=== PATIENT | female | born 1955 | race Caucasian/White ===

== ENCOUNTER → 2019-06-12 11:10 | Outpatient (BNVA) | payer MEDICARE, MEDICAID, SELFPAY | PROVIDERS: Family Provider Family Medicine; PCP Family Medicine; Visit Provider Family Medicine | DX: R31.0 Gross hematuria (principal) | CPT/HCPCS: 81003; 87086 ==

== ENCOUNTER 2019-06-21 11:17 | Outpatient (CLI) | payer MEDICARE, MEDICAID, SELFPAY ==
--- NOTE | 2019-06-21 15:45 | XR_ITS ---
WS: [id number] Bone mineral density performed on a [employer], 06/21/2019 Clinical data: DEXA Findings: The distal left radius and ulna demonstrated the bone mineral density of 0.914 g/cm2 for a young mirella lt T score of 0.4. Measurement of the left hip reveals a bone mineral density of 0.998 g/cm2 with a young adult T score of -0.1. Measurement of the right hip reveals the bone mineral density of 0.851 g/cm2 for young adult T score of -1.2. XR/XR DEXA axial skeleton* 88710 Impression: 1. Normal bone mineral density of the right forearm and left hip. 2. Osteopenia of the right hip.
== END 2019-06-21 11:18 | disposition home or self-care (01) ==
LOC: RADWPI 11:22
PROVIDERS: Family Provider Family Medicine; PCP Family Medicine; Visit Provider Family Medicine
DX: Z78.0 Asymptomatic menopausal state (principal); M85.88 Other specified disorders of bone density and structure, other site
CPT/HCPCS: 77080

== ENCOUNTER → 2019-07-01 08:24 | Outpatient (BNVA) | payer MEDICARE, MEDICAID, SELFPAY | PROVIDERS: Family Provider Family Medicine; PCP Family Medicine; Visit Provider Family Medicine | DX: I10 Essential (primary) hypertension (principal); E11.9 Type 2 diabetes mellitus without complications; F32.9 Major depressive disorder, single episode, unspecified; M54.42 Lumbago with sciatica, left side; M54.41 Lumbago with sciatica, right side; G89.29 Other chronic pain | CPT/HCPCS: 80053; 80061; 83036; 85025 ==

== ENCOUNTER 2019-07-23 11:50 | Emergency (ER) | payer MEDICARE, OTHER, MEDICAID, SELFPAY ==
[2019-07-23 12:04] VITALS: BP 173/81; PULSE 100; RESP 18; TEMP 36.9; O2SAT 91; BMI 56.6
--- NOTE | 2019-07-23 12:17 | CT_ITS ---
WS: [id number] CT ABDOMEN AND PELVIS NONCONTRAST HISTORY: R back/groin pain TECHNIQUE: Imaging performed through the abdomen and pelvis. Coronal and sagittal reformats are submi tted. All CT scans at [facility] use at least one of these dose optimization techniques: automated exposure control; mA and/or kV adjustment per patient size (includes targeted exams where d ose is matched to clinical indication); or iterative reconstruction. DLP: 1866.02 mGy.cm COMPARISON: None available. Lower thorax: Linear atelectasis at the lung bases. No pneumonia. Liver: Normal size liver. Mild hepatic steatosis. No bile duct dilatation. Gallbladder: Prior cholecystectomy. Pancreas: Normal. Spleen: Normal. Adrenal glands: Normal. Right kidney: Mild enlargement with mild perinephric stranding and edema. There is moderate dilatatio n of the RIGHT renal pelvis. Proximal RIGHT ureteral calcification is rounded measuring 11 mm causing the obstruction. Ureter distal to this calcification is normal. There is an additional nonobstructin g 5 mm calcification in the lower pole. Left kidney: Normal size kidney with 2 nonobstructing calcifications. Largest measures 5 mm. Mild atherosclerosis with no aneurysm. No free fluid, intraperitoneal air or significant lymphadenopathy. GI tract: The appendix is not definitely identified. There is no evidence for appendicitis. Mild cons tipation. No significant diverticular disease. Abdominal wall: Postsurgical changes along the ventral abdominal wall and pelvis. Pelvis: Nondistended urinary bladder. Uterus and ovaries are atrophic as expected. No pelvic mass or fluid. No adenopathy. Osseous structures: Degenerative changes in the facet joints throughout the lumbar spine. No fracture . CT/CT kidney stone 73883 IMPRESSION: 1. Moderate RIGHT hydronephrosis secondary to a rounded 11 mm calcification in the proximal RIGHT ureter. 2. Additional bilateral nephrolithiasis, nonobstructing. 3. Prior cholecystectomy. 4. Mild hepatic steatosis.
--- NOTE | 2019-07-23 12:18 | ED_ITS ---
HPI - Female Genitourinary General: Chief complaint: Urogenital-Female Stated complaint: BACK AND GROIN PAIN Time Seen by Provider: 07/23/19 12:08 Source: patient Mode of arrival: ambulatory Limitations: no limitations History of Present Illness: HPI Narrative: Patient is a 63-year-old female who presents to ED today with fairly sudden onset of right-sided back pain wrapping around into her abdomen and groin that began early this morning after waking her up from sleep. Patient states she is having trouble starting a urine stream but denies dysuria, odor, or hematuria. She is not having fevers. She does state her pain is making her nauseous but has not experienced any vomiting. Reports bowel movements have been normal. She denies history of kidney stones. MD elicited complaint: difficulty urinating and other (suspected kidney stone) Location of symptoms: RLQ, low back and other (R groin) Quality of pain: sharp Consistency: constant Vaginal discharge: none Vaginal bleeding: none Urinary symptoms: Difficulty Urinating Associated symptoms: Reports abdominal pain and nausea; Deny headache(s) Review of Systems Const: Denies: fever, chills, body aches, fatigue or malaise Card: Denies: chest pain Resp: Denies: shortness of breath GI: Reports: abdominal pain and nausea; Denies: vomiting, vomiting blood, difficulty swallowing, heartburn/indigestion, diarrhea, change in bowel habits, painful bowel movements, change in stool character, blood in stool, black tarry stool or white/light colored stool : Reports: flank pain, difficulty urinating and urinary hesitancy; Denies: painful urination, urinary frequency or urinary urgency Musc: Reports: back pain; Denies: neck pain Neuro: Denies: headache, numbness in extremities, weakness in extremities or changes in sensation PFS ED PFSH: Medical History (Updated 07/23/19 @ 13:57 by HANNA Hull) Acute depression Chronic low back pain 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 Controlled type 2 diabetes mellitus, without long-term current use of insulin Enrolled in chronic care management HTN (hypertension) Hypertriglyceridemia Obstructive sleep apnea Other hammer toe(s) (acquired), left foot Panic attack PTTD (posterior tibial tendon dysfunction) Statin intolerance Surgical History H/O amputation of lesser toe History of 2 sections History of laparoscopic cholecystectomy History of tonsillectomy Status post right foot surgery Social History Smoking and tobacco status: former smoker Second hand smoke exposure: No Alcohol intake: never Lives independently: Yes Marital status: Current occupational status: disabled Female Reproductive History: Para: 2 Spontaneous abortions: No Date of menopause: 10/06/04 Physical Exam Const: COMMON NORMALS: no apparent distress, oriented x3, no limitations and alert NUTRITIONAL APPEARANCE: obese morbidly obese Resp: COMMON NORMALS: normal respiratory effort and clear to auscultation bilaterally AUSCULTATION: clear to auscultation bilaterally Cardio: COMMON NORMALS: regular rate and regular rhythm RATE: regular rate RHYTHM: regular rhythm GI: COMMON NORMALS: normal to inspection, nondistended, normoactive bowel sounds, soft to palpation, no hepatosplenomegaly and no masses PALPATION: Yes soft, Yes tender (mild pain wrapping around from R lower back into lower abdomen/groin) and Yes no hepatosplenomegaly : OTHER: pain just below R CVA Back/Pelvis: COMMON NORMALS: thoracic and lumbar spine normal to inspection, no thoracic nor lumbar tenderness and thoraco-lumbar ROM normal Extremity: COMMON NORMALS: normal to inspection Neuro: COMMON NORMALS: oriented x3 SENSORIUM/ORIENTATION: Yes alert Skin: COMMON NORMALS: no rashes or lesions noted GENERAL SKIN EXAM: no rashes or lesions noted Course Consultations: Consultation #1: Dr. Finch-will see in office this week for re-evaluation Vital Signs: Vital signs: Vital Signs Temperature 98.5 F 07/23/19 12:04 Pulse Rate 78 07/23/19 14:08 Respiratory Rate 17 07/23/19 14:08 Blood Pressure 169/86 07/23/19 14:08 Pulse Oximetry 94 07/23/19 14:08 MDM - Female MDM Narrative: Medical decision making narrative: Patient's vital signs look good. She is not febrile or tachycardic. Her urine is not infected. Her pain was well controlled here after pain medications. Patient tells me she feels comfortable going home and treating the pain. Due to the size of the stone I did speak to Dr. Finch who felt it was appropriate to at least try to allow the stone to pass. He did request close follow-up with her and will see her in the office this week for reevaluation. Strict return to ED precautions given. We will have her strain her urine just in case she passes the stone. Lab Data: Labs: Lab Results 07/23/19 07/23/19 07/23/19 Range/Units 12:26 12:26 13:02 WBC 10.2 H (4.0-10.0) 10^3/ uL RBC 4.61 (4.1-5.3) 10^6/u L Hgb 12.8 (11.5-15.3) g/dL Hct 41.9 (37.0-47.0) % MCV 90.9 (81-99) fL MCH 27.8 L (28.0-34.0) pg MCHC 30.5 (30.0-36.0) g/dL RDW 15.5 H (12.1-15.1) % Plt Count 218 (130-400) 10^3/c mm MPV 9.9 (7.4-10.4) fL Neut % (Auto) 78.5 % Lymph % (Auto) 12.1 % Kimball % (Auto) 7.2 % Eos % (Auto) 1.2 % Baso % (Auto) 0.3 % Neut # (Auto) 8.0 H (1.8-7.7) 10^3/u L Lymph # (Auto) 1.2 (0.8-4.8) 10^3/u L Kimball # (Auto) 0.7 (0.2-0.9) 10^3/u L Eos # (Auto) 0.1 (0.0-0.8) 10^3/u L Baso # (Auto) 0.0 (0.0-0.1) 10^3/u L Nucleated RBC % (a uto) 0 % Nucleated RBCs # 0.0 /100WBC Sodium 137 (136-145) mmol/L Potassium 4.7 (3.5-5.1) mmol/L Chloride 100 (98-107) mmol/L Carbon Dioxide 22 (22-29) mmol/L Anion Gap 19.7 H (5-19) BUN 18 (8-23) mg/dL Creatinine 1.0 H (0.5-0.9) mg/dL GFR Calculation 55.6 L (90-130) mL/min Glucose 222 H (65-115) mg/dL Calculated Osmolal ity 287 (285-295) mOsm/k g Calcium 9.4 (8.5-10.5) mg/dL Total Bilirubin 0.3 (0.15-1.2) mg/dL AST 16 (0-32) U/L ALT 13 (0-33) U/L Alkaline Phosphata se 63 (35-105) IU/L Total Protein 7.0 (6.6-8.7) g/dL Albumin 4.0 (3.5-5.2) g/dL Globulin 3.0 (1.3-4.6) g/dL Urine Color Yellow (Yellow) Urine Appearance Sl hazy (CLEAR) Urine pH 5 (5-7) Ur Specific Gravit y 1.020 (1.005-1.030) Urine Protein Neg (Negative) Urine Glucose (UA) Norm (Normal) Urine Ketones 1+ H (Negative) Urine Blood 3+ H (Negative) Urine Nitrate Negative (Negative) Urine Bilirubin Neg (NEGATIVE) Urine Urobilinogen Norm (Negative) mg/dL Ur Leukocyte Bárbara ase Negative (Negative) Urine RBC 25-40 H (0-2) /hpf Urine WBC 5-10 H (0-5) /hpf Ur Squamous Epith Cells 55-80 H (0-5) Urine Bacteria 2+ H (NONE) Imaging Data: CT Abd/Pel: Radiologist's impression: [facility] [place] [address] [place] Scan Report Signed Patient: Christo Justin Unit #: [id number] : [id number] Age/Sex: 63 / F ADM Date: 07/23/19 Loc: ER Room/Bed: Attending Dr: Ordering Provider/Ordering MD: Sabrina Mills Date of Service: 07/23/19 Procedure(s): CT kidney stone 94627 Accession Number(s): [id number] Report Number: [id number] WS: [id number] CT ABDOMEN AND PELVIS NONCONTRAST HISTORY: R back/groin pain TECHNIQUE: Imaging performed through the abdomen and pelvis. Coronal and sagittal reformats are submitted. All CT scans at [facility] use at least one of these dose optimization techniques: automated exposure control; mA and/or kV adjustment per patient size (includes targeted exams where dose is matched to clinical indication); or iterative reconstruction. DLP: 1866.02 mGy.cm COMPARISON: None available. Lower thorax: Linear atelectasis at the lung bases. No pneumonia. Liver: Normal size liver. Mild hepatic steatosis. No bile duct dilatation. Gallbladder: Prior cholecystectomy. Pancreas: Normal. Spleen: Normal. Adrenal glands: Normal. Right kidney: Mild enlargement with mild perinephric stranding and edema. There is moderate dilatation of the RIGHT renal pelvis. Proximal RIGHT ureteral calcification is rounded measuring 11 mm causing the obstruction. Ureter distal to this calcification is normal. There is an additional nonobstructing 5 mm calcification in the lower pole. Left kidney: Normal size kidney with 2 nonobstructing calcifications. Largest measures 5 mm. Mild atherosclerosis with no aneurysm. No free fluid, intraperitoneal air or significant lymphadenopathy. GI tract: The appendix is not definitely identified. There is no evidence for appendicitis. Mild constipation. No significant diverticular disease. Abdominal wall: Postsurgical changes along the ventral abdominal wall and pelvis. Pelvis: Nondistended urinary bladder. Uterus and ovaries are atrophic as expected. No pelvic mass or fluid. No adenopathy. Osseous structures: Degenerative changes in the facet joints throughout the lumbar spine. No fracture. CT/CT kidney stone [id number] IMPRESSION: 1. Moderate RIGHT hydronephrosis secondary to a rounded 11 mm calcification in the proximal RIGHT ureter. 2. Additional bilateral nephrolithiasis, nonobstructing. 3. Prior cholecystectomy. 4. Mild hepatic steatosis. Dictated By: Kalpana Prieto DO Signed By: Kalpana Prieto DO Signed Date/Time: 07/23/19 1249 DD/ 1243 Discharge Plan Discharge Patient Disposition: Home, Self-Care Clinical Impression: Right ureteral stone Condition: Stable Prescriptions: New Zofran 4 mg tablet 4 mg PO Q6H PRN (Reason: nausea and vomiting) Qty: 14 RF: 0 Flomax 0.4 mg capsule 0.4 mg PO DAILY Qty: 20 RF: 0 No Action lisinopril 10 mg tablet 10 mg PO DAILY Qty: 90 RF: 1 glipizide 10 mg tablet 10 mg PO DAILY Qty: 90 RF: 1 metformin 500 mg tablet 1,000 mg PO BID Qty: 360 RF: 1 duloxetine [Cymbalta] 60 mg capsule,delayed release(DR/EC) 60 mg PO DAILY Qty: 90 RF: 1 meloxicam 15 mg tablet 15 mg PO DAILY Qty: 90 RF: 1 omega-3 fatty acids [Fish Oil Concentrate] 1,000 mg capsule 1,000 mg PO DAILY RF: 0 ezetimibe [Zetia] 10 mg tablet 10 mg PO DAILY Qty: 90 RF: 1 Multiple Vitamins Tablet 1 tab PO DAILY RF: 0 Zyrtec 10 mg Tablet 10 mg PO DAILY RF: 0 hydrocodone-acetaminophen 7.5-325 mg tablet 1 tab PO QID PRN (Reason: Pain) RF: 0 Fosamax 70 mg tablet 70 mg PO Q7D RF: 0 Trulicity 0.75 mg/0.5 mL pen injector 0.75 mg SUBCUT Q7D RF: 0 Discharge Orders: Discharge Order (Routine); Ordered 07/23/19 Ordered By: Sabrina Mills Referrals: Kasia Jiang DO [Primary Care Provider] - Discharge Diet: Usual diet Discharge Activity: Increase activity as tolerated Patient Instructions: Kidney Stones (ED) Activity Restrictions/Additional Instructions: 1) You may continue taking your hydrocodone every 4 hours for pain. Because you are under a pain management contract I am not allowed to write you for additional pain medications 2) I have written you for nausea medications you can use as needed. 3) Dr. Finch will see you in his office this week for reevaluation 4) Strain your urine continuously just in case you pass the stone-you may bring the stone with you to Dr. Finch's appointment 5) Return to the emergency department for worsening uncontrollable pain, fevers, repetitive vomiting, or any other concerns you may have. 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
[2019-07-23 12:33] LABS: Basophils % 0.3 %; Eosinophils # 0.1 10^3/uL (0.0-0.8); Eosinophils % 1.2 %; Hematocrit 41.9 % (37.0-47.0); Hemoglobin 12.8 g/dL (11.5-15.3); Lymphocytes # 1.2 10^3/uL (0.8-4.8); Lymphocytes % 12.1 %; Mean Corpuscular HGB Conc 30.5 g/dL (30.0-36.0); Mean Corpuscular Hemoglobin 27.8 pg (28.0-34.0); Mean Corpuscular Volume 90.9 fL (81-99); Mean Platelet Volume 9.9 fL (7.4-10.4); Monocytes # 0.7 10^3/uL (0.2-0.9); Monocytes % 7.2 %; Neutrophils % 78.5 %; Nucleated Red Blood Cells % 0 %; Platelet Count 218 10^3/cmm (130-400); Red Blood Count 4.61 10^6/uL (4.1-5.3); Red Cell Distribution Width 15.5 % (12.1-15.1); White Blood Count 10.2 10^3/uL (4.0-10.0)
[2019-07-23 12:47] LABS: Alanine Aminotransferase 13 U/L (0-33); Alkaline Phosphatase 63 IU/L (35-105); Anion Gap 19.7 (5-19); Aspartate Amino Transferase 16 U/L (0-32); Blood Urea Nitrogen 18 mg/dL (8-23); Calcium 9.4 mg/dL (8.5-10.5); Carbon Dioxide 22 mmol/L (22-29); Chloride 100 mmol/L (98-107); Creatinine Clr Calc Pharmacy 82.0728; Glomerular Filtration Rate 55.6 mL/min (90-130); Glucose 222 mg/dL (65-115); Osmolality Calculated 287 mOsm/kg (285-295); Potassium 4.7 mmol/L (3.5-5.1); Sodium 137 mmol/L (136-145); Total Bilirubin 0.3 mg/dL (0.15-1.2)
[2019-07-23] MEDS: ketorolac 60 mg/2 mL INJ 30 MG IVP (12:53)
[2019-07-23] MEDS: ondansetron 2 mg/ML SDV 2 mL 4 MG IVP (12:53)
[2019-07-23] MEDS: sodium chloride 0.9% 1,000 ML 999 ML IV (12:54)
[2019-07-23 12:55] VITALS: RESP 18; O2SAT 93
[2019-07-23] MEDS: morphine 4 mg/mL SDV 1 mL IVP (12:55)
[2019-07-23 13:30] LABS: Urine Appearance SL Hazy (CLEAR); Urine Color Yellow (Yellow)
[2019-07-23 13:31] LABS: Add Urine Microscopic? YES; Bilirubin Urine Neg (NEGATIVE); Blood Urine 3+ (Negative); Glucose Urine UA Norm (Normal); Ketones Urine 1+ (Negative); Leukocyte Esterase Urine Negative (Negative); Nitrate Urine Negative (Negative); Protein Urine Neg (Negative); Urobilinogen Urine Norm (Negative); pH Urine 5 (5-7)
[2019-07-23 14:04] LABS: RBC Urine 25-40 /hpf (0-2)
[2019-07-23 14:05] LABS: Bacteria Urine 2+; Squamous Epithelial Cell Urine 55-80 (0-5)
[2019-07-23 14:06] LABS: Add Urine Culture? No
[2019-07-23 14:08] VITALS: BP 169/86; PULSE 78; RESP 17; O2SAT 94
--- NOTE | 2019-07-24 12:30 | DCPLANNER ---
assistant spa manager had message to schedule a follow up appointment for patient with Dr. Finch. assistant spa manager called the office of Dr. Finch, spoke with Angelina. assistant spa manager was told that patients information would be printed and given to Ursula for review. Clinic will call patient with appointment information. assistant spa manager will call for appointment information.
--- NOTE | 2019-07-25 13:04 | DCPLANNER ---
Patient had a follow up appointment scheduled for 07.25.[address] Finch. Patient did attend the appointment.
== END 2019-07-23 14:09 | disposition home or self-care (01) ==
PROVIDERS: Emergency Provider Physician Assistant; Family Provider Family Medicine; PCP Family Medicine
DX: N20.0 Calculus of kidney (principal)
CPT/HCPCS: 12345; 36415; 74176; 80053; 81001; 85025; 96361; 96374; 96375; 99282; 99283; J1885; J2270; J2405; J7030

== ENCOUNTER 2019-07-25 09:24 | Outpatient (CLI) | payer MEDICARE, MEDICAID, SELFPAY ==
--- NOTE | 2019-07-25 10:30 | XR_ITS ---
WS: [id number] ABDOMEN KUB CLINICAL INFORMATION: Renal/ureteral calculi. COMPARISON: CT July 23, 2019 FINDINGS: Again seen is the large right proximal ureteral 11 mm calculus. This does not appear significantly ch anged since the prior CT considering differences in technique. No other visualized renal or ureteral calculi. Degenerative arthritis lumbar spine and left greater than right hips. XR/XR KUB 80692 Impression: 1. Again seen is a larger approximately ureteral calculus measuring 11 mm. Thi s does not appear significantly changed since the prior CT 2. No other visualized calculi
== END 2019-07-25 09:25 | disposition home or self-care (01) ==
LOC: RAD 09:27 → RADWPI 09:39
PROVIDERS: Family Provider Family Medicine; PCP Family Medicine; Visit Provider Urology
DX: N20.1 Calculus of ureter (principal)
CPT/HCPCS: 74018; 81001

== ENCOUNTER 2019-07-31 10:16 | Outpatient (CLI) | payer MEDICARE, MEDICAID, SELFPAY ==
--- NOTE | 2019-07-31 10:22 | XR_ITS ---
WS: [id number] ABDOMEN: SUPINE FILM HISTORY: RIGHT URETERAL STONE COMPARISON: 07/23/2019 Prior cholecystectomy. Advanced degenerative changes in the lower lumbar spine. Right kidney: Well-rounded 11 mm calcification just above the RIGHT iliac crest. Corresponds to the c alcification described in the RIGHT ureter on prior studies. No inferior migration of the stone. Left kidney: No renal or ureteral stone identified. XR/XR KUB 09290 IMPRESSION: Unchanged position of the 11 mm calcification in the RIGHT ureter.
== END 2019-07-31 10:17 | disposition home or self-care (01) ==
LOC: RAD 10:18 → RADWPI 10:20
PROVIDERS: Family Provider Family Medicine; PCP Family Medicine; Visit Provider Urology
DX: N20.1 Calculus of ureter (principal)
CPT/HCPCS: 74018; 81001

== ENCOUNTER 2019-08-08 08:03 | Outpatient (CLI) | payer MEDICARE, MEDICAID, SELFPAY ==
--- NOTE | 2019-08-08 08:00 | XR_ITS ---
WS: [id number] ABDOMEN KUB CLINICAL INFORMATION: Renal/ureteral calculi. COMPARISON: July 31, 2019 FINDINGS: 11 millimeter right ureteral calcification is unchanged. This is projected just above the iliac crest . Cholecystectomy clips. XR/XR KUB 48022 Impression: 11 mm right ureteral calculus unchanged
== END 2019-08-08 08:04 | disposition home or self-care (01) ==
LOC: RADWPI 08:06
PROVIDERS: Family Provider Family Medicine; PCP Family Medicine; Visit Provider Nurse Practitioner Family
DX: N20.1 Calculus of ureter (principal)
CPT/HCPCS: 74018; 81001

== ENCOUNTER 2019-08-13 05:56 | Day surgery (SDC) | payer MEDICARE, MEDICAID, SELFPAY ==
[2019-08-12 15:49] VITALS: BMI 56.6
[2019-08-13] VITALS (9 sets, daily range): BP systolic 143–175; BP diastolic 84–111; PULSE 78–88; RESP 16–19; TEMP 36.1–36.8; O2SAT 87–95
--- NOTE | 2019-08-13 | SCC_ITS ---
Procedure Done: 1. Cystoscopy, right retrograde ureteropyelogram 2. Right ureterorenoscopy, laser lithotripsy, stent 82.6 seconds of fluoroscopic guidance, for a cumulative dose of 75.73 mGy, was provided to Dr. Finch by the radiology department. C-arm images of the abdomen were saved for the patient's permanent record. [facility]
--- NOTE | 2019-08-13 05:50 | SC_ITS ---
WS: [id number] INTRAOPERATIVE TECHNIQUE: 4 Spot fluoroscopic images for intraoperative purposes. FLUOROSCOPY TIME: 82.6 seconds CLINICAL INFORMATION: Refractory right proximal ureteral stone, planned ureteroscopy/laser COMPARISON: None. FINDINGS: Deployed right double-J ureteral stent SC/C-arm FL for Urology IMPRESSION: Images obtained for intraoperative purposes.
--- NOTE | 2019-08-13 06:30 | ANES.PREANE2 ---
Pre-Anesthetic Assessment Pre-Anesthetic Assessment: Height/Weight: Height 1.63 m Weight 149.685 kg Temp Pulse Resp BP Pulse Ox 98.3 F 83 18 164/87 91 08/13/19 06:09 08/13/19 06:09 08/13/19 06:09 08/13/19 06:09 08/13/19 06:09 Preop Diagnosis: Refractory right proximal ureteral stone with obstruction Proposed Procedure: Operation Date: 08/13/19 07:00 Proposed Procedures p Cystoscopy 72227 20245 N13.30(Right) - MD [facility] Retrograde Pyelogram(Right) - MD [facility] Flexible Ureteroscopy(Right) - MD [facility] Laser Lithotripsy(Right) - MD [facility] Ureteral Stent Placement(Right) - Sumeet Finch MD Last intake: Intake Last Liquid Date 08/13/19 Last Liquid Time 05:30 Last Solid Date 08/12/19 Last Solid Time 16:30 Social: Social History: Tobacco (remote) and No alcohol Exam: Pre-Anes Outpt Exam: alert, oriented x 3, clear to auscultation bilaterally and regular rate & rhythm Airway: Submandibular: WNL Cervical ROM: WNL MP: 3 Dentition: False (upper and lower) History/ROS: No significant history except as noted Pulmonary: Pulmonary: VERONICA and Sleep apnea Comments: O2 sat runs in the low 90s to high 80s CV/HEM: CV/HEM: None reported : Comments: stones Hepatic: Hepatic: None reported GI: GI: None reported Metabolic: Metabolic: DM, Hyperlipidemia and Morbid obesity Musc/skel: Musc/skel: Lower Back Pain and OA/DJD Neuropsych: Neuropsych: Anxiety and Depression Anesthetic Plan: ASA status: 3 Anesthesia: Anesthesia Evaluation and General Risk of > 500 ml blood loss (7ml/kg in children): No PFSH Anesthesia PFSH: Social History Smoking and tobacco status: former smoker Second hand smoke exposure: No Alcohol intake: never Lives independently: Yes Marital status: Current occupational status: disabled History of recent travel: No Female Reproductive History: Para: 2 Spontaneous abortions: No Date of menopause: 10/06/04 Data Anesthesia Cardiac Studies: No Data to Display
[2019-08-13 06:33] LABS: Glucose Point of Care 211 mg/dL (70-110)
[2019-08-13] MEDS: sodium chloride 0.9% 1,000 ML 30 ML IV (06:38)
--- NOTE | 2019-08-13 06:55 | W.PM.OPSUD ---
Surgery/Procedure H&P Update DATE OF PROCEDURE: August 13, 2019 DATE H&P PERFORMED: 08/08/19 H&P UPDATE INFORMATION: I have reviewed H&P completed within last 30 days, I have examined patient prior to procedure and No changes to prior documentation PREOP DIAGNOSIS: Refractory right proximal ureteral stone with obstruction PLANNED PROCEDURE: Operation Date: 08/13/19 07:00 Proposed Procedures p Cystoscopy 14891 86862 N13.30(Right) - Sumeet Finch MD s Retrograde Pyelogram(Right) - Sumeet Finch MD s Flexible Ureteroscopy(Right) - MD [facility] Laser Lithotripsy(Right) - MD [facility] Ureteral Stent Placement(Right) - Sumeet Finch MD
--- NOTE | 2019-08-13 06:56 | PM.OP ---
Operative Report Date of procedure: August 13, 2019 Pre-op Diagnosis: Refractory right proximal ureteral stone with obstruction Post-op diagnosis: same Procedure Done: 1. Cystoscopy, right retrograde ureteropyelogram 2. Right ureterorenoscopy, laser lithotripsy, stent Implants: Ureteral stent Specimens removed/disposition: Stone fragments/sand sent to pathology Surgeon: Stef Anesthesia: General Estimated blood loss: Minimal Complications: None Findings: 1. Right retrograde ureteropyelogram confirmed normal ureter distal to the stone and filling defect consistent with stone seen on prior imaging 2. Stone accessible in renal pelvis and fragmented with laser lithotripsy. Condition: stable Disposition: PACU Brief History: Mrs. Justin is a very pleasant 64-year-old white female recently diagnosed with a right proximal ureteral stone measuring approximately 1 cm. She had obstructive changes and typical renal colicky symptoms at onset of diagnosis. The hope was that she might actually passed the stone but on serial, sequential imaging studies there was no significant progress. Ultimately we chose to proceed with intervention and elected endoscopy. Procedure: After routine preoperative evaluation examination and obtaining of informed consent she was taken to the operating suite on 08/13/2019 where general anesthesia was administered without difficulty after appropriate timeout was performed, SCDs confirmed to be functioning, preoperative antibiotics administered, beta-alena protocol confirmed. Prepped and draped in usual sterile fashion in dorsolithotomy position pain careful attention to avoiding pressure points. 21 Iranian cystoscope with 30 degree lens was introduced into the urethra meatus and advanced into the bladder under videoscopy. The bladder was systematically examined and showed no evidence of stones or gross abnormality. An 8 Iranian cone-tipped catheter was intubated into the right ureteral orifice for right retrograde ureteropyelogram which demonstrated normal course and caliber of the ureter up into the point of the stone location as demonstrated with a filling defect. The ureter proximal to the stone was dilated as was the pyelocalyceal system. A flexible guidewire was then passed at the right ureter bypassing the stone. Intramural tunnel was dilated with a 15 Iranian by 4 cm balloon. A second guidewire was passed as a working wire and the first to be used as a safety wire. A 24 cm ureteral access sheath was then advanced to just below the stone over the working guidewire. Flexible scope was advanced over the guidewire up the ureter to the renal pelvis and then to the stone. 270 ?m homing laser fiber was then utilized to fragment the stone into mostly sand but multiple smaller fragments that should easily pass. The ureter was carefully inspected as the scope was withdrawn and was found to be intact. There was some narrowing at the UPJ most likely related to area of inflammation from the previous location of the stone. A 7 Iranian by 26 cm double-pigtail stent without string was then passed over the guidewire through the cystoscope into appropriate position as confirmed via fluoroscopy and cystoscopy. Bladder was drained and the procedure completed. She was awakened in the operating room and returned to cover him in stable condition with anticipation of discharge to home and follow-up KUB in 1 week.
[2019-08-13] MEDS: levofloxacin-dextrose 5 % 500 MG/100 ML PREMIX 100 MG IV (06:59)
[2019-08-13] MEDS: iohexol 300 mg/mL 50 mL Btl (OR ONLY) XX (07:27)
[2019-08-13 08:44] LABS: Glucose Point of Care 185 mg/dL (70-110)
--- NOTE | 2019-08-13 08:49 | SUR.PHASEI ---
0849 PT DENIES NAUSEA AND PAIN, WARM BLANKET TO PT EVEN THOUGH SHE DENIED BEING COLD, VSS SATS 89-91 ON 3LNC PT SATS DOWN TO 89% IF SLEEPING, PT AWAKES EASILY, WILL TAKE TO PHASE 2 TO BE MONITORED.
[2019-08-13] MEDS: HYDROcodone-acetaminophen 7.5-325 mg Tablet 1 TAB PO (09:17)
[2019-08-16 12:21] LABS: Stone Source RIGHT URETER
== END 2019-08-13 10:15 | disposition home or self-care (01) ==
PROVIDERS: Family Provider Family Medicine; PCP Family Medicine; Visit Provider Urology
PROC: 0TJB8ZZ Inspection of Bladder, Via Natural or Artificial Opening Endoscopic (ICD-10-PCS; CPT 52000; principal; 2019-08-13 07:00)
PROC: (CPT 74420; 2019-08-13 07:00)
PROC: 0TJ98ZZ Inspection of Ureter, Via Natural or Artificial Opening Endoscopic (ICD-10-PCS; CPT 52351; 2019-08-13 07:00)
PROC: (CPT 52356; 2019-08-13 07:00)
PROC: (CPT 50605; 2019-08-13 07:00)
DX: N13.2 Hydronephrosis with renal and ureteral calculous obstruction (principal); G47.30 Sleep apnea, unspecified; E11.9 Type 2 diabetes mellitus without complications; E78.5 Hyperlipidemia, unspecified; E66.01 Morbid (severe) obesity due to excess calories; Z68.43 Body mass index [BMI] 50.0-59.9, adult; M19.90 Unspecified osteoarthritis, unspecified site; Z87.891 Personal history of nicotine dependence; Z79.84 Long term (current) use of oral hypoglycemic drugs
CPT/HCPCS: 52356; 12345; 36416; 76000; 82365; 82962; 88300; C1725; C2625; J0330; J1956; J2405; J2704; J3010; J3490; J7030

== ENCOUNTER 2019-08-20 08:21 | Outpatient (CLI) | payer MEDICARE, MEDICAID, SELFPAY ==
--- NOTE | 2019-08-20 08:15 | XR_ITS ---
WS: [id number] ABDOMEN 1 VIEW(S) HISTORY: ureteral calculus COMPARISON: 08/08/2019 Moderate fecal retention. Portions of the colon not included on this radiograph due to patient's body habitus. RIGHT ureteral double pigtail stent has been placed. No calcifications noted along the course of the stent. Advanced degenerative changes in the lower lumbar spine. Bilateral SI joint arthritis. XR/XR KUB 18505 IMPRESSION: Placement of a RIGHT double pigtail ureteral stent with no associated calcifica tions.
== END 2019-08-20 08:22 | disposition home or self-care (01) ==
LOC: RAD 08:24
PROVIDERS: Family Provider Family Medicine; PCP Family Medicine; Visit Provider Urology
DX: N20.1 Calculus of ureter (principal); N13.30 Unspecified hydronephrosis; N20.0 Calculus of kidney; Z96.0 Presence of urogenital implants
CPT/HCPCS: 74018; 80053; 81001

== ENCOUNTER 2019-09-30 08:10 | Outpatient (CLI) | payer MEDICARE, MEDICAID, SELFPAY ==
--- NOTE | 2019-09-30 08:00 | XR_ITS ---
WS: [id number] ABDOMEN 1 VIEW(S) HISTORY: STONES COMPARISON: 08/20/2019 Normal bowel gas pattern. Double pigtail RIGHT ureteral stent has been removed. No calcifications are identified along the cour se of the kidneys or ureters. Moderate to severe LEFT hip joint arthritis. XR/XR KUB 04753 IMPRESSION: No renal or ureteral calcifications identified.
== END 2019-09-30 08:11 | disposition home or self-care (01) ==
LOC: RAD 08:13
PROVIDERS: Family Provider Family Medicine; PCP Family Medicine; Visit Provider Urology
DX: N20.0 Calculus of kidney (principal)
CPT/HCPCS: 74018; 81001

== ENCOUNTER → 2019-12-31 09:25 | Outpatient (BNVA) | payer MEDICARE, MEDICAID, SELFPAY | PROVIDERS: Family Provider Family Medicine; PCP Family Medicine; Visit Provider Family Medicine | DX: E11.9 Type 2 diabetes mellitus without complications (principal); I10 Essential (primary) hypertension; F41.1 Generalized anxiety disorder; M54.42 Lumbago with sciatica, left side; M54.41 Lumbago with sciatica, right side; G89.29 Other chronic pain; F32.9 Major depressive disorder, single episode, unspecified | CPT/HCPCS: 80053; 80061; 82043; 83036; 85025; 87086 ==

== ENCOUNTER 2020-03-26 19:49 | Emergency (ER) | payer MEDICARE, MEDICAID, SELFPAY ==
[2020-03-26 20:00] VITALS: BP 131/87; PULSE 77; RESP 18; TEMP 36.4; O2SAT 92; BMI 56.2
--- NOTE | 2020-03-26 20:19 | ED_ITS ---
HPI - General Adult General: Chief complaint: General Medical Stated complaint: Hip pain Time Seen by Provider: 03/26/20 20:09 History of Present Illness: HPI narrative: Patient said she was on oxycodone for 2 months she is got change on Monday to ox hydrocodone now taking 01/24/2025 8 times a day. For her left hip pain. Patient does go to the pain clinic. Patient now says she been feeling more nauseous crying a lot just feels out of sorts. Bowels are working fine. MD complaint: Oxycodone withdrawal Onset (ago): day(s) Associated symptoms: Reports nausea; Deny chest pain, dyspnea, headache(s), rash or vomiting Review of Systems Const: Denies: fever(s), chills or body aches Eyes: Denies: change in vision or blurry vision ENMT: Denies: throat pain or nasal congestion Card: Reports: other (Foot edema chronic worse presently); Denies: chest pain or dyspnea on exertion Resp: Denies: dyspnea, productive cough or non-productive cough GI: Reports: nausea; Denies: abdominal pain or vomiting Musc: Denies: extremity pain Skin/Breast: Denies: rash Neuro: Denies: headache(s) Psych: Reports: mood swings; Denies: anxiety or depression Javier/Lymph: Denies: easy bruising PFS ED PFSH: Medical History (Updated 03/26/20 @ 20:17 by PETER Barreto) Acute depression Bilateral renal stones Chronic low back pain 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 Controlled type 2 diabetes mellitus, without long-term current use of insulin Enrolled in chronic care management HTN (hypertension) Hypertriglyceridemia Obstructive sleep apnea Other hammer toe(s) (acquired), left foot Panic attack PTTD (posterior tibial tendon dysfunction) Right ureteral calculus Statin intolerance Surgical History H/O amputation of lesser toe H/O inguinal hernia repair RIGHT History of 2 sections History of laparoscopic cholecystectomy History of tonsillectomy Status post right foot surgery Family History Mother , AT AGE 78 Cancer OVARIAN CANCER ,LUNG CANCER Father , AT AGE 86 Cancer STOMACH Other Diabetes Hyperlipidemia Hypertension Denies family history of CAD (coronary artery disease) Clotting disorder Dementia Psychiatric illness Chronic kidney disease (CKD) Suicide Anesthesia complication Bleeding disorder Family history of premature coronary artery disease Lung disease Stroke Social History Smoking and tobacco status: former smoker Second hand smoke exposure: No Alcohol intake: never Lives independently: Yes Marital status: Current occupational status: disabled History of recent travel: No Female Reproductive History: Para: 2 Spontaneous abortions: No Date of menopause: 10/06/04 Physical Exam Const: COMMON NORMALS: no acute distress, average body habitus and patient oriented x3 HENMT: COMMON NORMALS: normocephalic HEAD & SCALP: normal to inspection and normocephalic FACE & SINUS: normal facial exam Eye: COMMON NORMALS: conjunctivae normal GENERAL EYE: appearance normal, both eyes and all related structures CONJUNCTIVA: Yes conjunctivae normal Neck/C-Spine: COMMON NORMALS: no JVD Chest: COMMONS NORMALS: normal inspection of the chest Resp: COMMON NORMALS: normal respiratory effort and clear to auscultation bilaterally AUSCULTATION: clear to auscultation bilaterally Cardio: COMMON NORMALS: no JVD, regular rate and regular rhythm RATE: regular rate RHYTHM: regular rhythm OTHER: 1+ pitting edema to dorsal surface of feet GI: COMMON NORMALS: Normal to inspection, nondistended, normoactive bowel sounds present Extremity: COMMON NORMALS: normal to inspection and full ROM Neuro: COMMON NORMALS: patient oriented x3 Course Vital Signs: Vital signs: Vital Signs Temperature 97.6 F 03/26/20 20:00 Pulse Rate 77 03/26/20 20:00 Respiratory Rate 18 03/26/20 20:00 Blood Pressure 131/87 03/26/20 20:00 Pulse Oximetry 92 03/26/20 20:00 Discharge Plan Discharge Patient Disposition: Home Clinical Impression: Withdrawal syndrome Qualifiers: Substance type: opioid Qualified Code(s): F11.23 - Opioid dependence with withdrawal Condition: Stable Prescriptions: No Action cinnamon bark [Cinnamon] 500 mg capsule 1,000 mg PO DAILY RF: 0 turmeric root extract 500 mg capsule 500 mg PO DAILY RF: 0 garlic 1,000 mg capsule 1,000 mg PO DAILY RF: 0 buspirone 10 mg tablet 10 mg PO TID Qty: 270 RF: 0 meloxicam [Mobic] 15 mg tablet 15 mg PO DAILY Qty: 90 RF: 0 glipizide 10 mg tablet 10 mg PO DAILY Qty: 90 RF: 1 metformin 500 mg tablet 1,000 mg PO BID Qty: 360 RF: 1 Trulicity 0.75 mg/0.5 mL pen injector 0.75 mg SUBCUT Q7D Qty: 2 RF: 3 duloxetine [Cymbalta] 60 mg capsule,delayed release(DR/EC) 60 mg PO DAILY Qty: 90 RF: 0 cetirizine [Zyrtec] 10 mg Tablet 10 mg PO DAILY RF: 0 hydrocodone-acetaminophen 7.5-325 mg tablet 1 tab PO QID PRN (Reason: Pain) RF: 0 Discharge Orders: Discharge ED (Routine); Ordered 03/26/20 Ordered By: Papi Wallace Referrals: Kasia Jiang DO [Primary Care Provider] - Discharge Diet: Usual diet Discharge Activity: Resume usual activity Activity Restrictions/Additional Instructions: Follow-up with your pain clinic doc in the morning and notify them of the symptoms you are having and see if they want to make a medication change. Coding Level of Care Code ED Relocation Services Specialist for Nu Cooper
[2020-03-26] MEDS: LORazepam 2 mg Tablet PO (20:20)
== END 2020-03-26 20:25 | disposition home or self-care (01) ==
PROVIDERS: Emergency Provider Nurse Practitioner Family; PCP Family Medicine
DX: F11.23 Opioid dependence with withdrawal (principal); E11.9 Type 2 diabetes mellitus without complications; I10 Essential (primary) hypertension; Z87.891 Personal history of nicotine dependence
CPT/HCPCS: 12345; 99281; 99283

== ENCOUNTER → 2020-05-07 10:05 | Outpatient (BNVA) | payer MEDICARE, MEDICAID, SELFPAY | PROVIDERS: PCP Family Medicine; Visit Provider Podiatrist Foot & Ankle Surgery | DX: M79.672 Pain in left foot (principal) | CPT/HCPCS: 73630 ==

== ENCOUNTER → 2020-06-19 09:29 | Outpatient (BNVA) | payer MEDICARE, MEDICAID, SELFPAY | PROVIDERS: PCP Family Medicine; Visit Provider Family Medicine | DX: M25.552 Pain in left hip (principal); G89.29 Other chronic pain; E11.9 Type 2 diabetes mellitus without complications; I10 Essential (primary) hypertension; E78.1 Pure hyperglyceridemia; L98.9 Disorder of the skin and subcutaneous tissue, unspecified | CPT/HCPCS: 80053; 80061; 81015; 83036; 85025 ==

== ENCOUNTER 2020-06-23 11:35 | Outpatient (CLI) | payer MEDICARE, MEDICAID, SELFPAY ==
--- NOTE | 2020-06-23 11:40 | XRR_ITS ---
PROCEDURE INFORMATION: Exam: XR Left Hip with Pelvis when Performed Exam date and time: 06/23/2020 11:40 AM Age: 64 years old Clinical indication: Hip pain; Left hip; Additional info: Chronic left hip pain TECHNIQUE: Imaging protocol: XR Left hip with pelvis when performed. Views: 2 or 3 views. COMPARISON: CT kidney stone [id number] 07/23/2019 12:30 PM FINDINGS: Bones/joints: Severe degenerative changes within the hip including joint space narrowing, bony sclerosis, osteophytosis and mild remodeling. Degenerative changes left sacroiliac joint Soft tissues: Unremarkable. XR/XR hip LT 2-3V wo/w pel* [id number] IMPRESSION: Severe degenerative changes within the hip including joint space narrowing, bony sclerosis, osteophytosis and mild remodeling.
== END 2020-06-23 11:36 | disposition home or self-care (01) ==
PROVIDERS: PCP Family Medicine; Visit Provider Family Medicine
DX: M25.552 Pain in left hip (principal); G89.29 Other chronic pain
CPT/HCPCS: 73502

== ENCOUNTER → 2020-12-11 08:37 | Outpatient (BNVA) | payer MEDICARE, MEDICAID, SELFPAY | PROVIDERS: PCP Family Medicine; Visit Provider Family Medicine | DX: E11.9 Type 2 diabetes mellitus without complications (principal) | CPT/HCPCS: 80053; 80061; 82043; 83036; 85025 ==

== ENCOUNTER 2021-01-12 13:52 | Inpatient (IN) | payer MEDICARE, MEDICAID, SELFPAY ==
[2021-01-12] VITALS (12 sets, daily range): BP systolic 143–180; BP diastolic 87–116; PULSE 68–96; RESP 16–20; TEMP 36.6–37.1; O2SAT 83–98
--- NOTE | 2021-01-12 14:18 | W.ED.SOB ---
HPI - SOB/Dyspnea General: Chief Complaint: Shortness of Breath/Dyspnea Stated Complaint: HEART BEATING FUNNY,WEAK,DIFF URINATING Time Seen by Provider: 01/12/21 14:17 History of Present Illness: HPI Narrative: Ms. Justin is a 65-year-old with hypertension, hyperlipidemia, and diabetes who presents to the emergency department due to concern over urinary symptoms however was found to be hypoxemic on room air. She reports a longstanding history of urinary symptoms which are mild to moderate in intensity and persistent course. This has been worsening over the past 2 months. Describes urgency, loss of continence with standing, and incomplete emptying. She was unaware of feeling short of breath however does report a longstanding history of low oxygen. Her symptoms are worse with exertion but do not go away with rest. For the past 3 weeks she has noted increased lower extremity edema. No infectious symptoms. No history of similar. No other specific exacerbating, or alleviating factors. Review of Systems General: Reports: 10 or more systems reviewed and unremarkable except in HPI and below PFSH ED PFSH: Medical History Bilateral renal stones Chronic low back pain 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 Controlled type 2 diabetes mellitus, without long-term current use of insulin Enrolled in chronic care management HTN (hypertension) Hypertriglyceridemia Obstructive sleep apnea Other hammer toe(s) (acquired), left foot Panic attack PTTD (posterior tibial tendon dysfunction) Right ureteral calculus Statin intolerance Surgical History H/O amputation of lesser toe H/O inguinal hernia repair RIGHT History of 2 sections History of laparoscopic cholecystectomy History of tonsillectomy Status post right foot surgery Family History Mother , AT AGE 78 Cancer OVARIAN CANCER ,LUNG CANCER Father , AT AGE 86 Cancer STOMACH Other Diabetes Hyperlipidemia Hypertension Denies family history of CAD (coronary artery disease) Clotting disorder Dementia Psychiatric illness Chronic kidney disease (CKD) Suicide Anesthesia complication Bleeding disorder Family history of premature coronary artery disease Lung disease Stroke Social History Smoking and tobacco status: never smoked Second hand smoke exposure: No Alcohol intake: never Lives independently: Yes Marital status: Current occupational status: disabled History of recent travel: No Female Reproductive History: Para: 2 Spontaneous abortions: No Date of menopause: 10/06/04 Physical Exam Narrative: EXAM NARRATIVE: GENERAL/CONSTITUTIONAL - well-appearing. No acute distress. obese. O2 in placed Eyes - PERRL, no conjunctival injection ENMT - Atraumatic external nose and ears. Moist mucous membranes NECK - supple. trachea midline CARDIOVASCULAR - regular rate and rhythm. Peripheral pulses 2+ and equal. 2+ pitting edema RESPIRATORY -deminished to auscultation bilaterally. No retractions or accessory muscle use. ABDOMEN/GI - mildly tender int he suprapubic region. Nondistended. No tenderness to percussion or evidence of peritonitis MSK - Extremities without obvious deformity or tenderness to palpation SKIN - Warm, Dry NEURO - alert and appropriately oriented. strength and sensation intact. Moves all extremities equally. PSYCH - Appropriate mood and affect Course ED course: - Patient was seen and evaluated by me at bedside - Patient placed on cardiac monitors, IV access obtained - Initial evaluation notable for no acute distress, nontoxic. - Labs notable for as noted - Imaging notable for PEs with right heart strain - lovenox ordered - Upon serial reexamination after treatment the patient was similar - Based on patient history, evaluation, labs, and imaging as interpreted the most likely cause of the patient's condition is PEs - The results of ED evaluation were discussed with the patient including plan for admission due to requirement for level of care not available if discharged to prevent significant worsening/deterioration. - Hospitalist contacted and agreed to admit the patient - Patient was admitted without further deterioration or significant events. Vital Signs: Vital signs: Vital Signs Temperature 98.3 F 01/14/21 12:00 Pulse Rate 78 01/14/21 12:00 Respiratory Rate 18 01/14/21 12:00 Blood Pressure 162/85 01/14/21 12:00 Pulse Oximetry 91 01/14/21 12:00 MDM - SOB/Dyspnea Medical Records: Attestation: I reviewed the patient's medical records. Lab Data: Attestation: I reviewed the patient's lab results. Labs: Lab Results 01/12/21 01/12/21 01/12/21 14:30 14:38 15:07 WBC 7.5 10^3/uL 10^3/ uL (4.0-10.0) RBC 4.59 10^6/uL 10^6 /uL (4.1-5.3) Hgb 13.1 g/dL g/dL (11.5-15.3) Hct 42.3 % % (37.0-47.0) MCV 92.2 fl fl (81-99) MCH 28.5 pg pg (28.0-34.0) MCHC 31.0 g/dL g/dL (30.0-36.0) RDW 17.1 % H % (12.1-15.1) Plt Count 199 10^3/cmm 10^3 /cmm (130-400) MPV 9.7 fL fL (7.4-10.4) Neut % (Auto) 66.2 % % Lymph % (Auto) 20.7 % % [place] % (Auto) 10.4 % % Eos % (Auto) 1.7 % % Baso % (Auto) 0.7 % % Neut # (Auto) 4.98 10^3/uL 10^3 /uL (1.8-7.7) Lymph # (Auto) 1.6 10^3/uL 10^3/ uL (0.8-4.8) [place] # (Auto) 0.8 10^3/uL 10^3/ uL (0.2-0.9) Eos # (Auto) 0.1 10^3/uL 10^3/ uL (0.0-0.8) Baso # (Auto) 0.1 10^3/uL 10^3/ uL (0.0-0.1) Nucleated RBC % (a uto) 0 % % Nucleated RBCs # 0.0 /100WBC /100W BC Specimen Type Arterial Sample Site Radial, left ABG pH 7.38 (7.35-7.45) ABG pCO2 42.9 mmHg mmHg (35-45) ABG pO2 71.1 mmHg L mmHg (80.0-100.0) ABG HCO3 25.6 mmol/L mmol/ L (22-26) ABG Base Excess 0.3 mmol/L mmol/L (-2.0-2.0) Rodrigo Test Pos Hematocrit 39.0 % % (37-47) Hgb O2 Saturation 93.3 % L % (95-100) Carboxyhemoglobin 1.2 %THgb %THgb (0.4-20.1) Methemoglobin < 0.0 % L % (0.4-1.5) Total Hemoglobin 12.7 g/dL g/dL (12-16) O2 Delivery Device Nc O2 Liters/Min 3.0 % % FiO2 32.0 % % Operations Research Analyst ID Cak Sodium Potassium Chloride Carbon Dioxide Anion Gap BUN Creatinine GFR Calculation Glucose Calculated Osmolal ity Lactic Acid Calcium Total Bilirubin AST ALT Alkaline Phosphata se Troponin T Baselin e Troponin T 120 Min [place] Troponin T C-Reactive Protein NT-Pro-B Natriuret Pep Total Protein Albumin Globulin Urine Color Urine Appearance Urine pH Ur Specific Gravit y Urine Protein Urine Glucose (UA) Urine Ketones Urine Blood Urine Nitrate Urine Bilirubin Urine Urobilinogen Ur Leukocyte Bárbara ase Urine RBC Urine WBC Ur Squamous Epith Cells Calcium Oxalate Cr ystal Amorphous Sediment Urine Bacteria Urine Mucus SARS-CoV-2 Ag (Rap id) Negative (Negative) 01/12/21 01/12/21 01/12/21 15:07 15:07 15:07 WBC RBC Hgb Hct MCV MCH MCHC RDW Plt Count MPV Neut % (Auto) Lymph % (Auto) [place] % (Auto) Eos % (Auto) Baso % (Auto) Neut # (Auto) Lymph # (Auto) [place] # (Auto) Eos # (Auto) Baso # (Auto) Nucleated RBC % (a uto) Nucleated RBCs # Specimen Type Sample Site ABG pH ABG pCO2 ABG pO2 ABG HCO3 ABG Base Excess Rodrigo Test Hematocrit Hgb O2 Saturation Carboxyhemoglobin Methemoglobin Total Hemoglobin O2 Delivery Device O2 Liters/Min FiO2 Operations Research Analyst ID Sodium 144 mmol/L mmol/L (136-145) Potassium 4.7 mmol/L mmol/L (3.5-5.1) Chloride 108 mmol/L H mmol /L (98-107) Carbon Dioxide 25 mmol/L mmol/L (22-29) Anion Gap 15.7 (5-19) BUN 22 mg/dL mg/dL (8-23) Creatinine 0.8 mg/dL mg/dL (0.5-0.9) GFR Calculation 71.5 mL/min L mL/ min (90-130) Glucose 78 mg/dL mg/dL (65-115) Calculated Osmolal ity 300 mOsm/kg H mOs m/kg (285-295) Lactic Acid 1.5 mmol/L mmol/L (0.5-2.2) Calcium 9.4 mg/dL mg/dL (8.5-10.5) Total Bilirubin 0.3 mg/dL mg/dL (0.15-1.2) AST 13 U/L U/L (0-32) ALT 13 U/L U/L (0-33) Alkaline Phosphata se 55 IU/L IU/L (35-105) Troponin T Baselin e 14 ng/L H ng/L (0-10) Troponin T 120 Min [place] Troponin T C-Reactive Protein 9.7 mg/L H mg/L (0.0-4.9) NT-Pro-B Natriuret Pep 3299 pg/mL H pg/m L (0-125) Total Protein 6.2 g/dL L g/dL (6.6-8.7) Albumin 4.0 g/dL g/dL (3.5-5.2) Globulin 2.2 g/dL g/dL (1.3-4.6) Urine Color Urine Appearance Urine pH Ur Specific Gravit y Urine Protein Urine Glucose (UA) Urine Ketones Urine Blood Urine Nitrate Urine Bilirubin Urine Urobilinogen Ur Leukocyte Bárbara ase Urine RBC Urine WBC Ur Squamous Epith Cells Calcium Oxalate Cr ystal Amorphous Sediment Urine Bacteria Urine Mucus SARS-CoV-2 Ag (Rap id) 01/12/21 01/12/21 15:23 16:58 WBC RBC Hgb Hct MCV MCH MCHC RDW Plt Count MPV Neut % (Auto) Lymph % (Auto) [place] % (Auto) Eos % (Auto) Baso % (Auto) Neut # (Auto) Lymph # (Auto) [place] # (Auto) Eos # (Auto) Baso # (Auto) Nucleated RBC % (a uto) Nucleated RBCs # Specimen Type Sample Site ABG pH ABG pCO2 ABG pO2 ABG HCO3 ABG Base Excess Rodrigo Test Hematocrit Hgb O2 Saturation Carboxyhemoglobin Methemoglobin Total Hemoglobin O2 Delivery Device O2 Liters/Min FiO2 Operations Research Analyst ID Sodium Potassium Chloride Carbon Dioxide Anion Gap BUN Creatinine GFR Calculation Glucose Calculated Osmolal ity Lactic Acid Calcium Total Bilirubin AST ALT Alkaline Phosphata se Troponin T Baselin e Troponin T 120 Min [place] 13.91 ng/L H ng/L (0-10) Delta Troponin T -0.09 ABS# L ABS# (0-10) C-Reactive Protein NT-Pro-B Natriuret Pep Total Protein Albumin Globulin Urine Color Yellow (Yellow) Urine Appearance Hazy A (CLEAR) Urine pH 5 (5-7) Ur Specific Gravit y 1.020 (1.005-1.030) Urine Protein 1+ H (Negative) Urine Glucose (UA) Norm (Normal) Urine Ketones Negative (Negative) Urine Blood 3+ H (Negative) Urine Nitrate Negative (Negative) Urine Bilirubin 1+ H (Negative) Urine Urobilinogen Not Reportable Ur Leukocyte Bárbara ase 2+ H (Negative) Urine RBC 5-10 /hpf H /hpf (0-2) Urine WBC Too numerous to c nt /hpf H /hpf (0-5) Ur Squamous Epith Cells 5-10 /hpf H /hpf (0-5) Calcium Oxalate Cr ystal 5-10 /hpf H /hpf Amorphous Sediment Not Reportable Urine Bacteria 1+ /hpf H /hpf (NONE) Urine Mucus 1+ /hpf /hpf SARS-CoV-2 Ag (Rap id) EKG Data^: EKG 1: Attestation: I personally reviewed and interpreted this EKG as follows: EKG Interpretation Date: 01/12/21 EKG interpretation time: 15:03 Interpretation: Twelve-lead EKG shows a regular rhythm at a rate of 75. MO interval 159. QRS duration 101. QTc 408. borderline Pierz. . Interpretation: sinus Rhythm. nonspecific ST abnormalities. Discharge Plan Discharge Admit Provider: Emely Gaines Condition: Stable Discharge Orders: Discharge Order (Routine); Ordered 01/14/21 Ordered By: Chiki Mayo Discharge Diet: Cardiac Discharge Activity: Resume usual activity Coding Level of Care Code ED Registered Client Associate for Chg Allison
--- NOTE | 2021-01-12 14:27 | ECG_ITS ---
[facility] Test Date: 2021-01-12 Pat Name: Christo Justin Department: Room: Gender: Female Counselor At Law: : 1955 Requested By: Xavier Olivarez Order Number: [id number] Elliott MD: Luke Little M.D. Measurements Intervals [place] Rate: 75 P: 41 OK: 159 QRS: 178 QRSD: 101 T: -14 QT: 379 QTc: 424 Interpretive Statements SINUS RHYTHM INDETERMINATE AXIS INCOMPLETE RIGHT BUNDLE BRANCH BLOCK [90+ ms QRS DURATION, TERMINAL R IN V1/V2, 40+ ms S IN I/aVL/V4/V5/V6] POSSIBLE ANTERIOR MYOCARDIAL INFARCTION , OF INDETERMINATE AGE [30 ms Q WAVE IN V3/V4, OR R < 0.2 mV IN V4] PROBABLE INFERIOR MYOCARDIAL INFARCTION , OF INDETERMINATE AGE [35 ms Q WAVE IN II/aVF] No previous ECG available for comparison Electronically Signed On 01-13-2021 23:25:08 CDT by Luke Little M.D. [id number]
--- NOTE | 2021-01-12 14:27 | XRR_ITS ---
PROCEDURE INFORMATION: Exam: XR Chest Exam date and time: 01/12/2021 2:27 PM Age: 65 years old Clinical indication: Dyspnea and shortness of breath. Heart beating funny. Weakness. TECHNIQUE: Imaging protocol: XR of the chest. Views: 1 view. COMPARISON: CR XR KUB [id number] 09/30/2019 8:26 AM FINDINGS: Lungs: There is smooth bulging of the right hilum that may reflect an ascending thoracic aortic aneurysm. Possible streaky opacity at the left base. Pleural spaces: No pleural effusion.. No pneumothorax. Heart/Mediastinum: The heart is enlarged. An underlying pericardial effusion is a strong consideration. The main pulmonary arteries are enlarged suggesting pulmonary arterial hypertension. No gross evidence of pneumomediastinum. Bones/joints: No gross fracture. XR/XR chest 1V portable [id number] IMPRESSION: 1. Cardiomegaly; an underlying pericardial effusion is a strong consideration. 2. Smooth bulging of the right hilum that may reflect an ascending thoracic aortic aneurysm. 3. The main pulmonary arteries are enlarged suggesting pulmonary arterial hypertension. 4. Possible streaky opacity at the left base. 5. Recommend CTA of the chest to further assess.
[2021-01-12 14:42] LABS: Blood Gas Allen Test Pos; Blood Gas Sample Site Radial, left; Blood Gas Sample Type Arterial; Oxygen Device NC
[2021-01-12 15:02] LABS: ABG PCO2 42.9 mmHg (35-45); ABG PH Result 7.38 (7.35-7.45); Base Excess ABG 0.3 mmol/L (-2.0-2.0); Blood Gas Operator Identificat CAK; Carboxyhemoglobin 1.2 %THgb (0.4-20.1); HCO3 ABG 25.6 mmol/L (22-26); HGB O2 Sat 93.3 % (95-100); Methemoglobin < 0.0 % (0.4-1.5); PO2 ABG 71.1 mmHg (80.0-100.0); Total Hemoglobin 12.7 g/dL (12-16)
[2021-01-12 15:13] LABS: Basophils # 0.1 10^3/uL (0.0-0.1); Basophils % 0.7 %; Eosinophils # 0.1 10^3/uL (0.0-0.8); Eosinophils % 1.7 %; Hematocrit 42.3 % (37.0-47.0); Hemoglobin 13.1 g/dL (11.5-15.3); Lymphocytes # 1.6 10^3/uL (0.8-4.8); Lymphocytes % 20.7 %; Mean Corpuscular Hemoglobin 28.5 pg (28.0-34.0); Mean Corpuscular Volume 92.2 fl (81-99); Mean Platelet Volume 9.7 fL (7.4-10.4); Monocytes # 0.8 10^3/uL (0.2-0.9); Monocytes % 10.4 %; Neutrophils # 4.98 10^3/uL (1.8-7.7); Neutrophils % 66.2 %; Nucleated Red Blood Cells % 0 %; Platelet Count 199 10^3/cmm (130-400); Red Blood Count 4.59 10^6/uL (4.1-5.3); Red Cell Distribution Width 17.1 % (12.1-15.1); White Blood Count 7.5 10^3/uL (4.0-10.0)
[2021-01-12 15:38] LABS: Lactic Sepsis W/Reflex 1.5 mmol/L (0.5-2.2)
[2021-01-12 15:42] LABS: Troponin(5th) Baseline 14 ng/L (0-10)
[2021-01-12 15:42] LABS: SARS Covid-2 Antigen Negative (Negative)
[2021-01-12 15:47] LABS: Blood Urine 3+ (Negative); Glucose Urine UA Norm (Normal); Ketones Urine Negative (Negative); Protein Urine 1+ (Negative); Urine Appearance Hazy (CLEAR); Urine Color Yellow (Yellow); pH Urine 5 (5-7)
[2021-01-12 15:48] LABS: Add Urine Microscopic? YES; Bilirubin Urine 1+ (Negative); Leukocyte Esterase Urine 2+ (Negative); Nitrate Urine Negative (Negative)
[2021-01-12 15:52] LABS: Alanine Aminotransferase 13 U/L (0-33); Alkaline Phosphatase 55 IU/L (35-105); Anion Gap 15.7 (5-19); Aspartate Amino Transferase 13 U/L (0-32); Blood Urea Nitrogen 22 mg/dL (8-23); C Reactive Protein 9.7 mg/L (0.0-4.9); Calcium 9.4 mg/dL (8.5-10.5); Carbon Dioxide 25 mmol/L (22-29); Chloride 108 mmol/L (98-107); Globulin 2.2 g/dL (1.3-4.6); Glomerular Filtration Rate 71.5 mL/min (90-130); Glucose 78 mg/dL (65-115); NT Pro B Type Natriuretic Pept 3299 pg/mL (0-125); Osmolality Calculated 300 mOsm/kg (285-295); Potassium 4.7 mmol/L (3.5-5.1); Sodium 144 mmol/L (136-145); Total Bilirubin 0.3 mg/dL (0.15-1.2); Total Protein 6.2 g/dL (6.6-8.7)
[2021-01-12 15:59] LABS: Mucus Urine 1+ /hpf; WBC Urine TOO NUMEROUS TO CNT /hpf (0-5)
[2021-01-12 16:00] LABS: Add Urine Culture? Yes; Bacteria Urine 1+ /hpf
--- NOTE | 2021-01-12 16:27 | ECG_ITS ---
[facility] Test Date: 2021-01-12 Pat Name: Christo Justin Department: Room: Gender: Female Channel Lip Wetter: : 1955 Requested By: Xavier Olivarez Order Number: [id number] Elliott MD: Luke Little M.D. Measurements Intervals [place] Rate: 69 P: 34 PA: 149 QRS: 113 QRSD: 99 T: -7 QT: 386 QTc: 415 Interpretive Statements SINUS RHYTHM INDETERMINATE AXIS INCOMPLETE RIGHT BUNDLE BRANCH BLOCK [90+ ms QRS DURATION, TERMINAL R IN V1/V2, 40+ ms S IN I/aVL/V4/V5/V6] LEFT POSTERIOR FASCICULAR BLOCK [QRS AXIS > 109, INFERIOR Q] SEPTAL MYOCARDIAL INFARCTION , OF INDETERMINATE AGE [40+ ms Q WAVE IN V1/V2] INTERPRETATION BASED ON A DEFAULT AGE OF 40 YEARS Compared to ECG 01/12/2021 14:56:04 Left posterior fascicular block now present Myocardial infarct finding still present Electronically Signed On 01-13-2021 23:45:49 CDT by Luke Little M.D. [email or web address]/store/[id number] el
--- NOTE | 2021-01-12 16:33 | CTR_ITS ---
PROCEDURE INFORMATION: Exam: CTA Chest With Contrast Exam date and time: 01/12/2021 4:33 PM Age: 65 years old Clinical indication: Shortness of breath. TECHNIQUE: Imaging protocol: Computed tomographic angiography of the chest with contrast. 3D rendering (Not supervised by radiologist): MIP and/or 3D reconstructed images were created by the technologist. Radiation optimization: All CT scans at this facility use at least one of these dose optimization techniques: automated exposure control; mA and/or kV adjustment per patient size (includes targeted exams where dose is matched to clinical indication); or iterative reconstruction. Contrast material: OMNI 350; Contrast volume: 95 ml; Contrast route: INTRAVENOUS (IV); COMPARISON: CR XR chest 1V portable [id number] 01/12/2021 2:40 PM RADIATION DOSE METRICS: Total DLP (mGy-cm): 3586.87 FINDINGS: Pulmonary arteries: There are segmental pulmonary emboli in the right middle and lower lobes. The main pulmonary artery is enlarged suggesting pulmonary arterial hypertension. Aorta: There is aneurysmal dilatation of the ascending thoracic aorta measuring 3.7 x 4.0 cm. There is no evidence of rupture or dissection. Lungs: Subsegmental atelectasis or scarring is noted at the lung bases. No pulmonary mass. Pleural spaces: No pleural effusion.. No pneumothorax. Heart: The RV to LV ratio is 1.5. The heart is enlarged. Coronary arterial calcifications are noted. No pericardial effusion. Mediastinal space: No hiatal hernia. Lymph nodes: The posterior right paratracheal lymph node measures 1.1 x 1.0 cm (image 22). A right axillary lymph node measures 1.2 x 1.6 cm (image 35). A left axillary lymph node measures 1.1 x 2.1 cm. Gallbladder and bile ducts: The gallbladder has been removed. Extrahepatic biliary ductal dilatation is noted. This is common following cholecystectomy. A periportal lymph node measures 1.0 x 2.5 cm. Possible early hepatic cirrhosis. Bones/joints: Old posterior right 5th rib fracture. No acute fracture is seen. CT/CT angio chest [id number] IMPRESSION: 1. Segmental pulmonary emboli in the right middle and lower lobes. There is evidence of right heart strain. 2. There is aneurysmal dilatation of the ascending thoracic aorta measuring 3.7 x 4.0 cm. There is no evidence of rupture or dissection. 3. Probable pulmonary arterial hypertension. 4. Possible early hepatic cirrhosis with periportal lymphadenopathy. Correlate with liver function tests. 5. Cardiomegaly with coronary artery disease. 6. Mild mediastinal and bilateral axillary lymphadenopathy. Radiation Dose CTDIVOL = (mGy): DLP = 3586.87 (mGy-cm)
[2021-01-12] MEDS: morphine 4 mg/mL SDV 1 mL IVP ×2 (17:10→19:27)
[2021-01-12 17:39] LABS: Troponin 5 2HR 13.91 ng/L (0-10)
[2021-01-12 17:48] LABS: Troponin 5 2HR Delta -0.09 ABS# (0-10)
[2021-01-12] MEDS: iohexol 350 mg/mL 100 mL Btl IV (18:34)
[2021-01-12] MEDS: enoxaparin 80 mg/0.8 mL Syringe 130 MG SUBCUT (19:28)
[2021-01-12] MEDS: nitrofurantoin SR (BID) 100 mg Capsule PO (19:28)
--- NOTE | 2021-01-12 20:27 | ECG_ITS ---
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 Measurements Intervals [place] Rate: 69 P: 34 [place]: 149 QRS: 113 QRSD: 99 T: -7 QT: 386 QTc: 415 Interpretive Statements SINUS RHYTHM INDETERMINATE AXIS INCOMPLETE RIGHT BUNDLE BRANCH BLOCK [90+ ms QRS DURATION, TERMINAL R IN V1/V2, 40+ ms S IN I/aVL/V4/V5/V6] LEFT POSTERIOR FASCICULAR BLOCK [QRS AXIS > 109, INFERIOR Q] SEPTAL MYOCARDIAL INFARCTION , OF INDETERMINATE AGE [40+ ms Q WAVE IN V1/V2] INTERPRETATION BASED ON A DEFAULT AGE OF 40 YEARS Compared to ECG 01/12/2021 14:56:04 Left posterior fascicular block now present Myocardial infarct finding still present Electronically Signed On 01-13-2021 23:45:26 CDT by Luke Little M.D. [id number]
[2021-01-12] MEDS: HYDROcodone-acetaminophen 7.5-325 mg Tablet 1 TAB PO (20:35)
[2021-01-12 21:30] LABS: Troponin 5 6HR 14.66 ng/L (0-10); Troponin 5 6HR Delta 0.66 ng/L (0-12)
--- NOTE | 2021-01-12 23:25 | PC.NURSE ---
Pt admitted to [facility] floor @ 1120 via ER bed.
[2021-01-13] VITALS (10 sets, daily range): BP systolic 146–156; BP diastolic 82–92; PULSE 66–82; RESP 15–19; TEMP 36.4–36.7; O2SAT 83–100
--- NOTE | 2021-01-13 00:33 | PC.NURSE ---
Pt admitted to [facility] with high blood pressure which was reported to Dr Victor. Will continue to monitor.
--- NOTE | 2021-01-13 01:26 | PM.HP ---
Providers/Chief Complaint Admitting Physician: Emely Gaines MD Primary Care Provider: Kasia Jiang DO Chief Complaint: HEART BEATING FUNNY,WEAK,DIFF URINATING History of Present Illness Christo Justin is a 65 year old female with past medical history as noted below, presenting to the hospital today with chief complaints of urinary symptoms. She describes increased frequency, increased hesitancy, feeling of incomplete voiding. This has been going on and off for the past year since she underwent lithotripsy in April. On arrival at the ER incidentally noted to have saturation of 87% on room air. Patient states that she has saturation of 88% at a baseline. Presumably this has been attributed to her obstructive sleep apnea in the past. She does not normally wear oxygen at home. She underwent a CTA of the chest due to noted hypoxia which revealed bilateral segmental PE. Patient denies any chest pain, however on asking specifically does endorse dyspnea over the past 3 months which has been increasing progressively. Also has noted swelling in her bilateral lower extremities, on and off for past 3 months, however worsened over the past 3 weeks. She states that usually her swelling subsided with elevation of her limbs, however for the past 3 weeks has become persistent. Denies any recent history of immobilization, however does have severe arthritis of her left hip because of which she is using wheelchair increasingly. Review of systems positive for episodic palpitations, has a history of SVT in her 20s, states this was attributed to weight loss diet at the time. Denies any fever or chills, denies cough hemoptysis. No history of recent COVID-19 infection. She is currently unvaccinated for COVID-19. Review of Systems General: Reports: 10 or more systems reviewed and unremarkable except in HPI and below Const: Denies: fever(s), chills or body aches Eyes: Denies: change in vision, blurry vision or photophobia ENMT: Reports: hoarseness; Denies: throat pain, enlarged tonsils, odynophagia or nasal congestion Card: Denies: chest pain, palpitations, irregular heart rhythm, edema, swelling of feet/ankles, lightheadedness, pre-syncope, dyspnea on exertion or orthopnea Resp: Denies: dyspnea, productive cough, non-productive cough, wheezing, stridor, pain on inspiration, change in phlegm color, hemoptysis or chest congestion GI: Denies: abdominal pain, nausea, vomiting, hematemesis, coffee ground emesis, dysphagia, heartburn, diarrhea, constipation, GI cramping, change in stool character, hematochezia or melena : Denies: flank pain, difficulty voiding, dysuria, urinary frequency, urinary urgency, urinary hesitancy or hematuria Musc: Denies: neck pain, back pain, extremity pain, joint swelling, joint warmth or deformity Neuro: Denies: headache(s), numbness in extremities, weakness in extremities, sensory changes, difficulty walking, frequent falls, dizziness, vertigo, behavioral changes, Slurred speech present or seizure-like activity Psych: Denies: anxiety, depression, suicidal ideation or homicidal ideation Endo: Denies: polyuria, polydipsia, tired all the time, cold intolerance or hot flashes Javier/Lymph: Denies: easy bruising or easy bleeding Medications/Allergies Home Medications Medication Instructions Recorded Confirmed Last Taken Type cetirizine [Zyrtec] 10 mg PO DAILY 07/23/19 01/12/21 01/12/21 History hydrocodone-acetaminophen 1 tab PO QID PRN MDD 8 in 24 hours 07/23/19 01/12/21 01/12/21 History garlic 1,000 mg capsule 1,000 mg PO DAILY 12/31/19 01/12/21 01/12/21 History turmeric root extract 500 mg 500 mg PO DAILY 12/31/19 01/12/21 01/12/21 History capsule wheelchair #1 ea 08/14/20 01/12/21 Unknown Rx duloxetine 60 mg capsule,delayed 60 mg PO BID #180 cap 12/11/20 01/12/21 01/12/21 Rx release glipizide 10 mg tablet 5 mg PO DAILY 90 Days #90 tab 12/14/20 01/12/21 01/12/21 Rx metformin 500 mg tablet 1,000 mg PO BID #360 tab 12/29/20 01/12/21 01/12/21 Rx ibuprofen 200 mg PO Q6H PRN 01/12/21 01/12/21 01/12/21 History omega-3 fatty acids [Fish Oil] 1,250 mg PO DAILY 01/12/21 01/12/21 01/11/21 History Allergies Allergy/AdvReac Type Severity Reaction Status Date / Time atorvastatin [From Lipitor] Allergy swelling Verified 12/11/20 08:10 gabapentin Allergy swelling; Verified 12/11/20 08:10 rash influenza virus vaccine tvs Allergy Unknown Verified 12/11/20 08:10 [id number](65 years up) [From Fluad [id number] (65 yr up)(PF)] Penicillins Allergy hives Verified 12/11/20 08:10 pregabalin [From Lyrica] Allergy swelling Verified 12/11/20 08:10 sitagliptin [From Januvia] Allergy pain; Verified 12/11/20 08:10 swelling tramadol Allergy muscle Verified 12/11/20 08:10 weakness buspirone [From BuSpar] AdvReac Mild MADE ME Verified 12/11/20 08:10 CRY MORE PFSH Acute PFSH: Medical History Bilateral renal stones Chronic low back pain 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 Controlled type 2 diabetes mellitus, without long-term current use of insulin Enrolled in chronic care management HTN (hypertension) Hypertriglyceridemia Obstructive sleep apnea Other hammer toe(s) (acquired), left foot Panic attack PTTD (posterior tibial tendon dysfunction) Right ureteral calculus Statin intolerance Surgical History H/O amputation of lesser toe H/O inguinal hernia repair RIGHT History of 2 sections History of laparoscopic cholecystectomy History of tonsillectomy Status post right foot surgery Family History Mother , AT AGE 78 Cancer OVARIAN CANCER ,LUNG CANCER Father , AT AGE 86 Cancer STOMACH Other Diabetes Hyperlipidemia Hypertension Denies family history of CAD (coronary artery disease) Clotting disorder Dementia Psychiatric illness Chronic kidney disease (CKD) Suicide Anesthesia complication Bleeding disorder Family history of premature coronary artery disease Lung disease Stroke Social History Smoking and tobacco status: never smoked Second hand smoke exposure: No Alcohol intake: never Lives independently: Yes Marital status: Current occupational status: disabled History of recent travel: No Female Reproductive History: Para: 2 Spontaneous abortions: No Date of menopause: 10/06/04 Vitals/I&O/Wt Last Vital Signs Temp 98.4 F 01/12/21 23:03 Pulse 78 01/12/21 23:03 Resp 18 01/12/21 23:03 BP 169/116 01/12/21 23:03 Pulse Ox 95 01/12/21 23:03 Weight last 48 hrs Weight 136.078 kg Physical Exam Narrative: EXAM NARRATIVE: General: No acute distress, AO x2 HEENT: PERRLA, pupils bilaterally equal and reactive, pallors not present Chest: Normal vesicular breath sounds, no added sounds, equal good air entry bilaterally CVS: S1-S2 regular, no murmurs, no tachycardia, no gallops, no rubs Abdomen: Soft, nontender, no organomegaly, bowel sounds present Neuro: No focal deficits, no facial deformity, AO x3, power 5/5 in all limbs Extremities: 2+ pitting edema bilateral lower extremities. Data : 01/12/21 15:07 01/12/21 15:07 Other Labs: Laboratory Results WBC 7.5 10^3/uL (4.0-10.0) 01/12/21 15:07 RBC 4.59 10^6/uL (4.1-5.3) 01/12/21 15:07 Hgb 13.1 g/dL (11.5-15.3) 01/12/21 15:07 Hct 42.3 % (37.0-47.0) 01/12/21 15:07 MCV 92.2 fl (81-99) 01/12/21 15:07 MCH 28.5 pg (28.0-34.0) 01/12/21 15:07 MCHC 31.0 g/dL (30.0-36.0) 01/12/21 15:07 RDW 17.1 % (12.1-15.1) H 01/12/21 15:07 Plt Count 199 10^3/cmm (130-400) 01/12/21 15:07 MPV 9.7 fL (7.4-10.4) 01/12/21 15:07 Neut % (Auto) 66.2 % 01/12/21 15:07 Lymph % (Auto) 20.7 % 01/12/21 15:07 [place] % (Auto) 10.4 % 01/12/21 15:07 Eos % (Auto) 1.7 % 01/12/21 15:07 Baso % (Auto) 0.7 % 01/12/21 15:07 Neut # (Auto) 4.98 10^3/uL (1.8-7.7) 01/12/21 15:07 Lymph # (Auto) 1.6 10^3/uL (0.8-4.8) 01/12/21 15:07 [place] # (Auto) 0.8 10^3/uL (0.2-0.9) 01/12/21 15:07 Eos # (Auto) 0.1 10^3/uL (0.0-0.8) 01/12/21 15:07 Baso # (Auto) 0.1 10^3/uL (0.0-0.1) 01/12/21 15:07 Nucleated RBC % (auto) 0 % 01/12/21 15:07 Nucleated RBCs # 0.0 /100WBC 01/12/21 15:07 Specimen Type Arterial 01/12/21 14:30 Sample Site Radial, left 01/12/21 14:30 ABG pH 7.38 (7.35-7.45) 01/12/21 14:30 ABG pCO2 42.9 mmHg (35-45) 01/12/21 14:30 ABG pO2 71.1 mmHg (80.0-100.0) L 01/12/21 14:30 ABG HCO3 25.6 mmol/L (22-26) 01/12/21 14:30 ABG Base Excess 0.3 mmol/L (-2.0-2.0) 01/12/21 14:30 Rodrigo Test Pos 01/12/21 14:30 Hematocrit 39.0 % (37-47) 01/12/21 14:30 Hgb O2 Saturation 93.3 % (95-100) L 01/12/21 14:30 Carboxyhemoglobin 1.2 %THgb (0.4-20.1) 01/12/21 14:30 Methemoglobin < 0.0 % (0.4-1.5) L 01/12/21 14:30 Total Hemoglobin 12.7 g/dL (12-16) 01/12/21 14:30 O2 Delivery Device Nc 01/12/21 14:30 O2 Liters/Min 3.0 % 01/12/21 14:30 FiO2 32.0 % 01/12/21 14:30 Front Office Specialist ID Cak 01/12/21 14:30 Sodium 144 mmol/L (136-145) 01/12/21 15:07 Potassium 4.7 mmol/L (3.5-5.1) 01/12/21 15:07 Chloride 108 mmol/L (98-107) H 01/12/21 15:07 Carbon Dioxide 25 mmol/L (22-29) 01/12/21 15:07 Anion Gap 15.7 (5-19) 01/12/21 15:07 BUN 22 mg/dL (8-23) 01/12/21 15:07 Creatinine 0.8 mg/dL (0.5-0.9) 01/12/21 15:07 GFR Calculation 71.5 mL/min (90-130) L 01/12/21 15:07 Glucose 78 mg/dL (65-115) 01/12/21 15:07 Calculated Osmolality 300 mOsm/kg (285-295) H 01/12/21 15:07 Lactic Acid 1.5 mmol/L (0.5-2.2) 01/12/21 15:07 Calcium 9.4 mg/dL (8.5-10.5) 01/12/21 15:07 Total Bilirubin 0.3 mg/dL (0.15-1.2) 01/12/21 15:07 AST 13 U/L (0-32) 01/12/21 15:07 ALT 13 U/L (0-33) 01/12/21 15:07 Alkaline Phosphatase 55 IU/L (35-105) 01/12/21 15:07 Troponin T Baseline 14 ng/L (0-10) H 01/12/21 15:07 Troponin T 120 Minute 13.91 ng/L (0-10) H 01/12/21 16:58 Delta Troponin T -0.09 ABS# (0-10) L 01/12/21 16:58 Troponin T Hi Sens 6Hr 14.66 ng/L (0-10) H 01/12/21 21:02 Troponin T Hi Sens 6Hr Delta 0.66 ng/L (0-12) 01/12/21 21:02 C-Reactive Protein 9.7 mg/L (0.0-4.9) H 01/12/21 15:07 NT-Pro-B Natriuret Pep 3299 pg/mL (0-125) H 01/12/21 15:07 Total Protein 6.2 g/dL (6.6-8.7) L 01/12/21 15:07 Albumin 4.0 g/dL (3.5-5.2) 01/12/21 15:07 Globulin 2.2 g/dL (1.3-4.6) 01/12/21 15:07 Urine Color Yellow (Yellow) 01/12/21 15:23 Urine Appearance Hazy (CLEAR) A 01/12/21 15:23 Urine pH 5 (5-7) 01/12/21 15:23 Ur Specific [place] 1.020 (1.005-1.030) 01/12/21 15:23 Urine Protein 1+ (Negative) H 01/12/21 15:23 Urine Glucose (UA) Norm (Normal) 01/12/21 15:23 Urine Ketones Negative (Negative) 01/12/21 15:23 Urine Blood 3+ (Negative) H 01/12/21 15:23 Urine Nitrate Negative (Negative) 01/12/21 15:23 Urine Bilirubin 1+ (Negative) H 01/12/21 15:23 Urine Urobilinogen Not Reportable 01/12/21 15:23 Ur Leukocyte Esterase 2+ (Negative) H 01/12/21 15:23 Urine RBC 5-10 /hpf (0-2) H 01/12/21 15:23 Urine WBC Too numerous to cnt /hpf (0-5) H 01/12/21 15:23 Ur Squamous Epith Cells 5-10 /hpf (0-5) H 01/12/21 15:23 Calcium Oxalate Crystal 5-10 /hpf H 01/12/21 15:23 Amorphous Sediment Not Reportable 01/12/21 15:23 Urine Bacteria 1+ /hpf (NONE) H 01/12/21 15:23 Urine Mucus 1+ /hpf 01/12/21 15:23 SARS-CoV-2 Ag (Rapid) Negative (Negative) 01/12/21 14:38 Impressions Chest X-Ray 01/12/21 14:27 IMPRESSION: 1. Cardiomegaly; an underlying pericardial effusion is a strong consideration. 2. Smooth bulging of the right hilum that may reflect an ascending thoracic aortic aneurysm. 3. The main pulmonary arteries are enlarged suggesting pulmonary arterial hypertension. 4. Possible streaky opacity at the left base. 5. Recommend CTA of the chest to further assess. ADDENDUM: 01/12/21 1635 Findings discussed with Xavier Olivarez at 01/12/2021 4:32 PM CDT. Chest CTA 01/12/21 16:33 IMPRESSION: 1. Segmental pulmonary emboli in the right middle and lower lobes. There is evidence of right heart strain. 2. There is aneurysmal dilatation of the ascending thoracic aorta measuring 3.7 x 4.0 cm. There is no evidence of rupture or dissection. 3. Probable pulmonary arterial hypertension. 4. Possible early hepatic cirrhosis with periportal lymphadenopathy. Correlate with liver function tests. 5. Cardiomegaly with coronary artery disease. 6. Mild mediastinal and bilateral axillary lymphadenopathy. Radiation Dose CTDIVOL = (mGy): DLP = 3586.87 (mGy-cm) ADDENDUM: 01/12/21 1920 Findings discussed with Xavier Olivarez at 01/12/2021 7:18 PM CDT. Radiation Dose CTDIVOL = (mGy): DLP = 3586.87 (mGy-cm) A&P Assessment and plan (1) Pulmonary embolism: Right-sided segmental PE. Start anticoagulation with Lovenox 1 mg/kg subcutaneous every 12 hours. Evidence of right heart strain on CTA of the chest, obtain echocardiogram to further evaluate. Lower extremity bilateral pitting edema, check lower extremity venous Duplex to evaluate for DVT Status: Acute Qualifiers: Acute cor pulmonale presence: unspecified Chronicity: acute Pulmonary embolism type: other Qualified Code(s): I26.99 - Other pulmonary embolism without acute cor pulmonale (2) Pulmonary hypertension: Lasix 20mg IVP daily Status: Acute (3) UTI (urinary tract infection): CEftriaxone 1g iv q24h empirically await urine cx Status: Acute Qualifiers: Hematuria presence: without hematuria Urinary tract infection type: acute cystitis Qualified Code(s): N30.00 - Acute cystitis without hematuria Attestations Medical Necessity Statement*: Anticipate >2midnight admission for above defined care Coding Level of Care Code Acute 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
[2021-01-13] MEDS: levoFLOXacin 500 mg Tablet PO (05:59)
[2021-01-13] MEDS: enoxaparin 30 mg/0.3 mL Syringe SUBCUT ×2 (06:00→17:09)
[2021-01-13] MEDS: enoxaparin 100 mg/mL Syringe SUBCUT ×2 (06:00→17:10)
[2021-01-13] MEDS: FUROsemide 10 mg/mL SDV 2mL 20 MG IVP (06:00)
[2021-01-13 06:31] LABS: Glucose Point of Care 84 mg/dL (70-110)
[2021-01-13] MEDS: duloxetine 60 mg Capsule PO ×2 (08:48→17:09)
[2021-01-13] MEDS: HYDROcodone-acetaminophen 7.5-325 mg Tablet 1 TAB PO ×2 (08:48→20:39)
[2021-01-13 11:22] LABS: Glucose Point of Care 200 mg/dL (70-110)
[2021-01-13] MEDS: morphine 4 mg/mL SDV 1 mL 2 MG IVP (13:29)
--- NOTE | 2021-01-13 15:00 | PM.PN ---
Subjective Subjective: Interval history: Patient was seen this morning, she is a bit teary, about getting up to use the bathroom, given her diuresis, she says that with all the diuresis, she continues to have to get up to use the bathroom, she has chronic hip pain that is making it worse, she denies any lightheadedness, dizziness, no chest pain, no palpitation is on 4 L Vitals/I&O/Wt Last Vital Signs Temp 98.0 F 01/13/21 11:06 Pulse 77 01/13/21 11:06 Resp 18 01/13/21 13:29 BP 156/87 01/13/21 11:06 Pulse Ox 83 L 01/13/21 11:06 01/13/21 01/13/21 01/13/21 06:59 14:59 22:59 Intake Total 150 / 150 220 / 220 Balance 150 / 150 220 / 220 Weight last 48 hrs Weight 136.078 kg Physical Exam Const: COMMON NORMALS: no acute distress and patient oriented x3 Resp: COMMON NORMALS: normal respiratory effort, No retractions, No use of accessory muscles and clear to auscultation bilaterally AUSCULTATION: clear to auscultation bilaterally Cardio: COMMON NORMALS: regular rate, regular rhythm, S1 normal heart sound present and S2 normal heart sound present RATE: regular rate RHYTHM: regular rhythm HEART SOUNDS: S1 normal heart sound present and S2 normal heart sound present GI: COMMON NORMALS: Normal to inspection, nondistended, normoactive bowel sounds present, Soft to palpation, non-tender and No hepatosplenomegaly present PALPATION: Yes Soft to palpation and Yes No hepatosplenomegaly present Extremity: COMMON NORMALS: no pedal edema Neuro: COMMON NORMALS: patient oriented x3 Psych: COMMON NORMALS: mental status grossly normal Data : 01/12/21 15:07 01/12/21 15:07 Micro: Microbiology 01/12/21 15:23 Urine Culture - Preliminary Urine,Clean Catch Gram Negative Rods A&P Assessment and plan (1) Pulmonary embolism: Pulmonary embolism Right-sided segmental PE. Continue Lovenox 1 mg/kg subcutaneous every 12 hours. Evidence of right heart strain on CTA of the chest, obtain echocardiogram to further evaluate. Lower extremity bilateral pitting edema, check lower extremity venous Duplex to evaluate for DVT Bilateral extremity swelling, possible component of CHF, hold Lasix for now Pulmonary hypertension Elevated troponins, likely supply demand severe from pulmonary embolism as above, no clinically significant delta troponin, EKG no acute ST-T wave changes, continue therapeutic Lovenox Urinary tract infection, continue Levaquin 500 mg p.o. daily Noninsulin-dependent type 2 diabetes mellitus, continue insulin sliding scale Chronic pain, continue hydrocodone, Cymbalta Full code Lovenox for DVT prophylaxis Status: Acute Qualifiers: Pulmonary embolism type: other Chronicity: acute Acute cor pulmonale presence: unspecified Qualified Code(s): I26.99 - Other pulmonary embolism without acute cor pulmonale (2) Pulmonary hypertension: Status: Acute (3) UTI (urinary tract infection): Status: Acute Qualifiers: Urinary tract infection type: acute cystitis Hematuria presence: without hematuria Qualified Code(s): N30.00 - Acute cystitis without hematuria Attestations Medical Necessity Statement*: Patient requires hospitalization inpatient, greater than 2 midnights, for pulmonary embolism, with evidence of right-sided heart strain Coding Level of Care Code Acute 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
[2021-01-13 17:03] LABS: Glucose Point of Care 91 mg/dL (70-110)
[2021-01-13 19:34] LABS: Glucose Point of Care 197 mg/dL (70-110)
[2021-01-14] VITALS (8 sets, daily range): BP systolic 160–178; BP diastolic 83–120; PULSE 68–96; RESP 16–19; TEMP 36.2–36.8; O2SAT 85–98
[2021-01-14] MEDS: HYDROcodone-acetaminophen 7.5-325 mg Tablet 1 TAB PO ×2 (04:30→16:29)
[2021-01-14] MEDS: levoFLOXacin 500 mg Tablet PO (05:07)
[2021-01-14] MEDS: ondansetron 2 mg/ML SDV 2 mL 4 MG IVP (05:07)
[2021-01-14 05:49] LABS: Basophils % 0.5 %; Eosinophils # 0.1 10^3/uL (0.0-0.8); Eosinophils % 1.3 %; Hematocrit 40.2 % (37.0-47.0); Hemoglobin 12.5 g/dL (11.5-15.3); Lymphocytes # 0.7 10^3/uL (0.8-4.8); Lymphocytes % 13.1 %; Mean Corpuscular HGB Conc 31.1 g/dL (30.0-36.0); Mean Corpuscular Hemoglobin 28.8 pg (28.0-34.0); Mean Corpuscular Volume 92.6 fl (81-99); Monocytes # 0.6 10^3/uL (0.2-0.9); Neutrophils # 4.12 10^3/uL (1.8-7.7); Neutrophils % 73.9 %; Nucleated Red Blood Cells % 0 %; Platelet Count 177 10^3/cmm (130-400); Red Blood Count 4.34 10^6/uL (4.1-5.3); Red Cell Distribution Width 16.6 % (12.1-15.1); White Blood Count 5.6 10^3/uL (4.0-10.0)
--- NOTE | 2021-01-14 06:00 | USCV_ITS ---
Christo Justin Age: 65 Gender: F : 1955 Exam Date: 01/14/2021 06:34 Ordering Phys: Emely Gaines MD Technologist: Oneal Fuchs Exam Location: [facility] [place] Indication: BILAT EDEMA HISTORY: Lower extremity swelling. PROCEDURES: The venous duplex Doppler examination of both lower extremities was performed in the standard fashion. The following venous structures were evaluated: common femoral vein, profunda vein, proximal portion of the greater saphenous vein, superficial femoral vein, and the popliteal vein. Bilaterally, the common femoral, superficial femoral, profunda femoral, popliteal, posterior tibial, greater saphenous veins, and the peroneal trunk were identified and interrogated in the standard fashion. These veins were found to be easily compressible with spontaneous blood flow. No evidence of insufficiency or thrombus noted. FINDINGS: Normal 2-D Doppler and augmentation and compressibility throughout the lower extremity venous structures. Additional imaging through the proximal calf veins also reveals no thrombus. Limited evaluation of the greater saphenous vein is patent with no thrombus.. CONCLUSIONS No evidence of right lower extremity DVT. No evidence of left lower extremity DVT. Feliz Moreno MD (Electronically Signed) Final Date: 14 January 2021 09:31 S
--- NOTE | 2021-01-14 06:00 | USCV_ITS ---
Christo Justin Age: 65 Gender: F : 1955 Exam Date: 01/14/2021 06:20 Ordering Phys: Emely Gaines MD Technologist: Oneal Fuchs [place] [facility] [place]: ? PE RT HEART STRAIN BP: 154 / 83 HR: 95 Rhythm: Sinus Technical Quality: Poor MEASUREMENTS (Male / Female) Normal Values 2D ECHO LV Diastolic Diameter PLAX 3.6 cm 4.2 - 5.9 / 3.9 - 5.3 cm LV Systolic Diameter PLAX 2.7 cm IVS Diastolic Thickness 1.0 cm 0.6 - 1.0 / 0.6 - 0.9 cm IVS Systolic Thickness 1.7 cm LVPW Diastolic Thickness 1.1 cm 0.6 - 1.0 / 0.6 - 0.9 cm LVPW Systolic Thickness 1.6 cm LVOT Diameter 2.0 cm LV Ejection Fraction 2D Teich 44.8 % LV Ejection Fraction MOD 2C 53.6 % LV Ejection Fraction 2C AL 54.9 % LA Diameter 4.3 cm LA Width 4.1 cm LA Height 5.0 cm RA Width 3.6 cm RA Height 5.5 cm Aorta at Sinotubular Diameter 2.9 cm DOPPLER AV Peak Velocity 131.0 cm/s LVOT Peak Velocity 107.0 cm/s AV Area Cont Eq vti 2.5 cm squared AV Area Cont Eq pk 2.7 cm squared MV Area PHT 5.1 cm squared Mitral E to A Ratio 4.8 MV E' Velocity 70.0 cm/s Mitral E to MV E' Ratio 10.7 Mitral E to LV E' Lateral Ratio 9.1 Mitral E to LV E' Septal Ratio 13.0 TR Peak Velocity 136.0 cm/s TR Peak Gradient 7.4 mmHg TV Peak E Velocity 87.0 cm/s Right Atrial Pressure 3.0 mmHg Pulmonary Artery Systolic Pressu 10.4 mmHg PV Peak Velocity 81.0 cm/s FINDINGS Left Ventricle Normal left ventricular cavity size. Normal left ventricular systolic function. No regional wall motion abnormalities. Left ventricular ejection fraction is estimated at 60 %. Grade III/IV diastolic dysfunction (restrictive filling pattern), severely elevated filling pressures. Flattened septum in diastole consistent with right ventricle volume overload. Right Ventricle Moderately increased right ventricular size. Moderately decreased right ventricular systolic function. There appeared to be right ventricle strain. Right Atrium The right atrium is normal in size. Left Atrium The left atrium is normal in size. Mitral Valve Structurally normal mitral valve without significant stenosis or prolapse. There is no mitral regurgitation. Aortic Valve Mild aortic valve calcification. No aortic valve stenosis. Trace aortic valve regurgitation. Tricuspid Valve Structurally normal tricuspid valve without significant stenosis or regurgitation. Pulmonary artery systolic pressure is normal. Pulmonic Valve Structurally normal pulmonic valve without significant stenosis. There is no pulmonic regurgitation. Pericardium Normal pericardium without effusion. Aorta Normal ascending aorta dimension. CONCLUSIONS 1-Normal left ventricular cavity size. Normal left ventricular systolic function. No regional wall motion abnormalities. Left ventricular ejection fraction is estimated at 60 %. Grade III/IV diastolic dysfunction (restrictive filling pattern), severely elevated filling pressures. Flattened septum in diastole consistent with right ventricle volume overload. 2-Moderately increased right ventricular size. Moderately decreased right ventricular systolic function. There appeared to be right ventricle strain etiology could be pulmonary hypertension or pulmonary embolism 3-Mild aortic valve calcification. No aortic valve stenosis. Trace aortic valve regurgitation. 4-There is no pericardial effusion. 5-Right atrial pressure is around 5 mm of mercury. 6-There are no prior echocardiogram studies to compare. García Bradley MD (Electronically Signed) Final Date: 14 January 2021 19:35 S
[2021-01-14] MEDS: enoxaparin 100 mg/mL Syringe SUBCUT ×3 (06:04→17:36)
[2021-01-14] MEDS: enoxaparin 30 mg/0.3 mL Syringe SUBCUT ×2 (06:04→17:35)
[2021-01-14 06:26] LABS: Glucose Point of Care 131 mg/dL (70-110)
[2021-01-14 06:33] LABS: Alanine Aminotransferase 10 U/L (0-33); Albumin Level 3.5 g/dL (3.5-5.2); Alkaline Phosphatase 50 IU/L (35-105); Anion Gap 13.1 (5-19); Aspartate Amino Transferase 12 U/L (0-32); Blood Urea Nitrogen 17 mg/dL (8-23); Calcium 9.2 mg/dL (8.5-10.5); Carbon Dioxide 28 mmol/L (22-29); Chloride 104 mmol/L (98-107); Globulin 2.7 g/dL (1.3-4.6); Glomerular Filtration Rate 99.7 mL/min (90-130); Glucose 131 mg/dL (65-115); Magnesium 1.8 mg/dL (1.7-2.3); NT Pro B Type Natriuretic Pept 1627 pg/mL (0-125); Osmolality Calculated 295 mOsm/kg (285-295); Phosphorus 3.5 mg/dL (2.5-4.5); Potassium 4.1 mmol/L (3.5-5.1); Sodium 141 mmol/L (136-145); Total Bilirubin 0.5 mg/dL (0.15-1.2); Total Protein 6.2 g/dL (6.6-8.7)
[2021-01-14] MEDS: duloxetine 60 mg Capsule PO ×2 (08:25→16:29)
[2021-01-14] MEDS: FUROsemide 10 mg/mL SDV 4mL 40 MG IVP (10:33)
[2021-01-14] MEDS: spironolactone 25 mg Tablet PO (10:33)
--- NOTE | 2021-01-14 12:19 | PM.DCS ---
Discharge Providers Date of Admission: 01/12/21 19:24 Date of Discharge: January 14, 2021 Attending Provider at Admission: Emely Gaines MD Attending Provider at Discharge: Chiki Mayo MD Primary Care Provider: Kasia Jiang DO Diagnoses at Discharge Discharge Diagnosis (1) Pulmonary embolism: Status: Acute Qualifiers: Pulmonary embolism type: other Chronicity: acute Acute cor pulmonale presence: unspecified Qualified Code(s): I26.99 - Other pulmonary embolism without acute cor pulmonale (2) Pulmonary hypertension: Status: Acute (3) UTI (urinary tract infection): Status: Acute Qualifiers: Urinary tract infection type: acute cystitis Hematuria presence: without hematuria Qualified Code(s): N30.00 - Acute cystitis without hematuria Reason for Visit Reason for Visit: HEART BEATING FUNNY,WEAK,DIFF URINATING Hospital Course Hospital Course This is a 65-year-old female with a past medical history of chronic low back pain, [id number] type 2 diabetes mellitus, hypertension, hypertriglyceridemia, SHIMA, history of SVTs, who presents to [facility] due to complaints of urinary symptoms, and she was found to be hypoxic in the emergency room for her hypoxia, she was found to have right-sided pulmonary emboli segmental, on CT imaging, with evidence of right heart strain, no evidence of DVT, she was managed with Lovenox, remained on 4 L. -On discharge she will be discharged on 4 L nasal cannula -In terms of anticoagulation, given her BMI of 51.5, I have discharged her on Lovenox 130 mg every 12 hours, with instructions to check anti-factor Xa levels tomorrow morning after her Lovenox injection -The plan is for her to continue Lovenox for at least a week, follow-up with Dr. De Jesus early next week, to decide if we need to continue anticoagulation with Lovenox or we can switch over to Eliquis, follow-up with Dr. De Jesus for anti-factor Xa levels Patient also had a UTI, discharged on Levaquin, her urine cultures are pending on discharge For her lower extremity edema, likely related to fluid overload, improved with Lasix therapy, discharge on 20 mg of Lasix daily with potassium replacement -Patient's urine cultures, cardiac echocardiogram are pending on discharge Physical Exam Const: COMMON NORMALS: no acute distress and patient oriented x3 Resp: COMMON NORMALS: normal respiratory effort, No retractions, No use of accessory muscles and clear to auscultation bilaterally AUSCULTATION: clear to auscultation bilaterally Cardio: COMMON NORMALS: regular rate, regular rhythm, S1 normal heart sound present and S2 normal heart sound present RATE: regular rate RHYTHM: regular rhythm HEART SOUNDS: S1 normal heart sound present and S2 normal heart sound present GI: COMMON NORMALS: Normal to inspection, nondistended, normoactive bowel sounds present, Soft to palpation and non-tender PALPATION: Yes Soft to palpation Extremity: COMMON NORMALS: no pedal edema Neuro: COMMON NORMALS: patient oriented x3 Psych: COMMON NORMALS: mental status grossly normal Discharge Data Data Completed and Pending: Completed Studies During Hospitalization Category Date Time Status CT angio chest 71 275 Urgent Cat Scan 01/12/21 16:33 Completed XR chest 1V brian ble [id number] Urgent Exams 01/12/21 14:27 [place] [id number] Routin e Ultrasound 01/14/21 06:00 Completed Pending at discharge Category Date Time Status Complete Blood Co unt w/Auto AM LABS Lab 01/15/21 04:00 Ordered Complete Blood Co unt w/Auto AM LABS Lab 01/16/21 04:00 Ordered Comprehensive Met abolic Panel AM LA BS Lab 01/15/21 04:00 Ordered Comprehensive Met abolic Panel AM LA BS Lab 01/16/21 04:00 Ordered Coronavirus Test [facility] ne Lab 01/13/21 20:20 Received Magnesium AM LABS Lab 01/15/21 04:00 Ordered Magnesium AM LABS Lab 01/16/21 04:00 Ordered NT Pro B Type [place] riuretic Pept QAM Lab 01/15/21 06:00 Ordered NT Pro B Type Makeda riuretic Pept QAM Lab 01/16/21 06:00 Ordered Phosphorus AM LAB S Lab 01/15/21 04:00 Ordered Phosphorus AM LAB S Lab 01/16/21 04:00 Ordered Urine Culture Sta t Lab 01/12/21 15:23 Results CV. echo complete * [id number] Routine Ultrasound 01/14/21 06:00 Taken Labs from last 24 hours 01/14/21 01/14/21 01/14/21 06:05 05:36 05:36 WBC 5.6 RBC 4.34 Hgb 12.5 Hct 40.2 MCV 92.6 MCH 28.8 MCHC 31.1 RDW 16.6 H Plt Count 177 MPV 10.0 Neut % (Auto) 73.9 Lymph % (Auto) 13.1 [place] % (Auto) 11.0 Eos % (Auto) 1.3 Baso % (Auto) 0.5 Neut # (Auto) 4.12 Lymph # (Auto) 0.7 L [place] # (Auto) 0.6 Eos # (Auto) 0.1 Baso # (Auto) 0.0 Nucleated RBC % (a uto) 0 Nucleated RBCs # 0.0 Sodium 141 Potassium 4.1 Chloride 104 Carbon Dioxide 28 Anion Gap 13.1 BUN 17 Creatinine 0.6 GFR Calculation 99.7 Glucose 131 H POC Glucose 131 H Calculated Osmolal ity 295 Calcium 9.2 Phosphorus 3.5 Magnesium 1.8 Total Bilirubin 0.5 AST 12 ALT 10 Alkaline Phosphata se 50 NT-Pro-B Natriuret Pep 1627 H Total Protein 6.2 L Albumin 3.5 Globulin 2.7 Nasal/Oral COVID-1 9 PCR 01/13/21 01/13/21 01/13/21 20:20 19:24 16:47 WBC RBC Hgb Hct MCV MCH MCHC RDW Plt Count MPV Neut % (Auto) Lymph % (Auto) [place] % (Auto) Eos % (Auto) Baso % (Auto) Neut # (Auto) Lymph # (Auto) [place] # (Auto) Eos # (Auto) Baso # (Auto) Nucleated RBC % (a uto) Nucleated RBCs # Sodium Potassium Chloride Carbon Dioxide Anion Gap BUN Creatinine GFR Calculation Glucose POC Glucose 197 H 91 Calculated Osmolal ity Calcium Phosphorus Magnesium Total Bilirubin AST ALT Alkaline Phosphata se NT-Pro-B Natriuret Pep Total Protein Albumin Globulin Nasal/Oral COVID-1 9 PCR Pending Vitals: Last Vital Signs Temp 97.8 F 01/14/21 08:00 Pulse 96 01/14/21 08:00 Resp 18 01/14/21 08:00 BP 178/83 01/14/21 08:00 Pulse Ox 91 01/14/21 08:00 Discharge Plan Discharge Patient Disposition: Home Condition: Stable Prescriptions: New spironolactone 25 mg Tablet 25 mg PO DAILY 30 Days Qty: 30 RF: 0 levofloxacin 500 mg Tablet 500 mg PO DAILY@0600 3 Days Qty: 3 RF: 0 Lovenox 100 mg/mL syringe 130 mg SUBCUT Q12H 7 Days Qty: 18.2 RF: 1 Lasix 20 mg tablet 20 mg PO DAILY 30 Days Qty: 30 RF: 0 Klor-Con 10 10 mEq tablet extended release 10 meq PO DAILY 30 Days Qty: 30 RF: 0 Continued turmeric root extract 500 mg capsule 500 mg PO DAILY RF: 0 garlic 1,000 mg capsule 1,000 mg PO DAILY RF: 0 (DME) wheelchair See Rx Instructions .Route .MEDSUPPLY Qty: 1 RF: 0 duloxetine [Cymbalta] 60 mg capsule,delayed release(DR/EC) 60 mg PO BID Qty: 180 RF: 1 glipizide 10 mg tablet 5 mg PO DAILY 90 Days Qty: 90 RF: 0 metformin 500 mg tablet 1,000 mg PO BID Qty: 360 RF: 1 cetirizine [Zyrtec] 10 mg Tablet 10 mg PO DAILY RF: 0 Fish Oil Capsule 1,250 mg PO DAILY RF: 0 Changed hydrocodone-acetaminophen 7.5-325 mg tablet 1 tab PO BID PRN (Reason: Pain) 7 Days Qty: 28 RF: 0 Discontinued hydrocodone-acetaminophen 7.5-325 mg tablet 1 tab PO QID MDD 8 in 24 hours PRN (Reason: Pain) RF: 0 ibuprofen 200 mg Tablet 200 mg PO Q6H PRN (Reason: Pain) RF: 0 Discharge Orders: Discharge Order (Routine); Ordered 01/14/21 Ordered By: Chiki Mayo Other Ambulatory Orders: Miscellaneous Test (Routine) Timeframe: 1 Day Facility: [facility] - Location: Lab - Main Lab Ordered By: Chiki Mayo Referrals: García Bradley MD [Physician] - 1 month Kasia Jiang DO [Primary Care Provider] - Kendrick De Jesus MD [Hospitalist] - 4-7 days (must see dr de jesus 1 week heparin xa levels) Discharge Diet: Cardiac Discharge Activity: Resume usual activity Patient Instructions: Opioid Safety Activity Restrictions/Additional Instructions: -Please inject Lovenox 130 mg every 12 hours -Please inject Lovenox 130 mg tomorrow morning at 6 AM, come to the hospital to the lab to draw blood work it must be done 3 hours after you inject Lovenox -Monitor for bloody or black stools if so go to the emergency room -Follow-up with Dr. De Jesus in 4 to 7 days for factor Xa levels -Will follow up Dr. Jiang in the next week -Take blood pressure medication as prescribed -Take antibiotics as prescribed follow-up with cardiology in 1 month for heart failure Discharge Attestations Time Spent in Discharge Care*: greater than 30 min Quality Metrics Clinical Quality Measures During this hospital stay, did patient experience: VTE Contraindication to Overlap Therapy: Overlap treatment not indicated VTE Discharge Education: Education about anticoagulant therapy/Care Notes given Coding Level of Care Code Acute g [facility] note Diagnoses Pulmonary embolism I26.99 Pulmonary embolism type: other Chronicity: acute Acute cor pulmonale presence: unspecified Pulmonary hypertension I27.20 UTI (urinary tract infection) N30.00 Urinary tract infection type: acute cystitis Hematuria presence: without hematuria
[2021-01-14 12:27] LABS: Glucose Point of Care 176 mg/dL (70-110)
[2021-01-14] MEDS: amlodipine 10 mg Tablet PO (13:12)
[2021-01-14 14:55] LABS: Coronavirus Test Green County Not Detected
[2021-01-14 17:52] LABS: Glucose Point of Care 126 mg/dL (70-110)
--- NOTE | 2021-01-15 10:00 | PC.SOCIAL ---
discharge follow up call made, spoke with patient. patient reports some weakness but she is feeling better. patient dc'd with home O2 at 3L, she is tolerating well. patient injected lovenox this am at 0800 and is having labs drawn at 1100 at [facility]. patient is aware of follow up appointment dates and times. television script writer called dr. de jesus's office and they will call pt with appointment, television script writer updated pt. no questions or concerns voiced.
== END 2021-01-14 18:41 | disposition home or self-care (01) | DRG 176 ==
LOC: ER 19:39 → MEDSURG 23:08
PROVIDERS: Admitting Provider Student in an Organized Health Care Education/Training Program; Emergency Provider Emergency Medicine; PCP Family Medicine; Visit Provider Family Medicine
DX: I26.94 Multiple subsegmental thrombotic pulmonary emboli without acute cor pulmonale (principal); N30.00 Acute cystitis without hematuria; E78.5 Hyperlipidemia, unspecified; E11.9 Type 2 diabetes mellitus without complications; Z87.442 Personal history of urinary calculi; G89.29 Other chronic pain; M54.5 Low back pain; E78.1 Pure hyperglyceridemia; G47.33 Obstructive sleep apnea (adult) (pediatric); Z89.429 Acquired absence of other toe(s), unspecified side; M16.12 Unilateral primary osteoarthritis, left hip; I27.20 Pulmonary hypertension, unspecified; I11.9 Hypertensive heart disease without heart failure; Z79.84 Long term (current) use of oral hypoglycemic drugs
CPT/HCPCS: 36415; 36416; 36600; 71045; 71275; 80053; 81001; 82805; 82962; 83605; 83735; 83880; 84100; 84484; 85025; 86140; 87077; 87086; 87186; 87426; 87635; 93005; 93306; 93970; 94660; 96372; 96374; 96376; 99285; J1650; J1815; J1940; J2270; J2405; Q9967

== ENCOUNTER 2021-01-15 11:17 | Outpatient (CLI) | payer MEDICARE, MEDICAID, SELFPAY | END 2021-01-15 11:18 | disposition home or self-care (01) | PROVIDERS: PCP Family Medicine; Visit Provider Family Medicine | DX: I27.20 Pulmonary hypertension, unspecified (principal) | CPT/HCPCS: 85130 ==

== ENCOUNTER 2021-01-21 10:15 | Outpatient (CLI) | payer MEDICARE, MEDICAID, SELFPAY ==
--- NOTE | 2021-01-21 17:28 | ONC CON_ITS ---
Dr. Love New Patient Note Patient: Christo Justin Unit #: [id number]: [id number] Dicatated By: Kendrick Love M.D.Date of Visit: Jan 21, 2021 Onc MED New Patient/Consult Referring Physician: Chiki aMyo Chief Complaint: Pulmonary emboli. History of Present Illness: This is a 65-year-old woman with recently diagnosed pulmonary emboli. She has multiple medical illnesses including hypertension, hyperlipidemia, type 2 diabetes, obesity, obstructive sleep apnea, and degenerative arthritis. On 01/12/2021 she had been admitted to the hospital with pulmonary emboli. She is actually presented to the emergency room with symptoms of urinary tract infection and she was also having swelling in her legs. She was evaluated with CT pulmonary angiogram when she was found to be hypoxic. The CT showed segmental pulmonary emboli in the right middle and lower lobes. The heart was noted to be enlarged and there was evidence of right heart strain with an RV to LV ratio of 1.5. There was suspected pulmonary hypertension. There was noted to be aneurysmal dilatation of the ascending thoracic aorta measuring 3.7 x 4.0 cm but with no evidence of rupture or dissection. There was mild mediastinal and bilateral axillary lymphadenopathy. Also noted was possible early hepatic cirrhosis with periportal lymphadenopathy. Following admission to the hospital she began on anticoagulation with Lovenox. Further evaluation with bilateral lower extremity venous Doppler studies showed no evidence of deep vein thrombosis. She did not have an echocardiogram. She was discharged home on anticoagulation with Lovenox 130 mg every 12 hours. She had a scheduled anti-Xa level on 01/15/2021 and it came back slightly above therapeutic range at 1.24. She is seen now for further management. She complains that she is very weak and she has very limited activity. This appears he due predominantly to her left hip arthritis, which she describes as [id number] . She has been dieting to lose enough weight to have a hip replacement. She is currently down about 50 pounds. Her ECOG score is 3. She has been on CPAP for her obstructive sleep apnea. She indicates that she has had low oxygen saturation on previous occasions when she has been to a doctor's office. She has now on continuous oxygen. She still does have some shortness of breath with effort. She has had some mild discomfort in the right side of the chest, which she thinks may be a muscle pain. She has not had pleuritic pain or hemoptysis. She has no GI complaints at this time. Her bladder function has improved with antibiotic therapy, though she still feels that she still does not empty completely. She has nocturia 2 or 3 times. She does not complain of headache or dizziness. She has some numbness in her feet. She has been on treatment with Cymbalta for anxiety and depression. She complains that she still has depression and she also has breakthrough episodes of anxiety. Past Medical History: Her medical history includes chronic low back pain, chronic ulcer of right great toe, degenerative arthritis, hypertension, hypertriglyceridemia, nephrolithiasis, obesity, obstructive sleep apnea, pulmonary hypertensiom, and type II diabetes. Past Surgical History: Her surgical/procedural history includes amputation of right second toe, Caesarean section x 2, cholecystectomy, D&C x 2, hernia repair, right ankle surgery, right foot surgery, right wrist surgery, and tonsillectomy. Medications: amLODIPine Besylate 1 Tablet (of 10 mg) Oral daily, Cetirizine HCl 1 Tablet (of 10 mg) Oral daily, DULoxetine HCl 1 Tablet (of 60 mg) Capsule Delayed Release Particles Oral b.i.d., Enoxaparin Sodium (130 mg/mL) Subcutaneous b.i.d., Furosemide 1 Tablet (of 20 mg) Oral daily, Garlic 1 Tablet (of 1000 mg) Capsule Oral daily, glipiZIDE 0.5 Tablet (of 10 mg) Oral daily, HYDROcodone-Acetaminophen 1 Tablet (of 10-325 mg) Oral four times a day PRN, metFORMIN HCl 1 Tablet (of 1000 mg) Oral b.i.d., Potassium Chloride ER 1 Tablet (of 10 meq) Capsule, controlled release Oral daily, Spironolactone 1 Tablet (of 25 mg) Oral daily, Turmeric 1 (500 mg) Capsule Oral daily Allergies: Atorvastatin Calcium, busPIRone HCl, Gabapentin, Influenza Virus Vaccine TVS, Januvia, Penicillins, Pregabalin, and traMADol HCl. Social History: Ms. Justin is . She has a history of smoking 5 to 6 cigarettes/day. She quit smoking in 2012. She does not drink alcohol. Family History: Ms. Justin's mother at age 78: lung cancer, and ovarian cancer. Ms. Justin's father at age 86: stomach cancer. Father of stomach cancer at age 82. Mother of lung cancer at age 78. One brother is still living at age 70. There is no history of thromboembolism in the family. Review Of Symptoms: Constitutional - She complains that she is very weak. Her activity is very limited. Her appetite is okay. She has been trying to lose weight so that she can have surgery. She has lost close to 50 pounds. She does not have fever or night sweats. ECOG score is 3, Eyes - Vision is not good, but it has not changed recently, ENMT - She has some hearing loss. No tinnitus. No sinus congestion/drainage. No mouth sores. No sore throat or difficulty swallowing, Hematologic/Lymphatic - She has been having a lot of bruising on the Lovenox, Respiratory - She has shortness of breath with activity. She is on continuous oxygen. She is on CPAP. No pleuritic pain or hemoptysis, Cardiovascular - She sometimes has discomfort in the right side of the chest. She thinks it feels like a muscle pain. No palpitations, Gastrointestinal - No nausea or vomiting. No heartburn or acid reflux. No diarrhea or constipation. No blood in the stool or black stools, Genitourinary (F) - She was having urinary frequency and incontinence, but that has improved. She feels that she still does not empty completely. She has nocturia 2 or 3 times, Musculoskeletal - She has severe pain in her left hip. She also has pain in her right knee and her right shoulder, Integumentary - No skin rash or other skin changes, Neurologic - No headache or dizziness. She has numbness in her feet, Psychiatric - She has anxiety and depression. She has been on treatment with Cymbalta. She does not sleep well at night. Vital Signs: Performed on Jan 21, 2021 11:11: 10, 49.20 (HIGH), 2.28 sq.m, 64 in, 99 %, 80 /min, 128/79 mm(hg), 96.4 F (LOW), and 286.6 lbs (HIGH). Physical Examination: Constitutional - She has very limited mobility. She does not appear acutely ill, Eyes - Sclerae nonicteric. Conjunctivae clear, ENMT - No lesions noted in the oral cavity, Neck - No mass or thyromegaly, Hematologic/Lymphatic - No cervical, clavicular, or axillary adenopathy, Respiratory - Lungs sound clear with some decrease in air movement bilaterally, Cardiovascular - Heart rhythm is regular. There is no murmur, gallop, or rub noted, Abdomen - Moderately distended. Liver and spleen are not enlarged. There is no abdominal mass or ascites noted and there is no inguinal adenopathy, Extremities - There is mild lower extremity edema. I am not able to palpate pedal pulses. Both feet are warm to touch., Integumentary - No rashes. No suspicious skin lesions noted, Neurologic - No focal neurologic deficits noted. Problem List: 1. Segmental pulmonary emboli involving right middle and lower lobes. There was CT evidence of right heart strain. 2. Hypertension. 3. Hyperlipidemia. 4. Type 2 diabetes. 5. Obesity. 6. Obstructive sleep apnea. 7. Degenerative arthritis. 8. Anxiety and depression. Problems Addressed with this Encounter and Plan: Patient with segmental pulmonary emboli involving right middle and lower lobes, diagnosed by CT pulmonary angiogram on 01/12/2021. The source is uncertain, as her venous Doppler study showed no evidence of lower extremity deep vein thrombosis. It does appear to been unprovoked. She had hypoxia on presentation, and there was CT evidence of right heart strain. She has been on anticoagulation with Lovenox at a slightly supratherapeutic dosage. We first of all discussed the fact that with an unprovoked episode of significant thromboembolism, she will be recommended to continue anticoagulation indefinitely. As such, I am not going to undertake a thrombophilia evaluation, as there is also a low probability of hereditary thrombophilia by clinical evaluation. After reviewing the records, I suspect that the CT findings of right heart strain are more likely associated with chronic hypoxia rather than to the acute pulmonary emboli, and at this point I think it is acceptable to transition her to a direct oral anticoagulant. As of tomorrow she will start apixaban 5 mg twice daily. In the absence of any further thromboembolism, she may then be eligible to transition to maintenance dosage after 6 months of treatment. I will tentatively plan a follow-up visit in 3 months. Signed By: Kendrick Love M.D. <<Signature on File>>
== END 2021-01-21 10:16 | disposition home or self-care (01) ==
LOC: ONCMED 10:23
PROVIDERS: PCP Family Medicine; Visit Provider Internal Medicine Medical Oncology
DX: I26.99 Other pulmonary embolism without acute cor pulmonale (principal); I10 Essential (primary) hypertension; E78.5 Hyperlipidemia, unspecified; E11.9 Type 2 diabetes mellitus without complications; M19.90 Unspecified osteoarthritis, unspecified site; G47.33 Obstructive sleep apnea (adult) (pediatric); F41.8 Other specified anxiety disorders; Z79.01 Long term (current) use of anticoagulants; Z79.899 Other long term (current) drug therapy; Z79.84 Long term (current) use of oral hypoglycemic drugs
CPT/HCPCS: 99205

== ENCOUNTER → 2021-03-08 08:30 | Outpatient (BNVA) | payer MEDICARE, MEDICAID, SELFPAY | PROVIDERS: PCP Family Medicine; Visit Provider Family Medicine | DX: E11.9 Type 2 diabetes mellitus without complications (principal); I26.94 Multiple subsegmental thrombotic pulmonary emboli without acute cor pulmonale; F32.9 Major depressive disorder, single episode, unspecified; I10 Essential (primary) hypertension; Z68.42 Body mass index [BMI] 45.0-49.9, adult; Z71.89 Other specified counseling | CPT/HCPCS: 80053; 83036 ==

== ENCOUNTER → 2021-03-31 13:37 | Outpatient (BNVA) | payer MEDICARE, MEDICAID, SELFPAY | PROVIDERS: PCP Family Medicine; Visit Provider Psychiatry & Neurology Psychiatry | DX: F33.2 Major depressive disorder, recurrent severe without psychotic features (principal); F41.1 Generalized anxiety disorder | CPT/HCPCS: 99204 ==

== ENCOUNTER 2021-05-19 09:55 | Outpatient (CLI) | payer MEDICARE, MEDICAID, SELFPAY ==
--- NOTE | 2021-05-19 18:57 | ONC FU_ITS ---
Dr. Love Patient Follow-Up Note Patient: Christo Justin Unit #: [id number]: 1955 Dicatated By: Kendrick Love M.D.Date of Visit:May 19, 2021 Onc Med Follow-up/Prog Note Chief Complaint: Pulmonary emboli. History of Present Illness: This is a 65-year-old woman with pulmonary emboli. She has multiple medical illnesses including hypertension, hyperlipidemia, type 2 diabetes, obesity, obstructive sleep apnea, and degenerative arthritis. On 01/12/2021 she had been admitted to the hospital with pulmonary emboli. She is actually presented to the emergency room with symptoms of urinary tract infection and she was also having swelling in her legs. She was evaluated with CT pulmonary angiogram when she was found to be hypoxic. The CT showed segmental pulmonary emboli in the right middle and lower lobes. The heart was noted to be enlarged and there was evidence of right heart strain with an RV to LV ratio of 1.5. There was suspected pulmonary hypertension. There was noted to be aneurysmal dilatation of the ascending thoracic aorta measuring 3.7 x 4.0 cm but with no evidence of rupture or dissection. There was mild mediastinal and bilateral axillary lymphadenopathy. Also noted was possible early hepatic cirrhosis with periportal lymphadenopathy. Following admission to the hospital she began on anticoagulation with Lovenox. Further evaluation with bilateral lower extremity venous Doppler studies showed no evidence of deep vein thrombosis. She did not have an echocardiogram. She was discharged home on anticoagulation with Lovenox 130 mg every 12 hours. She had a scheduled anti-Xa level on 01/15/2021 and it came back slightly above therapeutic range at 1.24. I had seen her initially on 01/21/2021. She was recommended to continue on indefinite anticoagulation, but at that point I did opt to transition her to apixaban at a standard dosage of 5 mg twice daily. She is seen for a follow-up visit. Her main complaint is her left hip pain, which is severe enough to limit her activity. She is in need of a left hip replacement, which she still has to lose more weight before she would be eligible for the procedure. She has been taking 2 hydrocodone 10/APAP 325 tablets 4 times a day, and she says it does not touch the pain. She is able to ambulate with a walker, but only about 5 steps. Her ECOG score is 3. Her appetite is okay. She intermittently has chills or sweating, and she also has documented low-grade fever off and on. The maximum has been 100.1 degrees. She remains on continuous oxygen, and she recently was confirmed to still have hypoxia with her room air oxygen saturation dropping to 83%. She does not complain of cough and she has not been having chest pain. She has nausea and she has ongoing problems with constipation. She has urinary frequency and nocturia. She also has fairly generalized joint pain and pain in her neck and back. She has headaches and she has numbness in her feet. She has ongoing problems with depression, but that she just attributes to the pain. Medications: Cetirizine HCl 1 Tablet (of 10 mg) Oral daily, DULoxetine HCl 1 Tablet (of 60 mg) Capsule Delayed Release Particles Oral daily, Eliquis 5 mg (of 5 mg) Tablet Oral b.i.d., glipiZIDE 0.5 Tablet (of 10 mg) Oral daily, HYDROcodone-Acetaminophen 1 Tablet (of 10-325 mg) Oral four times a day PRN, metFORMIN HCl 1 Tablet (of 1000 mg) Oral b.i.d. Allergies: Atorvastatin Calcium, busPIRone HCl, Gabapentin, Influenza Virus Vaccine TVS, Januvia, Penicillins, Pregabalin, and traMADol HCl. Vital Signs: Performed on May 19, 2021 10:26 Height - 64.00 in Weight - 282 lbs (LOW) BSA - 2.26 sq.m BMI - 48.41 (HIGH) Temperature - 95.3 F (LOW) Pulse - 90 /min Respiration - 20 /min BP - 155/87 mm(hg) (HIGH) O2 Sat - 94 % (LOW) Pain - 9 Fatigue - 10 Physical Examination: Constitutional - She has limited mobility, but she does not appear acutely ill, Eyes - Sclerae nonicteric. Conjunctivae clear, ENMT - No lesions noted in the oral cavity, Hematologic/Lymphatic - No cervical, clavicular, or axillary adenopathy, Respiratory - Lungs sound clear with some decrease in air movement bilaterally, Cardiovascular - Heart rhythm is regular. She has intermittent tachycardia. There is no murmur, gallop, or rub noted, Abdomen - Mildly distended. Liver and spleen are not enlarged. There is no abdominal mass or ascites noted and there is no inguinal adenopathy, Extremities - There is mild lower extremity edema, Integumentary - There is a recent biopsy site in the right scientologist area, Neurologic - No focal neurologic deficits noted. Problem List: 1. Segmental pulmonary emboli involving right middle and lower lobes. 2. Hypertension. 3. Hyperlipidemia. 4. Type 2 diabetes. 5. Obesity. 6. Obstructive sleep apnea. 7. Degenerative arthritis. 8. Anxiety and depression. Problems Addressed with this Encounter and Plan: 1. Patient with segmental pulmonary emboli involving right middle and lower lobes, diagnosed by CT pulmonary angiogram on 01/12/2021. The source is uncertain, as her venous Doppler study showed no evidence of lower extremity deep vein thrombosis. It does appear to been unprovoked. She had hypoxia on presentation, and there was CT evidence of right heart strain. She had initially continued on anticoagulation with Lovenox. Following her visit in December 2020, I had transitioned her anticoagulation to apixaban. Thus far she has had no evidence of any further thromboembolism. She remains hypoxic, but that chronic and most likely not unrelated to the pulmonary embolism. She will, however, need to be on anticoagulation indefinitely. For now she continues apixaban 5 mg twice daily. I will see her again in 3 months. 2. She has severe left hip pain due to degenerative arthritis. She will not be eligible for surgery until she has had sufficient weight loss. I will discuss her pain management with Dr. Graham, as her current medication is not controlling it effectively, but she has been getting significant acetaminophen exposure with it. Signed By: Kendrick Love M.D. <<Signature on File>>
== END 2021-05-19 09:56 | disposition home or self-care (01) ==
PROVIDERS: PCP Family Medicine; Visit Provider Internal Medicine Medical Oncology
DX: I26.94 Multiple subsegmental thrombotic pulmonary emboli without acute cor pulmonale (principal); I10 Essential (primary) hypertension; E78.5 Hyperlipidemia, unspecified; E11.9 Type 2 diabetes mellitus without complications; E66.9 Obesity, unspecified; G47.33 Obstructive sleep apnea (adult) (pediatric); M19.90 Unspecified osteoarthritis, unspecified site; F41.8 Other specified anxiety disorders; Z79.01 Long term (current) use of anticoagulants
CPT/HCPCS: 99214

== ENCOUNTER → 2021-09-07 10:15 | Outpatient (BNVA) | payer MEDICARE, MEDICAID, SELFPAY | PROVIDERS: PCP Family Medicine; Visit Provider Family Medicine | DX: E11.9 Type 2 diabetes mellitus without complications (principal); F32.9 Major depressive disorder, single episode, unspecified; I26.94 Multiple subsegmental thrombotic pulmonary emboli without acute cor pulmonale | CPT/HCPCS: 80053; 83036 ==

== ENCOUNTER 2021-10-05 14:07 | Oncology outpatient (recurring) (ONCR) | payer MEDICARE, MEDICAID, SELFPAY | END 2021-10-05 23:59 | disposition home or self-care (01) | PROVIDERS: PCP Family Medicine; Visit Provider Nurse Practitioner Family | DX: I26.94 Multiple subsegmental thrombotic pulmonary emboli without acute cor pulmonale (principal); Z79.01 Long term (current) use of anticoagulants; J96.11 Chronic respiratory failure with hypoxia; Z87.891 Personal history of nicotine dependence | CPT/HCPCS: 99214 ==

== ENCOUNTER 2021-10-18 12:17 | Inpatient (IN) | payer MEDICARE, MEDICAID, SELFPAY ==
[2021-10-18] VITALS (23 sets, daily range): BP systolic 129–166; BP diastolic 63–90; PULSE 80–113; RESP 14–25; TEMP 36.8–38.7; O2SAT 85–100
--- NOTE | 2021-10-18 | SCC_ITS ---
Procedure done: 1. Cystoscopy, left ureteral stent placement (7 Taiwanese by 26 cm double- pigtail without string) 10.6 seconds of fluoroscopic guidance, for a cumulative dose of 3.12 mGy, was provided to Dr. Finch by the radiology department. C-arm images of the abdomen were saved for the patient's permanent record. [facility]
--- NOTE | 2021-10-18 12:33 | ECG_ITS ---
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 Measurements Intervals [place] Rate: 92 P: 54 MI: 154 QRS: 116 QRSD: 99 T: 9 QT: 320 QTc: 397 Interpretive Statements SINUS RHYTHM INCOMPLETE RIGHT BUNDLE BRANCH BLOCK [90+ ms QRS DURATION, TERMINAL R IN V1/V2, 40+ ms S IN I/aVL/V4/V5/V6] POSSIBLE RIGHT VENTRICULAR HYPERTROPHY [SOME/ALL OF: PROMINENT R IN V1, LATE TRANSITION, RAD, STACIE, SSS] Compared to ECG 01/12/2021 17:14:16 Indeterminate axis no longer present Left posterior fascicular block no longer present Myocardial infarct finding no longer present Electronically Signed On 10-18-2021 17:30:48 CDT by Gilberto Scott M.D. [id number]
--- NOTE | 2021-10-18 12:35 | XR_ITS ---
WS: [id number] XR chest 1V portable [id number] REASON FOR EXAM: dyspnea FINDINGS: The chest is unchanged compared to 01/12/2021. Moderate tortuosity and ectasia of the thoracic aorta without aneurysmal dilatation. No significant c ardiac enlargement. Chronic interstitial changes in the left lower lung field. No definite acute pulmonary parenchymal or pleural abnormality. Bony thorax is intact with degenerative changes in the thoracic spine. XR/XR chest 1V portable [id number] IMPRESSION: Stable chest with no definite acute abnormality. Interstitial changes in the le ft lower lung are present on previous examination 01/12/2021.
[2021-10-18] MEDS: sodium chloride 0.9% 1,000 ML 999 ML IV (12:41)
[2021-10-18] MEDS: acetaminophen 500 mg Tablet PO (12:41)
[2021-10-18] MEDS: ondansetron 2 mg/ML SDV 2 mL 4 MG IVP (12:41)
--- NOTE | 2021-10-18 12:42 | ED_ITS ---
HPI - General Adult General: Chief complaint: Nausea/Vomiting/Diarrhea Stated complaint: N/V/D/ WEAKNESS Time Seen by Provider: 10/18/21 12:20 History of Present Illness: Patient is a 66-year-old female with history of segmental pulmonary embolism on Eliquis, CHF, diabetes c/b toe amputation, pulmonary hypertension who presents to the emergency room for evaluation of generalized body aches, nausea/vomiting diarrhea, abdominal pain, subjective fever and chills. Patient tells me that she has been having some for the last 3 days. Patient denies any cough, runny nose sore throat. Patient denies any shortness of breath or chest pain. Patient reports multiple episodes of loose s tool throughout the day. Patient has no urinary complaints. Denies any melena hematochezia. Patient reports that her upper abdomen has been hurting. Patient denies any sick contact or any recent exposure to COVID. In terms of her abdominal pain, patient tells me that she has intermittent colicky upper abdominal pain. Patient denies any pleuritic chest pain at this time. She has been compliant with her apixaban. Onset:3 days ago Duration:3 days Location:home Severity:moderate Associated symptoms: Reports nausea and vomiting; Deny chest pain, dyspnea, rash or palpitations Review of Systems Const: Reports: chills and body aches; Denies: fever(s) Eyes: Denies: change in vision ENMT: Denies: mouth pain Card: Denies: chest pain or palpitations Resp: Denies: dyspnea or non-productive cough GI: Reports: abdominal pain, nausea, vomiting and diarrhea : Denies: dysuria Musc: Denies: extremity pain Skin/Breast: Denies: rash or new lesions Neuro: Denies: weakness in extremities Psych: Reports: other (Normal mood) Javier/Lymph: Denies: easy bruising PFSH ED PFSH: Medical History Bilateral renal stones Chronic low back pain 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 Congestive heart failure (CHF) Controlled type 2 diabetes mellitus, without long-term current use of insulin Degenerative arthritis Diastolic heart failure Enrolled in chronic care management HTN (hypertension) Hypertriglyceridemia Obstructive sleep apnea Other hammer toe(s) (acquired), left foot Psychiatric care PTTD (posterior tibial tendon dysfunction) Pulmonary embolism Pulmonary hypertension Right heart failure with reduced right ventricular function Right ureteral calculus Statin intolerance Surgical History H/O amputation of lesser toe H/O inguinal hernia repair RIGHT History of 2 sections History of laparoscopic cholecystectomy History of tonsillectomy Status post right foot surgery Family History Mother , AT AGE 78 Cancer OVARIAN CANCER ,LUNG CANCER Father , AT AGE 86 Cancer STOMACH Other Diabetes Hyperlipidemia Hypertension Denies family history of CAD (coronary artery disease) Clotting disorder Dementia Psychiatric illness Chronic kidney disease (CKD) Suicide Anesthesia complication Bleeding disorder Family history of premature coronary artery disease Lung disease Stroke Social History Smoking and tobacco status: former smoker Quit status (tobacco): has quit using tobacco Year quit tobacco: 2012 Second hand smoke exposure: No Alcohol intake: never Lives independently: Yes Marital status: Current occupational status: disabled History of recent travel: No Female Reproductive History: Para: 2 Spontaneous abortions: No Date of menopause: 10/06/04 Physical Exam Const: COMMON NORMALS: alert HENMT: COMMON NORMALS: atraumatic HEAD & SCALP: atraumatic MOUTH: moist mucous membranes not abnormal Eye: COMMON NORMALS: EOMs intact bilaterally and conjunctivae normal CONJUNCTIVA: Yes conjunctivae normal Neck/C-Spine: COMMON NORMALS: full ROM and supple Resp: COMMON NORMALS: normal respiratory effort and clear to auscultation bilaterally AUSCULTATION: clear to auscultation bilaterally Cardio: COMMON NORMALS: regular rate RATE: regular rate GI: COMMON NORMALS: Soft to palpation and non-tender PALPATION: Yes Soft to palpation OTHER: No focal TTP. NO guarding rebound, guarding, rigidity. No CVA tenderness to percussion. Neg Osorio/Neg McBurney's point tenderness, no suprabupic tenderness to palpation. Extremity: COMMON NORMALS: full ROM Neuro: SENSORIUM/ORIENTATION: Yes alert MOTOR EXAM: No Abnormal motor strength present and Other motor observations present (no focal motor deficits) Psych: COMMON NORMALS: speech normal SPEECH: Yes normal speech MOOD & AFFECT: Yes euthymic mood Course Vital Signs: Vital signs: Vital Signs Temperature 98.2 F 10/18/21 15:00 Pulse Rate 99 10/18/21 16:00 Respiratory Rate 18 10/18/21 16:00 Blood Pressure 132/74 10/18/21 16:00 Pulse Oximetry 98 10/18/21 16:00 [facility] - General Adult Medical Decision Making 66-year-old female with a history of segmental pulmonary embolism on Eliquis, CHF, diabetes c/b toe amputation, pulmonary hypertension who presents to the emergency room for evaluation of generalized body aches, nausea/vomiting diarrhea, abdominal pain, subjective fever and chills. Ova negative. Patient is noted to have white count 16. He was consistent with UTI. Plus blood noted. CT of abdomen pelvis showed obstructive left-sided uropathy. This is concerning for possible infected stone. Patient received ceftriaxone. Case was discussed with Dr. Finch who will evaluate patient at bedside. Disposition: admission Lab Data : 10/18/21 12:25 10/18/21 12:25 Radiology Impressions Chest X-Ray 10/18/21 12:35 IMPRESSION: Stable chest with no definite acute abnormality. Interstitial changes in the left lower lung are present on previous examination 01/12/2021. Abdomen/Pelvis CT 10/18/21 15:22 IMPRESSION: 1. Left obstructive uropathy secondary to an abdominal intraureteral calculus. 2. Right renal calyceal lithiasis. 3. Diverticulosis. 4. Right renal benign cysts. No follow-up imaging is recommended. 5. Small hiatal hernia. 6. Coronary atherosclerosis. COMMENTS: Consistent with the [employer]'s Incidental Findings Committee white paper (J Am Courtney Radiol 2018): Any incidental renal lesion less than 1 cm or classified as too small to characterize, or any incidental cystic renal lesion characterized as simple-appearing, is likely benign. No follow-up imaging is recommended for these lesions per consensus recommendations based on imaging criteria. Laboratory Results WBC 16.7 10^3/uL (4.0-10.0) H 10/18/21 12:25 RBC 4.53 10^6/uL (4.1-5.3) 10/18/21 12:25 Hgb 12.9 g/dL (11.5-15.3) 10/18/21 12:25 Hct 40.0 % (37.0-47.0) 10/18/21 12:25 MCV 88.3 fl (81-99) 10/18/21 12:25 MCH 28.5 pg (28.0-34.0) 10/18/21 12:25 MCHC 32.3 g/dL (30.0-36.0) 10/18/21 12:25 RDW 15.6 % (12.1-15.1) H 10/18/21 12:25 Plt Count 226 10^3/cmm (130-400) 10/18/21 12:25 MPV 10.8 fL (7.4-10.4) H 10/18/21 12:25 Neut % (Auto) 82.2 % 10/18/21 12:25 Lymph % (Auto) 6.1 % 10/18/21 12:25 [place] % (Auto) 11.0 % 10/18/21 12:25 Eos % (Auto) 0.0 % 10/18/21 12:25 Baso % (Auto) 0.2 % 10/18/21 12:25 Neut # (Auto) 13.72 10^3/uL (1.8-7.7) H 10/18/21 12:25 Lymph # (Auto) 1.0 10^3/uL (0.8-4.8) 10/18/21 12:25 [place] # (Auto) 1.8 10^3/uL (0.2-0.9) H 10/18/21 12:25 Eos # (Auto) 0.0 10^3/uL (0.0-0.8) 10/18/21 12:25 Baso # (Auto) 0.0 10^3/uL (0.0-0.1) 10/18/21 12:25 Nucleated RBC % (auto) 0 % 10/18/21 12:25 Nucleated RBCs # 0.0 /100WBC 10/18/21 12:25 Sodium 134 mmol/L (136-145) L 10/18/21 12:25 Potassium 3.8 mmol/L (3.5-5.1) 10/18/21 12:25 Chloride 95 mmol/L (98-107) L 10/18/21 12:25 Carbon Dioxide 22 mmol/L (22-29) 10/18/21 12:25 Anion Gap 20.8 (5-19) H 10/18/21 12:25 BUN 16 mg/dL (8-23) 10/18/21 12:25 Creatinine 0.8 mg/dL (0.5-0.9) 10/18/21 12:25 GFR Calculation 71.3 mL/min (90-130) L 10/18/21 12:25 Glucose 220 mg/dL (65-115) H 10/18/21 12:25 Calculated Osmolality 286 mOsm/kg (285-295) 10/18/21 12:25 Calcium 9.9 mg/dL (8.5-10.5) 10/18/21 12:25 Total Bilirubin 0.6 mg/dL (0.15-1.2) 10/18/21 12:25 AST 10 U/L (0-32) 10/18/21 12:25 ALT 9 U/L (0-33) 10/18/21 12:25 Alkaline Phosphatase 69 IU/L (35-105) 10/18/21 12:25 Troponin T Baseline 8 ng/L (0-10) 10/18/21 12:25 Troponin T 120 Minute 8.32 ng/L (0-10) 10/18/21 14:24 Delta Troponin T 0.32 ABS# (0-10) 10/18/21 14:24 NT-Pro-B Natriuret Pep 2455 pg/mL (0-125) H 10/18/21 12:25 Total Protein 7.6 g/dL (6.6-8.7) 10/18/21 12:25 Albumin 4.0 g/dL (3.5-5.2) 10/18/21 12:25 Globulin 3.6 g/dL (1.3-4.6) 10/18/21 12:25 Lipase 10 U/L (13-60) L 10/18/21 12:25 Urine Color Yellow (Yellow) 10/18/21 13:40 Urine Appearance Cloudy (CLEAR) 10/18/21 13:40 Urine pH 5 (5-7) 10/18/21 13:40 Ur Specific [place] 1.020 (1.005-1.030) 10/18/21 13:40 Urine Protein 2+ (Negative) H 10/18/21 13:40 Urine Glucose (UA) Norm (Normal) 10/18/21 13:40 Urine Ketones 1+ (Negative) H 10/18/21 13:40 Urine Blood 3+ (Negative) H 10/18/21 13:40 Urine Nitrate Positive (Negative) H 10/18/21 13:40 Urine Bilirubin Neg (Negative) 10/18/21 13:40 Urine Urobilinogen Norm mg/dL (Negative) 10/18/21 13:40 Ur Leukocyte Esterase 2+ (Negative) H 10/18/21 13:40 Urine RBC 5-10 /hpf (0-2) H 10/18/21 13:40 Urine WBC Too numerous to cnt /hpf (0-5) H 10/18/21 13:40 Ur Squamous Epith Cells 0-4 /hpf (0-5) H 10/18/21 13:40 Amorphous Sediment Not Reportable 10/18/21 13:40 Urine Bacteria 4+ /hpf (NONE) H 10/18/21 13:40 Urine Mucus Trace /hpf 10/18/21 13:40 Nasal Influ A H1 2009 PCR Not detected (NOT DETECT) 10/18/21 12:46 RSV Nasal Swab Cancelled 10/18/21 12:34 RSV Nasal Swab Int Cntl Cancelled 10/18/21 12:34 Adenovirus (PCR) Not detected (NOT DETECT) 10/18/21 12:46 C. pneumoniae DNA (PCR) Not detected (NOT DETECT) 10/18/21 12:46 Coronavirus 229E (PCR) Not detected (NOT DETECT) 10/18/21 12:46 Human Metapneumovir PCR Not detected (NOT DETECT) 10/18/21 12:46 Influenza A (RT-PCR) Cancelled 10/18/21 12:34 Influenza A (H1) PCR Not detected (NOT DETECT) 10/18/21 12:46 Influenza A (H3) PCR Not detected (NOT DETECT) 10/18/21 12:46 Influenza Type A Ag Cancelled 10/18/21 12:34 Influenza Type A (PCR) Not detected (NOT DETECT) 10/18/21 12:46 Influenza Type B Ag Cancelled 10/18/21 12:34 Influenza B (RT-PCR) Cancelled 10/18/21 12:34 Influenza Type B (PCR) Not detected (NOT DETECT) 10/18/21 12:46 M. pneumoniae (PCR) Not detected (NOT DETECT) 10/18/21 12:46 Parainfluenzae Type 1 Cancelled 10/18/21 12:34 Parainfluenza 1 (PCR) Not detected (NOT DETECT) 10/18/21 12:46 Parainfluenzae Type 2 Cancelled 10/18/21 12:34 Parainfluenza 2 (PCR) Not detected (NOT DETECT) 10/18/21 12:46 Parainfluenzae Type 3 Cancelled 10/18/21 12:34 Parainfluenza 3 (PCR) Not detected (NOT DETECT) 10/18/21 12:46 Parainfluenza 4 (PCR) Not detected (NOT DETECT) 10/18/21 12:46 RSV Ab Comment Cancelled 10/18/21 12:34 RSV Type A (PCR) Not detected (NOT DETECT) 10/18/21 12:46 RSV Type B (PCR) Not detected (NOT DETECT) 10/18/21 12:46 Rhinovirus (PCR) Cancelled 10/18/21 12:34 Entero/Rhino (PCR) Not detected (NOT DETECT) 10/18/21 12:46 SARS-CoV-2 (PCR) Not detected (NOT DETECT) 10/18/21 12:46 Imaging Data Other Imaging: Radiologist's impression: [place] [address] CT Scan Report Signed Patient: Christo Justin Unit #: [id number] : 1955 Age/Sex: 66 / F ADM Date: 10/18/21 Loc: ER Room/Bed: Attending Dr: Ordering Provider/Ordering MD: Roge Ramirez MD Date of Service: 10/18/21 Procedure(s): CT abdomen pelvis con [id number] Accession Number(s): [id number] Report Number: [id number] PROCEDURE INFORMATION: Exam: CT Abdomen And Pelvis Without Contrast Exam date and time: 10/18/2021 4:28 PM Age: 66 years old Clinical indication: Abdominal pain; Generalized; Prior surgery; Surgery type: Gb, hernia, c-sections; Additional info: 3+ blood and UTI TECHNIQUE: Imaging protocol: Computed tomography of the abdomen and pelvis without contrast. Radiation optimization: All CT scans at this facility use at least one of these dose optimization techniques: automated exposure control; mA and/or kV adjustment per patient size (includes targeted exams where dose is matched to clinical indication); or iterative reconstruction. COMPARISON: CR XR hip LT 2-3V wo/w pel* [id number] 06/23/2020 11:50 AM RADIATION DOSE METRICS: Total DLP (mGy-cm): 1698.24 FINDINGS: Lungs: Bibasilar mild pulmonary subsegmental atelectasis is present. Heart: Atherosclerotic calcifications are present involving the RCA coronary artery. Diaphragm: A small sliding hiatal hernia is present above the level of the diaphragm. Liver: Normal. No mass. Gallbladder and bile ducts: Normal. No calcified stones. No ductal dilation. Pancreas: Severe pancreatic atrophy. No pancreatic mass or ductal dilatation. Spleen: Normal. No splenomegaly. Adrenal glands: Normal. No mass. Kidneys and ureters: The left kidney shows moderate pelviectasis with mild perinephric stranding, with a 3.5 mm intraureteral calculus at the L4-L5 level. Right renal calculi (2), the largest in the lateral mid kidney measuring 3.5 mm. Right renal benign cysts, largest 3.8 cm. Stomach and bowel: Sigmoid colonic diverticula are present without evidence of diverticulitis. Appendix: The vermiform appendix is not identified on this examination. There is, however, no pericecal abnormality to suggest appendicitis. Intraperitoneal space: No free air. No significant fluid collection. Vasculature: Mild aortic atherosclerotic calcification without aneurysm. The iliac arteries show moderate bilateral atherosclerotic calcifications without evidence of aneurysm. Lymph nodes: No enlarged lymph nodes. Urinary bladder: Unremarkable as visualized. Reproductive: See Kidneys and ureters finding. Bones/joints: The patient demonstrates a transitional vertebra, which is considered to be a partially lumbarized S1 segment, normal variant. Bilateral lower lumbar facet primary osteoarthritis. Severe left hip primary osteoarthritis. Lower thoracic and upper lumbar spine vertebral body marginal osteophytes. Soft tissues: Previous anterior abdominal wall incisional repair. CT/CT abdomen pelvis wo con [id number] IMPRESSION: 1. Left obstructive uropathy secondary to an abdominal intraureteral calculus. 2. Right renal calyceal lithiasis. 3. Diverticulosis. 4. Right renal benign cysts. No follow-up imaging is recommended. 5. Small hiatal hernia. 6. Coronary atherosclerosis. ? COMMENTS: Consistent with the [employer]'s Incidental Findings Committee white paper (J Am Courtney Radiol 2018): Any incidental renal lesion less than 1 cm or classified as too small to characterize, or any incidental cystic renal lesion characterized as simple-appearing, is likely benign. No follow-up imaging is recommended for these lesions per consensus recommendations based on imaging criteria. ? Dictated By: Willem Talamantes MD Signed By: Willem Talamantes MD Signed Date/Time: 10/18/21 1712 DD/ [address] [address] XRay Report Signed Patient: Christo Justin Unit #: [id number] : 1955 Age/Sex: 66 / F ADM Date: 10/18/21 Loc: ER Room/Bed: Attending Dr: Ordering Provider/Ordering MD: Roge Ramirez MD Date of Service: 10/18/21 Procedure(s): XR chest 1V portable [id number] Accession Number(s): [id number] Report Number: [id number] WS: [id number] XR chest 1V portable [id number] REASON FOR EXAM: dyspnea FINDINGS: The chest is unchanged compared to 01/12/2021. Moderate tortuosity and ectasia of the thoracic aorta without aneurysmal dilatation. No significant cardiac enlargement. Chronic interstitial changes in the left lower lung field. No definite acute pulmonary parenchymal or pleural abnormality. Bony thorax is intact with degenerative changes in the thoracic spine. XR/XR chest 1V portable [id number] IMPRESSION: Stable chest with no definite acute abnormality. Interstitial changes in the left lower lung are present on previous examination 01/12/2021. ? ? Dictated By: Roosevelt Tyler Jr, MD Signed By: Roosevelt Tyler Jr, MD Signed Date/Time: 10/18/21 1250 DD/ 1244 Discharge Plan Discharge Patient Disposition: Admitted As Inpatient Clinical Impression: Obstruction, uropathy, Acute pyelonephritis Condition: Stable Coding Level of Care Code ED Art Display Maker for Chg Fwd Exam Comprehensive
[2021-10-18 12:55] LABS: Basophils % 0.2 %; Hemoglobin 12.9 g/dL (11.5-15.3); Lymphocytes % 6.1 %; Mean Corpuscular HGB Conc 32.3 g/dL (30.0-36.0); Mean Corpuscular Hemoglobin 28.5 pg (28.0-34.0); Mean Corpuscular Volume 88.3 fl (81-99); Mean Platelet Volume 10.8 fL (7.4-10.4); Monocytes # 1.8 10^3/uL (0.2-0.9); Neutrophils # 13.72 10^3/uL (1.8-7.7); Neutrophils % 82.2 %; Nucleated Red Blood Cells % 0 %; Platelet Count 226 10^3/cmm (130-400); Red Blood Count 4.53 10^6/uL (4.1-5.3); Red Cell Distribution Width 15.6 % (12.1-15.1); White Blood Count 16.7 10^3/uL (4.0-10.0)
[2021-10-18 13:14] LABS: Alanine Aminotransferase 9 U/L (0-33); Alkaline Phosphatase 69 IU/L (35-105); Anion Gap 20.8 (5-19); Aspartate Amino Transferase 10 U/L (0-32); Blood Urea Nitrogen 16 mg/dL (8-23); Calcium 9.9 mg/dL (8.5-10.5); Carbon Dioxide 22 mmol/L (22-29); Chloride 95 mmol/L (98-107); Creatinine Clr Calc Pharmacy 88.4633; Globulin 3.6 g/dL (1.3-4.6); Glomerular Filtration Rate 71.3 mL/min (90-130); Glucose 220 mg/dL (65-115); Lipase 10 U/L (13-60); Osmolality Calculated 286 mOsm/kg (285-295); Potassium 3.8 mmol/L (3.5-5.1); Sodium 134 mmol/L (136-145); Total Bilirubin 0.6 mg/dL (0.15-1.2); Total Protein 7.6 g/dL (6.6-8.7)
[2021-10-18 13:15] LABS: Troponin(5th) Baseline 8 ng/L (0-10)
[2021-10-18 14:11] LABS: NT Pro B Type Natriuretic Pept 2455 pg/mL (0-125)
[2021-10-18 14:27] LABS: Urine Appearance Cloudy (CLEAR); Urine Color Yellow (Yellow); pH Urine 5 (5-7)
[2021-10-18 14:28] LABS: Add Urine Microscopic? YES; Bilirubin Urine Neg (Negative); Blood Urine 3+ (Negative); Glucose Urine UA Norm (Normal); Ketones Urine 1+ (Negative); Leukocyte Esterase Urine 2+ (Negative); Nitrate Urine Positive (Negative); Protein Urine 2+ (Negative); Urobilinogen Urine Norm (Negative)
[2021-10-18 14:29] LABS: Bacteria Urine 4+ /hpf; WBC Urine TOO NUMEROUS TO CNT /hpf (0-5)
[2021-10-18 14:30] LABS: Add Urine Culture? Yes; Mucus Urine TRACE /hpf; Squamous Epithelial Cell Urine 0-4 /hpf (0-5)
--- NOTE | 2021-10-18 14:33 | ECG_ITS ---
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 Measurements Intervals [place] Rate: 89 P: 56 [place]: 159 QRS: 106 QRSD: 104 T: 1 QT: 342 QTc: 418 Interpretive Statements SINUS RHYTHM INCOMPLETE RIGHT BUNDLE BRANCH BLOCK [90+ ms QRS DURATION, TERMINAL R IN V1/V2, 40+ ms S IN I/aVL/V4/V5/V6] Compared to ECG 10/18/2021 12:49:28 No significant changes Electronically Signed On 10-18-2021 17:35:45 CDT by Gilberto Scott M.D. [id number]
[2021-10-18 14:49] LABS: Troponin 5 2HR 8.32 ng/L (0-10)
[2021-10-18 14:51] LABS: Troponin 5 2HR Delta 0.32 ABS# (0-10)
[2021-10-18] MEDS: cefTRIAXone 1,000 MG in sodium chloride 0.9% (plus) 50 ML 100 MG IV (15:00)
--- NOTE | 2021-10-18 15:22 | CTR_ITS ---
PROCEDURE INFORMATION: Exam: CT Abdomen And Pelvis Without Contrast Exam date and time: 10/18/2021 4:28 PM Age: 66 years old Clinical indication: Abdominal pain; Generalized; Prior surgery; Surgery type: Gb, hernia, c-sections; Additional info: 3+ blood and UTI TECHNIQUE: Imaging protocol: Computed tomography of the abdomen and pelvis without contrast. Radiation optimization: All CT scans at this facility use at least one of these dose optimization techniques: automated exposure control; mA and/or kV adjustment per patient size (includes targeted exams where dose is matched to clinical indication); or iterative reconstruction. COMPARISON: CR XR hip LT 2-3V wo/w pel* [id number] 06/23/2020 11:50 AM RADIATION DOSE METRICS: Total DLP (mGy-cm): 1698.24 FINDINGS: Lungs: Bibasilar mild pulmonary subsegmental atelectasis is present. Heart: Atherosclerotic calcifications are present involving the RCA coronary artery. Diaphragm: A small sliding hiatal hernia is present above the level of the diaphragm. Liver: Normal. No mass. Gallbladder and bile ducts: Normal. No calcified stones. No ductal dilation. Pancreas: Severe pancreatic atrophy. No pancreatic mass or ductal dilatation. Spleen: Normal. No splenomegaly. Adrenal glands: Normal. No mass. Kidneys and ureters: The left kidney shows moderate pelviectasis with mild perinephric stranding, with a 3.5 mm intraureteral calculus at the L4-L5 level. Right renal calculi (2), the largest in the lateral mid kidney measuring 3.5 mm. Right renal benign cysts, largest 3.8 cm. Stomach and bowel: Sigmoid colonic diverticula are present without evidence of diverticulitis. Appendix: The vermiform appendix is not identified on this examination. There is, however, no pericecal abnormality to suggest appendicitis. Intraperitoneal space: No free air. No significant fluid collection. Vasculature: Mild aortic atherosclerotic calcification without aneurysm. The iliac arteries show moderate bilateral atherosclerotic calcifications without evidence of aneurysm. Lymph nodes: No enlarged lymph nodes. Urinary bladder: Unremarkable as visualized. Reproductive: See Kidneys and ureters finding. Bones/joints: The patient demonstrates a transitional vertebra, which is considered to be a partially lumbarized S1 segment, normal variant. Bilateral lower lumbar facet primary osteoarthritis. Severe left hip primary osteoarthritis. Lower thoracic and upper lumbar spine vertebral body marginal osteophytes. Soft tissues: Previous anterior abdominal wall incisional repair. CT/CT abdomen pelvis wo con [id number] IMPRESSION: 1. Left obstructive uropathy secondary to an abdominal intraureteral calculus. 2. Right renal calyceal lithiasis. 3. Diverticulosis. 4. Right renal benign cysts. No follow-up imaging is recommended. 5. Small hiatal hernia. 6. Coronary atherosclerosis. COMMENTS: Consistent with the [employer]'s Incidental Findings Committee white paper (J Am Courtney Radiol 2018): Any incidental renal lesion less than 1 cm or classified as too small to characterize, or any incidental cystic renal lesion characterized as simple-appearing, is likely benign. No follow-up imaging is recommended for these lesions per consensus recommendations based on imaging criteria.
--- NOTE | 2021-10-18 16:07 | PM.HP ---
Providers/Chief Complaint Primary Care Provider: Kasia Jiang DO Chief Complaint: N/V/D/ WEAKNESS History of Present Illness Christo Justin is a 66 year old female with a past medical history of noninsulin-dependent type 2 diabetes mellitus, chronic hip pain on chronic narcotics Dilaudid for every 4 hours, history of pulmonary embolism on Eliquis on 2 to 3 L history of bilateral nephrolithiasis, diastolic CHF, morbid obesity, who presents to [facility] due to a few day history of fatigue, malaise, diffuse pain, dysuria, dark-colored urine. Patient tells me for the last few days she has had been having fatigue, malaise, nausea, diffuse pain, no back pain, no flank pain she tells me the pain hurts all over, when asked her is a pain similar to when she had her kidney stones she says yes, she has not received COVID vaccines, no shortness of breath, wheezing, does report fevers. In the emergency room she was diagnosed with a UTI, given her history of nephrolithiasis I requested ER physician to order CT scan of abdomen pelvis to evaluate for obstructive nephrolithiasis Review of Systems Const: Reports: fever(s), chills, body aches, fatigue and malaise ENMT: Denies: nasal congestion Card: Denies: chest pain Resp: Denies: dyspnea, productive cough, non-productive cough or wheezing GI: Reports: abdominal pain, nausea and vomiting; Denies: diarrhea, constipation, hematochezia or melena : Denies: flank pain Skin/Breast: Denies: rash Neuro: Denies: headache(s) Endo: Denies: polyuria or polydipsia Medications/Allergies Home Medications Medication Instructions Recorded Confirmed Last Taken Type wheelchair #1 ea 08/14/20 09/07/21 Unknown Rx cetirizine 10 mg tablet (Zyrtec) 10 mg PO DAILY PRN 02/23/21 09/07/21 Unknown History metformin 500 mg tablet 1,000 mg PO BID #360 tab 06/30/21 09/07/21 Unknown Rx hydromorphone 4 mg tablet 4 mg PO Q4H PRN 08/27/21 09/07/21 Unknown History apixaban 5 mg tablet (Eliquis) 5 mg PO BID #180 tab 09/07/21 09/07/21 Unknown Rx duloxetine 60 mg capsule,delayed 60 mg PO BID #180 cap 09/07/21 09/07/21 Unknown Rx release (Cymbalta) Allergies Allergy/AdvReac Type Severity Reaction Status Date / Time atorvastatin [From Lipitor] Allergy Severe swelling Verified 10/18/21 12:29 pregabalin [From Lyrica] Allergy Severe swelling Verified 10/18/21 12:29 sitagliptin [From Januvia] Allergy Severe pain; Verified 10/18/21 12:29 swelling tramadol Allergy Severe muscle Verified 10/18/21 12:29 weakness gabapentin Allergy Intermediate swelling; Verified 10/18/21 12:29 rash Penicillins Allergy Intermediate hives Verified 10/18/21 12:29 influenza virus vaccine tvs Allergy Unknown Verified 10/18/21 12:29 [id number](65 years up) [From Fluad [id number] (65 yr up)(PF)] buspirone [From BuSpar] AdvReac Intermediate MADE ME Verified 10/18/21 12:29 CRY MORE PFSH Acute PFSH: Medical History Bilateral renal stones Chronic low back pain 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 Congestive heart failure (CHF) Controlled type 2 diabetes mellitus, without long-term current use of insulin Degenerative arthritis Diastolic heart failure Enrolled in chronic care management HTN (hypertension) Hypertriglyceridemia Obstructive sleep apnea Other hammer toe(s) (acquired), left foot Psychiatric care PTTD (posterior tibial tendon dysfunction) Pulmonary embolism Pulmonary hypertension Right heart failure with reduced right ventricular function Right ureteral calculus Statin intolerance Surgical History H/O amputation of lesser toe H/O inguinal hernia repair RIGHT History of 2 sections History of laparoscopic cholecystectomy History of tonsillectomy Status post right foot surgery Family History Mother , AT AGE 78 Cancer OVARIAN CANCER ,LUNG CANCER Father , AT AGE 86 Cancer STOMACH Other Diabetes Hyperlipidemia Hypertension Denies family history of CAD (coronary artery disease) Clotting disorder Dementia Psychiatric illness Chronic kidney disease (CKD) Suicide Anesthesia complication Bleeding disorder Family history of premature coronary artery disease Lung disease Stroke Social History Smoking and tobacco status: former smoker Quit status (tobacco): has quit using tobacco Year quit tobacco: 2012 Second hand smoke exposure: No Alcohol intake: never Lives independently: Yes Marital status: Current occupational status: disabled History of recent travel: No Female Reproductive History: Para: 2 Spontaneous abortions: No Date of menopause: 10/06/04 Vitals/I&O/Wt Last Vital Signs Temp 99.9 F H 10/18/21 12:26 Pulse 100 10/18/21 12:26 Resp 18 10/18/21 13:44 BP 137/69 10/18/21 13:44 Pulse Ox 96 10/18/21 13:44 10/18/21 10/18/21 10/18/21 06:59 14:59 22:59 Intake Total 500 / 500 Balance 500 / 500 Weight last 48 hrs Weight 126.099 kg Physical Exam Const: COMMON NORMALS: no acute distress and patient oriented x3 HENMT: COMMON NORMALS: normocephalic HEAD & SCALP: normocephalic Eye: COMMON NORMALS: Equal, round and reactive pupils present and EOMs intact bilaterally Neck/C-Spine: COMMON NORMALS: no JVD Resp: COMMON NORMALS: normal respiratory effort, No retractions, No use of accessory muscles and clear to auscultation bilaterally AUSCULTATION: clear to auscultation bilaterally Cardio: COMMON NORMALS: no JVD, regular rate, regular rhythm, S1 normal heart sound present and S2 normal heart sound present RATE: regular rate RHYTHM: regular rhythm HEART SOUNDS: S1 normal heart sound present and S2 normal heart sound present GI: COMMON NORMALS: Normal to inspection, nondistended, normoactive bowel sounds present, Soft to palpation, non-tender, No hepatosplenomegaly present, no masses and no bruits PALPATION: Yes Soft to palpation and Yes No hepatosplenomegaly present Extremity: COMMON NORMALS: capillary refill normal, no clubbing, cyanosis or edema, no calf tenderness and no pedal edema Neuro: COMMON NORMALS: patient oriented x3, CN's II-XII intact bilaterally, moves all extremities and no focal motor deficits Psych: COMMON NORMALS: mental status grossly normal Data : 10/18/21 12:25 10/18/21 12:25 A&P Assessment and plan (1) Right heart failure with reduced right ventricular function: Status: Acute (2) Pulmonary hypertension: Status: Acute (3) Diastolic heart failure: Status: Chronic Qualifiers: Heart failure chronicity: chronic Qualified Code(s): I50.32 - Chronic diastolic (congestive) heart failure (4) Pulmonary embolism: Status: Acute Qualifiers: Pulmonary embolism type: multiple subsegmental (without acute cor pulmonale) Qualified Code(s): I26.94 - Multiple subsegmental pulmonary emboli without acute cor pulmonale (5) Chronic narcotic use: Status: Acute (6) Morbid obesity: Status: Acute (7) Osteoarthritis of left hip: Status: Acute (8) HTN (hypertension): Status: Chronic Qualifiers: Hypertension type: essential hypertension Qualified Code(s): I10 - Essential (primary) hypertension (9) Controlled type 2 diabetes mellitus, without long-term current use of insulin: Status: Acute Qualifiers: Diabetes mellitus complication status: without complication Qualified Code(s): E11.9 - Type 2 diabetes mellitus without complications (10) Urinary tract infection: Status: Acute Plan Urinary tract infection -Concerning for pyelonephritis, possible nephrolithiasis, possible obstructive uropathy -Has received Rocephin -Start Primaxin -CT scan abdomen pelvis ordered -Continue home Dilaudid -Eliquis for DVT prophylaxis -Full code History of pulmonary embolism, continue Eliquis History of diastolic CHF not exacerbation Type 2 diabetes mellitus, low-dose sliding scale Attestations Medical Necessity Statement*: Patient requires hospitalization for urinary tract infection, inpatient, greater than 2 midnights Coding Level of Care Code Acute 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 [facility] Fwd Diagnoses Right heart failure with reduced right ventricular function I50.810 Pulmonary hypertension I27.20 Diastolic heart failure I50.32 Heart failure chronicity: chronic Pulmonary embolism I26.94 Pulmonary embolism type: multiple subsegmental (without acute cor pulmonale) Chronic narcotic use F11.90 Morbid obesity E66.01 Osteoarthritis of left hip M16.12 HTN (hypertension) I10 Hypertension type: essential hypertension Controlled type 2 diabetes mellitus, without long-term current use of insulin E11.9 Diabetes mellitus complication status: without complication Urinary tract infection N39.0
[2021-10-18] MEDS: HYDROmorphone 1 mg/mL INJ 1 mL IVP (16:17)
--- NOTE | 2021-10-18 17:18 | PC.PHAR ---
pt unable to verify- medication verified using ext. med history
[2021-10-18 17:24] LABS: Adenovirus Not Detected (NOT DETECT); Chlamydia Pneumoniae Not Detected (NOT DETECT); Coronavirus 229E,HKU1,NL63,OC4 Not Detected (NOT DETECT); Human Metapneumovirus Not Detected (NOT DETECT); Human Rhinovirus/Enterovirus Not Detected (NOT DETECT); Influenza A Not Detected (NOT DETECT); Influenza A H1 Not Detected (NOT DETECT); Influenza A H1-2009 Not Detected (NOT DETECT); Influenza A H3 Not Detected (NOT DETECT); Influenza B Not Detected (NOT DETECT); Mycoplasma Pneumoniae Not Detected (NOT DETECT); Parainfluenza Virus Type 1 Not Detected (NOT DETECT); Parainfluenza Virus Type 2 Not Detected (NOT DETECT); Parainfluenza Virus Type 3 Not Detected (NOT DETECT); Parainfluenza Virus Type 4 Not Detected (NOT DETECT); Respiratory Syncytial Virus A Not Detected (NOT DETECT); Respiratory Syncytial Virus B Not Detected (NOT DETECT); SARS-COV-2 Not Detected (NOT DETECT)
[2021-10-18 17:31] LABS: Procalcitonin 0.94 ng/mL (0-0.5)
--- NOTE | 2021-10-18 17:40 | P.CONIM_ITS ---
Providers/Reason For Consult Consulting Physician/Specialty*: Urology/[place] Reason for Consult*: Left obstructive pyelonephritis Requesting Physician: Dr. Mayo Primary Care Provider: Kasia Jiang DO History of Present Illness History of Present Illness Christo Justin is a 66 year old female known to me for history of previous stones and large right proximal ureteral stone treated endoscopically with laser lithotripsy July 2019. Temporary stent left indwelling and removed on last office visit Roughly 1 week later She was scheduled to follow-up but failed to do so. Presented to the emergency department today with complaints of Dysuria, fatigue, malaise, abdominal pain and was discovered to have a UTI consistent with pyelonephritis elevated white count and a CT scan showing an obstructing small stone in the left proximal ureter. I was consulted for evaluation and treatment. Recommend emergent cystoscopy left ureteral stent placement. Review of Systems Const: Reports: fever(s), chills, malaise and other (She states that she just feels terrible) Eyes: Denies: eye discharge ENMT: Denies: odynophagia or hoarseness Card: Denies: chest pain or palpitations Resp: Denies: dyspnea or productive cough GI: Reports: abdominal pain, nausea and vomiting; Denies: coffee ground emesis : Reports: flank pain, dysuria and urinary frequency; Denies: hematuria Musc: Denies: joint redness Skin/Breast: Denies: rash Neuro: Denies: confusion or Slurred speech present Psych: Reports: anxiety; Denies: memory loss Endo: Denies: flushing Javier/Lymph: Reports: easy bruising and easy bleeding All/Imm: Denies: urticaria or acute wheezing Medications/Allergies Home Medications Medication Instructions Recorded Confirmed Last Taken Type wheelchair #1 ea 08/14/20 10/18/21 Unknown Rx cetirizine 10 mg tablet (Zyrtec) 10 mg PO DAILY PRN 02/23/21 10/18/21 Unknown History metformin 500 mg tablet 1,000 mg PO BID #360 tab 06/30/21 10/18/21 Unknown Rx hydromorphone 4 mg tablet 4 mg PO Q4H PRN 08/27/21 10/18/21 Unknown History apixaban 5 mg tablet (Eliquis) 5 mg PO BID #180 tab 09/07/21 10/18/21 Unknown Rx duloxetine 60 mg capsule,delayed 60 mg PO BID #180 cap 09/07/21 10/18/21 Unknown Rx release (Cymbalta) Allergies Allergy/AdvReac Type Severity Reaction Status Date / Time atorvastatin [From Lipitor] Allergy Severe swelling Verified 10/18/21 17:19 pregabalin [From Lyrica] Allergy Severe swelling Verified 10/18/21 17:19 sitagliptin [From Januvia] Allergy Severe pain; Verified 10/18/21 17:19 swelling tramadol Allergy Severe muscle Verified 10/18/21 17:19 weakness gabapentin Allergy Intermediate swelling; Verified 10/18/21 17:19 rash Penicillins Allergy Intermediate hives Verified 10/18/21 17:19 influenza virus vaccine tvs Allergy Unknown Verified 10/18/21 17:19 [id number](65 years up) [From Fluad 9304-6936 (65 yr up)(PF)] buspirone [From BuSpar] AdvReac Intermediate MADE ME Verified 10/18/21 17:19 CRY MORE PFSH Acute PFSH: Medical History Bilateral renal stones Chronic low back pain 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 Congestive heart failure (CHF) Controlled type 2 diabetes mellitus, without long-term current use of insulin Degenerative arthritis Diastolic heart failure Enrolled in chronic care management HTN (hypertension) Hypertriglyceridemia Obstructive sleep apnea Other hammer toe(s) (acquired), left foot Psychiatric care PTTD (posterior tibial tendon dysfunction) Pulmonary embolism Pulmonary hypertension Right heart failure with reduced right ventricular function Right ureteral calculus Statin intolerance Surgical History H/O amputation of lesser toe H/O inguinal hernia repair RIGHT History of 2 sections History of laparoscopic cholecystectomy History of tonsillectomy Status post right foot surgery Family History Mother , AT AGE 78 Cancer OVARIAN CANCER ,LUNG CANCER Father , AT AGE 86 Cancer STOMACH Other Diabetes Hyperlipidemia Hypertension Denies family history of CAD (coronary artery disease) Clotting disorder Dementia Psychiatric illness Chronic kidney disease (CKD) Suicide Anesthesia complication Bleeding disorder Family history of premature coronary artery disease Lung disease Stroke Social History Smoking and tobacco status: former smoker Quit status (tobacco): has quit using tobacco Year quit tobacco: 2012 Second hand smoke exposure: No Alcohol intake: never Lives independently: Yes Marital status: Current occupational status: disabled History of recent travel: No Female Reproductive History: Para: 2 Spontaneous abortions: No Date of menopause: 10/06/04 Vitals/I&O/Wt Last Vital Signs Temp 98.2 F 10/18/21 15:00 Pulse 99 10/18/21 16:00 Resp 18 10/18/21 16:00 BP 132/74 10/18/21 16:00 Pulse Ox 98 10/18/21 16:00 10/18/21 10/18/21 10/18/21 06:59 14:59 22:59 Intake Total 500 / 500 50 / 550 Balance 500 / 500 50 / 550 Weight last 48 hrs Weight 278 lb Physical Exam Const: COMMON NORMALS: alert; apparent distress GENERAL APPEARANCE: well kempt and well developed ORIENTATION/CONSCIOUSNESS: not confused OTHER: She is in a lot of pain and very anxious. Morbidly obese HENMT: COMMON NORMALS: normocephalic, atraumatic and hearing grossly normal bilaterally HEAD & SCALP: normocephalic and atraumatic Eye: COMMON NORMALS: conjunctivae normal and no scleral icterus CONJUNCTIVA: Yes conjunctivae normal Neck/C-Spine: COMMON NORMALS: full ROM GENERAL: Yes normal visual inspection Resp: COMMON NORMALS: normal respiratory effort EFFORT & INSPECTION: No labored and No Actively coughing OTHER: No audible wheezes Cardio: COMMON NORMALS: regular rate and regular rhythm RATE: regular rate RHYTHM: regular rhythm GI: OTHER: Abdomen is diffusely tender. Left greater than sign right. No palpable masses. : OTHER: Bladder not distended. She is tender over suprapubic area Genitourinary atrophy. Very poor hygiene. Normal urethra urethral meatus. Nonspecific discharge. No evidence of probe Back/Pelvis: OTHER: Left CVA tenderness Extremity: COMMON NORMALS: no clubbing, cyanosis or edema Neuro: COMMON NORMALS: no focal motor deficits SENSORIUM/ORIENTATION: Yes alert Psych: APPEARANCE: Yes well kempt Skin: COMMON NORMALS: no rashes or lesions noted and no jaundice GENERAL SKIN EXAM: no rashes or lesions noted Data : 10/18/21 12:25 10/18/21 12:25 A&P Assessment and plan (1) Obstructive pyelonephritis: Small obstructing left proximal ureteral stone with clinical evidence of obs tructive pyelonephritis possible sepsis To the operating room emergently for cystoscopy left ureteral stent placement. Status: Acute (2) Calculus of proximal left ureter: Status: Acute (3) Morbid obesity: Status: Acute (4) Pulmonary hypertension: Status: Acute (5) Right heart failure with reduced right ventricular function: Status: Acute (6) HTN (hypertension): Status: Chronic Qualifiers: Hypertension type: essential hypertension Qualified Code(s): I10 - Essential (primary) hypertension (7) Generalized anxiety disorder: Status: Acute (8) Diastolic heart failure: Status: Chronic Qualifiers: Heart failure chronicity: chronic Qualified Code(s): I50.32 - Chronic diastolic (congestive) heart failure (9) Degenerative arthritis: Status: Acute (10) Controlled type 2 diabetes mellitus, without long-term current use of insulin: Status: Acute Qualifiers: Diabetes mellitus complication status: without complication Qualified Code(s): E11.9 - Type 2 diabetes mellitus without complications (11) Chronic depression: Status: Acute Consult Attestations Medical Necessity Statement: Very ill. To the operating room emergently Coding Level of Care Code Acute [employer] M[employer] Specialist for [facility] Fwd Exam Comprehensive Diagnoses Obstructive pyelonephritis N11.1 Calculus of proximal left ureter N20.1 Morbid obesity E66.01 Pulmonary hypertension I27.20 Right heart failure with reduced right ventricular function I50.810 HTN (hypertension) I10 Hypertension type: essential hypertension Generalized anxiety disorder F41.1 Diastolic heart failure I50.32 Heart failure chronicity: chronic Degenerative arthritis M19.90 Controlled type 2 diabetes mellitus, without long-term current use of insulin E11.9 Diabetes mellitus complication status: without complication Chronic depression F32.9
--- NOTE | 2021-10-18 17:42 | SC_ITS ---
WS: [email or web address] REASON FOR EXAM: Left obstructive pyelonephritis FINDINGS: Presumed retrograde placement of guidewire into the left renal collecting system followed by over-the -wire placement of retrograde ureteral stent. No contrast injected. The obstructing calculus at the left ureteral pelvic junction demonstrated on the CT scan of 2 is not readily identifiable. SC[facility] IMPRESSION: Placement of left retrograde ureteral stent as above.
[2021-10-18 17:44] LABS: C Reactive Protein 254.2 mg/L (0.0-4.9)
[2021-10-18 17:45] LABS: Estmated Average Glucose 128; Hemoglobin A1C 6.1 % (4.0-6.0)
--- NOTE | 2021-10-18 18:15 | ANES.PREANE2 ---
Pre-Anesthetic Assessment Height/Weight: Height 1.63 m Weight 126.099 kg Temp Pulse Resp BP Pulse Ox 98.2 F 99 18 132/74 98 10/18/21 15:00 10/18/21 16:00 10/18/21 16:00 10/18/21 16:00 10/18/21 16:00 Preop Diagnosis: Refractory right proximal ureteral stone with obstruction Operation Date: 10/18/21 18:00 Proposed Procedures p Cystoscopy(Not Applicable) - Sumeet Finch MD s Ureteral Stent Placement(Left) - Sumeet Finch MD Familial anesthetic complications: None Was Beta Elvia taken within 24 hours: N/A Was Clonidine taken within 24 hours: N/A Last intake: water 30 min ago Social No alcohol and No tobacco Exam alert, oriented x 3, clear to auscultation bilaterally and regular rate & rhythm Airway Mallampati: Class II Dentition: false Pulmonary Chronic Obstructive Pulmonary Disease HX PE w/ Right heart strain patter and Pulmonary HTN CV/HEM Congestive Heart Failure and Hypertension Right heart failure d/t PE Metabolic Diabetes Mellitus and Morbid Obesity Anesthetic Plan ASA status: 4E Anesthesia: General Risk of > 500 ml blood loss (7ml/kg in children): No Medications/Allergies Home Medications Medication Instructions Recorded Confirmed Last Taken Type wheelchair #1 ea 08/14/20 10/18/21 Unknown Rx cetirizine 10 mg tablet (Zyrtec) 10 mg PO DAILY PRN 02/23/21 10/18/21 Unknown History metformin 500 mg tablet 1,000 mg PO BID #360 tab 06/30/21 10/18/21 Unknown Rx hydromorphone 4 mg tablet 4 mg PO Q4H PRN 08/27/21 10/18/21 Unknown History apixaban 5 mg tablet (Eliquis) 5 mg PO BID #180 tab 09/07/21 10/18/21 Unknown Rx duloxetine 60 mg capsule,delayed 60 mg PO BID #180 cap 09/07/21 10/18/21 Unknown Rx release (Cymbalta) Allergies Allergy/AdvReac Type Severity Reaction Status Date / Time atorvastatin [From Lipitor] Allergy Severe swelling Verified 10/18/21 17:19 pregabalin [From Lyrica] Allergy Severe swelling Verified 10/18/21 17:19 sitagliptin [From Januvia] Allergy Severe pain; Verified 10/18/21 17:19 swelling tramadol Allergy Severe muscle Verified 10/18/21 17:19 weakness gabapentin Allergy Intermediate swelling; Verified 10/18/21 17:19 rash Penicillins Allergy Intermediate hives Verified 10/18/21 17:19 influenza virus vaccine tvs Allergy Unknown Verified 10/18/21 17:19 [id number](65 years up) [From Fluad [id number] (65 yr up)(PF)] buspirone [From BuSpar] AdvReac Intermediate MADE ME Verified 10/18/21 17:19 CRY MORE [facility] Anesthesia Medical History Bilateral renal stones Chronic low back pain 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 Congestive heart failure (CHF) Controlled type 2 diabetes mellitus, without long-term current use of insulin Degenerative arthritis Diastolic heart failure Enrolled in chronic care management HTN (hypertension) Hypertriglyceridemia Obstructive sleep apnea Other hammer toe(s) (acquired), left foot Psychiatric care PTTD (posterior tibial tendon dysfunction) Pulmonary embolism Pulmonary hypertension Right heart failure with reduced right ventricular function Right ureteral calculus Statin intolerance Surgical History H/O amputation of lesser toe H/O inguinal hernia repair RIGHT History of 2 sections History of laparoscopic cholecystectomy History of tonsillectomy Status post right foot surgery Family History Mother , AT AGE 78 Cancer OVARIAN CANCER ,LUNG CANCER Father , AT AGE 86 Cancer STOMACH Other Diabetes Hyperlipidemia Hypertension Denies family history of CAD (coronary artery disease) Clotting disorder Dementia Psychiatric illness Chronic kidney disease (CKD) Suicide Anesthesia complication Bleeding disorder Family history of premature coronary artery disease Lung disease Stroke Social History Smoking and tobacco status: former smoker Quit status (tobacco): has quit using tobacco Year quit tobacco: 2012 Second hand smoke exposure: No Alcohol intake: never Lives independently: Yes Marital status: Current occupational status: disabled History of recent travel: No Female Reproductive History Para: 2 Spontaneous abortions: No Date of menopause: 10/06/04 Data Anesthesia : 10/18/21 12:25 10/18/21 12:25 Short CBC 10/18/21 Range/Units 12:25 WBC 16.7 H (4.0-10.0) 10^3/uL Hgb 12.9 (11.5-15.3) g/dL Hct 40.0 (37.0-47.0) % MCV 88.3 (81-99) fl Plt Count 226 (130-400) 10^3/cmm Neut % (Auto) 82.2 % Neut # (Auto) 13.72 H (1.8-7.7) 10^3/uL BMP 10/18/21 12:25 Sodium 134 L Potassium 3.8 Chloride 95 L Carbon Dioxide 22 BUN 16 Creatinine 0.8 Glucose 220 H Calcium 9.9 Cardiac Enzymes 10/18/21 10/18/21 10/18/21 Range/Units 12:25 12:25 14:24 Troponin T Baseline 8 (0-10) ng/L Troponin T 120 Minute 8.32 (0-10) ng/L Delta Troponin T 0.32 (0-10) ABS# NT-Pro-B Natriuret Pep 2455 H (0-125) pg/mL Liver Function 10/18/21 Range/Units 12:25 Total Bilirubin 0.6 (0.15-1.2) mg/dL AST 10 (0-32) U/L ALT 9 (0-33) U/L Alkaline Phosphatase 69 (35-105) IU/L Albumin 4.0 (3.5-5.2) g/dL Urine 10/18/21 Range/Units 13:40 Urine Color Yellow (Yellow) Urine Appearance Cloudy (CLEAR) Urine pH 5 (5-7) Ur Specific [place] 1.020 (1.005-1.030) Urine Protein 2+ H (Negative) Urine Glucose (UA) Norm (Normal) Urine Ketones 1+ H (Negative) Urine Nitrate Positive H (Negative) Urine Bilirubin Neg (Negative) Ur Leukocyte Esterase 2+ H (Negative) Urine RBC 5-10 H (0-2) /hpf Urine WBC Too numerous to cnt H (0-5) /hpf COVID Results 10/18/21 10/18/21 12:34 12:46 Coronavirus 229E (PCR) Cancelled Not detected SARS-CoV-2 (PCR) Cancelled Not detected Coags 10/18/21 14:24 C-Reactive Protein 254.2 H Cardiac Studies: Echocardiogram 01/14/21
[2021-10-18 18:21] LABS: Glucose Point of Care 150 mg/dL (70-110)
[2021-10-18] MEDS: sodium chloride 0.9% 1,000 ML 30 ML IV (18:29)
--- NOTE | 2021-10-18 19:01 | PM.OP ---
Operative Report Date of procedure: October 18, 2021 Pre-op diagnosis: Left proximal ureteral stone with obstruction/pyelonephritis Post-op diagnosis: Left proximal ureteral stone with obstruction/pyelonephritis Procedure done: 1. Cystoscopy, left ureteral stent placement (7 [place]an by 26 cm double-pigtail without string) Implants: Left ureteral stent Specimens removed/disposition: None Pathology: None Surgeon: Stef Anesthesia: General Estimated blood loss: None Urine output: Not measured Complications: None Findings: Stent placed without difficulty. Purulent urine drained with placing of the wire and stent Chronic bladder infection changes including CYSTITIS CYSTICA Brief History: This young is a very pleasant 66-year-old white female with a history of urolithiasis status post endoscopic treatment of a large right ureteral stone in 2019 with failure to follow-up. About 3 days ago she developed increasing symptoms of illness with abdominal pain fever chills malaise weakness. Did have some back pain. She was found when she did show up to the ER today to have a white count of 17, CT scan demonstrating a small obstructing left proximal ureteral stone, and pyuria with evidence of obstructive pyelonephritis. It was recommended that she go to the operating room emergently for stent placement followed by continued antibiotic therapy long enough for resolution. Procedure: After emergent evaluation examination and obtaining of informed consent she was taken to the operating suite on 10/18/2021 where general anesthesia was administered without difficulty after appropriate timeout was performed, SCDs confirmed to be functioning, preoperative antibiotics administered, beta-alena protocol confirmed. Prepped and draped in usual sterile fashion in dorsolithotomy position paying careful attention to avoiding pressure points. 21 Venezuelan cystoscope with 30 degree lens was introduced to the urethra meatus and advanced into the bladder under videoscopy. The bladder had a large amount of purulent sediment which was drained and the bladder was flushed several times. A flexible tip guidewire was advanced up the left ureter without difficulty bypassing the area of the stone and curling in the area of the upper pole calyx. A 7 [place]an by 26 cm double-pigtail stent was advanced over the guidewire through the cystoscope of the left ureter easily bypassing the area of the stone and curling in the area of the renal pelvis. The wire was removed. Stent was confirmed to be in appropriate position via fluoroscopy and cystoscopy. Stent was also confirmed to be draining purulent material. The bladder was drained and the procedure was completed. She tolerated the procedure well without complications and was awakened in the operating room and returned to the recovery room in stable condition. PLANS: 1. Transfer to the floor. She appears to be stable enough to not require intensive care unit. 2. We will plan on seeing her again on outpatient basis for planning of definitive treatment of the stone endoscopically. This will require clearance of her infection.
[2021-10-18] MEDS: acetaminophen 1,000 MG/100 ML PIGGYBACK 400 MG IV (19:23)
[2021-10-18] MEDS: duloxetine 60 mg Capsule PO (20:51)
[2021-10-18] MEDS: cetylpyridinium Lozenge 1 EACH MUCOUS MEM (20:51)
[2021-10-18] MEDS: pantoprazole 40 mg SDV IVP (20:51)
[2021-10-18] MEDS: apixaban 5 mg Tablet PO (20:51)
[2021-10-18] MEDS: sodium chloride 0.9% 1,000 ML 75 ML IV (20:53)
[2021-10-18] MEDS: acetaminophen 325 mg Tablet 650 MG PO (21:02)
[2021-10-18 21:34] LABS: Lactic Sepsis W/Reflex 1.1 mmol/L (0.5-2.2)
[2021-10-18 21:45] LABS: Glucose Point of Care 199 mg/dL (70-110)
[2021-10-19] VITALS (21 sets, daily range): BP systolic 105–148; BP diastolic 60–88; PULSE 72–95; RESP 15–23; TEMP 36.7–38.8; O2SAT 83–100
--- NOTE | 2021-10-19 00:55 | PC.NURSE ---
This RN took over care of pt at 2300 from VALENTINA Amato
[2021-10-19 05:35] LABS: Basophils % 0.1 %; Hematocrit 35.4 % (37.0-47.0); Hemoglobin 11.3 g/dL (11.5-15.3); Lymphocytes # 0.6 10^3/uL (0.8-4.8); Lymphocytes % 3.5 %; Mean Corpuscular HGB Conc 31.9 g/dL (30.0-36.0); Mean Corpuscular Hemoglobin 28.3 pg (28.0-34.0); Mean Corpuscular Volume 88.5 fl (81-99); Mean Platelet Volume 11.1 fL (7.4-10.4); Monocytes % 12.3 %; Neutrophils # 13.61 10^3/uL (1.8-7.7); Neutrophils % 83.1 %; Nucleated Red Blood Cells % 0 %; Platelet Count 163 10^3/cmm (130-400); Red Cell Distribution Width 15.5 % (12.1-15.1); White Blood Count 16.4 10^3/uL (4.0-10.0)
[2021-10-19 05:54] LABS: Alanine Aminotransferase 8 U/L (0-33); Albumin Level 2.8 g/dL (3.5-5.2); Alkaline Phosphatase 59 IU/L (35-105); Anion Gap 13.7 (5-19); Aspartate Amino Transferase 13 U/L (0-32); Blood Urea Nitrogen 13 mg/dL (8-23); Calcium 9.2 mg/dL (8.5-10.5); Carbon Dioxide 24 mmol/L (22-29); Chloride 101 mmol/L (98-107); Globulin 3.6 g/dL (1.3-4.6); Glomerular Filtration Rate 99.4 mL/min (90-130); Glucose 209 mg/dL (65-115); Magnesium 1.4 mg/dL (1.7-2.3); Osmolality Calculated 286 mOsm/kg (285-295); Phosphorus 2.3 mg/dL (2.5-4.5); Potassium 3.7 mmol/L (3.5-5.1); Sodium 135 mmol/L (136-145); Total Bilirubin 0.4 mg/dL (0.15-1.2); Total Protein 6.4 g/dL (6.6-8.7)
--- NOTE | 2021-10-19 07:02 | PM.PN ---
Subjective Subjective: Urology follow-up: Postop day #1 emergency left ureteral stent placement for obstructive pyelonephritis She states she is feeling somewhat better. Still weak. Still with some abdominal pain. Denies progressive shortness of breath. No chest pain. No GI complaints. Temperature spike to 101.7 last night. Since then Temperature recorded was 99.8. Blood pressure has been stable Reviewed the intraoperative findings with her. Reviewed the importance of maintaining a stent while infection is being treated. Plans for definitive treatment of the stone Vitals/I&O/Wt Last Vital Signs Temp 98.3 F 10/19/21 04:00 Pulse 86 10/19/21 04:00 Resp 18 10/19/21 04:00 BP 133/82 10/19/21 04:00 Pulse Ox 99 10/19/21 04:00 10/18/21 10/19/21 10/19/21 22:59 06:59 14:59 Intake Total 250 / 750 200 / 950 Output Total 100 / 100 700 / 800 Balance 150 / 650 -500 / 150 Weight last 48 hrs Weight 296 lb 12.8 oz Weight 278 lb Physical Exam Narrative: Alert oriented no acute distress Wearing CPAP initially on entry into the room Abdomen is soft. Still some tenderness diffusely. No obvious CVA tenderness. Catheter draining clear yellow urine. No labored respiration or audible wheezes Urinary Catheter Management: Tang: Cath Placed During This Visit: yes Reason for Continuing Indwelling Catheter: Acute Urinary Retention or Obstruction Urinary Catheter Date of Insertion: 10/18/21 Urinary Catheter Time of Insertion: 18:55 Data : 10/19/21 05:03 10/19/21 05:03 Micro: Microbiology 10/18/21 20:54 Blood Culture - Preliminary Blood SPECIMEN COLLECTED 10/18/21 20:52 Blood Culture - Preliminary Blood SPECIMEN COLLECTED A&P Assessment and plan (1) Left ureteral calculus: Status post stenting. Definitive treatment of stone postponed until infection is controlled Status: Acute (2) Obstructive pyelonephritis: Clinically doing okay. White count still elevated. No evidence of progressive sepsis. Status: Acute (3) Bilateral renal stones: Status: Acute Attestations Medical Necessity Statement*: Obstructive pyelonephritis on IV antibiotics status post emergency stenting. Not a candidate for discharge at this time due to her current ill status Coding Level of Care Code Acute Medical Intern for [facility] Diagnoses Left ureteral calculus N20.1 Obstructive pyelonephritis N11.1 Bilateral renal stones N20.0
[2021-10-19] MEDS: insulin lispro 100 unit/1 mL SUBCUT ×3 (08:41→17:41)
[2021-10-19] MEDS: duloxetine 60 mg Capsule PO ×2 (08:44→17:41)
[2021-10-19] MEDS: apixaban 5 mg Tablet PO ×2 (08:44→20:03)
[2021-10-19] MEDS: FUROsemide 10 mg/mL SDV 4mL 40 MG IVP (10:42)
--- NOTE | 2021-10-19 11:57 | PC.CHAP ---
Pastoral Care Encounter/Spiritual Assessment Type of Contact [] Declined grinder setup operator visit [] Patient/Family/Request visit [] Outpatient visit [] Follow-up visit [] Physician referral [] Code/Alert [x] Routine visit [] Staff referral [] Actively dying []x Patient sleeping [] Family support [] [] Out of room [] Palliative care [] [] Receiving care in room [] Pre-surgical visit [] Trauma [] Long length of stay [] ICU visit [] Other: Relational/Emotional Strength [] Patient feels connected with others/family/visitors/staff [] Distress [] Loneliness/isolation [] Abandonment Spirituality of Patient [] Person of Cecilia [] Attends Sikh of their Cecilia [] Believes in Prayer [] Reads Bible or Nondenominational materials [] There are Spiritual issues to be addressed Online Merchandising Coordinator Interventions [] Prayer [] Active listening [] Non-anxious presence [] Spiritual/emotional support [] Crisis/trauma care [] Spiritual counseling [] Bereavement support [] Provided bereavement packet [] Provided Bible/devotional materials [] Provided toy/stuffed animal, coloring book to patient or family member [] Provided Communion [] Anointing/[place] [] Salvation [] Completed spiritual assessment [] Other: Impact on Illness or Injury [] Angry [] Fearful [] Anxious [] Often cries [] Exhaustion [] Unable to work [] Unable to attend faith [] Unable to walk/stand [] Unable to read [] Unable to drive [] Unable to eat/drink [] Unable to sleep [] Unable to be with family [] Patient intubated [] Other: Summary Time spent with patient
[2021-10-19 12:00] LABS: Glucose Point of Care 257 mg/dL (70-110)
[2021-10-19 16:56] LABS: Anion Gap 14.3 (5-19); Blood Urea Nitrogen 13 mg/dL (8-23); Calcium 9.4 mg/dL (8.5-10.5); Carbon Dioxide 26 mmol/L (22-29); Chloride 96 mmol/L (98-107); Glomerular Filtration Rate 83.2 mL/min (90-130); Glucose 180 mg/dL (65-115); Magnesium 1.4 mg/dL (1.7-2.3); Osmolality Calculated 281 mOsm/kg (285-295); Potassium 3.3 mmol/L (3.5-5.1); Sodium 133 mmol/L (136-145)
[2021-10-19 17:18] LABS: Glucose Point of Care 176 mg/dL (70-110)
--- NOTE | 2021-10-19 17:51 | PM.PN ---
Subjective Subjective: Patient was seen this morning, she is on 6 L, complaining of some wheezing, her pain is well controlled, no nausea, no vomiting Vitals/I&O/Wt Last Vital Signs Temp 98.0 F 10/19/21 16:00 Pulse 89 10/19/21 16:00 Resp 18 10/19/21 17:41 BP 126/78 10/19/21 16:00 Pulse Ox 89 L 10/19/21 17:41 10/19/21 10/19/21 10/19/21 06:59 14:59 22:59 Intake Total 200 / 950 460 / 460 100 / 560 Output Total 700 / 800 2300 / 2300 Balance -500 / 150 -1840 / -1840 100 / -1740 Weight last 48 hrs Weight 134.626 kg Weight 126.099 kg Physical Exam Const: COMMON NORMALS: no acute distress and patient oriented x3 Resp: COMMON NORMALS: normal respiratory effort, No retractions and No use of accessory muscles AUSCULTATION: wheezes Cardio: COMMON NORMALS: regular rate, regular rhythm, S1 normal heart sound present and S2 normal heart sound present RATE: regular rate RHYTHM: regular rhythm HEART SOUNDS: S1 normal heart sound present and S2 normal heart sound present GI: COMMON NORMALS: Normal to inspection, nondistended, normoactive bowel sounds present, Soft to palpation, non-tender and No hepatosplenomegaly present PALPATION: Yes Soft to palpation and Yes No hepatosplenomegaly present Extremity: COMMON NORMALS: no pedal edema Neuro: COMMON NORMALS: patient oriented x3 Psych: COMMON NORMALS: mental status grossly normal Urinary Catheter Management: Tang: Cath Placed During This Visit: yes Reason for Continuing Indwelling Catheter: Other Urinary Catheter Date of Insertion: 10/18/21 Urinary Catheter Time of Insertion: 18:55 Data : 10/19/21 05:03 10/19/21 15:49 Micro: Microbiology 10/18/21 13:40 Urine Culture - Preliminary Urine,Clean Catch Gram Negative Rods 10/18/21 20:54 Blood Culture - Preliminary Blood SPECIMEN COLLECTED 10/18/21 20:52 Blood Culture - Preliminary Blood SPECIMEN COLLECTED A&P Assessment and plan (1) Right heart failure with reduced right ventricular function: Status: Acute (2) Pulmonary hypertension: Status: Acute (3) Diastolic heart failure: Status: Chronic Qualifiers: Heart failure chronicity: chronic Qualified Code(s): I50.32 - Chronic diastolic (congestive) heart failure (4) Pulmonary embolism: Status: Acute Qualifiers: Pulmonary embolism type: multiple subsegmental (without acute cor pulmonale) Qualified Code(s): I26.94 - Multiple subsegmental pulmonary emboli without acute cor pulmonale (5) Chronic narcotic use: Status: Acute (6) Morbid obesity: Status: Acute (7) Osteoarthritis of left hip: Status: Acute (8) HTN (hypertension): Status: Chronic Qualifiers: Hypertension type: essential hypertension Qualified Code(s): I10 - Essential (primary) hypertension (9) Controlled type 2 diabetes mellitus, without long-term current use of insulin: Status: Acute Qualifiers: Diabetes mellitus complication status: without complication Qualified Code(s): E11.9 - Type 2 diabetes mellitus without complications (10) Urinary tract infection: Status: Acute Plan Left obstructive uropathy, left pyelonephritis secondary to intraureteral calculus. -Status post stent placement by Dr. Finch -Had fever spike overnight -Follow blood culture -Continue Primaxin -1 dose of Lasix, stop fluids -Continue home Dilaudid -Eliquis for DVT prophylaxis -Full code History of pulmonary embolism, continue Eliquis History of diastolic CHF not exacerbation Type 2 diabetes mellitus, low-dose sliding scale Attestations Medical Necessity Statement*: Patient requires hospitalization for left obstructive uropathy, with left pyelonephritis, requiring stent placement, now receiving IV antibiotics Coding Level of Care Code Acute Museum Informatics Specialist for [facility] Fwd Diagnoses Right heart failure with reduced right ventricular function I50.810 Pulmonary hypertension I27.20 Diastolic heart failure I50.32 Heart failure chronicity: chronic Pulmonary embolism I26.94 Pulmonary embolism type: multiple subsegmental (without acute cor pulmonale) Chronic narcotic use F11.90 Morbid obesity E66.01 Osteoarthritis of left hip M16.12 HTN (hypertension) I10 Hypertension type: essential hypertension Controlled type 2 diabetes mellitus, without long-term current use of insulin E11.9 Diabetes mellitus complication status: without complication Urinary tract infection N39.0
--- NOTE | 2021-10-19 18:06 | ANES.PREANE2 ---
Pre-Anesthetic Assessment Height/Weight: Height 1.63 m Weight 134.626 kg Temp Pulse Resp BP Pulse Ox 98.0 F 89 18 126/78 89 L 10/19/21 16:00 10/19/21 16:00 10/19/21 17:41 10/19/21 16:00 10/19/21 17:41 Preop Diagnosis: Refractory right proximal ureteral stone with obstruction Operation Date: 10/18/21 18:00 Proposed Procedures p Cystoscopy(Not Applicable) - Sumeet Finch MD s Ureteral Stent Placement(Left) - Sumeet Finch MD Was Beta Elvai taken within 24 hours: N/A Was Clonidine taken within 24 hours: N/A Pulmonary Chronic Obstructive Pulmonary Disease CV/HEM Anemia, Arrythmia (iRBB), Coronary Artery Disease, Congestive Heart Failure and Hypertension EKG 10/18/21 Interpretive Statements SINUS RHYTHM INCOMPLETE RIGHT BUNDLE BRANCH BLOCK? [90+ ms QRS DURATION, TERMINAL R IN V1/V2, 40+ ms S IN I/aVL/V4/V5/V6] Compared to ECG 10/18/2021 12:49:28 No significant changes Electronically Signed On 10-18-2021 17:35:45 CDT by Gilberto Scott M.D. [id number] TTE 12/2020 ?CONCLUSIONS ?1-Normal left ventricular cavity size. Normal left ventricular ?systolic function. No regional wall motion abnormalities. Left ?ventricular ejection fraction is estimated at 60 %. Grade III/IV ?diastolic dysfunction (restrictive filling pattern), severely ?elevated filling pressures. Flattened septum in diastole ?consistent with right ventricle volume overload. ?2-Moderately increased right ventricular size. Moderately ?decreased right ventricular systolic function.? There appeared ?to be right ventricle strain etiology could be pulmonary ?hypertension or pulmonary embolism ?3-Mild aortic valve calcification. No aortic valve stenosis. ?Trace aortic valve regurgitation. ?4-There is no pericardial effusion. ?5-Right atrial pressure is around 5 mm of mercury. ?6-There are no prior echocardiogram studies to compare. CTA 12/2020 CT/CT angio chest [id number] IMPRESSION: 1. Segmental pulmonary emboli in the right middle and lower lobes. There is evidence of right heart strain. 2. There is aneurysmal dilatation of the ascending thoracic aorta measuring 3.7 x 4.0 cm. There is no evidence of rupture or dissection. 3. Probable pulmonary arterial hypertension. 4. Possible early hepatic cirrhosis with periportal lymphadenopathy. Correlate with liver function tests. 5. Cardiomegaly with coronary artery disease. 6. Mild mediastinal and bilateral axillary lymphadenopathy. ? CXR 10/17/21 XR/XR chest 1V portable [id number] IMPRESSION: Stable chest with no definite acute abnormality. Interstitial changes in the left lower lung are present on previous examination 01/12/2021. Obstructive renal stone Potassium 3.3 Chloride 96 Na 122 Magnesium 1.4 GI Hiatal Hernia Glucose 180 CT abd/pelvis 10/18/21 CT/CT abdomen pelvis wo con [id number] IMPRESSION: 1. Left obstructive uropathy secondary to an abdominal intraureteral calculus. 2. Right renal calyceal lithiasis. 3. Diverticulosis. 4. Right renal benign cysts. No follow-up imaging is recommended. 5. Small hiatal hernia. 6. Coronary atherosclerosis. Metabolic Diabetes Mellitus and Morbid Obesity Anesthetic Plan ASA status: 4 (66 year old female with obstructive uropathy on anticoagulant w/ hx of diastolic CHF CHF, PE w/ right heart strain, CAD, ascending thoracic aneurysm, morbid obesity, diabetes, OA, HTN for cystoscopy and suprapubic catheter ) Anesthesia: Anesthesia Evaluation and General Other: We discussed risk and benefits of general anesthesia including PONV, sore throat (sometimes severe), corneal abrasion, positioning and peripheral nerve injuries, life threatening allergic reaction, post operative ICU admission requiring prolonged intubation, aspiration, stroke, heart attack, , and rare incidences of recall. Patient consents to proceed with general anesthesia. Risk of > 500 ml blood loss (7ml/kg in children): No Medications/Allergies Home Medications Medication Instructions Recorded Confirmed Last Taken Type wheelchair #1 ea 08/14/20 10/18/21 Unknown Rx cetirizine 10 mg tablet (Zyrtec) 10 mg PO DAILY PRN 02/23/21 10/18/21 Unknown History metformin 500 mg tablet 1,000 mg PO BID #360 tab 06/30/21 10/18/21 Unknown Rx hydromorphone 4 mg tablet 4 mg PO Q4H PRN 08/27/21 10/18/21 Unknown History apixaban 5 mg tablet (Eliquis) 5 mg PO BID #180 tab 09/07/21 10/18/21 Unknown Rx duloxetine 60 mg capsule,delayed 60 mg PO BID #180 cap 09/07/21 10/18/21 Unknown Rx release (Cymbalta) Allergies Allergy/AdvReac Type Severity Reaction Status Date / Time atorvastatin [From Lipitor] Allergy Severe swelling Verified 10/18/21 17:19 pregabalin [From Lyrica] Allergy Severe swelling Verified 10/18/21 17:19 sitagliptin [From Januvia] Allergy Severe pain; Verified 10/18/21 17:19 swelling tramadol Allergy Severe muscle Verified 10/18/21 17:19 weakness gabapentin Allergy Intermediate swelling; Verified 10/18/21 17:19 rash Penicillins Allergy Intermediate hives Verified 10/18/21 17:19 influenza virus vaccine tvs Allergy Unknown Verified 10/18/21 17:19 [id number](65 years up) [From Fluad [id number] (65 yr up)()] buspirone [From BuSpar] AdvReac Intermediate MADE ME Verified 10/18/21 17:19 CRY MORE Current Medications Generic Name Dose Route Start Last Admin Trade Name Main PRN Reason Stop Dose Admin Acetaminophen 650 mg 10/18/21 16:01 10/18/21 21:02 Acetaminophen 325 Mg Tablet PO 650 mg Q6H PRN Administration Mild/Mod Pain Or Temp >/= 101 Apixaban 5 mg 10/18/21 21:00 10/19/21 08:44 Apixaban 5 Mg Tablet PO 5 mg BID@0900,2100 ISAAC Administration Duloxetine HCl 60 mg 10/18/21 18:00 10/19/21 17:41 Duloxetine 60 Mg Capsule PO 60 mg BID ISAAC Administration Furosemide 40 mg 10/19/21 09:45 10/19/21 10:42 Furosemide 10 Mg/Ml Sdv 4ml IVP 40 mg ONCE ISAAC Administration Hydromorphone HCl 4 mg 10/18/21 16:01 10/19/21 17:41 Hydromorphone 4 Mg Tablet PO 4 mg Q4H PRN Administration PAIN Imipenem/Cilastatin Sodium 500 100 mls @ 200 mls/hr 10/18/21 16:15 10/19/21 17:41 mg/ Sodium Chloride IV Infused Q6H ISAAC Infusion Protocol Insulin Human Lispro 0 unit 10/18/21 18:00 10/19/21 17:41 Insulin Lispro 100 Unit/1 Ml SUBCUT 4 unit TIDWM ISAAC Administration Protocol Pantoprazole Sodium 40 mg 10/18/21 16:15 10/18/21 20:51 Pantoprazole 40 Mg Sdv IVP 40 mg Q24H ISAAC Administration PFSH Anesthesia Medical History Bilateral renal stones Chronic low back pain 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 Congestive heart failure (CHF) Controlled type 2 diabetes mellitus, without long-term current use of insulin Degenerative arthritis Diastolic heart failure Enrolled in chronic care management HTN (hypertension) Hypertriglyceridemia Obstructive sleep apnea Other hammer toe(s) (acquired), left foot Psychiatric care PTTD (posterior tibial tendon dysfunction) Pulmonary embolism Pulmonary hypertension Right heart failure with reduced right ventricular function Right ureteral calculus Statin intolerance Surgical History H/O amputation of lesser toe H/O inguinal hernia repair RIGHT History of 2 sections History of laparoscopic cholecystectomy History of tonsillectomy Status post right foot surgery Family History Mother , AT AGE 78 Cancer OVARIAN CANCER ,LUNG CANCER Father , AT AGE 86 Cancer STOMACH Other Diabetes Hyperlipidemia Hypertension Denies family history of CAD (coronary artery disease) Clotting disorder Dementia Psychiatric illness Chronic kidney disease (CKD) Suicide Anesthesia complication Bleeding disorder Family history of premature coronary artery disease Lung disease Stroke Social History Smoking and tobacco status: former smoker Quit status (tobacco): has quit using tobacco Year quit tobacco: 2012 Second hand smoke exposure: No Alcohol intake: never Lives independently: Yes Marital status: Current occupational status: disabled History of recent travel: No Female Reproductive History Para: 2 Spontaneous abortions: No Data Anesthesia : 10/19/21 05:03 10/19/21 15:49 Short CBC 10/18/21 10/19/21 Range/Units 12:25 05:03 WBC 16.7 H 16.4 H (4.0-10.0) 10^3/uL Hgb 12.9 11.3 L (11.5-15.3) g/dL Hct 40.0 35.4 L (37.0-47.0) % MCV 88.3 88.5 (81-99) fl Plt Count 226 163 (130-400) 10^3/cmm Neut % (Auto) 82.2 83.1 % Neut # (Auto) 13.72 H 13.61 H (1.8-7.7) 10^3/uL BMP 10/18/21 10/19/21 10/19/21 12:25 05:03 15:49 Sodium 134 L 135 L 133 L Potassium 3.8 3.7 3.3 L Chloride 95 L 101 96 L Carbon Dioxide 22 24 26 BUN 16 13 13 Creatinine 0.8 0.6 0.7 Glucose 220 H 209 H 180 H Calcium 9.9 9.2 9.4 Cardiac Enzymes 10/18/21 10/18/21 10/18/21 Range/Units 12:25 12:25 14:24 Troponin T Baseline 8 (0-10) ng/L Troponin T 120 Minute 8.32 (0-10) ng/L Delta Troponin T 0.32 (0-10) ABS# NT-Pro-B Natriuret Pep 2455 H (0-125) pg/mL Liver Function 10/18/21 10/19/21 Range/Units 12:25 05:03 Total Bilirubin 0.6 0.4 (0.15-1.2) mg/dL AST 10 13 (0-32) U/L ALT 9 8 (0-33) U/L Alkaline Phosphatase 69 59 (35-105) IU/L Albumin 4.0 2.8 L (3.5-5.2) g/dL Urine 10/18/21 Range/Units 13:40 Urine Color Yellow (Yellow) Urine Appearance Cloudy (CLEAR) Urine pH 5 (5-7) Ur Specific [place] 1.020 (1.005-1.030) Urine Protein 2+ H (Negative) Urine Glucose (UA) Norm (Normal) Urine Ketones 1+ H (Negative) Urine Nitrate Positive H (Negative) Urine Bilirubin Neg (Negative) Ur Leukocyte Esterase 2+ H (Negative) Urine RBC 5-10 H (0-2) /hpf Urine WBC Too numerous to cnt H (0-5) /hpf COVID Results 10/18/21 10/18/21 12:34 12:46 Coronavirus 229E (PCR) Cancelled Not detected SARS-CoV-2 (PCR) Cancelled Not detected Coags 10/18/21 14:24 C-Reactive Protein 254.2 H Microbiology 10/18/21 13:40 Urine Culture - Preliminary Urine,Clean Catch Gram Negative Rods 10/18/21 20:54 Blood Culture - Preliminary Blood SPECIMEN COLLECTED 10/18/21 20:52 Blood Culture - Preliminary Blood SPECIMEN COLLECTED Cardiac Studies: Echocardiogram 01/14/21
[2021-10-19] MEDS: pantoprazole 40 mg SDV IVP (20:02)
[2021-10-19] MEDS: ondansetron 2 mg/ML SDV 2 mL 4 MG IVP (20:03)
[2021-10-19] MEDS: magnesium sulfate premix 4 GM/100 ML PREMIX IV (21:03)
[2021-10-19 21:41] LABS: Glucose Point of Care 167 mg/dL (70-110)
[2021-10-20] VITALS (17 sets, daily range): BP systolic 108–146; BP diastolic 62–88; PULSE 70–98; RESP 13–20; TEMP 36.6–37.4; O2SAT 83–93
[2021-10-20 05:00] LABS: Basophils % 0.3 %; Eosinophils % 0.1 %; Hematocrit 35.5 % (37.0-47.0); Hemoglobin 11.6 g/dL (11.5-15.3); Lymphocytes # 0.8 10^3/uL (0.8-4.8); Lymphocytes % 5.7 %; Mean Corpuscular HGB Conc 32.7 g/dL (30.0-36.0); Mean Corpuscular Hemoglobin 27.6 pg (28.0-34.0); Mean Corpuscular Volume 84.5 fl (81-99); Mean Platelet Volume 11.2 fL (7.4-10.4); Monocytes # 1.5 10^3/uL (0.2-0.9); Monocytes % 10.4 %; Neutrophils # 11.66 10^3/uL (1.8-7.7); Neutrophils % 82.8 %; Nucleated Red Blood Cells % 0 %; Platelet Count 189 10^3/cmm (130-400); Red Cell Distribution Width 15.2 % (12.1-15.1); White Blood Count 14.1 10^3/uL (4.0-10.0)
[2021-10-20 05:15] LABS: Alanine Aminotransferase 11 U/L (0-33); Albumin Level 2.6 g/dL (3.5-5.2); Alkaline Phosphatase 68 IU/L (35-105); Anion Gap 16.6 (5-19); Aspartate Amino Transferase 16 U/L (0-32); Blood Urea Nitrogen 16 mg/dL (8-23); Calcium 9.3 mg/dL (8.5-10.5); Carbon Dioxide 24 mmol/L (22-29); Chloride 96 mmol/L (98-107); Glomerular Filtration Rate 99.4 mL/min (90-130); Glucose 163 mg/dL (65-115); Osmolality Calculated 281 mOsm/kg (285-295); Phosphorus 2.8 mg/dL (2.5-4.5); Potassium 3.6 mmol/L (3.5-5.1); Sodium 133 mmol/L (136-145); Total Bilirubin 0.4 mg/dL (0.15-1.2); Total Protein 6.6 g/dL (6.6-8.7)
[2021-10-20 06:46] LABS: Glucose Point of Care 166 mg/dL (70-110)
[2021-10-20] MEDS: acetaminophen 325 mg Tablet 650 MG PO (08:34)
[2021-10-20] MEDS: duloxetine 60 mg Capsule PO ×2 (08:35→17:45)
[2021-10-20] MEDS: apixaban 5 mg Tablet PO ×2 (08:35→20:38)
[2021-10-20] MEDS: insulin lispro 100 unit/1 mL SUBCUT ×2 (08:36→12:16)
--- NOTE | 2021-10-20 09:04 | XR_ITS ---
WS: [email or web address] XR chest 1V portable [id number] REASON FOR EXAM: sob FINDINGS: Moderate tortuosity and ectasia of the thoracic aorta with the heart at the upper limits of normal in size. Upper lobe pulmonary veins appear somewhat prominent and there appear to be subtle reticular intersti tial changes in the lower lung gotti. No other significant finding. XR/XR chest 1V portable [id number] IMPRESSION: Subtle findings which may indicate early congestive heart failure.
--- NOTE | 2021-10-20 09:04 | XR_ITS ---
WS: [email or web address] XR KUB portable [id number] REASON FOR EXAM: abdominal distention FINDINGS: Left ureteral stent remains in place. No free air or retroperitoneal air. There is moderate gaseous distention of the transverse colon. There also appear to be moderately dila talha loops of small bowel. No significant abdominal or pelvic calcifications are identified. XR/XR KUB portable [id number] IMPRESSION: Nonspecific bowel gas pattern with dilated segments of colon and small bowel.
--- NOTE | 2021-10-20 09:06 | ECG_ITS ---
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 Measurements Intervals [address] Rate: 90 P: 58 ID: [id number] QRS: 113 QRSD: 113 T: 19 QT: 357 QTc: 439 Interpretive Statements SINUS RHYTHM RIGHT BUNDLE BRANCH BLOCK [120+ ms QRS DURATION, UPRIGHT V1, 40+ ms S IN I/aVL/V4/V5/V6] LEFT POSTERIOR FASCICULAR BLOCK [QRS AXIS > 109, INFERIOR Q] Compared to ECG 10/18/2021 14:35:46 Right bundle-branch block now present Left posterior fascicular block now present Incomplete right bundle-branch block no longer present Electronically Signed On 10-20-2021 10:26:06 CDT by Manuel Ramos M.D. [id number]
[2021-10-20 09:12] LABS: ABG PCO2 40.6 mmHg (35-45); ABG PH Result 7.46 (7.35-7.45); Arterial Blood Gas Hematocrit 42.2 % (37-47); Base Excess ABG 4.2 mmol/L (-2.0-2.0); Blood Gas Allen Test Pos; Blood Gas Sample Site Radial, left; Blood Gas Sample Type Arterial; HCO3 ABG 28.5 mmol/L (22-26); PO2 ABG 82.8 mmHg (80.0-100.0)
[2021-10-20 09:14] LABS: Blood Gas Operator Identificat MONRO; Oxygen Device BIPAP
[2021-10-20] MEDS: potassium chloride ER 20 mEq Tablet 40 MEQ PO (09:24)
[2021-10-20] MEDS: metOLazone 5 MG Tablet 10 MG PO (09:24)
[2021-10-20] MEDS: FUROsemide 10 mg/mL SDV 4mL 40 MG IVP ×2 (09:25→17:45)
[2021-10-20 10:14] LABS: Troponin(5th) Baseline 8 ng/L (0-10)
--- NOTE | 2021-10-20 10:37 | PC.NURSE ---
To unit Pt brought to unit via bed by Med Surg staff. Pt moved from Med Surg bed to ICU bed by the help of stuart mendoza, Med Surg staff and ICU staff. Pt is alert and oriented. Able to answer questions appropriately without getting short of breath. Pt is on 5L NC and at baseline at home is 3L NC. Pt has IV to left FA. Her daughter Michelle is at bedside. Pt oriented to room and call light.
--- NOTE | 2021-10-20 11:06 | ECG_ITS ---
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 Measurements Intervals [place] Rate: 76 P: 54 WI: 164 QRS: 114 QRSD: 116 T: 5 QT: 365 QTc: 410 Interpretive Statements SINUS RHYTHM PATTERN CONSISTENT WITH PULMONARY DISEASE INCOMPLETE RIGHT BUNDLE BRANCH BLOCK [90+ ms QRS DURATION, TERMINAL R IN V1/V2, 40+ ms S IN I/aVL/V4/V5/V6] POSSIBLE RIGHT VENTRICULAR HYPERTROPHY [SOME/ALL OF: PROMINENT R IN V1, LATE TRANSITION, RAD, STACIE, SSS] ST DEVIATION AND MODERATE T-WAVE ABNORMALITY, CONSIDER ANTERIOR ISCHEMIA [-0.1+ mV T-WAVE IN V3/V4] Compared to ECG 10/20/2021 11:19:38 Myocardial infarct finding no longer present T-wave abnormality still present Possible ischemia still present Electronically Signed On 10-21-2021 19:03:19 CDT by Gilberto Scott M.D. [id number]
[2021-10-20 11:08] LABS: NT Pro B Type Natriuretic Pept 1472 pg/mL (0-125); Procalcitonin 1.43 ng/mL (0-0.5)
[2021-10-20 11:19] LABS: C Reactive Protein 319.6 mg/L (0.0-4.9)
[2021-10-20 11:24] LABS: Glucose Point of Care 247 mg/dL (70-110)
[2021-10-20 11:49] LABS: Troponin 5 2HR 8.44 ng/L (0-10)
[2021-10-20 11:58] LABS: Troponin 5 2HR Delta -0.25 ABS# (0-10)
--- NOTE | 2021-10-20 12:53 | PM.PN ---
Subjective Subjective: - Patient was seen early this morning, currently on BiPAP, 50% FiO2, complaining of shortness of breath, has nasal flaring, slight intercostal retractions, crackles in all lung gotti, has anasarca, bilateral pitting edema 1+, concerns for developing acute respiratory failure -Continued BiPAP, ABG obtained, chest x-ray, KUB, patient was given 40 of Lasix with metolazone, moved to ICU -Patient was reexamined in the ICU, later on that morning, she is resting comfortably in bed, nasal cannula, daughter at bedside, she tells me she feels significantly better, she is put out about 2 L of urine, -No chest pain, no palpitations, no shortness of breath she like to eat something this morning Vitals/I&O/Wt Last Vital Signs Temp 98.0 F 10/20/21 07:35 Pulse 97 10/20/21 09:46 Resp 17 10/20/21 07:35 BP 145/78 10/20/21 07:35 Pulse Ox 92 10/20/21 09:46 10/19/21 10/20/21 10/20/21 22:59 06:59 14:59 Intake Total 440 / 067 751.1113 / 669.0909 Output Total 390 / 2690 Balance 440 / -1400 -390 / -3897 105.5729 / 669.0909 Weight last 48 hrs Weight 134.626 kg Physical Exam Const: COMMON NORMALS: no acute distress and patient oriented x3 Resp: COMMON NORMALS: normal respiratory effort, No retractions and No use of accessory muscles AUSCULTATION: crackles Cardio: COMMON NORMALS: regular rate, regular rhythm, S1 normal heart sound present and S2 normal heart sound present RATE: regular rate RHYTHM: regular rhythm HEART SOUNDS: S1 normal heart sound present and S2 normal heart sound present GI: COMMON NORMALS: Normal to inspection, nondistended, normoactive bowel sounds present, Soft to palpation and non-tender PALPATION: Yes Soft to palpation Extremity: NARRATIVE EXTREMITY EXAM: 1+ pitting edema bilateral lower extremity Neuro: COMMON NORMALS: patient oriented x3 Psych: COMMON NORMALS: mental status grossly normal Urinary Catheter Management: Tang: Cath Placed During This Visit: yes Reason for Continuing Indwelling Catheter: Accurate Measurement of Urinary Output in Critically Ill Patients Urinary Catheter Date of Insertion: 10/18/21 Urinary Catheter Time of Insertion: 18:55 Data : 10/20/21 04:19 10/20/21 04:19 Micro: Microbiology 10/18/21 20:54 Blood Culture - Preliminary Blood NEGATIVE TO DATE 10/18/21 20:52 Blood Culture - Preliminary Blood NEGATIVE TO DATE 10/18/21 13:40 Urine Culture - Preliminary Urine,Clean Catch Gram Negative Rods A&P Assessment and plan (1) Right heart failure with reduced right ventricular function: Status: Acute (2) Pulmonary hypertension: Status: Acute (3) Diastolic heart failure: Status: Chronic Qualifiers: Heart failure chronicity: chronic Qualified Code(s): I50.32 - Chronic diastolic (congestive) heart failure (4) Pulmonary embolism: Status: Acute Qualifiers: Pulmonary embolism type: multiple subsegmental (without acute cor pulmonale) Qualified Code(s): I26.94 - Multiple subsegmental pulmonary emboli without acute cor pulmonale (5) Chronic narcotic use: Status: Acute (6) Morbid obesity: Status: Acute (7) Osteoarthritis of left hip: Status: Acute (8) HTN (hypertension): Status: Chronic Qualifiers: Hypertension type: essential hypertension Qualified Code(s): I10 - Essential (primary) hypertension (9) Controlled type 2 diabetes mellitus, without long-term current use of insulin: Status: Acute Qualifiers: Diabetes mellitus complication status: without complication Qualified Code(s): E11.9 - Type 2 diabetes mellitus without complications (10) Urinary tract infection: Status: Acute (11) Acute respiratory failure with hypoxia: Status: Acute (12) Acute exacerbation of CHF (congestive heart failure): Status: Acute Plan Acute hypoxic respiratory failure secondary to diastolic CHF exacerbation -We will monitor in ICU -Hopefully moved to general medical floors in the next 24 hours -Lasix twice daily -Monitor creatinine, monitor urine output -Monitor respiratory status -BiPAP as needed as needed during the day, schedule during the night Left obstructive uropathy, left pyelonephritis secondary to intraureteral calculus. -Status post stent placement by Dr. Finch -Had fever spike overnight -Follow blood culture -Continue Primaxin -Continue home Dilaudid -Eliquis for DVT prophylaxis -Full code History of pulmonary embolism, continue Eliquis History of diastolic CHF not exacerbation Type 2 diabetes mellitus, low-dose sliding scale Attestations Medical Necessity Statement*: Patient requires hospitalization for acute hypoxic respiratory failure, diastolic CHF exacerbation, left pyelonephritis, critical care time spent 35 minutes Coding Level of Care Code Acute Convalescent Sitter for Chg Fwd Diagnoses Right heart failure with reduced right ventricular function I50.810 Pulmonary hypertension I27.20 Diastolic heart failure I50.32 Heart failure chronicity: chronic Pulmonary embolism I26.94 Pulmonary embolism type: multiple subsegmental (without acute cor pulmonale) Chronic narcotic use F11.90 Morbid obesity E66.01 Osteoarthritis of left hip M16.12 HTN (hypertension) I10 Hypertension type: essential hypertension Controlled type 2 diabetes mellitus, without long-term current use of insulin E11.9 Diabetes mellitus complication status: without complication Urinary tract infection N39.0 Acute respiratory failure with hypoxia J96.01 Acute exacerbation of CHF (congestive heart failure) I50.9
--- NOTE | 2021-10-20 15:06 | ECG_ITS ---
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 Measurements Intervals [place] Rate: 73 P: 46 MT: 171 QRS: 126 QRSD: 107 T: 5 QT: 350 QTc: 386 Interpretive Statements SINUS RHYTHM INCOMPLETE RIGHT BUNDLE BRANCH BLOCK [90+ ms QRS DURATION, TERMINAL R IN V1/V2, 40+ ms S IN I/aVL/V4/V5/V6] POSSIBLE RIGHT VENTRICULAR HYPERTROPHY [SOME/ALL OF: PROMINENT R IN V1, LATE TRANSITION, RAD, STACIE, SSS] POSSIBLE ANTERIOR MYOCARDIAL INFARCTION , OF INDETERMINATE AGE [30 ms Q WAVE IN V3/V4, OR R < 0.2 mV IN V4] MODERATE T-WAVE ABNORMALITY, CONSIDER LATERAL ISCHEMIA [-0.1+ mV T-WAVE IN I/aVL/V5/V6] Compared to ECG 10/20/2021 09:24:21 Incomplete right bundle-branch block now present Myocardial infarct finding now present T-wave abnormality now present Possible ischemia now present Right bundle-branch block no longer present Left posterior fascicular block no longer present Electronically Signed On 10-20-2021 15:18:25 CDT by Manuel Ramos M.D. [id number]
[2021-10-20 17:35] LABS: Glucose Point of Care 189 mg/dL (70-110)
[2021-10-20 17:57] LABS: Troponin 5 6HR 10.25 ng/L (0-10)
[2021-10-20 17:58] LABS: Troponin 5 6HR Delta 2.25 ng/L (0-12)
--- NOTE | 2021-10-20 19:39 | PC.NURSE ---
Bedside report complete. Patient complaining of discomfort and leaking from antunez catheter. Antunez catheter leaking. Balloon had 7cc saline, 3 more cc added with advancement. Patient has relief post advancement and adding saline to catheter balloon. Daughter is currently at bedside. Patient and daughter educated on signs and symptoms of retaining fluid and fluid overload and educated on calling primary physician when symptomatic.
[2021-10-20] MEDS: pantoprazole 40 mg SDV IVP (20:38)
[2021-10-20 20:45] LABS: Glucose Point of Care 228 mg/dL (70-110)
--- NOTE | 2021-10-20 23:29 | PC.NURSE ---
Patient unable to tolerate bipap. Bipap removed and 5 liter NC placed on patient. RT notified.
[2021-10-21] VITALS (24 sets, daily range): BP systolic 119–157; BP diastolic 62–95; PULSE 65–86; RESP 12–22; TEMP 36.7–36.9; O2SAT 86–96
[2021-10-21 05:24] LABS: Basophils % 0.3 %; Eosinophils # 0.1 10^3/uL (0.0-0.8); Eosinophils % 0.8 %; Hematocrit 39.8 % (37.0-47.0); Hemoglobin 13.2 g/dL (11.5-15.3); Lymphocytes # 1.1 10^3/uL (0.8-4.8); Lymphocytes % 10.5 %; Mean Corpuscular HGB Conc 33.2 g/dL (30.0-36.0); Mean Corpuscular Hemoglobin 27.7 pg (28.0-34.0); Mean Corpuscular Volume 83.6 fl (81-99); Mean Platelet Volume 10.5 fL (7.4-10.4); Monocytes # 1.2 10^3/uL (0.2-0.9); Monocytes % 11.8 %; Neutrophils # 7.56 10^3/uL (1.8-7.7); Nucleated Red Blood Cells % 0 %; Platelet Count 201 10^3/cmm (130-400); Red Blood Count 4.76 10^6/uL (4.1-5.3)
[2021-10-21 05:53] LABS: ABG PCO2 50.2 mmHg (35-45); ABG PH Result 7.49 (7.35-7.45); Arterial Blood Gas Hematocrit 42.2 % (37-47); Base Excess ABG 13.2 mmol/L (-2.0-2.0); Blood Gas Allen Test Pos; Blood Gas Operator Identificat JB; Blood Gas Sample Site Radial, right; Blood Gas Sample Type Arterial; HCO3 ABG 38.6 mmol/L (22-26); Oxygen Device NC; PO2 ABG 56.6 mmHg (80.0-100.0)
[2021-10-21 06:03] LABS: Alanine Aminotransferase 56 U/L (0-33); Albumin Level 3.2 g/dL (3.5-5.2); Alkaline Phosphatase 101 IU/L (35-105); Anion Gap 13.9 (5-19); Aspartate Amino Transferase 46 U/L (0-32); Blood Urea Nitrogen 19 mg/dL (8-23); C Reactive Protein 255.6 mg/L (0.0-4.9); Calcium 10.2 mg/dL (8.5-10.5); Carbon Dioxide 34 mmol/L (22-29); Chloride 88 mmol/L (98-107); Globulin 4.1 g/dL (1.3-4.6); Glomerular Filtration Rate 99.4 mL/min (90-130); Glucose 185 mg/dL (65-115); Magnesium 1.5 mg/dL (1.7-2.3); NT Pro B Type Natriuretic Pept 1059 pg/mL (0-125); Osmolality Calculated 283 mOsm/kg (285-295); Phosphorus 3.1 mg/dL (2.5-4.5); Sodium 133 mmol/L (136-145); Total Bilirubin 0.4 mg/dL (0.15-1.2); Total Protein 7.3 g/dL (6.6-8.7)
[2021-10-21 06:07] LABS: Potassium 2.9 mmol/L (3.5-5.1)
[2021-10-21] MEDS: potassium chloride ER 20 mEq Tablet 80 MEQ PO (06:22)
--- NOTE | 2021-10-21 07:00 | XR_ITS ---
WS: [email or web address] XR chest 1V portable [id number] REASON FOR EXAM: sob FINDINGS: Compared to the previous day interstitial lung opacities have significantly resolved. Presumed atelectasis in the left lower lung (not reported on the previous study but present) also abhilash ears to be resolving. No new findings. XR/XR chest 1V portable [id number] IMPRESSION: Improving chest.
[2021-10-21 07:33] LABS: Glucose Point of Care 190 mg/dL (70-110)
[2021-10-21] MEDS: insulin lispro 100 unit/1 mL SUBCUT ×3 (08:17→17:59)
[2021-10-21] MEDS: duloxetine 60 mg Capsule PO ×2 (08:17→17:59)
[2021-10-21] MEDS: apixaban 5 mg Tablet PO ×2 (08:17→21:00)
--- NOTE | 2021-10-21 10:25 | PC.SOCIAL ---
IMM update IMM updated with patient. Verbalized an understanding. Copy Pg 2 provided. Initialled, dated, timed, and placed in chart.
[2021-10-21] MEDS: magnesium sulfate premix 4 GM/100 ML PREMIX IV (10:38)
[2021-10-21 11:11] LABS: Glucose Point of Care 193 mg/dL (70-110)
--- NOTE | 2021-10-21 14:34 | PM.PN ---
Subjective Subjective: Patient was seen this morning, currently on 5 L, room air, she tells me she feels a lot better, continues to feel weak, she tells me at baseline she does not ambulate, her daughter helps take care of her at home, Vitals/I&O/Wt Last Vital Signs Temp 98.4 F 10/21/21 00:00 Pulse 86 10/21/21 10:00 Resp 22 H 10/21/21 12:30 BP 142/72 10/21/21 10:00 Pulse Ox 89 L 10/21/21 10:00 10/20/21 10/21/21 10/21/21 22:59 06:59 14:59 Intake Total 450 / 1219.0909 200 / 1419.0909 360 / 360 Output Total 4100 / 4100 775 / 4875 650 / 650 Balance -3650 / -2880.9091 -575 / -3455.9091 -290 / -290 Physical Exam Const: COMMON NORMALS: no acute distress and patient oriented x3 Neck/C-Spine: COMMON NORMALS: no JVD Resp: COMMON NORMALS: normal respiratory effort, No retractions, No use of accessory muscles and clear to auscultation bilaterally AUSCULTATION: clear to auscultation bilaterally Cardio: COMMON NORMALS: no JVD, regular rate, regular rhythm, S1 normal heart sound present and S2 normal heart sound present RATE: regular rate RHYTHM: regular rhythm HEART SOUNDS: S1 normal heart sound present and S2 normal heart sound present GI: COMMON NORMALS: Normal to inspection, nondistended, normoactive bowel sounds present, Soft to palpation and non-tender PALPATION: Yes Soft to palpation Extremity: COMMON NORMALS: no pedal edema Neuro: COMMON NORMALS: patient oriented x3 Psych: COMMON NORMALS: mental status grossly normal Urinary Catheter Management: Tang: Cath Placed During This Visit: yes Reason for Continuing Indwelling Catheter: Accurate Measurement of Urinary Output in Critically Ill Patients Urinary Catheter Date of Insertion: 10/18/21 Urinary Catheter Time of Insertion: 18:55 Data : 10/21/21 04:58 10/21/21 04:58 Micro: Microbiology 10/18/21 13:40 Urine Culture - Final Urine,Clean Catch Klebsiella pneumoniae A&P Assessment and plan (1) Right heart failure with reduced right ventricular function: Status: Acute (2) Pulmonary hypertension: Status: Acute (3) Diastolic heart failure: Status: Chronic Qualifiers: Heart failure chronicity: chronic Qualified Code(s): I50.32 - Chronic diastolic (congestive) heart failure (4) Pulmonary embolism: Status: Acute Qualifiers: Pulmonary embolism type: multiple subsegmental (without acute cor pulmonale) Qualified Code(s): I26.94 - Multiple subsegmental pulmonary emboli without acute cor pulmonale (5) Chronic narcotic use: Status: Acute (6) Morbid obesity: Status: Acute (7) Osteoarthritis of left hip: Status: Acute (8) HTN (hypertension): Status: Chronic Qualifiers: Hypertension type: essential hypertension Qualified Code(s): I10 - Essential (primary) hypertension (9) Controlled type 2 diabetes mellitus, without long-term current use of insulin: Status: Acute Qualifiers: Diabetes mellitus complication status: without complication Qualified Code(s): E11.9 - Type 2 diabetes mellitus without complications (10) Urinary tract infection: Status: Acute (11) Acute respiratory failure with hypoxia: Status: Acute (12) Acute exacerbation of CHF (congestive heart failure): Status: Acute Plan Acute hypoxic respiratory failure secondary to diastolic CHF exacerbation -We will move out of ICU -Daily dose Lasix, -5 L -Monitor creatinine, monitor urine output -Monitor respiratory status -BiPAP as needed as needed during the day, schedule during the night Left obstructive uropathy, left pyelonephritis secondary to intraureteral calculus. -Status post stent placement by Dr. 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[employer] Diagnoses Right heart failure with reduced right ventricular function I50.810 Pulmonary hypertension I27.20 Diastolic heart failure I50.32 Heart failure chronicity: chronic Pulmonary embolism I26.94 Pulmonary embolism type: multiple subsegmental (without acute cor pulmonale) Chronic narcotic use F11.90 Morbid obesity E66.01 Osteoarthritis of left hip M16.12 HTN (hypertension) I10 Hypertension type: essential hypertension Controlled type 2 diabetes mellitus, without long-term current use of insulin E11.9 Diabetes mellitus complication status: without complication Urinary tract infection N39.0 Acute respiratory failure with hypoxia J96.01 Acute exacerbation of CHF (congestive heart failure) I50.9
[2021-10-21] MEDS: potassium chloride ER 20 mEq Tablet PO (14:42)
[2021-10-21] MEDS: FUROsemide 10 mg/mL SDV 4mL 40 MG IVP (14:42)
[2021-10-21 17:44] LABS: Glucose Point of Care 200 mg/dL (70-110)
--- NOTE | 2021-10-21 18:15 | PC.NURSE ---
Pt was able to transfer self to chair this shift with moderate assistance. She was crying stating she couldn't do it but was able to transfer with this nurse and her daughter.
[2021-10-21] MEDS: acetaminophen 325 mg Tablet 650 MG PO (21:00)
[2021-10-21] MEDS: pantoprazole 40 mg SDV IVP (21:18)
[2021-10-22] VITALS (12 sets, daily range): BP systolic 96–121; BP diastolic 63–79; PULSE 71–82; RESP 16–20; TEMP 36.3–37.1; O2SAT 87–95
[2021-10-22 03:02] LABS: Basophils # 0.1 10^3/uL (0.0-0.1); Basophils % 0.5 %; Eosinophils # 0.1 10^3/uL (0.0-0.8); Eosinophils % 1.2 %; Hematocrit 40.2 % (37.0-47.0); Hemoglobin 13.5 g/dL (11.5-15.3); Lymphocytes # 1.4 10^3/uL (0.8-4.8); Lymphocytes % 14.3 %; Mean Corpuscular HGB Conc 33.6 g/dL (30.0-36.0); Mean Corpuscular Volume 83.2 fl (81-99); Mean Platelet Volume 10.6 fL (7.4-10.4); Monocytes # 1.3 10^3/uL (0.2-0.9); Monocytes % 13.7 %; Neutrophils # 6.69 10^3/uL (1.8-7.7); Neutrophils % 69.2 %; Nucleated Red Blood Cells % 0 %; Platelet Count 229 10^3/cmm (130-400); Red Blood Count 4.83 10^6/uL (4.1-5.3); Red Cell Distribution Width 14.8 % (12.1-15.1); White Blood Count 9.7 10^3/uL (4.0-10.0)
[2021-10-22 03:33] LABS: NT Pro B Type Natriuretic Pept 328 pg/mL (0-125)
[2021-10-22 03:44] LABS: Alanine Aminotransferase 61 U/L (0-33); Alkaline Phosphatase 108 IU/L (35-105); Anion Gap 15.6 (5-19); Aspartate Amino Transferase 35 U/L (0-32); Blood Urea Nitrogen 33 mg/dL (8-23); C Reactive Protein 150.4 mg/L (0.0-4.9); Carbon Dioxide 33 mmol/L (22-29); Chloride 84 mmol/L (98-107); Globulin 4.2 g/dL (1.3-4.6); Glomerular Filtration Rate 71.3 mL/min (90-130); Glucose 221 mg/dL (65-115); Magnesium 1.9 mg/dL (1.7-2.3); Osmolality Calculated 282 mOsm/kg (285-295); Phosphorus 3.8 mg/dL (2.5-4.5); Potassium 3.6 mmol/L (3.5-5.1); Sodium 129 mmol/L (136-145); Total Bilirubin 0.4 mg/dL (0.15-1.2); Total Protein 7.2 g/dL (6.6-8.7)
[2021-10-22 06:27] LABS: ABG PCO2 54.7 mmHg (35-45); ABG PH Result 7.47 (7.35-7.45); Arterial Blood Gas Hematocrit 43.5 % (37-47); Base Excess ABG 13.9 mmol/L (-2.0-2.0); Blood Gas Allen Test Pos; Blood Gas LPM 5.5 %; Blood Gas Operator Identificat JB; Blood Gas Sample Site Radial, left; Blood Gas Sample Type Arterial; HCO3 ABG 40.1 mmol/L (22-26); Oxygen Device NC
--- NOTE | 2021-10-22 07:39 | PM.PN ---
Vitals/I&O/Wt Last Vital Signs Temp 97.5 F L 10/22/21 04:00 Pulse 71 10/22/21 04:00 Resp 17 10/22/21 04:21 BP 121/78 10/22/21 04:00 Pulse Ox 95 10/22/21 04:00 10/21/21 10/22/21 10/22/21 22:59 06:59 14:59 Intake Total 2260 / 3620 Output Total 2900 / 3550 Balance -640 / 70 Physical Exam Narrative: Alert oriented no acute distress. Appears much more comfortable. Pleasant cooperative throughout exam HEENT atraumatic normocephalic Neck good range of motion Respiration no obvious wheezes or laboring Abdomen is soft and nontender. Extremities good range of motion. Morbid obesity. Urinary Catheter Management: Tang: Cath Placed During This Visit: yes Reason for Continuing Indwelling Catheter: Accurate Measurement of Urinary Output in Critically Ill Patients Urinary Catheter Date of Insertion: 10/18/21 Urinary Catheter Time of Insertion: 18:55 Data : 10/22/21 02:43 10/22/21 02:43 A&P Assessment and plan (1) Obstructive pyelonephritis: Status: Acute (2) Left ureteral calculus: Status: Acute Plan 1. Follow-up in clinic on 10/27/2021 for preop check 2. Tentative date for left ureteroscopic stone extraction/possible laser lithotripsy will be 11/03/2021 3. She will need to be on antibiotics through that spinal surgery. 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
[2021-10-22] MEDS: duloxetine 60 mg Capsule PO ×2 (08:23→17:16)
[2021-10-22] MEDS: apixaban 5 mg Tablet PO ×2 (08:23→21:48)
[2021-10-22] MEDS: cefTRIAXone 1,000 MG in sodium chloride 0.9% (plus) 50 ML 100 MG IV (08:23)
[2021-10-22 09:05] LABS: Glucose Point of Care 272 mg/dL (70-110)
[2021-10-22] MEDS: insulin lispro 100 unit/1 mL SUBCUT ×3 (09:09→17:16)
--- NOTE | 2021-10-22 09:41 | CT_ITS ---
WS: [id number] CT ABDOMEN AND PELVIS NONCONTRAST HISTORY: Abdominal pain TECHNIQUE: Imaging performed through the abdomen and pelvis. Coronal and sagittal reformats are submi tted. All CT scans at [facility] use at least one of these dose optimization techniques: auto mated exposure control; mA and/or kV adjustment per patient size (includes targeted exams where dose is matched to clinical indication); or iterative reconstruction. DLP: 1733.63 mGy.cm COMPARISON: 10/18/2021 Lower thorax: Dependent changes at the lung bases. No pneumonia. Heart size is normal. Liver: Normal size liver with changes of cirrhosis. Low-attenuation nodule in the RIGHT inferior lobe measures 6 mm. No bile duct dilatation. Gallbladder: Prior cholecystectomy. Pancreas: Mild diffuse fatty replacement. Spleen: Normal. Adrenal glands: Normal. No mass. Right kidney: Slightly lobulated RIGHT kidney. There are several low-attenuation masses which are unc hanged. The largest measures 2.7 x 3.5 cm in the lower pole. These cannot be further characterized on this unenhanced exam. Nonobstructing calcification in the mid kidney. No ureteral dilatation. Left kidney: Normal size kidney. Mild perinephric stranding. New hyperdense nodule measures 8 mm in t he upper pole surrounded by perinephric stranding that extends to involve the tail of the pancreas. T his perinephric stranding and hyperdense nodule are new since 10/18/2021 and may represent an area of hemorrhage. There is less perinephric stranding around the mid to lower kidney. Hydronephrosis has re solved since placement of a double pigtail LEFT ureteral stent. Small ureteral calcification is no lo nger identified. Aorta: Mild atherosclerosis abdominal aorta with no aneurysm. No free fluid, intraperitoneal air or significant lymphadenopathy. GI tract: Normally distended stomach. No small bowel obstruction. Moderate amount of increased air th roughout the distal small bowel and colon. No obstructive pattern. Abdominal wall: Negative. No hernia. Pelvis: Pigtail ureteral stent coiled in the bladder. The bladder is nondistended. There is air in th e urinary bladder which is probably from the Tang catheter which is also present. No free fluid in t he pelvis. Osseous structures: Advanced degenerative changes at the LEFT hip. There is joint space narrowing wit h subchondral cystic changes on both sides of the joint space with remodeling. Mild curvature lumbar spine. CT/CT abdomen pelvis wo con [id number] IMPRESSION: 1. Interval placement of a double pigtail LEFT ureteral stent since 10/18/2021. Resolution of the hydronephrosis. 2. Small calcification described in the proximal LEFT ureter is not identified on today's study. 3. Improved perinephric stranding around the mid to lower LEFT kidney. 4. Increase in amount of perinephric stranding around the upper pole of the LE FT kidney with a new hyperdense 8 mm cortical nodule. Suspect this is an area o f hemorrhage. There may be a small cortical cyst which has hemorrhaged. The inc reased perinephric stranding extends to abut the distal pancreas. 5. Prior cholecystectomy. 6. Tang catheter in good position.
[2021-10-22] MEDS: HYDROmorphone 1 mg/mL INJ 1 mL IVP (11:00)
[2021-10-22] MEDS: polyethylene glycol 3350 Pkt 17 gm PO (11:01)
[2021-10-22] MEDS: docusate sodium 100 mg Capsule PO ×2 (11:01→17:16)
[2021-10-22 12:26] LABS: Glucose Point of Care 183 mg/dL (70-110)
--- NOTE | 2021-10-22 13:36 | PM.PN ---
Subjective Subjective: Patient was seen this morning, she tells me that she had an uneventful night, she slept okay, but this morning she started to develop significant abdominal pain, she tells me that it hurts all over, she was waiting for her Dilaudid for over 30 minutes, she finally got her Dilaudid, but continues to have severe abdominal pain, has not had a bowel movement as of yet, no dysuria Vitals/I&O/Wt Last Vital Signs Temp 97.6 F 10/22/21 12:00 Pulse 78 10/22/21 12:00 Resp 16 10/22/21 13:21 BP 119/78 10/22/21 12:00 Pulse Ox 93 10/22/21 12:00 10/21/21 10/22/21 10/22/21 22:59 06:59 14:59 Intake Total 2260 / 3620 530 / 530 Output Total 2900 / 3550 Balance -640 / 70 530 / 530 Physical Exam Const: COMMON NORMALS: no acute distress and patient oriented x3 Resp: COMMON NORMALS: normal respiratory effort, No retractions, No use of accessory muscles and clear to auscultation bilaterally AUSCULTATION: clear to auscultation bilaterally Cardio: COMMON NORMALS: regular rate, regular rhythm, S1 normal heart sound present and S2 normal heart sound present RATE: regular rate RHYTHM: regular rhythm HEART SOUNDS: S1 normal heart sound present and S2 normal heart sound present GI: OTHER: Abdomen soft, slightly distended, good bowel sounds, diffuse abdominal tenderness, no overlying skin changes, Extremity: COMMON NORMALS: no pedal edema Neuro: COMMON NORMALS: patient oriented x3 Psych: COMMON NORMALS: mental status grossly normal Urinary Catheter Management: Tang: Cath Placed During This Visit: yes Reason for Continuing Indwelling Catheter: Accurate Measurement of Urinary Output in Critically Ill Patients Urinary Catheter Date of Insertion: 10/18/21 Urinary Catheter Time of Insertion: 18:55 Data : 10/22/21 02:43 10/22/21 02:43 A&P Assessment and plan (1) Right heart failure with reduced right ventricular function: Status: Acute (2) Pulmonary hypertension: Status: Acute (3) Diastolic heart failure: Status: Chronic Qualifiers: Heart failure chronicity: chronic Qualified Code(s): I50.32 - Chronic diastolic (congestive) heart failure (4) Pulmonary embolism: Status: Acute Qualifiers: Pulmonary embolism type: multiple subsegmental (without acute cor pulmonale) Qualified Code(s): I26.94 - Multiple subsegmental pulmonary emboli without acute cor pulmonale (5) Chronic narcotic use: Status: Acute (6) Morbid obesity: Status: Acute (7) Osteoarthritis of left hip: Status: Acute (8) HTN (hypertension): Status: Chronic Qualifiers: Hypertension type: essential hypertension Qualified Code(s): I10 - Essential (primary) hypertension (9) Controlled type 2 diabetes mellitus, without long-term current use of insulin: Status: Acute Qualifiers: Diabetes mellitus complication status: without complication Qualified Code(s): E11.9 - Type 2 diabetes mellitus without complications (10) Urinary tract infection: Status: Acute (11) Acute respiratory failure with hypoxia: Status: Acute (12) Acute exacerbation of CHF (congestive heart failure): Status: Acute Plan Acute hypoxic respiratory failure secondary to diastolic CHF exacerbation -Remains on 5 L, she uses 2 L at home -Currently on general medical floors -Sodium 129, hold Lasix - -5 L -Monitor creatinine, monitor urine output -Monitor respiratory status -BiPAP as needed as needed during the day, schedule during the night Left obstructive uropathy, left pyelonephritis secondary to intraureteral calculus. -Status post stent placement by Dr. Finch -Had fever spike overnight -Follow blood culture -Urine culture showing Klebsiella pneumonia, sensitive to penicillin, switched to Rocephin -Continue home Dilaudid -Eliquis for DVT prophylaxis -Full code Now complaining of severe abdominal pain, repeat CT scan of the abdomen, start Colace, MiraLAX extra dose of Dilaudid History of pulmonary embolism, continue Eliquis History of diastolic CHF as above Type 2 diabetes mellitus, low-dose sliding scale Attestations Medical Necessity Statement*: Patient requires hospitalization for abdominal pain, respiratory failure, on 5 L Coding Level of Care Code 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[facility] Diagnoses Right heart failure with reduced right ventricular function I50.810 Pulmonary hypertension I27.20 Diastolic heart failure I50.32 Heart failure chronicity: chronic Pulmonary embolism I26.94 Pulmonary embolism type: multiple subsegmental (without acute cor pulmonale) Chronic narcotic use F11.90 Morbid obesity E66.01 Osteoarthritis of left hip M16.12 HTN (hypertension) I10 Hypertension type: essential hypertension Controlled type 2 diabetes mellitus, without long-term current use of insulin E11.9 Diabetes mellitus complication status: without complication Urinary tract infection N39.0 Acute respiratory failure with hypoxia J96.01 Acute exacerbation of CHF (congestive heart failure) I50.9
[2021-10-22 16:57] LABS: Glucose Point of Care 182 mg/dL (70-110)
[2021-10-22] MEDS: pantoprazole 40 mg SDV IVP (22:02)
[2021-10-22 22:40] LABS: Glucose Point of Care 196 mg/dL (70-110)
[2021-10-22 22:40] LABS: Glucose Point of Care 197 mg/dL (70-110)
[2021-10-23] VITALS (8 sets, daily range): BP systolic 119–126; BP diastolic 75–85; PULSE 71–91; RESP 18–20; TEMP 36.6–36.8; O2SAT 90–96
[2021-10-23 04:28] LABS: Basophils # 0.1 10^3/uL (0.0-0.1); Basophils % 0.6 %; Eosinophils # 0.1 10^3/uL (0.0-0.8); Eosinophils % 0.9 %; Hematocrit 38.9 % (37.0-47.0); Hemoglobin 12.9 g/dL (11.5-15.3); Lymphocytes # 1.5 10^3/uL (0.8-4.8); Lymphocytes % 14.3 %; Mean Corpuscular HGB Conc 33.2 g/dL (30.0-36.0); Mean Corpuscular Hemoglobin 27.7 pg (28.0-34.0); Mean Corpuscular Volume 83.7 fl (81-99); Mean Platelet Volume 10.5 fL (7.4-10.4); Monocytes # 1.3 10^3/uL (0.2-0.9); Monocytes % 12.8 %; Neutrophils # 7.13 10^3/uL (1.8-7.7); Neutrophils % 69.5 %; Nucleated Red Blood Cells % 0 %; Platelet Count 256 10^3/cmm (130-400); Red Blood Count 4.65 10^6/uL (4.1-5.3); Red Cell Distribution Width 14.8 % (12.1-15.1); White Blood Count 10.2 10^3/uL (4.0-10.0)
[2021-10-23 04:57] LABS: NT Pro B Type Natriuretic Pept 150 pg/mL (0-125)
[2021-10-23 05:08] LABS: Alanine Aminotransferase 40 U/L (0-33); Albumin Level 3.1 g/dL (3.5-5.2); Alkaline Phosphatase 97 IU/L (35-105); Anion Gap 13.8 (5-19); Aspartate Amino Transferase 19 U/L (0-32); Blood Urea Nitrogen 39 mg/dL (8-23); C Reactive Protein 92.7 mg/L (0.0-4.9); Calcium 9.9 mg/dL (8.5-10.5); Carbon Dioxide 34 mmol/L (22-29); Chloride 87 mmol/L (98-107); Globulin 3.8 g/dL (1.3-4.6); Glomerular Filtration Rate 83.2 mL/min (90-130); Glucose 220 mg/dL (65-115); Magnesium 1.7 mg/dL (1.7-2.3); Osmolality Calculated 288 mOsm/kg (285-295); Phosphorus 3.6 mg/dL (2.5-4.5); Potassium 3.8 mmol/L (3.5-5.1); Sodium 131 mmol/L (136-145); Total Bilirubin 0.4 mg/dL (0.15-1.2); Total Protein 6.9 g/dL (6.6-8.7)
[2021-10-23 08:45] LABS: Glucose Point of Care 219 mg/dL (70-110)
[2021-10-23] MEDS: insulin lispro 100 unit/1 mL SUBCUT (08:46)
[2021-10-23] MEDS: docusate sodium 100 mg Capsule PO (08:46)
[2021-10-23] MEDS: duloxetine 60 mg Capsule PO (08:46)
[2021-10-23] MEDS: apixaban 5 mg Tablet PO (08:46)
[2021-10-23] MEDS: cefTRIAXone 1,000 MG in sodium chloride 0.9% (plus) 50 ML 100 MG IV (08:46)
--- NOTE | 2021-10-23 11:08 | PM.DCS ---
Discharge Providers Date of Admission: 10/18/21 19:21 Date of Discharge: October 23, 2021 Attending Provider at Admission: Sumeet Finch MD Attending Provider at Discharge: Sumeet Finch MD Primary Care Provider: Kasia Jiang DO Diagnoses at Discharge Discharge Diagnosis (1) Right heart failure with reduced right ventricular function: Status: Acute (2) Pulmonary hypertension: Status: Acute (3) Diastolic heart failure: Status: Chronic Qualifiers: Heart failure chronicity: chronic Qualified Code(s): I50.32 - Chronic diastolic (congestive) heart failure (4) Pulmonary embolism: Status: Acute Qualifiers: Pulmonary embolism type: multiple subsegmental (without acute cor pulmonale) Qualified Code(s): I26.94 - Multiple subsegmental pulmonary emboli without acute cor pulmonale (5) Chronic narcotic use: Status: Acute (6) Morbid obesity: Status: Acute (7) Osteoarthritis of left hip: Status: Acute (8) HTN (hypertension): Status: Chronic Qualifiers: Hypertension type: essential hypertension Qualified Code(s): I10 - Essential (primary) hypertension (9) Controlled type 2 diabetes mellitus, without long-term current use of insulin: Status: Acute Qualifiers: Diabetes mellitus complication status: without complication Qualified Code(s): E11.9 - Type 2 diabetes mellitus without complications (10) Urinary tract infection: Status: Acute (11) Acute respiratory failure with hypoxia: Status: Acute (12) Acute exacerbation of CHF (congestive heart failure): Status: Acute Reason for Visit Reason for Visit: N/V/D/ WEAKNESS Hospital Course Hospital Course Christo Justin is a 66 year old female with a past medical history of noninsulin-dependent type 2 diabetes mellitus, chronic hip pain on chronic narcotics Dilaudid for every 4 hours, history of pulmonary embolism on Eliquis on 2 to 3 L history of bilateral nephrolithiasis, diastolic CHF, morbid obesity, who presents to [facility] due to a few day history of fatigue, malaise, diffuse pain, dysuria, dark-colored urine. Patient was admitted to [facility] for left obstructive uropathy, left pyelonephritis secondary to intraureteral calculus. Status post stent placement by Dr. Finch, urine culture showing Klebsiella pneumonia, received broad-spectrum antibiotic therapy, overall she clinically improved, remained afebrile, on 10/22/2021 and there was plans on discharge but she had complaints of recurrent abdominal pain CT scan shows resolution of hydronephrosis, improved perinephric stranding, increased perinephric stranding of upper pole of left kidney possible cortical cyst which has hemorrhaged. Patient is was monitored for another 24 hours overall remained afebrile, abdominal pain resolved, hemoglobin stable. Patient will be discharged with Cipro for a total of 2 weeks, she has a lithotripsy scheduled for 11/03/2021. Patient was advised to monitor for abdominal pain worsening fevers, lightheadedness if so go to emergency room. Patient did develop a diastolic CHF exacerbation during hospitalization requiring a 1 day admission to the ICU with diuresis, BiPAP therapy, she clinically improved, diuresed over 5 L. She will be discharged on a short supply of Lasix therapy to be used as needed for fluid overload Physical Exam Const: COMMON NORMALS: no acute distress and patient oriented x3 Resp: COMMON NORMALS: normal respiratory effort, No retractions, No use of accessory muscles and clear to auscultation bilaterally AUSCULTATION: clear to auscultation bilaterally Cardio: COMMON NORMALS: regular rate, regular rhythm, S1 normal heart sound present and S2 normal heart sound present RATE: regular rate RHYTHM: regular rhythm HEART SOUNDS: S1 normal heart sound present and S2 normal heart sound present GI: COMMON NORMALS: Normal to inspection, nondistended, normoactive bowel sounds present, Soft to palpation and non-tender PALPATION: Yes Soft to palpation Extremity: COMMON NORMALS: no pedal edema Neuro: COMMON NORMALS: patient oriented x3 Psych: COMMON NORMALS: mental status grossly normal Urinary Catheter Management: Tang: Cath Placed During This Visit: yes, but has since been removed by the nurse Reason for Continuing Indwelling Catheter: Accurate Measurement of Urinary Output in Critically Ill Patients Urinary Catheter Date of Insertion: 10/18/21 Urinary Catheter Time of Insertion: 18:55 Date Urinary Catheter Removed: 10/22/21 Time Urinary Catheter Discontinued: 13:50 Discharge Data Studies Completed and Pending Completed Studies During Hospitalization Category Date Time Status CT abdomen pelvis wo con [id number] Stat Cat Scan 10/22/21 09:[address] abdomen pelvis wo con [id number] Urgent Cat Scan 10/18/21 15:22 Completed XR KUB portable [id number] Stat Exams 10/20/21 09:04 Completed XR chest 1V portable [id number] Routine Exams 10/21/21 07:00 Completed XR chest 1V portable [id number] Stat Exams 10/20/21 09:04 Completed XR chest 1V portable [id number] Urgent Exams 10/18/21 12:35 Completed Pending at discharge Category Date Time Status Blood Culture Stat Lab 10/18/21 20:54 Results C Reactive Protein AM LABS Lab 10/24/21 04:00 Ordered Complete Blood Count w/Auto AM LABS Lab 10/24/21 04:00 Ordered Comprehensive Metabolic Panel AM LABS Lab 10/24/21 04:00 Ordered Magnesium AM LABS Lab 10/24/21 04:00 Ordered NT Pro B Type Natriuretic Pept QAM Lab 10/24/21 06:00 Ordered Phosphorus AM LABS Lab 10/24/21 04:00 Ordered Procalcitonin AM LABS Lab 10/24/21 04:00 Ordered Radiology Impressions C-Arm Fluoroscopy 10/18/21 17:42 IMPRESSION: Placement of left retrograde ureteral stent as above. KUB X-Ray 10/20/21 09:04 IMPRESSION: Nonspecific bowel gas pattern with dilated segments of colon and small bowel. Chest X-Ray 10/21/21 07:00 IMPRESSION: Improving chest. Abdomen/Pelvis CT 10/22/21 09:41 IMPRESSION: 1. Interval placement of a double pigtail LEFT ureteral stent since 10/18/2021. Resolution of the hydronephrosis. 2. Small calcification described in the proximal LEFT ureter is not identified on today's study. 3. Improved perinephric stranding around the mid to lower LEFT kidney. 4. Increase in amount of perinephric stranding around the upper pole of the LEFT kidney with a new hyperdense 8 mm cortical nodule. Suspect this is an area of hemorrhage. There may be a small cortical cyst which has hemorrhaged. The increased perinephric stranding extends to abut the distal pancreas. 5. Prior cholecystectomy. 6. Tang catheter in good position. Laboratory Results WBC 10.2 10^3/uL (4.0-10.0) H 10/23/21 04:20 RBC 4.65 10^6/uL (4.1-5.3) 10/23/21 04:20 Hgb 12.9 g/dL (11.5-15.3) 10/23/21 04:20 Hct 38.9 % (37.0-47.0) 10/23/21 04:20 MCV 83.7 fl (81-99) 10/23/21 04:20 MCH 27.7 pg (28.0-34.0) L 10/23/21 04:20 MCHC 33.2 g/dL (30.0-36.0) 10/23/21 04:20 RDW 14.8 % (12.1-15.1) 10/23/21 04:20 Plt Count 256 10^3/cmm (130-400) 10/23/21 04:20 MPV 10.5 fL (7.4-10.4) H 10/23/21 04:20 Neut % (Auto) 69.5 % 10/23/21 04:20 Lymph % (Auto) 14.3 % 10/23/21 04:20 [place] % (Auto) 12.8 % 10/23/21 04:20 Eos % (Auto) 0.9 % 10/23/21 04:20 Baso % (Auto) 0.6 % 10/23/21 04:20 Neut # (Auto) 7.13 10^3/uL (1.8-7.7) 10/23/21 04:20 Lymph # (Auto) 1.5 10^3/uL (0.8-4.8) 10/23/21 04:20 [place] # (Auto) 1.3 10^3/uL (0.2-0.9) H 10/23/21 04:20 Eos # (Auto) 0.1 10^3/uL (0.0-0.8) 10/23/21 04:20 Baso # (Auto) 0.1 10^3/uL (0.0-0.1) 10/23/21 04:20 Nucleated RBC % (auto) 0 % 10/23/21 04:20 Nucleated RBCs # 0.0 /100WBC 10/23/21 04:20 Specimen Type Arterial 10/22/21 06:14 Sample Site Radial, left 10/22/21 06:14 ABG pH 7.47 (7.35-7.45) H 10/22/21 06:14 ABG pCO2 54.7 mmHg (35-45) H 10/22/21 06:14 ABG pO2 61.0 mmHg (80.0-100.0) L 10/22/21 06:14 ABG HCO3 40.1 mmol/L (22-26) H 10/22/21 06:14 ABG Base Excess 13.9 mmol/L (-2.0-2.0) H 10/22/21 06:14 Rodrigo Test Pos 10/22/21 06:14 Hematocrit 43.5 % (37-47) 10/22/21 06:14 O2 Delivery Device Nc 10/22/21 06:14 O2 Liters/Min 5.5 % 10/22/21 06:14 FiO2 50.0 % 10/20/21 09:01 Laborer [place] ID Jay 10/22/21 06:14 Sodium 131 mmol/L (136-145) L 10/23/21 04:20 Potassium 3.8 mmol/L (3.5-5.1) 10/23/21 04:20 Chloride 87 mmol/L (98-107) L 10/23/21 04:20 Carbon Dioxide 34 mmol/L (22-29) H 10/23/21 04:20 Anion Gap 13.8 (5-19) 10/23/21 04:20 BUN 39 mg/dL (8-23) H 10/23/21 04:20 Creatinine 0.7 mg/dL (0.5-0.9) 10/23/21 04:20 GFR Calculation 83.2 mL/min (90-130) L 10/23/21 04:20 Glucose 220 mg/dL (65-115) H 10/23/21 04:20 POC Glucose 219 mg/dL (70-110) H 10/23/21 08:41 Estimat Average Glucose 128 10/18/21 12:25 Hemoglobin A1c 6.1 % (4.0-6.0) H 10/18/21 12:25 Calculated Osmolality 288 mOsm/kg (285-295) 10/23/21 04:20 Lactic Acid 1.1 mmol/L (0.5-2.2) 10/18/21 20:52 Calcium 9.9 mg/dL (8.5-10.5) 10/23/21 04:20 Phosphorus 3.6 mg/dL (2.5-4.5) 10/23/21 04:20 Magnesium 1.7 mg/dL (1.7-2.3) 10/23/21 04:20 Total Bilirubin 0.4 mg/dL (0.15-1.2) 10/23/21 04:20 AST 19 U/L (0-32) 10/23/21 04:20 ALT 40 U/L (0-33) H 10/23/21 04:20 Alkaline Phosphatase 97 IU/L (35-105) 10/23/21 04:20 Troponin T Baseline 8 ng/L (0-10) 10/20/21 09:37 Troponin T 120 Minute 8.44 ng/L (0-10) 10/20/21 11:09 Delta Troponin T -0.25 ABS# (0-10) L 10/20/21 11:09 Troponin T Hi Sens 6Hr 10.25 ng/L (0-10) H 10/20/21 16:06 Troponin T Hi Sens 6Hr Delta 2.25 ng/L (0-12) 10/20/21 16:06 C-Reactive Protein 92.7 mg/L (0.0-4.9) H 10/23/21 04:20 NT-Pro-B Natriuret Pep 150 pg/mL (0-125) H 10/23/21 04:20 Total Protein 6.9 g/dL (6.6-8.7) 10/23/21 04:20 Albumin 3.1 g/dL (3.5-5.2) L 10/23/21 04:20 Globulin 3.8 g/dL (1.3-4.6) 10/23/21 04:20 Lipase 10 U/L (13-60) L 10/18/21 12:25 Procalcitonin 0.60 ng/mL (0-0.5) H 10/23/21 04:20 TSH 0.80 uIU/mL (0.27-4.20) 10/18/21 12:25 Urine Color Yellow (Yellow) 10/18/21 13:40 Urine Appearance Cloudy (CLEAR) 10/18/21 13:40 Urine pH 5 (5-7) 10/18/21 13:40 Ur Specific [place] 1.020 (1.005-1.030) 10/18/21 13:40 Urine Protein 2+ (Negative) H 10/18/21 13:40 Urine Glucose (UA) Norm (Normal) 10/18/21 13:40 Urine Ketones 1+ (Negative) H 10/18/21 13:40 Urine Blood 3+ (Negative) H 10/18/21 13:40 Urine Nitrate Positive (Negative) H 10/18/21 13:40 Urine Bilirubin Neg (Negative) 10/18/21 13:40 Urine Urobilinogen Norm mg/dL (Negative) 10/18/21 13:40 Ur Leukocyte Esterase 2+ (Negative) H 10/18/21 13:40 Urine RBC 5-10 /hpf (0-2) H 10/18/21 13:40 Urine WBC Too numerous to cnt /hpf (0-5) H 10/18/21 13:40 Ur Squamous Epith Cells 0-4 /hpf (0-5) H 10/18/21 13:40 Amorphous Sediment Not Reportable 10/18/21 13:40 Urine Bacteria 4+ /hpf (NONE) H 10/18/21 13:40 Urine Mucus Trace /hpf 10/18/21 13:40 Nasal Influ A H1 2009 PCR Not detected (NOT DETECT) 10/18/21 12:46 RSV Nasal Swab Cancelled 10/18/21 12:34 RSV Nasal Swab Int Cntl Cancelled 10/18/21 12:34 Adenovirus (PCR) Not detected (NOT DETECT) 10/18/21 12:46 C. pneumoniae DNA (PCR) Not detected (NOT DETECT) 10/18/21 12:46 Coronavirus 229E (PCR) Not detected (NOT DETECT) 10/18/21 12:46 Human Metapneumovir PCR Not detected (NOT DETECT) 10/18/21 12:46 Influenza A (RT-PCR) Cancelled 10/18/21 12:34 Influenza A (H1) PCR Not detected (NOT DETECT) 10/18/21 12:46 Influenza A (H3) PCR Not detected (NOT DETECT) 10/18/21 12:46 Influenza Type A Ag Cancelled 10/18/21 12:34 Influenza Type A (PCR) Not detected (NOT DETECT) 10/18/21 12:46 Influenza Type B Ag Cancelled 10/18/21 12:34 Influenza B (RT-PCR) Cancelled 10/18/21 12:34 Influenza Type B (PCR) Not detected (NOT DETECT) 10/18/21 12:46 M. pneumoniae (PCR) Not detected (NOT DETECT) 10/18/21 12:46 Parainfluenzae Type 1 Cancelled 10/18/21 12:34 Parainfluenza 1 (PCR) Not detected (NOT DETECT) 10/18/21 12:46 Parainfluenzae Type 2 Cancelled 10/18/21 12:34 Parainfluenza 2 (PCR) Not detected (NOT DETECT) 10/18/21 12:46 Parainfluenzae Type 3 Cancelled 10/18/21 12:34 Parainfluenza 3 (PCR) Not detected (NOT DETECT) 10/18/21 12:46 Parainfluenza 4 (PCR) Not detected (NOT DETECT) 10/18/21 12:46 RSV Ab Comment Cancelled 10/18/21 12:34 RSV Type A (PCR) Not detected (NOT DETECT) 10/18/21 12:46 RSV Type B (PCR) Not detected (NOT DETECT) 10/18/21 12:46 Rhinovirus (PCR) Cancelled 10/18/21 12:34 Entero/Rhino (PCR) Not detected (NOT DETECT) 10/18/21 12:46 SARS-CoV-2 (PCR) Not detected (NOT DETECT) 10/18/21 12:46 Vitals Last Vital Signs Temp 98.1 F 10/23/21 07:52 Pulse 76 10/23/21 07:52 Resp 18 10/23/21 07:52 BP 119/75 10/23/21 07:52 Pulse Ox 90 10/23/21 07:52 Discharge Plan Discharge Patient Disposition: Home Condition: Stable Prescriptions: New furosemide [Lasix] 40 mg tablet 40 mg PO DAILY PRN (Reason: edema) 3 Days Qty: 3 0RF docusate sodium 100 mg Capsule 100 mg PO BID 30 Days Qty: 60 0RF polyethylene glycol 3350 17 gram Powder In Packet 17 g PO DAILY PRN (Reason: constipation) 30 Days Qty: 30 0RF ciprofloxacin HCl [Cipro] 500 mg tablet 500 mg PO Q12H 14 Days Qty: 28 0RF Continued (DME) wheelchair See Rx Instructions .Route .MEDSUPPLY Qty: 1 0RF Rx Instructions: portable wheelchair duloxetine [Cymbalta] 60 mg capsule,delayed release(DR/EC) 60 mg PO BID Qty: 180 1RF Eliquis 5 mg tablet 5 mg PO BID Qty: 180 0RF hydromorphone 4 mg tablet 4 mg PO Q4H PRN (Reason: Pain) 0RF metformin 500 mg tablet 1,000 mg PO BID Qty: 360 1RF cetirizine [Zyrtec] 10 mg tablet 10 mg PO DAILY PRN (Reason: Allergy Symptoms) 0RF Discharge Orders: Discharge Order (Routine); Ordered 10/23/21 Ordered By: Chiki Mayo Referrals: [facility] [Outside] Sumeet Finch MD [Physician] - 10/27/21 (With Katelynn Del Rosario for preop check) Kasia Jiang DO [Primary Care Provider] - 4-7 days Patient Instructions: Opioid Safety Activity Restrictions/Additional Instructions: Urology instructions: 1. You have a stent in the left ureter which has allowed the infected urine to drain and the antibiotics to be more effective. 2. We will plan on seeing you back in my office on 10/27/2021 for a preop check. Tentative plans for surgery on 11/03/2021, 1 week later. At that time we will remove the stent and do a scope in order to go after the stone to remove it. 3. He will need to stay on antibiotics until the process is completed of removing the stone. -I have prescribed you ciprofloxacin 500 twice daily for 2 weeks, it can be discontinued after lithotripsy 11/03/2021 based on discussion with Dr. Finch -I have prescribed Lasix to be used as needed for edema -Continue to hydrate well -Follow-up with primary care in 1 week Discharge Attestations Time Spent in Discharge Care*: less than 30 min Quality Metrics Clinical Quality Measures [ No reported AMI, CVA or VTE this stay] Coding Level of Care Code Acute Chg FW DC note Diagnoses Right heart failure with reduced right ventricular function I50.810 Pulmonary hypertension I27.20 Diastolic heart failure I50.32 Heart failure chronicity: chronic Pulmonary embolism I26.94 Pulmonary embolism type: multiple subsegmental (without acute cor pulmonale) Chronic narcotic use F11.90 Morbid obesity E66.01 Osteoarthritis of left hip M16.12 HTN (hypertension) I10 Hypertension type: essential hypertension Controlled type 2 diabetes mellitus, without long-term current use of insulin E11.9 Diabetes mellitus complication status: without complication Urinary tract infection N39.0 Acute respiratory failure with hypoxia J96.01 Acute exacerbation of CHF (congestive heart failure) I50.9
[2021-10-23 11:43] LABS: Glucose Point of Care 269 mg/dL (70-110)
--- NOTE | 2021-10-23 13:17 | PC.NURSE ---
patient and family verbalized understanding of discharge instructions, home medications, and needing to make follow up appointments. prescriptions delivered via meds to beds.
== END 2021-10-23 13:19 | disposition home health service (06) | DRG 659 ==
LOC: ER 17:27 → OR 18:02 → MEDSURG 19:41 → ICU 10-20 09:51 → MEDSURG 10-21 19:04
PROVIDERS: Family Medicine; Admitting Provider Urology; Emergency Provider Emergency Medicine; PCP Family Medicine; Visit Provider Urology
PROC: 0TJB8ZZ Inspection of Bladder, Via Natural or Artificial Opening Endoscopic (ICD-10-PCS; CPT 52000; principal; 2021-10-18 18:00)
PROC: 0T778DZ Dilation of Left Ureter with Intraluminal Device, Via Natural or Artificial Opening Endoscopic (ICD-10-PCS; CPT 50605; 2021-10-18 18:00)
DX: N20.2 Calculus of kidney with calculus of ureter (principal); I50.33 Acute on chronic diastolic (congestive) heart failure; J96.01 Acute respiratory failure with hypoxia; N39.0 Urinary tract infection, site not specified; Z68.43 Body mass index [BMI] 50.0-59.9, adult; Z87.442 Personal history of urinary calculi; I11.0 Hypertensive heart disease with heart failure; E11.9 Type 2 diabetes mellitus without complications; Z86.711 Personal history of pulmonary embolism; Z89.421 Acquired absence of other right toe(s); I27.20 Pulmonary hypertension, unspecified; G89.29 Other chronic pain; M54.50 Low back pain, unspecified; E78.1 Pure hyperglyceridemia; G47.33 Obstructive sleep apnea (adult) (pediatric); Z87.891 Personal history of nicotine dependence; Z79.891 Long term (current) use of opiate analgesic; E66.01 Morbid (severe) obesity due to excess calories; Z28.310 Unvaccinated for COVID-19; I50.810 Right heart failure, unspecified; M16.12 Unilateral primary osteoarthritis, left hip; Z79.84 Long term (current) use of oral hypoglycemic drugs; Z79.01 Long term (current) use of anticoagulants; B96.1 Klebsiella pneumoniae [K. pneumoniae] as the cause of diseases classified elsewhere
CPT/HCPCS: 36415; 36416; 36600; 71045; 74018; 74176; 76000; 80048; 80053; 81001; 82803; 82962; 83036; 83605; 83690; 83735; 83880; 84100; 84145; 84443; 84484; 85025; 86140; 87040; 87077; 87086; 87186; 87486; 87581; 87633; 93005; 94660; 94664; 94762; 96365; 96372; 96375; 97161; 97165; 99285; C2625; C9113; J0330; J0696; J0743; J1170; J1815; J1940; J2405; J2704; J3010; J3475; J7030

== ENCOUNTER → 2021-10-28 10:02 | Outpatient (BNVA) | payer MEDICARE, MEDICAID, SELFPAY | PROVIDERS: PCP Family Medicine; Visit Provider Urology | DX: N20.1 Calculus of ureter (principal); N11.1 Chronic obstructive pyelonephritis; Z96.0 Presence of urogenital implants | CPT/HCPCS: 81003; 99214 ==

== ENCOUNTER 2021-11-01 06:23 | Day surgery (SDC) | payer MEDICARE, MEDICAID, SELFPAY ==
[2021-10-29 10:24] VITALS: BMI 42.3
[2021-11-01] VITALS (7 sets, daily range): BP systolic 121–153; BP diastolic 72–87; PULSE 66–89; RESP 14–18; TEMP 36.1–36.9; O2SAT 87–95
--- NOTE | 2021-11-01 | SCC_ITS ---
Procedure done: 1. Cystoscopy removal of left ureteral stent 2. Left ureteroscopy, laser lithotripsy, no stent replacement 10.5 seconds of fluoroscopic guidance, for a cumulative dose of 5.86 mGy, was provided to Dr. Finch by the radiology department. C-arm images of the abdomen were saved for the patient's permanent record. [facility]
--- NOTE | 2021-11-01 07:20 | SC_ITS ---
WS: [id number] C-ARM RADIOGRAPHS LEFT ABDOMEN; 2 IMAGES HISTORY: Preop left ureteroscopy COMPARISON: None available. Intraoperative imaging during LEFT ureteroscopy. Uncoiled ureteral catheter overlies the LEFT abdomen . SC/C-arm FL for Urology IMPRESSION: Intraoperative imaging during LEFT ureteroscopy.
--- NOTE | 2021-11-01 07:20 | XR_ITS ---
WS: [id number] KUB, AP view, 11/01/2021. Clinical Data: Preop left ureteroscopy Comparison: KUB, 10/20/2021. Findings: No abnormal intraabdominal masses or calcifications are seen. There is no dilatated small bowel or ev idence of obstruction. The left ureteral stent remains in good position. There is a large amount of fecal material throughou t the colon. The clips in the right upper quadrant are from a cholecystectomy. There is osteoarthriti c change of the left hip. XR/XR KUB [id number] Impression: 1. No change in left ureteral stent. 2. Large amount of fecal material in the colon.
--- NOTE | 2021-11-01 07:27 | P.ANESASSM_ITS ---
Pre-Anesthetic Assessment Height/Weight: Height 1.68 m Weight 118.841 kg Preop Diagnosis: Left ureteral calculus Operation Date: 11/01/21 07:40 Proposed Procedures p CYSTOSCOPY LEFT RETROGRADE URETEROSCOPY LASER STENT 39669 MODIFIER 26 52456,N20.1,N11.1(Not Applicable) - Sumeet Finch MD s Retrograde Pyelogram(Left) - Sumeet Finch MD s Ureteroscopy(Left) - Sumeet Finch MD s Laser Lithotripsy(Left) - Sumeet Finch MD s Ureteral Stent Placement(Left) - Sumeet Finch MD Familial anesthetic complications: none Was Beta Elvia taken within 24 hours: N/A Social No alcohol and No tobacco Exam alert, oriented x 3, clear to auscultation bilaterally and regular rate & rhythm Airway Submandibular: within normal limits Mallampati: Class III Dentition: false Pulmonary Chronic Obstructive Pulmonary Disease Hx of PE Pulm Htn CV/HEM Congestive Heart Failure EKG 10/20/21 Interpretive Statements SINUS RHYTHM INCOMPLETE RIGHT BUNDLE BRANCH BLOCK? [90+ ms QRS DURATION, TERMINAL R IN V1/V2, 40+ ms S IN I/aVL/V4/V5/V6] POSSIBLE RIGHT VENTRICULAR HYPERTROPHY? [SOME/ALL OF: PROMINENT R IN V1, LATE TRANSITION, RAD, STACIE, SSS] POSSIBLE ANTERIOR MYOCARDIAL INFARCTION , OF INDETERMINATE AGE [30 ms Q WAVE IN V3/V4, OR R < 0.2 mV IN V4] MODERATE T-WAVE ABNORMALITY, CONSIDER LATERAL ISCHEMIA? [-0.1+ mV T-WAVE IN I/aVL/V5/V6] Compared to ECG 10/20/2021 09:24:21 Incomplete right bundle-branch block now present Myocardial infarct finding now present T-wave abnormality now present Possible ischemia now present Right bundle-branch block no longer present Left posterior fascicular block no longer present Electronically Signed On 10-20-2021 15:18:25 CDT by Manuel Ramos M.D. [email or web address] 12/2020 CONCLUSIONS ?1-Normal left ventricular cavity size. Normal left ventricular ?systolic function. No regional wall motion abnormalities. Left ?ventricular ejection fraction is estimated at 60 %. Grade III/IV ?diastolic dysfunction (restrictive filling pattern), severely ?elevated filling pressures. Flattened septum in diastole ?consistent with right ventricle volume overload. ?2-Moderately increased right ventricular size. Moderately ?decreased right ventricular systolic function.? There appeared ?to be right ventricle strain etiology could be pulmonary ?hypertension or pulmonary embolism ?3-Mild aortic valve calcification. No aortic valve stenosis. ?Trace aortic valve regurgitation. ?4-There is no pericardial effusion. ?5-Right atrial pressure is around 5 mm of mercury. ?6-There are no prior echocardiogram studies to compare. GI Gastroesophageal Reflux Disease Metabolic Diabetes Mellitus and Morbid Obesity [facility] [place] Osteoarthritis/DJD Anesthetic Plan ASA status: 4 Anesthesia: Anesthesia Evaluation and General Other: We discussed risk and benefits of general anesthesia including PONV, sore throat (sometimes severe), corneal abrasion, positioning and peripheral nerve injuries, life threatening allergic reaction, post operative ICU admission requiring prolonged intubation, aspiration, stroke, heart attack, , and rare incidences of recall. Patient consents to proceed with general anesthesia. Risk of > 500 ml blood loss (7ml/kg in children): No Medications/Allergies Home Medications Medication Instructions Recorded Confirmed Last Taken Type wheelchair #1 ea 08/14/20 10/28/21 Unknown Rx cetirizine 10 mg tablet (Zyrtec) 10 mg PO DAILY PRN 02/23/21 11/01/21 10/31/21 History metformin 500 mg tablet 1,000 mg PO BID #360 tab 06/30/21 11/01/21 10/31/21 1 9:00 Rx hydromorphone 4 mg tablet 4 mg PO Q4H PRN 08/27/21 11/01/21 11/01/21 01:00 History apixaban 5 mg tablet (Eliquis) 5 mg PO BID #180 tab 09/07/21 10/29/21 10/29/21 Rx duloxetine 60 mg capsule,delayed 60 mg PO BID #180 cap 09/07/21 11/01/21 10/31/21 Rx release (Cymbalta) docusate sodium 100 mg capsule 100 mg PO BID 30 Days #60 cap 10/23/21 11/01/21 10/31/21 Rx ciprofloxacin HCl 500 mg tablet 500 mg PO Q12H 14 Days #28 tab 10/28/21 11/01/21 11/01/21 Rx (Cipro) furosemide 40 mg tablet 40 mg PO DAILY PRN 10/28/21 11/01/21 10/24/21 History polyethylene glycol 3350 17 gram 17 g PO DAILY PRN 11/01/21 10/29/21 Unknown History oral powder packet (Miralax) Allergies Allergy/AdvReac Type Severity Reaction Status Date / Time atorvastatin [From Lipitor] Allergy Severe swelling Verified 10/29/21 10:20 pregabalin [From Lyrica] Allergy Severe swelling Verified 10/29/21 10:20 sitagliptin [From Januvia] Allergy Severe pain; Verified 10/29/21 10:20 swelling tramadol Allergy Severe muscle Verified 10/29/21 10:20 weakness gabapentin Allergy Intermediate swelling; Verified 10/29/21 10:20 rash Penicillins Allergy Intermediate hives Verified 10/29/21 10:20 influenza virus vaccine tvs Allergy Unknown Verified 10/29/21 10:20 [id number](65 years up) [From Fluad 9192-2291 (65 yr up)()] buspirone [From BuSpar] AdvReac Intermediate MADE ME Verified 10/29/21 10:20 CRY MORE [facility] Anesthesia Medical History Bilateral renal stones Chronic low back pain 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 Congestive heart failure (CHF) Controlled type 2 diabetes mellitus, without long-term current use of insulin Degenerative arthritis Diastolic heart failure Enrolled in chronic care management HTN (hypertension) Hypertriglyceridemia Obstructive sleep apnea Other hammer toe(s) (acquired), left foot Psychiatric care PTTD (posterior tibial tendon dysfunction) Pulmonary embolism Pulmonary hypertension Right heart failure with reduced right ventricular function Right ureteral calculus Statin intolerance Surgical History H/O amputation of lesser toe H/O inguinal hernia repair RIGHT History of 2 sections History of laparoscopic cholecystectomy History of tonsillectomy Status post right foot surgery Family History Mother , AT AGE 78 Cancer OVARIAN CANCER ,LUNG CANCER Father , AT AGE 86 Cancer STOMACH Other Diabetes Hyperlipidemia Hypertension Denies family history of CAD (coronary artery disease) Clotting disorder Dementia Psychiatric illness Chronic kidney disease (CKD) Suicide Anesthesia complication Bleeding disorder Family history of premature coronary artery disease Lung disease Stroke Social History Smoking and tobacco status: former smoker Quit status (tobacco): has quit using tobacco Year quit tobacco: 2013 Second hand smoke exposure: No Alcohol intake: never Lives independently: Yes Marital status: Current occupational status: disabled History of recent travel: No Female Reproductive History Para: 2 Spontaneous abortions: No Date of menopause: 10/06/04 Data Anesthesia Cardiac Studies: Echocardiogram 01/14/21
--- NOTE | 2021-11-01 07:37 | SUR.PREOP ---
07:30 patient to xray for KUB
--- NOTE | 2021-11-01 07:58 | W.PM.OPSUD ---
Surgery/Procedure H&P Update DATE OF PROCEDURE: November 01, 2021 DATE H&P PERFORMED: 10/28/21 H&P UPDATE INFORMATION: I have reviewed H&P completed within last 30 days, I have examined patient prior to procedure, No changes to prior documentation and H&P is in [facility] [place] on date indicated CHANGES TO PREVIOUS DOCUMENTATION: Today's KUB was reviewed. Cannot clearly see the stone. Did review her prior CT scan as well. She does have some RIGHT nonobstructing punctate calcifications as well not to be addressed today though Was having some back pain from having to lay on the x-ray table this morning PREOP DIAGNOSIS: Left ureteral calculus PLANNED PROCEDURE: Operation Date: 11/01/21 07:40 Proposed Procedures p CYSTOSCOPY LEFT RETROGRADE URETEROSCOPY LASER STENT [id number] [facility] 26 [address]70,N20.1,N11.1(Not Applicable) - Sumeet Finch MD s Retrograde Pyelogram(Left) - Sumeet Finch MD s Ureteroscopy(Left) - Sumeet Finch MD s Laser Lithotripsy(Left) - Sumeet Finch MD s Ureteral Stent Placement(Left) - Sumeet Finch MD
--- NOTE | 2021-11-01 08:01 | SUR.PREOP ---
08:00 returned from radiology.
[2021-11-01 08:22] LABS: Glucose Point of Care 143 mg/dL (70-110)
[2021-11-01] MEDS: sodium chloride 0.9% 1,000 ML 30 ML IV (08:26)
[2021-11-01] MEDS: levofloxacin-dextrose 5 % 500 MG/100 ML PREMIX 100 MG IV (08:30)
--- NOTE | 2021-11-01 09:15 | PM.OP ---
Operative Report Date of procedure: November 01, 2021 Pre-op diagnosis: 1. Status post emergency stenting for OBSTRUCTIVE PYELONEPHRITIS 2. LEFT proximal ureteral stone Post-op diagnosis: 1. Status post emergency stenting for OBSTRUCTIVE PYELONEPHRITIS 2. LEFT proximal ureteral stone Procedure done: 1. Cystoscopy removal of left ureteral stent 2. Left ureteroscopy, laser lithotripsy, no stent replacement Implants: None Specimens removed/disposition: None Pathology: None Surgeon: Stef Anesthesia: General Estimated blood loss: Minimal Urine output: Not measured Complications: None Findings: 1. Stone in the expected position and left proximal ureter. Migrated into the renal pelvis with ureteroscopy. 2. Fragmented with a 200 ?m thulium superpulse laser fiber with flexible ureteroscopy in the renal pelvis. Only sand or tiny particles remained at the completion. Brief History: Mrs. Justin is a very pleasant 66-year-old white female recently treated for obstructive pyelonephritis with emergency stenting to relieve obstruction secondary to a left proximal ureteral stone. She was septic at that time. Was also found to have CHRONIC CYSTITIS CYSTICA on cystoscopy. She recovered well with antibiotic therapy and was scheduled today for attempt at definitive treatment of the stone endoscopically. Procedure: After routine preoperative evaluation examination and obtaining of informed consent she was taken to the operating suite on 11/01/2021 where general anesthesia was administered without difficulty after appropriate timeout was performed, SCDs confirmed to be functioning, preoperative antibiotics administered, beta-alena protocol confirmed. Prepped and draped in usual sterile fashion in dorsolithotomy position paying careful attention to avoiding pressure points. 21 Azerbaijani cystoscope with 30 degree lens was introduced into the urethra meatus and advanced into the bladder without difficulty. A flexible guidewire was advanced up the left ureter easily next to the stent and curling in the area of the renal pelvis. The stent was then grasped with grasping forceps and removed under fluoroscopic monitoring with no difficulty. The wire was secured to the drapes as a safety wire and then a 7 Azerbaijani offset semirigid ureteroscope was advanced up the left ureter next to the guidewire. The stone was encountered just below the UPJ. An attempt at securing it with a grasping forceps was unsuccessful and it migrated just inside the renal pelvis. A guidewire was then passed into the renal pelvis through the ureteroscope and the scope was removed. A flexible ureteroscope was then easily advanced over the guidewire into the pelvis. The wire was removed and a 200 ?m thulium superpulse laser fiber was utilized to fragment the stone which had settled in upper pole calyx. The stone was easily fragmented into sand and very small fragments that should easily pass. Final inspection revealed nothing of any consequence. The scope was removed under direct vision of the ureter and the ureter was nicely dilated from the stent without any trauma. For that reason no stent was placed at the completion of the procedure. Bladder was drained. No fragments had washed out of the ureter. Photodocumentation of CYSTITIS CYSTICA was made. She tolerated procedure well without complications and was awakened in the operating room and returned to the recovery room in stable condition. PLANS: 1. Anticipate discharge from outpatient surgery 2. Follow-up in 2 weeks on follow-up of cystitis cystica and any changes in bladder symptoms. She will need to stay on antibiotics for prolonged course and is currently on ciprofloxacin based on prior culture results.
[2021-11-01] MEDS: HYDROmorphone 1 mg/mL INJ 1 mL IVP (10:11)
--- NOTE | 2021-11-01 14:05 | ANE.PACU2 ---
Inpatient post-anesthesia follow up: Airway intact: Yes Vital signs: Temperature 97.8 F Pulse Rate 66 Respiratory Rate 14 Blood Pressure 121/72 Pulse Oximetry 91 Oxygen Delivery Me thod Nasal Cannula Oxygen Flow Rate 4 Fraction of Inspir ed Oxygen Hydration adequate: Yes Nausea and vomiting: No Pain level: 2 Mental status: Baseline
== END 2021-11-01 10:45 | disposition home or self-care (01) ==
PROVIDERS: PCP Family Medicine; Visit Provider Urology
PROC: 0TJB8ZZ Inspection of Bladder, Via Natural or Artificial Opening Endoscopic (ICD-10-PCS; CPT 52000; principal; 2021-11-01 07:40)
PROC: 0TJ98ZZ Inspection of Ureter, Via Natural or Artificial Opening Endoscopic (ICD-10-PCS; CPT 52351; 2021-11-01 07:40)
PROC: (CPT 52353; 2021-11-01 07:40)
PROC: (CPT 52310; 2021-11-01 07:40)
DX: N20.1 Calculus of ureter (principal); J44.9 Chronic obstructive pulmonary disease, unspecified; Z86.711 Personal history of pulmonary embolism; I50.9 Heart failure, unspecified; I45.10 Unspecified right bundle-branch block; K21.9 Gastro-esophageal reflux disease without esophagitis; E11.9 Type 2 diabetes mellitus without complications; E66.01 Morbid (severe) obesity due to excess calories; Z68.41 Body mass index [BMI] 40.0-44.9, adult; G47.33 Obstructive sleep apnea (adult) (pediatric); Z87.891 Personal history of nicotine dependence
CPT/HCPCS: 52353; 36416; 74018; 76000; 82962; J1100; J1170; J1956; J2405; J2704; J2710; J3010; J3490; J7030

== ENCOUNTER → 2021-11-23 07:47 | Outpatient (BNVA) | payer MEDICARE, MEDICAID, SELFPAY | PROVIDERS: PCP Family Medicine; Visit Provider Urology | DX: N20.1 Calculus of ureter (principal); R31.9 Hematuria, unspecified; N30.80 Other cystitis without hematuria; N11.1 Chronic obstructive pyelonephritis; N20.9 Urinary calculus, unspecified | CPT/HCPCS: 74018; 81003; 82365; 88300; 99214 ==

== ENCOUNTER → 2021-11-24 12:01 | Outpatient (BNVA) | payer MEDICARE, MEDICAID, SELFPAY | PROVIDERS: PCP Family Medicine; Visit Provider Internal Medicine Cardiovascular Disease | DX: I11.0 Hypertensive heart disease with heart failure (principal); I50.32 Chronic diastolic (congestive) heart failure; E11.9 Type 2 diabetes mellitus without complications; I26.94 Multiple subsegmental thrombotic pulmonary emboli without acute cor pulmonale; E66.01 Morbid (severe) obesity due to excess calories; Z68.41 Body mass index [BMI] 40.0-44.9, adult; F11.90 Opioid use, unspecified, uncomplicated; I27.20 Pulmonary hypertension, unspecified; Z79.84 Long term (current) use of oral hypoglycemic drugs; I50.810 Right heart failure, unspecified; Z87.891 Personal history of nicotine dependence | CPT/HCPCS: 99214 ==

== ENCOUNTER 2021-12-28 14:55 | Outpatient (CLI) | payer MEDICARE, MEDICAID, SELFPAY ==
--- NOTE | 2021-12-28 15:06 | MM_ITS ---
WS: [id number] BILATERAL 3D TOMOSYNTHESIS DIGITAL SCREENING MAMMOGRAPHY WITH CAD CLINICAL INFORMATION: SCREENING HISTORY: Screening mammogram. No current complaints. COMPARISON: April 27, 2016 TECHNIQUE: Bilateral CC and MLO views. FINDINGS: Scattered fibroglandular densities bilaterally. Incidental punctate calcifications. Increasing nodula r parenchymal tissue subareolar RIGHT breast and mid depth outer RIGHT breast.. Recommend further jeannine luation with RIGHT breast diagnostic mammography with compression and ultrasound. LEFT breast is unch anged. MM/[place] [id number] IMPRESSION: BI-RADS: 0-Incomplete: Need additional imaging evaluation FOLLOW UP: Need Additional Imaging Recommend RIGHT breast diagnostic mammography and ultrasound for further evalua tion.
== END 2021-12-28 14:56 | disposition home or self-care (01) ==
LOC: RAD 14:56
PROVIDERS: PCP Family Medicine; Visit Provider Family Medicine
DX: Z12.31 Encounter for screening mammogram for malignant neoplasm of breast (principal)
CPT/HCPCS: 77063; 77067

== ENCOUNTER 2022-01-04 13:20 | Outpatient (CLI) | payer MEDICARE, MEDICAID, SELFPAY ==
--- NOTE | 2022-01-04 13:33 | XRR_ITS ---
PROCEDURE INFORMATION: Exam: XR Abdomen Exam date and time: 01/04/2022 1:42 PM Age: 66 years old Clinical indication: Condition or disease; Kidney or ureter condition; Calculus (stone) in ureter; Prior surgery; Surgery type: Gb, hernia, ; Additional info: N20.1 - calculus of ureter, kub@1:00 appt to follow TECHNIQUE: Imaging protocol: Radiologic exam of the abdomen. Views: Frontal supine view of the abdomen. 1 View. COMPARISON: CR XR KUB [id number] 11/23/2021 8:32 AM FINDINGS: Gastrointestinal tract: Normal. No bowel dilation. Evidence of cholecystectomy is seen. Bones/joints: There is severe osteoarthritis involving the left hip. There is asymmetric narrowing of the joint space. Sclerosis and subchondral cyst is seen in the superior aspect of the left femoral head and superior left acetabulum. No acute bony abnormalities seen XR/XR KUB [id number] IMPRESSION: 1. No acute GI abnormality. 2. Status post cholecystectomy 3. Severe osteoarthritis left hip
== END 2022-01-04 13:21 | disposition home or self-care (01) ==
LOC: RAD 13:23
PROVIDERS: PCP Family Medicine; Visit Provider Urology
DX: N20.1 Calculus of ureter (principal); Z90.49 Acquired absence of other specified parts of digestive tract; M16.12 Unilateral primary osteoarthritis, left hip; N30.80 Other cystitis without hematuria; N20.9 Urinary calculus, unspecified
CPT/HCPCS: 74018; 81003; 99213

== ENCOUNTER → 2022-03-08 08:39 | Outpatient (BNVA) | payer MEDICARE, MEDICAID, SELFPAY | PROVIDERS: PCP Family Medicine; Visit Provider Family Medicine | DX: E11.9 Type 2 diabetes mellitus without complications (principal) | CPT/HCPCS: 80053; 80061; 83036 ==

== ENCOUNTER → 2022-05-09 13:56 | Outpatient (BNVA) | payer OTHER, MEDICAID, SELFPAY | PROVIDERS: PCP Family Medicine; Visit Provider Urology | DX: N30.80 Other cystitis without hematuria (principal) | CPT/HCPCS: 81003 ==

== ENCOUNTER 2022-06-10 11:27 | Outpatient (CLI) | payer MEDICARE, MEDICAID, SELFPAY ==
--- NOTE | 2022-06-10 11:45 | USCV_ITS ---
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 Normal arterial Doppler waveforms and Doppler velocities Mild diffuse plaques in the iliac and femoral arteries on the left side CONCLUSIONS No evidence of any significant arterial obstruction, based on the above findings. Mild diffuse plaque in the iliac and femoral arteries on the left side Dr Luke Little MD [facility] (Electronically Signed) Final Date: 11 June 2022 19:01 S
== END 2022-06-10 11:28 | disposition home or self-care (01) ==
PROVIDERS: PCP Family Medicine; Visit Provider Family Medicine
DX: R09.89 Other specified symptoms and signs involving the circulatory and respiratory systems (principal); I70.202 Unspecified atherosclerosis of native arteries of extremities, left leg
CPT/HCPCS: 80053; 83036; 93926

== ENCOUNTER → 2022-07-20 12:43 | Outpatient (BNVA) | payer MEDICARE, MEDICAID, SELFPAY | PROVIDERS: PCP Family Medicine; Visit Provider Urology | DX: N30.80 Other cystitis without hematuria (principal); N20.1 Calculus of ureter; Z87.442 Personal history of urinary calculi; R35.89 Other polyuria; N39.41 Urge incontinence | CPT/HCPCS: 81003; 87077; 87086; 87186; 99213 ==

== ENCOUNTER → 2022-08-30 10:38 | Outpatient (BNVA) | payer MEDICARE, MEDICAID, SELFPAY | PROVIDERS: PCP Family Medicine; Visit Provider Family Medicine | DX: E11.9 Type 2 diabetes mellitus without complications (principal) | CPT/HCPCS: 80053; 83036 ==

== ENCOUNTER → 2022-08-31 14:13 | Outpatient (BNVA) | payer MEDICARE, MEDICAID, SELFPAY | PROVIDERS: PCP Family Medicine; Visit Provider Urology | DX: N30.80 Other cystitis without hematuria (principal); N20.9 Urinary calculus, unspecified; R35.89 Other polyuria; N39.41 Urge incontinence; R39.198 Other difficulties with micturition | CPT/HCPCS: 81003; 87077; 87086; 87186; 99213 ==

== ENCOUNTER 2022-12-02 13:03 | Outpatient (CLI) | payer MEDICARE, MEDICAID, SELFPAY ==
--- NOTE | 2022-12-02 13:30 | USCV_ITS ---
Nhan Christo Age: 67 Gender: F : 1955 Exam Date: 12/02/2022 13:59 Ordering Phys: Lisa Rivera MD ([email or web address]) Technologist: MELVINA [place] [facility] [place]ication: CHF BP: 115 / 73 HR: 68 Rhythm: Sinus Technical Quality: Poor because of body habitus MEASUREMENTS (Male / Female) Normal Values 2D ECHO LV Diastolic Diameter PLAX 4.0 cm 4.2 - 5.9 / 3.9 - 5.3 cm LV Systolic Diameter PLAX 3.4 cm LV Chamber Size 3.5 cm IVS Diastolic Thickness 1.3 cm 0.6 - 1.0 / 0.6 - 0.9 cm IVS Systolic Thickness 1.2 cm LVPW Diastolic Thickness 1.7 cm 0.6 - 1.0 / 0.6 - 0.9 cm LVPW Systolic Thickness 1.5 cm RV Chamber Size 4.3 cm LVOT Diameter 2.0 cm LV Ejection Fraction 2D Teich 22.3 % LV Ejection Fraction MOD 2C 26.3 % LV Ejection Fraction 2C AL 28.2 % LA Diameter 4.1 cm LA Width 3.6 cm LA Height 4.6 cm RA Width 3.7 cm RA Height 4.4 cm Aorta at Sinotubular Diameter 2.3 cm IVC Diameter 1.4 cm M-MODE Aortic Annulus Diameter 3.5 cm LA Ao Ratio MM 1.4 MV E Point Septal Separation 0.4 cm DOPPLER AV Peak Velocity 156.0 cm/s LVOT Peak Velocity 92.0 cm/s AV Area Cont Eq vti 2.7 cm squared AV Area Cont Eq pk 1.9 cm squared MV Area PHT 2.9 cm squared Mitral E to A Ratio 1.1 MV E' Velocity 42.0 cm/s Mitral E to MV E' Ratio 8.5 Mitral E to LV E' Lateral Ratio 7.7 Mitral E to LV E' Septal Ratio 9.8 TR Peak Velocity 166.0 cm/s TR Peak Gradient 11.0 mmHg TR Mean Velocity 81.3 cm/s TR Mean Gradient 3.3 mmHg TR Velocity Time Integral 28.8 cm TV Peak E Velocity 44.0 cm/s Right Atrial Pressure 3.0 mmHg Pulmonary Artery Systolic Pressu 14.0 mmHg RV Acceleration Time 0.1 s RV Ejection Time 0.3 s RV AcT/ET 0.3 FINDINGS Left Ventricle Normal left ventricular size, systolic function and wall thickness, with no regional wall motion abnormalities. Left ventricular ejection fraction is estimated at 60 %. Flattened septum in systole consistent with right ventricle pressure overload. Right Ventricle Right Atrium Normal right atrial size. Left Atrium Normal left atrial size. Mitral Valve Structurally normal mitral valve. No mitral valve stenosis. Trace mitral valve regurgitation. Aortic Valve Structurally normal trileaflet aortic valve. No aortic valve stenosis. No aortic valve regurgitation. Tricuspid Valve Structurally normal tricuspid valve. No tricuspid valve stenosis. Trace tricuspid valve regurgitation. Pulmonic Valve Pulmonic valve not well visualized. No pulmonary valve stenosis. No significant pulmonary valve regurgitation. Pericardium No pericardial effusion. Aorta Normal size aortic root and proximal ascending aorta. IVC Normal IVC dimension with >50% respiratory change of the inferior vena cava. CONCLUSIONS 1. Normal left ventricular size, systolic function and wall thickness, with no regional wall motion abnormalities. Left ventricular ejection fraction is estimated at 60 %. Flattened septum in systole consistent with right ventricle pressure overload. 2. Dilated right ventricular size and moderately decreased systolic function. 3. No significant valvular abnormality. 4. There may not have been any significant change when compared to study dated 01/14/2021. Lisa Rivera MD (Electronically Signed) Final Date: 07 December 2022 20:40 S
== END 2022-12-02 13:04 | disposition home or self-care (01) ==
PROVIDERS: PCP Family Medicine; Visit Provider Internal Medicine Cardiovascular Disease
DX: I50.30 Unspecified diastolic (congestive) heart failure (principal); I50.810 Right heart failure, unspecified; I10 Essential (primary) hypertension; E11.9 Type 2 diabetes mellitus without complications; I26.94 Multiple subsegmental thrombotic pulmonary emboli without acute cor pulmonale; E66.01 Morbid (severe) obesity due to excess calories; F11.90 Opioid use, unspecified, uncomplicated; I27.20 Pulmonary hypertension, unspecified
CPT/HCPCS: 93306; 99214

== ENCOUNTER → 2023-02-28 09:23 | Outpatient (BNVA) | payer MEDICARE, MEDICAID, SELFPAY | PROVIDERS: PCP Family Medicine; Visit Provider Family Medicine | DX: Z00.00 Encounter for general adult medical examination without abnormal findings (principal); Z13.6 Encounter for screening for cardiovascular disorders; E11.9 Type 2 diabetes mellitus without complications; Z11.59 Encounter for screening for other viral diseases; B37.31 Acute candidiasis of vulva and vagina; K59.00 Constipation, unspecified; R92.8 Other abnormal and inconclusive findings on diagnostic imaging of breast; K59.03 Drug induced constipation | CPT/HCPCS: 80053; 80061; 82043; 83036; 85025; 86803 ==

== ENCOUNTER 2023-03-30 10:09 | Outpatient (CLI) | payer MEDICARE, MEDICAID, SELFPAY ==
--- NOTE | 2023-03-30 10:15 | US_ITS ---
WS: [id number] BILATERAL 3D TOMOSYNTHESIS DIGITAL DIAGNOSTIC MAMMOGRAPHY WITH CAD CLINICAL INFORMATION: abnormal right mammogram HISTORY: Additional views COMPARISON: 12/28/2021 TECHNIQUE: Bilateral CC, MLO, and ML views. FINDINGS: Scattered fibroglandular densities bilaterally. Again seen is the previously described nodular tissue subareolar RIGHT breast and extending into the outer quadrant. Ultrasound of this area is pending. A few incidental punctate and lucent centered calcifications. LEFT breast is unchanged. ULTRASOUND BREAST RIGHT TECHNIQUE: Ultrasound right breast focused area of concern. CLINICAL INFORMATION: abnormal right mammogram FINDINGS: Ultrasound subareolar and upper outer RIGHT breast. Ductal ectasia posterior to the nipple. No eviden ce of intraductal mass or lesion. A few tiny subareolar cysts. Complex cyst at the 9 o'clock position 1 cm from the nipple measuring 5.0 x 4.8 x 4.5 mm. A few inter nal septations. Findings have a benign appearance and recommend return to annual screen mammography. No other suspicious abnormalities. IMPRESSION: US/US breast RT limited* [id number] BI-RADS: 2-Benign FOLLOW UP: 1 Year Follow-up Recommend return to annual screening mammography.
--- NOTE | 2023-03-30 10:30 | MM_ITS ---
WS: [id number] BILATERAL 3D TOMOSYNTHESIS DIGITAL DIAGNOSTIC MAMMOGRAPHY WITH CAD CLINICAL INFORMATION: abnormal right mammogram HISTORY: Additional views COMPARISON: 12/28/2021 TECHNIQUE: Bilateral CC, MLO, and ML views. FINDINGS: Scattered fibroglandular densities bilaterally. Again seen is the previously described nodular tissue subareolar RIGHT breast and extending into the outer quadrant. Ultrasound of this area is pending. A few incidental punctate and lucent centered calcifications. LEFT breast is unchanged. ULTRASOUND BREAST RIGHT TECHNIQUE: Ultrasound right breast focused area of concern. CLINICAL INFORMATION: abnormal right mammogram FINDINGS: Ultrasound subareolar and upper outer RIGHT breast. Ductal ectasia posterior to the nipple. No eviden ce of intraductal mass or lesion. A few tiny subareolar cysts. Complex cyst at the 9 o'clock position 1 cm from the nipple measuring 5.0 x 4.8 x 4.5 mm. A few inter nal septations. Findings have a benign appearance and recommend return to annual screen mammography. No other suspicious abnormalities. IMPRESSION: MM/[place] [id number] BI-RADS: 2-Benign FOLLOW UP: 1 Year Follow-up Recommend return to annual screening mammography.
== END 2023-03-30 10:10 | disposition home or self-care (01) ==
LOC: RAD 10:09
PROVIDERS: PCP Family Medicine; Visit Provider Family Medicine
DX: R92.8 Other abnormal and inconclusive findings on diagnostic imaging of breast (principal)
CPT/HCPCS: 76642; 77062; G0279

== ENCOUNTER → 2023-08-21 10:15 | Outpatient (BNVA) | payer MEDICARE, MEDICAID, SELFPAY | PROVIDERS: PCP Family Medicine; Referring Provider Family Medicine; Visit Provider Internal Medicine | DX: E11.9 Type 2 diabetes mellitus without complications (principal); E78.1 Pure hyperglyceridemia; Z79.84 Long term (current) use of oral hypoglycemic drugs; Z79.85 Long-term (current) use of injectable non-insulin antidiabetic drugs | CPT/HCPCS: 99204 ==

== ENCOUNTER 2023-10-18 09:10 | Emergency (ER) | payer MEDICARE, MEDICAID, SELFPAY ==
[2023-10-18] VITALS (8 sets, daily range): BP systolic 112–119; BP diastolic 68–84; PULSE 58–100; RESP 17–18; TEMP 36.8; O2SAT 86–95; BMI 43.5
--- NOTE | 2023-10-18 09:17 | XR_ITS ---
WS: [id number] Exam: XR acute abdomen series [id number] Date/Time of Exam: 10/18/2023 9:26 AM Reason For Exam: abdominal pain AP chest. No priors. LEFT basal plaque atelectasis. No consolidating infiltrates or pneumothorax. No pleural effusions. Ca rdiomediastinal silhouette is unremarkable for portable technique. Normal bony structures. XR/XR acute abdomen series [id number] IMPRESSION: 1. No acute cardiopulmonary finding. 2. LEFT basal plaque atelectasis. Flat and erect abdomen. No bowel obstruction or pneumoperitoneum. No sign of organ enlargement. Signs o f prior cholecystectomy. Additional surgical sutures in the RIGHT abdomen. Mode rate degenerative changes in the lower lumbar spine. 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 IMPRESSION: 1. No acute abdominal process. 2. 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
[2023-10-18 09:26] LABS: Basophils % 0.3 %; Eosinophils # 0.1 10^3/uL (0.0-0.8); Hematocrit 39.1 % (36-47); Lymphocytes # 1.9 10^3/uL (0.8-4.8); Mean Corpuscular HGB Conc 31.7 g/dL (30-55); Mean Corpuscular Hemoglobin 31.2 pg (27-33); Mean Corpuscular Volume 98.5 fl (85-98); Mean Platelet Volume 9.9 fL (7.4-10.4); Monocytes # 0.6 10^3/uL (0.2-0.9); Monocytes % 10.7 %; Neutrophils # 3.23 10^3/uL (1.8-7.7); Nucleated Red Blood Cells % 0.3 %; Platelet Count 237 10^3/cmm (157-399); Red Blood Count 3.97 10^6/uL (3.85-5.65); Red Cell Distribution Width 15.8 % (12.1-15.1); White Blood Count 5.88 10^3/uL (3.29-11.43)
[2023-10-18 09:39] LABS: Lactic Sepsis W/Reflex 1.7 mmol/L (0.5-2.2)
[2023-10-18 09:40] LABS: Alanine Aminotransferase 9 U/L (0-33); Alkaline Phosphatase 75 U/L (35-105); Anion Gap 19.4 (5-19); Aspartate Amino Transferase 21 U/L (0-32); Blood Urea Nitrogen 19 mg/dL (8-23); C Reactive Protein 19.1 mg/L (0.0-4.9); Calcium 10.3 mg/dL (8.5-10.5); Carbon Dioxide 25 mmol/L (22-29); Chloride 98 mmol/L (98-107); Creatinine Clr Calc Pharmacy 87.3576; Globulin 4.2 g/dL (1.3-4.6); Glomerular Filtration Rate 70.9 mL/min (90-130); Glucose 139 mg/dL (65-115); Osmolality Calculated 291 mOsm/kg (285-295); Potassium 4.4 mmol/L (3.5-5.1); Sodium 138 mmol/L (136-145); Total Bilirubin 0.4 mg/dL (0.15-1.2); Total Protein 8.2 g/dL (6.6-8.7)
[2023-10-18 09:44] LABS: Slide Review Slide Review Perform
[2023-10-18] MEDS: HYDROmorphone 1 mg/mL INJ 1 mL IVP (09:45)
[2023-10-18] MEDS: ondansetron 2 mg/ML SDV 2 mL 4 MG IVP (09:46)
--- NOTE | 2023-10-18 10:11 | CT_ITS ---
WS: [id number] CT ABDOMEN PELVIS TECHNIQUE: Contrast-enhanced CT of the abdomen and pelvis with coronal and sagittal reformatted image s. CLINICAL INFORMATION: RLQ abdominal pain COMPARISON: CT 10/22/2021 DLP: 1225.[address] scans at [facility] use at least one of these dose optimization techniques: automated e xposure control; mA and/or kV adjustment per patient size (includes targeted exams where dose is matc hed to clinical indication); or iterative reconstruction. FINDINGS: Enhancing slightly spiculated soft tissue mass in the LEFT mid abdomen inferior medial to the LEFT ki dney measuring 3.5 x 3.6 cm suspicious for neoplasm. This is new since 2021. This is anterior to the LEFT psoas send appears separate but closely abuts the LEFT kidney. Findings suspicious for primary n eoplasm or metastasis. This closely abuts the LEFT ureter. Differential considerations are broad and include peritoneal metastasis due to small bowel or HAND COOPER HELPER kurt celso, sarcoma, possibly exophytic renal mass, or lymphoma, although no other visualized lymphadenopat hy. Recommend PET/CT in further evaluation Prior cholecystectomy. Prior ventral abdominal wall hernia repair. Subsegmental atelectasis in the lung bases. Bulla formation LEFT lower lobe. Normal liver. Portal vei n and splenic vein are patent. Normal spleen. Normal GE junction. Fatty atrophy of the pancreas. Subtle induration about the pancreatic head. Recommend correlation for pancreatitis. No peripancreatic fluid collections. Normal caliber abdominal aorta. Mild aortic calcification. Celiac and SMA are patent. SMV is patent. Adrenal glands are normal. Multiple lobulated RIGHT renal cysts appear unchanged. No hydronephrosis i n the RIGHT kidney. No hydronephrosis in the LEFT kidney. Normal appendix in the RIGHT lower quadrant . Normal sigmoid colon. No evidence of small or large bowel obstruction. Advanced arthritis LEFT hip with subchondral cystic change and sclerosis. CT/CT abdomen pelvis w con* [id number] IMPRESSION: 1. Enhancing slightly spiculated soft tissue mass in the LEFT mid abdomen just inferior to the lower pole LEFT kidney and anterior to the psoas in the retrop eritoneum. This closely abuts but appears separate from the LEFT kidney. Findin gs suspicious for neoplasm or peritoneal metastatic disease. Recommend further evaluation with PET/CT to assess for occult malignancy. 2. Multiple RIGHT renal cysts appear unchanged. 3. No hydronephrosis in either kidney. 4. Slight induration of the pancreatic head may be incidental but recommend co rrelation with pancreatic enzymes for pancreatitis. 5. Prior cholecystectomy. 6. No other acute findings.
[2023-10-18] MEDS: iohexol 350 mg/mL 500 mL Btl (per mL) IV (10:45)
[2023-10-18 12:11] LABS: Bilirubin Urine Neg (Negative); Blood Urine 2+ (Negative); Glucose Urine UA Norm (Normal); Ketones Urine 1+ (Negative); Leukocyte Esterase Urine Negative (Negative); Nitrate Urine Negative (Negative); Protein Urine Trace (Negative); Urine Appearance Clear (CLEAR); Urine Color Yellow (Yellow); Urobilinogen Urine Norm (Negative); pH Urine 5 (5-7)
[2023-10-18 12:13] LABS: Add Urine Culture? No; Renal Epithelial Cells Urine RARE /hpf; Transitional Epi Cells Urine 0-4 /hpf; WBC Urine RARE /hpf (0-5)
--- NOTE | 2023-10-18 13:35 | W.ED.ABDPA2 ---
HPI - Abdominal Pain General: Chief Complaint: Abdominal Pain Stated Complaint: ABD PAIN Time Seen by Provider: 10/18/23 09:14 History of Present Illness: 68-year-old female with a history of super morbid obesity, pulmonary embolism on Eliquis, chronic pain syndrome on 4 mg of Dilaudid every 4 hours who follows at the pain clinic, congestive heart failure, hypertension and hyperlipidemia and obstructive sleep apnea on CPAP at night who presents the emergency room with right-sided abdominal pain. She says this has happened a couple of times after she received a semaglutide shot. Seems to be more surface type pain rather than inside. No new nausea or vomiting. She is crying in pain. She says it is very severe. No dysuria. No altered mental status. No chest pain. She says she has been quite constipated recently but had a good bowel movement yesterday Review of Systems Narrative: Constitutional symptoms: Negative except as documented in HPI. Skin symptoms: Negative except as documented in HPI. Eye symptoms: Negative except as documented in HPI. ENMT symptoms: Negative except as documented in HPI. Respiratory symptoms: Negative except as documented in HPI. Cardiovascular symptoms: Negative except as documented in HPI. Gastrointestinal symptoms: Negative except as documented in HPI. Genitourinary symptoms: Negative except as documented in HPI. Musculoskeletal symptoms: Negative except as documented in HPI. Neurologic symptoms: Negative except as documented in HPI. Psychiatric symptoms: Negative except as documented in HPI. Endocrine symptoms: Negative except as documented in HPI. 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 Enrolled in chronic care management Surgical History H/O inguinal hernia repair RIGHT H/O amputation of lesser toe History of tonsillectomy History of 2 sections History of laparoscopic cholecystectomy Status post right foot surgery Family History Mother , AT AGE 78 Cancer OVARIAN CANCER ,LUNG CANCER Father , AT AGE 86 Cancer STOMACH Other Diabetes Hyperlipidemia Hypertension Social History Smoking and tobacco/nicotine status: former use of tobacco/nicotine Quit status (tobacco/nicotine): has quit using Year quit tobacco: 2012 Second hand smoke exposure: No Alcohol intake: never Substance/Drug Use: never Lives independently: Yes Marital status: Current occupational status: disabled Female Reproductive History: Para: 2 Spontaneous abortions: No Date of menopause: 10/06/04 Physical Exam Narrative: EXAM NARRATIVE: General: Alert, no acute distress. Skin: Warm, dry. Head: Normocephalic, atraumatic. Neck: Supple, trachea midline. Eye: Extraocular movements are intact. Ears, nose, mouth and throat: mucosa moist. Cardiovascular: Regular, Normal peripheral perfusion. Respiratory: Lungs are clear to auscultation, respirations are non-labored, breath sounds are equal, Symmetrical chest wall expansion. Gastrointestinal: Soft, tenderness in a large area over her right abdominal wall, Non distended Musculoskeletal: Normal ROM, no deformity. Neurological: Alert and oriented, No focal neurological deficit observed. Psychiatric: Cooperative, appropriate mood & affect. Course Vital Signs: Vital signs: Vital Signs Temperature 98.3 F 10/18/23 09:14 Pulse Rate 58 L 10/18/23 12:22 Respiratory Rate 18 10/18/23 14:01 Blood Pressure 112/68 10/18/23 10:20 Pulse Oximetry 91 10/18/23 14:01 Oxygen Delivery Me thod Room Air 10/18/23 12:22 Oxygen Flow Rate 4 10/18/23 09:14 MDM - Abdominal Pain Medical Decision Making Medical decision making: Differential diagnosis including but not limited to and based on the above HPI, review of systems and physical exam: Lab work and CT were ordered to evaluate the patient. Would have concern for diverticulitis, ureterolithiasis, urine infection, appendicitis, cholecystitis, Orders placed to evaluate differential diagnosis based on the above differential, HPI and physical exam Lab Review: Laboratory results were reviewed and interpreted by myself the emergency room physician. Lab work is unremarkable. No leukocytosis. No anemia. No renal failure. No urinary tract infection. CT of the abdomen pelvis with contrast: There is nothing on this to explain her right-sided abdominal pain. There is a mass seen near her left kidney that requires further follow-up. Consultation: I spoke with Dr. Hill at the pain clinic, who was supposed to see her in clinic today. He recommends fentanyl patch for now. She is on a BiPAP at night so should not have issues with her oxygenation while sleeping. He will see her in clinic tomorrow Consultation: I spoke with manager clinical because I could not get a hold of one of the primary docs at her primary clinic. Dr. Jiang is leaving so I scheduled her with an DESIGN ENGINEERING MANAGER on October 24 to follow-up and schedule further imaging for the mass in her left abdomen. I reviewed the patient's medical record. Reexamination: After the third milligram of IV Dilaudid patient feels quite a bit better. Placing a fentanyl patch on discharge. No altered mental status. She is no longer crying. No increased work of breathing. No altered mental status. Assessment and plan: Abdominal mass Abdominal pain Chronic pain syndrome -3 mg IV Dilaudid in the emergency room. 1 L normal saline bolus prior to discharge. - Discharged home - Discussed findings and plan with patient. Answered any questions. - All laboratory values were reviewed and interpreted personally by myself, the ER physician - All imaging was reviewed and interpreted personally by myself, the ER physician. - Evaluation and treatment of this problem were appropriate in the emergency setting Lab Data 10/18/23 09:18 10/18/23 09:18 Labs/Radiology: Radiology Impressions Chest/Abdomen X-ray 10/18/23 09:17 IMPRESSION: 1. No acute cardiopulmonary finding. 2. LEFT basal plaque atelectasis. Flat and erect abdomen. No bowel obstruction or pneumoperitoneum. No sign of organ enlargement. Signs of prior cholecystectomy. Additional surgical sutures in the RIGHT abdomen. Moderate degenerative changes in the lower lumbar spine. 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 IMPRESSION: 1. No acute abdominal process. 2. 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 Abdomen/Pelvis CT 10/18/23 10:11 IMPRESSION: 1. Enhancing slightly spiculated soft tissue mass in the LEFT mid abdomen just inferior to the lower pole LEFT kidney and anterior to the psoas in the retroperitoneum. This closely abuts but appears separate from the LEFT kidney. Findings suspicious for neoplasm or peritoneal metastatic disease. Recommend further evaluation with PET/CT to assess for occult malignancy. 2. Multiple RIGHT renal cysts appear unchanged. 3. No hydronephrosis in either kidney. 4. Slight induration of the pancreatic head may be incidental but recommend correlation with pancreatic enzymes for pancreatitis. 5. Prior cholecystectomy. 6. No other acute findings. Laboratory Results WBC 5.88 10^3/uL (3.29-11.43) 10/18/23 09:18 RBC 3.97 10^6/uL (3.85-5.65) 10/18/23 09:18 Hgb 12.40 g/dL (11.27-16.99) 10/18/23 09:18 Hct 39.1 % (36-47) 10/18/23 09:18 MCV 98.5 fl (85-98) H 10/18/23 09:18 MCH 31.2 pg (27-33) 10/18/23 09:18 MCHC 31.7 g/dL (30-55) 10/18/23 09:18 RDW 15.8 % (12.1-15.1) H 10/18/23 09:18 Plt Count 237 10^3/cmm (157-399) 10/18/23 09:18 MPV 9.9 fL (7.4-10.4) 10/18/23 09:18 Neut % (Auto) 55.0 % 10/18/23 09:18 Lymph % (Auto) 32.0 % 10/18/23 09:18 [place] % (Auto) 10.7 % 10/18/23 09:18 Eos % (Auto) 1.0 % 10/18/23 09:18 Baso % (Auto) 0.3 % 10/18/23 09:18 Neut # (Auto) 3.23 10^3/uL (1.8-7.7) 10/18/23 09:18 Lymph # (Auto) 1.9 10^3/uL (0.8-4.8) 10/18/23 09:18 [place] # (Auto) 0.6 10^3/uL (0.2-0.9) 10/18/23 09:18 Eos # (Auto) 0.1 10^3/uL (0.0-0.8) 10/18/23 09:18 Baso # (Auto) 0.0 10^3/uL (0.0-0.1) 10/18/23 09:18 Nucleated RBC % (auto) 0.3 % 10/18/23 09:18 Nucleated RBCs # 0.0 /100WBC 10/18/23 09:18 Sodium 138 mmol/L (136-145) 10/18/23 09:18 Potassium 4.4 mmol/L (3.5-5.1) 10/18/23 09:18 Chloride 98 mmol/L (98-107) 10/18/23 09:18 Carbon Dioxide 25 mmol/L (22-29) 10/18/23 09:18 Anion Gap 19.4 (5-19) H 10/18/23 09:18 BUN 19 mg/dL (8-23) 10/18/23 09:18 Creatinine 0.8 mg/dL (0.5-0.9) 10/18/23 09:18 GFR Calculation 70.9 mL/min (90-130) L 10/18/23 09:18 Glucose 139 mg/dL (65-115) H 10/18/23 09:18 Calculated Osmolality 291 mOsm/kg (285-295) 10/18/23 09:18 Lactic Acid 1.7 mmol/L (0.5-2.2) 10/18/23 09:18 Calcium 10.3 mg/dL (8.5-10.5) 10/18/23 09:18 Total Bilirubin 0.4 mg/dL (0.15-1.2) 10/18/23 09:18 AST 21 U/L (0-32) 10/18/23 09:18 ALT 9 U/L (0-33) 10/18/23 09:18 Alkaline Phosphatase 75 U/L (35-105) 10/18/23 09:18 C-Reactive Protein 19.1 mg/L (0.0-4.9) H 10/18/23 09:18 Total Protein 8.2 g/dL (6.6-8.7) 10/18/23 09:18 Albumin 4.0 g/dL (3.5-5.2) 10/18/23 09:18 Globulin 4.2 g/dL (1.3-4.6) 10/18/23 09:18 Urine Color Yellow (Yellow) 10/18/23 11:19 Urine Appearance Clear (CLEAR) 10/18/23 11:19 Urine pH 5 (5-7) 10/18/23 11:19 Ur Specific [place] 1.010 (1.005-1.030) 10/18/23 11:19 Urine Protein Trace (Negative) 10/18/23 11:19 Urine Glucose (UA) Norm (Normal) 10/18/23 11:19 Urine Ketones 1+ (Negative) H 10/18/23 11:19 Urine Blood 2+ (Negative) H 10/18/23 11:19 Urine Nitrate Negative (Negative) 10/18/23 11:19 Urine Bilirubin Neg (Negative) 10/18/23 11:19 Urine Urobilinogen Norm mg/dL (Negative) 10/18/23 11:19 Ur Leukocyte Esterase Negative (Negative) 10/18/23 11:19 Urine RBC 10-15 /hpf (0-2) H 10/18/23 11:19 Urine WBC Rare /hpf (0-5) 10/18/23 11:19 Ur Squamous Epith Cells 5-10 /hpf (0-5) H 10/18/23 11:19 Ur Transition Epith Cell 0-4 /hpf 10/18/23 11:19 Ur Renal Epithelial Cell Rare /hpf 10/18/23 11:19 Amorphous Sediment Not Reportable 10/18/23 11:19 Urine Bacteria None /hpf (NONE) 10/18/23 11:19 Urine Mucus None /hpf 10/18/23 11:19 All radiology interpretation(s) finalized by discharge Discharge Plan Discharge Patient Disposition: Home Clinical Impression: Abdominal pain, Chronic pain syndrome Abdominal mass Qualifiers: Abdominal location: left lower quadrant Qualified Code(s): R19.04 - Left lower quadrant abdominal swelling, mass and lump Condition: Stable Prescriptions: No Action (DME) wheelchair See Rx Instructions .Route .MEDSUPPLY Qty: 1 0RF Rx Instructions: portable wheelchair hydromorphone 4 mg tablet 4 mg PO Q4H PRN (Reason: Pain) Mounjaro 10 mg/0.5 mL pen injector 10 mg SUBCUT Q7D 28 Days Qty: 2 0RF Rx Instructions: 10 mg Q7D x 1 month Mounjaro 12.5 mg/0.5 mL pen injector 12.5 mg SUBCUT Q7D 28 Days Qty: 2 1RF Rx Instructions: 12.5 mg SQ Q7D and Continue duloxetine [Cymbalta] 60 mg capsule,delayed release(DR/EC) 60 mg PO BID Qty: 180 1RF methenamine hippurate 1 gram tablet 1 g PO BID Qty: 180 0RF cetirizine [Zyrtec] 10 mg tablet 10 mg PO DAILY PRN (Reason: Allergy Symptoms) metformin 500 mg tablet 500 mg PO DAILY nystatin 100,000 unit/gram cream 1 applic topical BID PRN (Reason: Skin Irritation) Eliquis 5 mg tablet 5 mg PO BID Discharge Orders: Discharge ED (Routine); Ordered 10/18/23 Ordered By: Neema Sanderson Referrals: Kasia Jiang DO [Primary Care Provider] - 10/24/24 8:00 am (Please follow-up with DESIGN ENGINEERING MANAGER and Dr. Jiang's clinic on October 24 at 8 AM.) Discharge Diet: Usual diet Discharge Activity: Increase activity as tolerated Patient Instructions: Abdominal Pain (ED), Opioid Safety, Pain Management Activity Restrictions/Additional Instructions: Please follow with your pain doctor tomorrow as instructed. Follow with your primary doc on October 24 as above. Thank you for choosing [facility] for your healthcare needs today. Please realize this is an emergency room and that we are providing you with a medical screening exam and this may not be complete and all inclusive of all the testing and or work up that you may need to determine your ailment or severity of your illness. You have been screened and evaluated and felt safe for discharge. Health conditions do change or evolve sometimes and as such it is important that you follow up with your Primary Doctor to be re checked, 3-5 days is a general good time frame for follow up. 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
[2023-10-18] MEDS: HYDROmorphone 1 mg/mL INJ 1 mL 2 MG IVP (14:01)
[2023-10-18] MEDS: sodium chloride 0.9% 1,000 ML 999 ML IV (14:40)
[2023-10-18] MEDS: fentaNYL 50 mcg Patch 1 PATCH TRANSDERMA (15:14)
[2023-10-18 15:46] LABS: ABG PCO2 46.6 mmHg (35-45); ABG PH Result 7.33 (7.35-7.45); Alveolar-Arterial Oxygen Gradi 18.8 mmHg (5-10); Arterial Blood Gas Hematocrit 36.6 % (37-47); Base Excess ABG -1.9 mmol/L (-2.0-2.0); Blood Gas Allen Test Pos; Blood Gas Operator Identificat CAK; Blood Gas Sample Site Radial, left; Blood Gas Sample Type Arterial; Carboxyhemoglobin 1.1 %THgb (0.4-20.1); HCO3 ABG 24.3 mmol/L (22-26); HGB O2 Sat 93.9 % (95-100); Ionized Calcium Level - ABG 1.3 mmol/L (1.1-1.4); Methemoglobin 0.3 % (0.4-1.5); Oxygen Device NC; Oxygen Saturation ABG 95.3; PO2 ABG 81.7 mmHg (80.0-100.0); PO2 FiO2 Ratio Arterial Blood 204; Potassium Level - ABG 4.4 mmol/L (3.5-5.0)
== END 2023-10-18 16:21 | disposition home or self-care (01) ==
PROVIDERS: Emergency Provider Emergency Medicine; PCP Family Medicine
DX: G89.4 Chronic pain syndrome (principal); R19.04 Left lower quadrant abdominal swelling, mass and lump; R10.9 Unspecified abdominal pain; Z79.01 Long term (current) use of anticoagulants; Z79.85 Long-term (current) use of injectable non-insulin antidiabetic drugs; Z79.84 Long term (current) use of oral hypoglycemic drugs; Z87.891 Personal history of nicotine dependence; I11.0 Hypertensive heart disease with heart failure; I50.9 Heart failure, unspecified; E11.9 Type 2 diabetes mellitus without complications; E78.5 Hyperlipidemia, unspecified
CPT/HCPCS: 36415; 36600; 74022; 74177; 80051; 80053; 81001; 82330; 82805; 83605; 85025; 86140; 96374; 96375; 96376; 99285; J1170; J2405; J7030; Q9967

== ENCOUNTER → 2023-10-20 09:13 | Outpatient (BNVA) | payer MEDICARE, MEDICAID, SELFPAY | PROVIDERS: PCP Family Medicine; Visit Provider Internal Medicine Cardiovascular Disease | DX: I11.0 Hypertensive heart disease with heart failure (principal); I50.32 Chronic diastolic (congestive) heart failure; I50.810 Right heart failure, unspecified; E78.1 Pure hyperglyceridemia; I26.94 Multiple subsegmental thrombotic pulmonary emboli without acute cor pulmonale; Z79.01 Long term (current) use of anticoagulants; E11.9 Type 2 diabetes mellitus without complications; Z79.84 Long term (current) use of oral hypoglycemic drugs; E66.01 Morbid (severe) obesity due to excess calories; Z68.41 Body mass index [BMI] 40.0-44.9, adult; G47.33 Obstructive sleep apnea (adult) (pediatric); Z87.891 Personal history of nicotine dependence; I27.20 Pulmonary hypertension, unspecified | CPT/HCPCS: 99214 ==

== ENCOUNTER → 2023-10-25 09:10 | Outpatient (BNVA) | payer MEDICARE, MEDICAID, SELFPAY | PROVIDERS: PCP Family Medicine | DX: R19.04 Left lower quadrant abdominal swelling, mass and lump (principal); E11.9 Type 2 diabetes mellitus without complications; I10 Essential (primary) hypertension; E66.01 Morbid (severe) obesity due to excess calories; Z68.42 Body mass index [BMI] 45.0-49.9, adult; R93.5 Abnormal findings on diagnostic imaging of other abdominal regions, including retroperitoneum; Z79.899 Other long term (current) drug therapy | CPT/HCPCS: 80053; 82150; 83036; 83690; 85025 ==

== ENCOUNTER 2023-11-01 20:38 | Emergency (ER) | payer MEDICARE, MEDICAID, SELFPAY ==
[2023-11-01 20:41] VITALS: BP 112/70; PULSE 102; RESP 16; TEMP 37.1; O2SAT 89; BMI 61.3
--- NOTE | 2023-11-01 20:53 | CTR_ITS ---
PROCEDURE INFORMATION: Exam: CT Abdomen And Pelvis With Contrast Exam date and time: 11/01/2023 9:34 PM Age: 68 years old Clinical indication: Abdominal pain; Localized; Left upper quadrant (luq) TECHNIQUE: Imaging protocol: Computed tomography of the abdomen and pelvis with contrast. Radiation optimization: All CT scans at this facility use at least one of these dose optimization techniques: automated exposure control; mA and/or kV adjustment per patient size (includes targeted exams where dose is matched to clinical indication); or iterative reconstruction. Contrast material: OMNI 350; Contrast volume: 100 ml; Contrast route: INTRAVENOUS (IV); COMPARISON: CT abdomen pelvis w con* [id number] 10/18/2023 10:34 AM RADIATION DOSE METRICS: Total DLP (mGy-cm): 1296 FINDINGS: Lungs: Similar bilateral lower lobes fibrotic/atelectatic changes with left lung base subpleural bullae. Liver: Stable hypodense lesion in segment 5 of the liver measuring 1 cm, too small to characterize. No other liver lesions. Gallbladder and biliary ducts: Post cholecystectomy. Similar mild dilatation of the CBD reaching 1.4 cm. Pancreas: Normal. No ductal dilation. Spleen: Normal. No splenomegaly. Adrenal glands: Normal. No mass. Kidneys and ureters: Stable size of the right renal cysts measuring up to 4.4 x 4 cm. Multiple right renal nonobstructing stones measuring up to 1 cm in the lower pole of the right kidney. Stable size and appearance of the lobulated mass in the left abdomen measuring 3.8 x 3.2 cm. Stomach and bowel: Diverticulosis of the sigmoid colon. Appendix: No evidence of appendicitis. Intraperitoneal space: Unremarkable. No free air. No significant fluid collection. Vasculature: Vascular calcifications. Lymph nodes: Unremarkable. No enlarged lymph nodes. Urinary bladder: Unremarkable as visualized. Reproductive: Unremarkable as visualized. Bones/joints: Mild degenerative disease of bilateral sacroiliac joints. Severe degenerative disease of the left hip joint and mild degenerative disease of the right hip joint. Moderate degenerative disease of the symphysis pubis. Old right 10th rib fracture. Bilateral facet joint arthropathy at L5-S1 with mild anterolisthesis of L5 over S1. 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 Soft tissues: There is atrophy of the abdominal musculature. Post ventral hernia repair. CT/CT abdomen pelvis w con* [id number] IMPRESSION: 1. Stable size and appearance of the enhancing soft tissue mass in the left mid abdomen just inferior to the kidney. 2. No acute intra-abdominal process.
[2023-11-01] MEDS: sodium chloride 0.9% 1,000 ML 999 ML IV (20:58)
[2023-11-01 20:59] LABS: Basophils % 0.2 %; Eosinophils % 0.3 %; Hematocrit 36.1 % (36-47); Mean Corpuscular HGB Conc 31.6 g/dL (30-55); Mean Corpuscular Hemoglobin 31.7 pg (27-33); Mean Corpuscular Volume 100.3 fl (85-98); Mean Platelet Volume 10.1 fL (7.4-10.4); Monocytes # 0.5 10^3/uL (0.2-0.9); Monocytes % 8.4 %; Neutrophils # 3.25 10^3/uL (1.8-7.7); Neutrophils % 56.6 %; Nucleated Red Blood Cells % 0.5 %; Platelet Count 267 10^3/cmm (157-399); Red Cell Distribution Width 16.9 % (12.1-15.1); White Blood Count 5.74 10^3/uL (3.29-11.43)
[2023-11-01] MEDS: ketorolac 30 mg/mL INJ 15 MG IVP (21:00)
[2023-11-01] MEDS: HYDROmorphone 1 mg/mL INJ 1 mL 2 MG IVP (21:01)
[2023-11-01 21:02] VITALS: BP 121/71; PULSE 101; RESP 16; O2SAT 91
--- NOTE | 2023-11-01 21:12 | ED_ITS ---
HPI - Abdominal Pain 2 General: Chief Complaint: Abdominal Pain Stated Complaint: ABD PAIN Time Seen by Provider: 11/01/23 20:40 History of Present Illness: 68-year-old female with a history of chr onic pain syndrome on 4 mg of Dilaudid every 4 hours, obesity, diabetes, hypertension, obstructive sleep apnea, pulmonary embolism on Eliquis and recently diagnosed abdominal mass with a planned PET/CT who presents the emergency room by ambulance with worsening pain. I saw her a couple weeks ago for the same thing. She is extremely tearful and emotional. She says she wants to know what is going on and we discussed that she is already has diagnosis of chronic hip pain and this new abdominal mass which may be causing pain. We also discussed she is already on very high-dose pain medications. Is difficult to localize where her pain is. Sounds like it is partly her chronic pain and may be some in her belly. No new nausea vomiting or diarrhea PFSH ED 2 PFSH: Medical History (Updated 11/01/23 @ 22:50 by Neema Sanderson MD) Abnormal CT of the abdomen Urolithiasis Degenerative arthritis Congestive heart failure (CHF) Right heart failure with reduced right ventricular function Pulmonary hypertension Diastolic heart failure Pulmonary embolism Right ureteral calculus Bilateral renal stones Statin intolerance Chronic low back pain Controlled type 2 diabetes mellitus, without long-term current use of insulin Obstructive sleep apnea Other hammer toe(s) (acquired), left foot PTTD (posterior tibial tendon dysfunction) HTN (hypertension) Hypertriglyceridemia 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 Enrolled in chronic care management Surgical History H/O inguinal hernia repair RIGHT H/O amputation of lesser toe History of tonsillectomy History of 2 sections History of laparoscopic cholecystectomy Status post right foot surgery Family History Mother , AT AGE 78 Cancer OVARIAN CANCER ,LUNG CANCER Father , AT AGE 86 Cancer STOMACH Other Diabetes Hyperlipidemia Hypertension Social History Smoking and tobacco/nicotine status: former use of tobacco/nicotine Quit status (tobacco/nicotine): has quit using Year quit tobacco: 2012 Second hand smoke exposure: No Alcohol intake: never Substance/Drug Use: never Lives independently: Yes Marital status: Current occupational status: disabled Female Reproductive History: Para: 2 Spontaneous abortions: No Date of menopause: 10/06/04 Physical Exam 2 Narrative: EXAM NARRATIVE: General: Alert Skin: Warm, dry. Head: Normocephalic, atraumatic. Neck: Supple, trachea midline. Eye: Extraocular movements are intact. Ears, nose, mouth and throat: mucosa moist. Cardiovascular: Regular, Normal peripheral perfusion. Respiratory: Lungs are clear to auscultation, respirations are non-labored, breath sounds are equal, Symmetrical chest wall expansion. Gastrointestinal: Soft, no obvious focal tenderness, Non distended Musculoskeletal: Normal ROM, no deformity. Neurological: Alert and oriented, No focal neurological deficit observed. Psychiatric: Cooperative, patient is extremely tearful and emotional. Course 2 Vital Signs: Vital signs: Vital Signs Temperature 98.8 F 11/01/23 20:41 Pulse Rate 96 11/01/23 22:30 Respiratory Rate 16 11/01/23 22:30 Blood Pressure 111/66 11/01/23 22:30 Pulse Oximetry 90 11/01/23 22:30 Oxygen Delivery Me thod Nasal Cannula 11/01/23 20:41 MDM - Abdominal Pain Medical Decision Making Chest x-ray: No acute process. No infiltrate. No pneumothorax. This was reviewed and interpreted by myself the ER physician. CT of the abdomen pelvis with contrast: No change in mass size or shape. No acute processes. This was reviewed and interpreted by myself the emergency room physician. I also reviewed the radiology report. Lab Review: Laboratory results were reviewed and interpreted by myself the emergency room physician. No acute lab abnormalities. I reviewed the patient's medical record. Assessment and plan: -IV Dilaudid, IV Zofran and IV Toradol in the emergency room. Patient will need to follow with her pain doctor to achieve better pain control - Discharged home - Discussed findings and plan with patient. Answered any questions. - All laboratory values were reviewed and interpreted personally by myself, the ER physician - All imaging was reviewed and interpreted personally by myself, the ER physician. - Evaluation and treatment of this problem were appropriate in the emergency setting Lab Data 11/01/23 20:48 11/01/23 20:48 Labs/Radiology: Radiology Impressions Abdomen/Pelvis CT 11/01/23 20:53 IMPRESSION: 1. Stable size and appearance of the enhancing soft tissue mass in the left mid abdomen just inferior to the kidney. 2. No acute intra-abdominal process. Chest X-Ray 11/01/23 21:29 IMPRESSION: No acute cardiopulmonary process. Laboratory Results WBC 5.74 10^3/uL (3.29-11.43) 11/01/23 20:48 RBC 3.60 10^6/uL (3.85-5.65) L 11/01/23 20:48 Hgb 11.40 g/dL (11.27-16.99) 11/01/23 20:48 Hct 36.1 % (36-47) 11/01/23 20:48 MCV 100.3 fl (85-98) H 11/01/23 20:48 MCH 31.7 pg (27-33) 11/01/23 20:48 MCHC 31.6 g/dL (30-55) 11/01/23 20:48 RDW 16.9 % (12.1-15.1) H 11/01/23 20:48 Plt Count 267 10^3/cmm (157-399) 11/01/23 20:48 MPV 10.1 fL (7.4-10.4) 11/01/23 20:48 Neut % (Auto) 56.6 % 11/01/23 20:48 Lymph % (Auto) 34.0 % 11/01/23 20:48 [place] % (Auto) 8.4 % 11/01/23 20:48 Eos % (Auto) 0.3 % 11/01/23 20:48 Baso % (Auto) 0.2 % 11/01/23 20:48 Neut # (Auto) 3.25 10^3/uL (1.8-7.7) 11/01/23 20:48 Lymph # (Auto) 2.0 10^3/uL (0.8-4.8) 11/01/23 20:48 [place] # (Auto) 0.5 10^3/uL (0.2-0.9) 11/01/23 20:48 Eos # (Auto) 0.0 10^3/uL (0.0-0.8) 11/01/23 20:48 Baso # (Auto) 0.0 10^3/uL (0.0-0.1) 11/01/23 20:48 Nucleated RBC % (auto) 0.5 % 11/01/23 20:48 Nucleated RBCs # 0.0 /100WBC 11/01/23 20:48 Sodium 137 mmol/L (136-145) 11/01/23 20:48 Potassium 4.5 mmol/L (3.5-5.1) 11/01/23 20:48 Chloride 99 mmol/L (98-107) 11/01/23 20:48 Carbon Dioxide 24 mmol/L (22-29) 11/01/23 20:48 Anion Gap 18.5 (5-19) 11/01/23 20:48 BUN 20 mg/dL (8-23) 11/01/23 20:48 Creatinine 0.7 mg/dL (0.5-0.9) 11/01/23 20:48 GFR Calculation 82.7 mL/min (90-130) L 11/01/23 20:48 Glucose 224 mg/dL (65-115) H 11/01/23 20:48 Calculated Osmolality 294 mOsm/kg (285-295) 11/01/23 20:48 Calcium 9.7 mg/dL (8.5-10.5) 11/01/23 20:48 Total Bilirubin 0.3 mg/dL (0.15-1.2) 11/01/23 20:48 AST 21 U/L (0-32) 11/01/23 20:48 ALT 12 U/L (0-33) 11/01/23 20:48 Alkaline Phosphatase 110 U/L (35-105) H 11/01/23 20:48 Total Protein 8.0 g/dL (6.6-8.7) 11/01/23 20:48 Albumin 3.9 g/dL (3.5-5.2) 11/01/23 20:48 Globulin 4.1 g/dL (1.3-4.6) 11/01/23 20:48 All radiology interpretation(s) finalized by discharge Discharge Plan Discharge Patient Disposition: Home Clinical Impression: Chronic pain syndrome, Dehydration Condition: Stable Prescriptions: No Action (DME) wheelchair See Rx Instructions .Route .MEDSUPPLY Qty: 1 0RF Rx Instructions: portable wheelchair hydromorphone 4 mg tablet 4 mg PO Q4H PRN (Reason: Pain) duloxetine [Cymbalta] 60 mg capsule,delayed release(DR/EC) 60 mg PO BID Qty: 180 1RF methenamine hippurate 1 gram tablet 1 g PO BID Qty: 180 0RF cetirizine [Zyrtec] 10 mg tablet 10 mg PO DAILY PRN (Reason: Allergy Symptoms) metformin 500 mg tablet 500 mg PO DAILY nystatin 100,000 unit/gram cream 1 applic topical BID PRN (Reason: Skin Irritation) Eliquis 5 mg tablet 5 mg PO BID Discharge Orders: Discharge ED (Routine); Ordered 11/01/23 Ordered By: Neema Sanderson Referrals: Scooter Krueger MD [Primary Care Provider] - Discharge Diet: Usual diet Discharge Activity: Increase activity as tolerated Patient Instructions: Opioid Safety, Pain Management Activity Restrictions/Additional Instructions: Thank you for choosing [facility] for your healthcare needs today. Please realize this is an emergency room and that we are providing you with a medical screening exam and this may not be complete and all inclusive of all the testing and or work up that you may need to determine your ailment or severity of your illness. You have been screened and evaluated and felt safe for discharge. Health conditions do change or evolve sometimes and as such it is important that you follow up with your Primary Doctor to be re checked, 3-5 days is a general good time frame for follow up. 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
[2023-11-01 21:15] LABS: Alanine Aminotransferase 12 U/L (0-33); Albumin Level 3.9 g/dL (3.5-5.2); Alkaline Phosphatase 110 U/L (35-105); Anion Gap 18.5 (5-19); Blood Urea Nitrogen 20 mg/dL (8-23); Calcium 9.7 mg/dL (8.5-10.5); Carbon Dioxide 24 mmol/L (22-29); Chloride 99 mmol/L (98-107); Creatinine Clr Calc Pharmacy 107.9739; Globulin 4.1 g/dL (1.3-4.6); Glomerular Filtration Rate 82.7 mL/min (90-130); Glucose 224 mg/dL (65-115); Osmolality Calculated 294 mOsm/kg (285-295); Potassium 4.5 mmol/L (3.5-5.1); Sodium 137 mmol/L (136-145); Total Bilirubin 0.3 mg/dL (0.15-1.2)
[2023-11-01 21:23] LABS: Aspartate Amino Transferase 21 U/L (0-32)
--- NOTE | 2023-11-01 21:29 | XRR_ITS ---
PROCEDURE INFORMATION: Exam: XR Chest Exam date and time: 11/01/2023 10:04 PM Age: 68 years old Clinical indication: Shortness of breath; Additional info: Chest pain TECHNIQUE: Imaging protocol: Radiologic exam of the chest. Views: 1 view. COMPARISON: CR XR chest 1V portable [id number] 10/21/2021 5:05 AM FINDINGS: Lungs: Bilateral lower lobe atelectasis. Left lung base bulla. No focal consolidation. Pleural spaces: Unremarkable. No pleural effusion. No pneumothorax. Heart/Mediastinum: There is cardiomegaly. Bones/joints: Mild degenerative disease of bilateral acromioclavicular and bilateral glenohumeral joints. Mild curvature of the thoracic spine convex to the right. XR/XR chest 1V portable [id number] IMPRESSION: No acute cardiopulmonary process.
[2023-11-01] MEDS: iohexol 350 mg/mL 500 mL Btl (per mL) IV (21:36)
[2023-11-01 21:37] LABS: Slide Review Slide Review Perform
[2023-11-01 22:00] VITALS: BP 107/66; PULSE 91; RESP 16; O2SAT 90
[2023-11-01 22:30] VITALS: BP 111/66; PULSE 96; RESP 16; O2SAT 90
== END 2023-11-01 23:29 | disposition home or self-care (01) ==
PROVIDERS: Emergency Provider Emergency Medicine; PCP Family Medicine Adult Medicine
DX: G89.4 Chronic pain syndrome (principal); E86.0 Dehydration; Z79.01 Long term (current) use of anticoagulants; Z79.84 Long term (current) use of oral hypoglycemic drugs; Z87.891 Personal history of nicotine dependence; I11.0 Hypertensive heart disease with heart failure; I50.9 Heart failure, unspecified; E11.9 Type 2 diabetes mellitus without complications
CPT/HCPCS: 71045; 74177; 80053; 85025; 96374; 96375; 99285; J1170; J1885; J7030; Q9967

== ENCOUNTER 2023-11-07 14:08 | Emergency (ER) | payer MEDICARE, MEDICAID, SELFPAY ==
[2023-11-07 14:08] VITALS: BP 132/70; PULSE 103; RESP 18; TEMP 36.7; O2SAT 88
--- NOTE | 2023-11-07 14:44 | CTR_ITS ---
PROCEDURE INFORMATION: Exam: CT Lumbar Spine Without Contrast Exam date and time: 11/07/2023 3:06 PM Age: 68 years old Clinical indication: Low back pain; Additional info: Back pain, states she cannot walk TECHNIQUE: Imaging protocol: Computed tomography of the lumbar spine without contrast. Radiation optimization: All CT scans at this facility use at least one of these dose optimization techniques: automated exposure control; mA and/or kV adjustment per patient size (includes targeted exams where dose is matched to clinical indication); or iterative reconstruction. COMPARISON: CR XR lumbar spine f/e only [id number] 01/15/2018 11:07 AM, CT abdomen pelvis 11/01/2023 RADIATION DOSE METRICS: Total DLP (mGy-cm): 2059.51 FINDINGS: Bones/joints: Generalized osseous demineralization. Multiple scattered lytic lesions are noted for example within both ileum, the right sacral ala, and posterior vertebral bodies of L1, L5, and S1. There also appear to be sacral insufficiency fractures. Old partially callused right posterior 11th rib fracture. Grade 1 anterolisthesis of L4 on L5. Areas of moderate central canal stenosis noted posterior to L3-L4, L4-L5, and L5-S1. Soft tissues: Unremarkable. CT/CT lumbar spine wo con* [id number] IMPRESSION: 1. Several lytic lesions scattered throughout the visualized axial skeleton consistent with multiple myeloma or metastatic disease. 2. Generalized osseous demineralization with suspected sacral insufficiency fractures.
--- NOTE | 2023-11-07 14:44 | ED_ITS ---
Documented by User: HANNA Hull 11/10/23 17:14 HPI - Back Pain/Injury 2 General: Chief Complaint: Back Pain/Injury Stated Complaint: low back/hip pain Time Seen by Provider: 11/07/23 14:19 Source: patient and family (daughter) Mode of arrival: EMS Limitations: no limitations History of Present Illness: Patient is a 68-year-old female with a history of chronic pain syndrome on 4 mg of Dilaudid every 4 hours, morbid obesity, diabetes, hypertension, obstructive sleep apnea, pulmonary embolism, pulmonary hypertenson, CHF, chronic oxygen (always wears at night and often during the day as well) and recently diagnosed abdominal mass with a planned PET/CT who presents the emergency room by ambulance with complaints of back pain. As soon as I enter the room she immediately begins wailing in pain. Hard to get a history as she is emotionally sobbing most of the time. Daughter is in room whom she resides with and helps care for her. Essentially she has complained of back pain x 2 weeks to the point where she cannot walk. Chronic bilateral hip pains. She has been seen here through the ED multiple times recently as well as through PCP clinics. Daughter states she has not fully ambulated in over two years but usually can assist with transferring from bed to toilet to chair etc but has gotten to the point where she cannot even do that. MD elicited complaint: back pain Pertinent past history: prior back pain Onset (ago): week(s) Timing: constant Severity: severe Similar Symptoms Previously: Yes Location: lumbar spine Radiation: other (bilateral hips) Exacerbating factors: movement and walking Relieving factors: none Associated symptoms: Reports abdominal pain and difficulty walking; Deny chills, dysuria, fatigue, fever(s), nausea or vomiting Treatments prior to arrival: prescription analgesics Work related injury: No Review of Systems 2 Const: Denies: fever(s), chills, body aches, fatigue or malaise Card: Denies: chest pain Resp: Denies: dyspnea GI: Reports: abdominal pain; Denies: nausea, vomiting or diarrhea : Denies: flank pain or dysuria Musc: Reports: back pain and joint pain; Denies: neck pain Skin/Breast: Denies: rash Neuro: Reports: difficulty walking; Denies: headache(s) or dizziness [facility] ED 2 PFS: Medical History (Updated 11/09/23 @ 06:37 by Scooter Krueger MD) Urgency incontinence Enrolled in chronic care management Abnormal CT of the abdomen Urolithiasis Congestive heart failure (CHF) Pulmonary hypertension Pulmonary embolism Right ureteral calculus Bilateral renal stones Statin intolerance Chronic low back pain Controlled type 2 diabetes mellitus, without long-term current use of insulin Obstructive sleep apnea Other hammer toe(s) (acquired), left foot PTTD (posterior tibial tendon dysfunction) HTN (hypertension) Hypertriglyceridemia 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 Surgical History H/O inguinal hernia repair RIGHT H/O amputation of lesser toe History of tonsillectomy History of 2 sections History of laparoscopic cholecystectomy Status post right foot surgery Family History Mother , AT AGE 78 Cancer OVARIAN CANCER ,LUNG CANCER Father , AT AGE 86 Cancer STOMACH Other Diabetes Hyperlipidemia Hypertension Social History Smoking and tobacco/nicotine status: former use of tobacco/nicotine Quit status (tobacco/nicotine): has quit using Year quit tobacco: 2013 Second hand smoke exposure: No Alcohol intake: never Substance/Drug Use: never Lives independently: Yes Marital status: Current occupational status: disabled Female Reproductive History: Para: 2 Spontaneous abortions: No Date of menopause: 10/06/04 Physical Exam 2 Const: COMMON NORMALS: patient oriented x3, no limitations and alert G ENERAL APPEARANCE: in distress and other (anxious, crying, emotional) N UTRITIONAL APPEARANCE: obese morbidly obese (BMI is 45.2) O RIENTATION/CONSCIOUSNESS: Yes awake, Yes oriented to person, Yes oriented to place and Yes oriented to time HENMT: COMMON NORMALS: normocephalic and atraumatic HEAD & SCALP: normal to inspection, normocephalic and atraumatic Chest: COMMONS NORMALS: normal inspection of the chest and normal palpation of entire chest wall Resp: COMMON NORMALS: normal respiratory effort and clear to auscultation bilaterally AUSCULTATION: clear to auscultation bilaterally OTHER: currently on oxygen-satting anywhere from 86-89%; states she has required oxygen during the day over the past 3 weeks; she does not complain of feeling short of breath Cardio: COMMON NORMALS: regular rate and regular rhythm RATE: regular rate RHYTHM: regular rhythm Back/Pelvis: LUMBAR SPINE/LOWER BACK: Yes lumbar spinal tenderness OTHER: hard to fully assess or complete any form of physical examination as patient can barely lean forward or onto her side to examine her back; she refuses to move either leg or hip joint stating it hurts; extremities are NV with intact distal pulses Extremity: COMMON NORMALS: capillary refill normal, no joint enlargement, no calf tenderness and no pedal edema GENERAL: Yes normal exam except as noted Neuro: COMMON NORMALS: patient oriented x3 SENSORIUM/ORIENTATION: Yes alert, Yes oriented to person, Yes oriented to place and Yes oriented to time Course 2 Consultations: Consultation #1: Dr. Iraheta-will await CTA imaging and if no massive PE/heart strain then we will admit here Vital Signs: Vital signs: Vital Signs Temperature 98.0 F 11/07/23 14:08 Pulse Rate 98 11/07/23 18:54 Respiratory Rate 18 11/07/23 18:54 Blood Pressure 125/82 11/07/23 18:54 Pulse Oximetry 88 L 11/07/23 18:54 Oxygen Delivery Me thod Nasal Cannula 11/07/23 17:21 Oxygen Flow Rate 5 11/07/23 17:21 MDM - Back Pain/Injury Medical Decision Making Patient is a 68-year-old female with an extensive past medical history here for complaints of severe lower back pain. She has chronic pain requiring 4 mg of Dilaudid every 4 hours. She has recently been found to have an abdominal mass that she has followed up with primary care for and reportedly scheduling outpatient PET scan. Unfortunately her CT lumbar spine today showing several lytic lesions scattered throughout her lumbar and pelvis consistent with metastatic disease or possibly multiple myeloma. She has suspected sacral insufficiency fractures. Daughter cannot continue to care for her at home that she will require hospitalization with plan for discharge to a snf facility. Patient chronically wears oxygen at night. She is required oxygen during the day over the past 3 weeks. She does arrive slightly hypoxic and tachycardic. Will go ahead and obtain CTA imaging. I already spoken to hospitalist Dr. Iraheta and we will await results of this and hopefully be able to keep patient here. Plan will be for transfer of care to Dr. Zachariah at shift change/1700. Labs 11/07/23 15:20 11/07/23 15:20 Radiology Impressions Chest X-Ray 11/07/23 14:44 IMPRESSION: No acute findings. Lumbar Spine CT 11/07/23 14:44 IMPRESSION: 1. Several lytic lesions scattered throughout the visualized axial skeleton consistent with multiple myeloma or metastatic disease. 2. Generalized osseous demineralization with suspected sacral insufficiency fractures. Chest CTA 11/07/23 16:16 IMPRESSION: 1. Proximal right clavicular fracture. 2. Buttock region of the posterior left 11th rib again suggestive of multiple myeloma or metastatic disease. 3. No evidence of intrapulmonary metastatic disease. 4. Negative for pulmonary embolism. Findings suggestive of pulmonary hypertension in the appropriate clinical context. Laboratory Results WBC 4.61 10^3/uL (3.29-11.43) 11/07/23 15:20 RBC 3.26 10^6/uL (3.85-5.65) L 11/07/23 15:20 Hgb 10.40 g/dL (11.27-16.99) L 11/07/23 15:20 Hct 34.0 % (36-47) L 11/07/23 15:20 MCV 104.3 fl (85-98) H 11/07/23 15:20 MCH 31.9 pg (27-33) 11/07/23 15:20 MCHC 30.6 g/dL (30-55) 11/07/23 15:20 RDW 17.2 % (12.1-15.1) H 11/07/23 15:20 Plt Count 240 10^3/cmm (157-399) 11/07/23 15:20 MPV 9.8 fL (7.4-10.4) 11/07/23 15:20 Neut % (Auto) 65.5 % 11/07/23 15:20 Lymph % (Auto) 24.1 % 11/07/23 15:20 Terrell % (Auto) 9.1 % 11/07/23 15:20 Eos % (Auto) 0.2 % 11/07/23 15:20 Baso % (Auto) 0.4 % 11/07/23 15:20 Neut # (Auto) 3.02 10^3/uL (1.8-7.7) 11/07/23 15:20 Lymph # (Auto) 1.1 10^3/uL (0.8-4.8) 11/07/23 15:20 Terrell # (Auto) 0.4 10^3/uL (0.2-0.9) 11/07/23 15:20 Eos # (Auto) 0.0 10^3/uL (0.0-0.8) 11/07/23 15:20 Baso # (Auto) 0.0 10^3/uL (0.0-0.1) 11/07/23 15:20 Nucleated RBC % (auto) 0.4 % 11/07/23 15:20 Nucleated RBCs # 0.0 /100WBC 11/07/23 15:20 Sodium 140 mmol/L (136-145) 11/07/23 15:20 Potassium 4.9 mmol/L (3.5-5.1) 11/07/23 15:20 Chloride 101 mmol/L (98-107) 11/07/23 15:20 Carbon Dioxide 24 mmol/L (22-29) 11/07/23 15:20 Anion Gap 19.9 (5-19) H 11/07/23 15:20 BUN 19 mg/dL (8-23) 11/07/23 15:20 Creatinine 0.7 mg/dL (0.5-0.9) 11/07/23 15:20 GFR Calculation 82.7 mL/min (90-130) L 11/07/23 15:20 Glucose 119 mg/dL (65-115) H 11/07/23 15:20 Calculated Osmolality 293 mOsm/kg (285-295) 11/07/23 15:20 Calcium 9.4 mg/dL (8.5-10.5) 11/07/23 15:20 Total Bilirubin 0.4 mg/dL (0.15-1.2) 11/07/23 15:20 AST 14 U/L (0-32) 11/07/23 15:20 ALT 9 U/L (0-33) 11/07/23 15:20 Alkaline Phosphatase 112 U/L (35-105) H 11/07/23 15:20 Troponin T Baseline 11 ng/L (0-10) H 11/07/23 15:20 Troponin T 120 Minute 11.78 ng/L (0-10) H 11/07/23 17:11 Delta Troponin T 0.78 ABS# (0-10) 11/07/23 17:11 NT-Pro-B Natriuret Pep 935 pg/mL (0-125) H 11/07/23 15:20 Total Protein 7.2 g/dL (6.6-8.7) 11/07/23 15:20 Albumin 3.3 g/dL (3.5-5.2) L 11/07/23 15:20 Globulin 3.9 g/dL (1.3-4.6) 11/07/23 15:20 All radiology interpretation(s) finalized by discharge Discharge Plan Discharge Patient Disposition: Admitted As Inpatient Clinical Impression: Metastatic bone tumor, Low back pain Sacral insufficiency fracture Qualifiers: Encounter type: initial encounter Qualified Code(s): M84.48XA - Pathological fracture, other site, initial encounter for fracture Condition: Stable Coding Level of Care Code ED Services Coordinator for Chg Fwd Documented by User: Bryant Soni MD 11/07/23 17:23 HPI - Back Pain/Injury 2 General: Chief Complaint: Back Pain/Injury Stated Complaint: low back/hip pain Time Seen by Provider: 11/07/23 14:19 [facility] ED 2 PFSH: Medical History (Updated 11/09/23 @ 06:37 by Scooter Krueger MD) Urgency incontinence Enrolled in chronic care management Abnormal CT of the abdomen Urolithiasis Congestive heart failure (CHF) Pulmonary hypertension Pulmonary embolism Right ureteral calculus Bilateral renal stones Statin intolerance Chronic low back pain Controlled type 2 diabetes mellitus, without long-term current use of insulin Obstructive sleep apnea Other hammer toe(s) (acquired), left foot PTTD (posterior tibial tendon dysfunction) HTN (hypertension) Hypertriglyceridemia 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 Surgical History H/O inguinal hernia repair RIGHT H/O amputation of lesser toe History of tonsillectomy History of 2 sections History of laparoscopic cholecystectomy Status post right foot surgery Family History Mother , AT AGE 78 Cancer OVARIAN CANCER ,LUNG CANCER Father , AT AGE 86 Cancer STOMACH Other Diabetes Hyperlipidemia Hypertension Social History Smoking and tobacco/nicotine status: former use of tobacco/nicotine Quit status (tobacco/nicotine): has quit using Year quit tobacco: 2012 Second hand smoke exposure: No Alcohol intake: never Substance/Drug Use: never Lives independently: Yes Marital status: Current occupational status: disabled Course 2 Vital Signs: Vital signs: Vital Signs Temperature 98.0 F 11/07/23 14:08 Pulse Rate 98 11/07/23 18:54 Respiratory Rate 18 11/07/23 18:54 Blood Pressure 125/82 11/07/23 18:54 Pulse Oximetry 88 L 11/07/23 18:54 Oxygen Delivery Me thod Nasal Cannula 11/07/23 17:21 Oxygen Flow Rate 5 11/07/23 17:21 MDM - Back Pain/Injury Medical Decision Making Patient is a 68-year-old female with an extensive past medical history here for complaints of severe lower back pain. She has chronic pain requiring 4 mg of Dilaudid every 4 hours. She has recently been found to have an abdominal mass that she has followed up with primary care for and reportedly scheduling outpatient PET scan. Unfortunately her CT lumbar spine today showing several lytic lesions scattered throughout her lumbar and pelvis consistent with metastatic disease or possibly multiple myeloma. She has suspected sacral insufficiency fractures. Daughter cannot continue to care for her at home that she will require hospitalization with plan for discharge to a snf facility. Patient chronically wears oxygen at night. She is required oxygen during the day over the past 3 weeks. She does arrive slightly hypoxic and tachycardic. Will go ahead and obtain CTA imaging. I already spoken to hospitalist Dr. Iraheta and we will await results of this and hopefully be able to keep patient here. Plan will be for transfer of care to Dr. Soni at shift change/1700. I have spoke to the hospitalist Dr. Iraheta nursing patient he is concerned that she may have cauda equina with her severe back pain not able to walk. He recommended transfer as we do not have MRI here at night. I did speak to [facility] will transfer there for emergent MRI to rule out cauda equina from her new metastatic disease Labs 11/07/23 15:20 11/07/23 15:20 Radiology Impressions Chest X-Ray 11/07/23 14:44 IMPRESSION: No acute findings. Lumbar Spine CT 11/07/23 14:44 IMPRESSION: 1. Several lytic lesions scattered throughout the visualized axial skeleton consistent with multiple myeloma or metastatic disease. 2. Generalized osseous demineralization with suspected sacral insufficiency fractures. Chest CTA 11/07/23 16:16 IMPRESSION: 1. Proximal right clavicular fracture. 2. Buttock region of the posterior left 11th rib again suggestive of multiple myeloma or metastatic disease. 3. No evidence of intrapulmonary metastatic disease. 4. Negative for pulmonary embolism. Findings suggestive of pulmonary hypertension in the appropriate clinical context. Laboratory Results WBC 4.61 10^3/uL (3.29-11.43) 11/07/23 15:20 RBC 3.26 10^6/uL (3.85-5.65) L 11/07/23 15:20 Hgb 10.40 g/dL (11.27-16.99) L 11/07/23 15:20 Hct 34.0 % (36-47) L 11/07/23 15:20 MCV 104.3 fl (85-98) H 11/07/23 15:20 MCH 31.9 pg (27-33) 11/07/23 15:20 MCHC 30.6 g/dL (30-55) 11/07/23 15:20 RDW 17.2 % (12.1-15.1) H 11/07/23 15:20 Plt Count 240 10^3/cmm (157-399) 11/07/23 15:20 MPV 9.8 fL (7.4-10.4) 11/07/23 15:20 Neut % (Auto) 65.5 % 11/07/23 15:20 Lymph % (Auto) 24.1 % 11/07/23 15:20 Terrell % (Auto) 9.1 % 11/07/23 15:20 Eos % (Auto) 0.2 % 11/07/23 15:20 Baso % (Auto) 0.4 % 11/07/23 15:20 Neut # (Auto) 3.02 10^3/uL (1.8-7.7) 11/07/23 15:20 Lymph # (Auto) 1.1 10^3/uL (0.8-4.8) 11/07/23 15:20 Terrell # (Auto) 0.4 10^3/uL (0.2-0.9) 11/07/23 15:20 Eos # (Auto) 0.0 10^3/uL (0.0-0.8) 11/07/23 15:20 Baso # (Auto) 0.0 10^3/uL (0.0-0.1) 11/07/23 15:20 Nucleated RBC % (auto) 0.4 % 11/07/23 15:20 Nucleated RBCs # 0.0 /100WBC 11/07/23 15:20 Sodium 140 mmol/L (136-145) 11/07/23 15:20 Potassium 4.9 mmol/L (3.5-5.1) 11/07/23 15:20 Chloride 101 mmol/L (98-107) 11/07/23 15:20 Carbon Dioxide 24 mmol/L (22-29) 11/07/23 15:20 Anion Gap 19.9 (5-19) H 11/07/23 15:20 BUN 19 mg/dL (8-23) 11/07/23 15:20 Creatinine 0.7 mg/dL (0.5-0.9) 11/07/23 15:20 GFR Calculation 82.7 mL/min (90-130) L 11/07/23 15:20 Glucose 119 mg/dL (65-115) H 11/07/23 15:20 Calculated Osmolality 293 mOsm/kg (285-295) 11/07/23 15:20 Calcium 9.4 mg/dL (8.5-10.5) 11/07/23 15:20 Total Bilirubin 0.4 mg/dL (0.15-1.2) 11/07/23 15:20 AST 14 U/L (0-32) 11/07/23 15:20 ALT 9 U/L (0-33) 11/07/23 15:20 Alkaline Phosphatase 112 U/L (35-105) H 11/07/23 15:20 Troponin T Baseline 11 ng/L (0-10) H 11/07/23 15:20 Troponin T 120 Minute 11.78 ng/L (0-10) H 11/07/23 17:11 Delta Troponin T 0.78 ABS# (0-10) 11/07/23 17:11 NT-Pro-B Natriuret Pep 935 pg/mL (0-125) H 11/07/23 15:20 Total Protein 7.2 g/dL (6.6-8.7) 11/07/23 15:20 Albumin 3.3 g/dL (3.5-5.2) L 11/07/23 15:20 Globulin 3.9 g/dL (1.3-4.6) 11/07/23 15:20 Discharge Plan Discharge Patient Disposition: Admitted As Inpatient Clinical Impression: Metastatic bone tumor, Low back pain Sacral insufficiency fracture Qualifiers: Encounter type: initial encounter Qualified Code(s): M84.48XA - Pathological fracture, other site, initial encounter for fracture Condition: Stable Coding Level of Care Code ED Services Coordinator for [facility]
--- NOTE | 2023-11-07 14:44 | XRR_ITS ---
PROCEDURE INFORMATION: Exam: XR Chest Exam date and time: 11/07/2023 2:56 PM Age: 68 years old Clinical indication: Shortness of breath; Patient HX: Back pain; Additional info: Hypoxia TECHNIQUE: Imaging protocol: Radiologic exam of the chest. Views: 1 view. COMPARISON: CR (CHEST, ) 11/01/2023 10:04 PM FINDINGS: Lungs: Curvilinear bibasilar atelectasis or scarring. No consolidation. Pleural spaces: Unremarkable. No pleural effusion. No pneumothorax. Heart/Mediastinum: Unremarkable. No cardiomegaly. Bones/joints: No evident abnormality. Old posterior right 11th posterior rib fracture better depicted on recent CT. XR/XR chest 1V portable [id number] IMPRESSION: No acute findings.
[2023-11-07 15:31] LABS: Basophils % 0.4 %; Eosinophils % 0.2 %; Lymphocytes # 1.1 10^3/uL (0.8-4.8); Lymphocytes % 24.1 %; Mean Corpuscular HGB Conc 30.6 g/dL (30-55); Mean Corpuscular Hemoglobin 31.9 pg (27-33); Mean Corpuscular Volume 104.3 fl (85-98); Mean Platelet Volume 9.8 fL (7.4-10.4); Monocytes # 0.4 10^3/uL (0.2-0.9); Monocytes % 9.1 %; Neutrophils # 3.02 10^3/uL (1.8-7.7); Neutrophils % 65.5 %; Nucleated Red Blood Cells % 0.4 %; Platelet Count 240 10^3/cmm (157-399); Red Blood Count 3.26 10^6/uL (3.85-5.65); Red Cell Distribution Width 17.2 % (12.1-15.1); White Blood Count 4.61 10^3/uL (3.29-11.43)
[2023-11-07 15:48] LABS: Alanine Aminotransferase 9 U/L (0-33); Albumin Level 3.3 g/dL (3.5-5.2); Alkaline Phosphatase 112 U/L (35-105); Anion Gap 19.9 (5-19); Aspartate Amino Transferase 14 U/L (0-32); Blood Urea Nitrogen 19 mg/dL (8-23); Calcium 9.4 mg/dL (8.5-10.5); Carbon Dioxide 24 mmol/L (22-29); Chloride 101 mmol/L (98-107); Creatinine Clr Calc Pharmacy 89.2318; Globulin 3.9 g/dL (1.3-4.6); Glomerular Filtration Rate 82.7 mL/min (90-130); Glucose 119 mg/dL (65-115); Osmolality Calculated 293 mOsm/kg (285-295); Potassium 4.9 mmol/L (3.5-5.1); Sodium 140 mmol/L (136-145); Total Bilirubin 0.4 mg/dL (0.15-1.2); Total Protein 7.2 g/dL (6.6-8.7)
--- NOTE | 2023-11-07 16:13 | ECG_ITS ---
[facility] Test Date: 2023-11-07 Pat Name: Christo Justin Department: Room: Gender: Female [place] Room Worker: : 1955 Requested By: Sabrina Mills Order Number: [id number] Elliott MD: Luke Little M.D. Measurements Intervals [place] Rate: 113 P: 60 ME: 172 QRS: 103 QRSD: 97 T: 48 QT: 327 QTc: 449 Interpretive Statements SINUS TACHYCARDIA WITH OCCASIONAL VENTRICULAR PREMATURE COMPLEXES RIGHT AXIS DEVIATION [QRS AXIS > 100] MINIMAL ST DEPRESSION [0.025+ mV ST DEPRESSION] Compared to ECG 10/20/2021 17:40:16 Ventricular premature complex(es) now present Right-axis deviation now present ST (T wave) deviation now present Sinus rhythm no longer present Incomplete right bundle-branch block no longer present Atrial abnormality no longer present T-wave abnormality no longer present Possible ischemia no longer present Electronically Signed On 11-07-2023 21:33:00 CDT by Luke Little M.D. [id number]
--- NOTE | 2023-11-07 16:16 | CTR_ITS ---
PROCEDURE INFORMATION: Exam: CTA Chest With Contrast Exam date and time: 11/07/2023 5:37 PM Age: 68 years old Clinical indication: Other: Hypoxia, malignancy; HX of pe TECHNIQUE: Imaging protocol: Computed tomographic angiography of the chest with contrast. Exam focused on the arteries. 3D rendering (Not supervised by radiologist): MIP and/or 3D reconstructed images were created by the technologist. Radiation optimization: All CT scans at this facility use at least one of these dose optimization techniques: automated exposure control; mA and/or kV adjustment per patient size (includes targeted exams where dose is matched to clinical indication); or iterative reconstruction. Contrast material: OMNI 350; Contrast volume: 93 ml; Contrast route: INTRAVENOUS (IV); COMPARISON: CT angio chest [id number] 01/12/2021 6:25 PM RADIATION DOSE METRICS: Total DLP (mGy-cm): 568 FINDINGS: Pulmonary arteries: Enlarged pulmonary arterial trunk measuring up to 4.7 cm. No pulmonary emboli. Aorta: Unremarkable. No aortic aneurysm. No aortic dissection. Lungs: Left basilar pneumatocele noted. Curvy linear bibasilar scarring. No consolidation. No masses. Pleural spaces: Unremarkable. No pneumothorax. No pleural effusion. Heart: Unremarkable. No cardiomegaly. No pericardial effusion. Lymph nodes: Unremarkable. No enlarged lymph nodes. Bones/joints: Proximal right clavicular fracture. Old partially callused right posterior 11th rib fracture again noted. Lytic lesion noted posterior left 11th rib series 6, image 435. Soft tissues: Unremarkable. CT/CT angio chest PE protcl [id number] IMPRESSION: 1. Proximal right clavicular fracture. 2. Buttock region of the posterior left 11th rib again suggestive of multiple myeloma or metastatic disease. 3. No evidence of intrapulmonary metastatic disease. 4. Negative for pulmonary embolism. Findings suggestive of pulmonary hypertension in the appropriate clinical context.
[2023-11-07 16:18] LABS: Slide Review Slide Review Perform
[2023-11-07] MEDS: dexamethasone 10 mg/mL INJ IVP (16:42)
[2023-11-07] MEDS: orphenadrine 30 mg/mL Inj 2 mL 60 MG IVP (16:46)
[2023-11-07 16:47] VITALS: RESP 18
[2023-11-07] MEDS: HYDROmorphone 1 mg/mL INJ 1 mL IVP ×2 (16:47→18:53)
[2023-11-07 16:49] LABS: Troponin(5th) Baseline 11 ng/L (0-10)
--- NOTE | 2023-11-07 17:06 | P.CONIM_ITS ---
Providers/Reason For Consult 2 Consulting Physician/Specialty*: Hospitalist Reason for Consult*: Back pain evaluation Primary Care Provider: Scooter Krueger MD History of Present Illness History of Present Illness Christo Justin is a 68 year old female who presented to the hospital with chief complaint of worsening of back pain. As per the daughter this is her third visit in the hospital, on last visit she was diagnosed with left-sided retroperitoneal mass spiculated shape, she was referred to primary care physician for a PET scan. Her symptoms worsened in the last 2 weeks to the point that she is not able to walk to the bathroom on her own she is in excruciating pain at rest and on ambulation. She also endorsing urinary incontinence, she is not endorsing numbness or tingling in her medial thigh area or legs. She tends to stay in the bed to avoid falling. She was trying to use a wheelchair at home Patient is stating that there is family history of cancer, her parents had lung and stomach cancer. Ms. Justin had screening colonoscopies which showed polyps which were noncancerous. No Pap smears were done recently. Screening mammograms did not show malignancy as per the patient Patient has been taking Eliquis since her diagnosis of PE that was diagnosed 2019. I was asked to evaluate the patient for her back pain. Her CT scan of the lumbar spine is showing several lytic lesion scattered throughout axial skeleton with consideration for metastatic disease, Previous 2 CT scans reviewed as well Which showed enhancing spiculated soft tissue mass left mid abdomen inferior to the left floor of left kidney, there was a hypodense lesion in the liver, slight induration of the pancreatic head noted as well During my evaluation patient is endorsing urinary incontinence, back pain, not able to walk, my immediate concern was cauda equina, at 5 PM we are not able to do MRI to confirm however she has features of cauda equina, I requested ER physician to transfer the patient immediately on this basis Also from my experience interventional radiology at [facility] tends to avoid biopsies of retroperitoneal masses around renal area because we do not have vascular backup Patient is stating that her last dose of Eliquis was this morning In the ER patient has been given Decadron, opioids, Review of Systems 2 Const: Reports: change in weight; Denies: fever(s) Eyes: Denies: change in vision ENMT: Denies: throat pain Card: Denies: chest pain Resp: Reports: dyspnea GI: Reports: nausea : Reports: urinary frequency, urinary urgency and dribbling Musc: Reports: back pain, extremity pain and limited range of motion Skin/Breast: Denies: rash Neuro: Reports: headache(s) Psych: Reports: anxiety Endo: Denies: polyuria Medications/Allergies Home Medications Medication Instructions Recorded Confirmed Last Taken Type wheelchair #1 ea 08/14/20 11/03/23 Unknown Rx cetirizine 10 mg tablet (Zyrtec) 10 mg PO DAILY PRN Allergy Symptoms 02/23/21 11/03/23 10/18/23 History hydromorphone 4 mg tablet 4 mg PO Q4H PRN Pain 08/27/21 11/03/23 10/18/23 History duloxetine 60 mg capsule,delayed 60 mg PO BID #180 caps 06/01/23 11/03/23 10/18/23 Rx release (Cymbalta) methenamine hippurate 1 gram tablet 1 g PO BID #180 tabs 10/10/23 11/03/23 10/18/23 Rx apixaban 5 mg tablet (Eliquis) 5 mg PO BID 10/18/23 11/03/23 10/18/23 History nystatin 100,000 unit/gram topical 1 applic topical BID PRN Skin 10/18/23 11/03/23 10/17/23 History cream Irritation dulaglutide 1.5 mg/0.5 mL See Rx Instructions .Route 11/03/23 11/03/23 Unknown Rx subcutaneous pen injector .COMPLEX #2 mL (Trulicity) metformin 500 mg tablet 500 mg PO DAILY #90 tabs 11/03/23 11/03/23 Unknown Rx Allergies Allergy/AdvReac Type Severity Reaction Status Date / Time atorvastatin [From Lipitor] Allergy Severe swelling Verified 11/07/23 14:24 pregabalin [From Lyrica] Allergy Severe swelling Verified 11/07/23 14:24 sitagliptin [From Januvia] Allergy Severe pain; Verified 11/07/23 14:24 swelling tramadol Allergy Severe muscle Verified 11/07/23 14:24 weakness gabapentin Allergy Intermediate swelling; Verified 11/07/23 14:24 rash Penicillins Allergy Intermediate hives Verified 11/07/23 14:24 influenza virus vaccine tvs Allergy Unknown Verified 11/07/23 14:24 [id number](65 years up) [From Fluad [id number] (65 yr up)(PF)] buspirone [From BuSpar] AdvReac Intermediate MADE ME Verified 11/07/23 14:24 CRY MORE Sulfa (Sulfonamide AdvReac sores in Verified 11/07/23 14:24 Antibiotics) mouth PFSH Acute 2 PFSH: Medical History (Updated 11/08/23 @ 10:02 by Julianna Dave) Abnormal CT of the abdomen Urolithiasis Degenerative arthritis Congestive heart failure (CHF) Right heart failure with reduced right ventricular function Pulmonary hypertension Diastolic heart failure Pulmonary embolism Right ureteral calculus Bilateral renal stones Statin intolerance Chronic low back pain Controlled type 2 diabetes mellitus, without long-term current use of insulin Obstructive sleep apnea Other hammer toe(s) (acquired), left foot PTTD (posterior tibial tendon dysfunction) HTN (hypertension) Hypertriglyceridemia 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 Enrolled in chronic care management Surgical History H/O inguinal hernia repair RIGHT H/O amputation of lesser toe History of tonsillectomy History of 2 sections History of laparoscopic cholecystectomy Status post right foot surgery Family History Mother , AT AGE 78 Cancer OVARIAN CANCER ,LUNG CANCER Father , AT AGE 86 Cancer STOMACH Other Diabetes Hyperlipidemia Hypertension Social History Smoking and tobacco/nicotine status: former use of tobacco/nicotine Quit status (tobacco/nicotine): has quit using Year quit tobacco: 2012 Second hand smoke exposure: No Alcohol intake: never Substance/Drug Use: never Lives independently: Yes Marital status: Current occupational status: disabled Female Reproductive History: Para: 2 Spontaneous abortions: No Date of menopause: 10/06/04 Vitals/I&O/Wt Last Vital Signs Temp 98.0 F 11/07/23 14:08 Pulse 103 H 11/07/23 14:08 Resp 18 11/07/23 16:47 BP 132/70 11/07/23 14:08 Pulse Ox 88 L 11/07/23 14:08 O2 Del Method Nasal Cannula 11/07/23 14:08 O2 Flow Rate 3 11/07/23 14:08 Weight last 48 hrs Weight 127.006 kg Physical Exam 2 Narrative: Patient has a Tang catheter Able to wiggle her toes Sensations intact medial thigh area Complaining of back pain, not able to get up and walk Morbidly obese Laying supine Currently on 7 L nasal cannula saturating 89 to 90% S1, S2 sinus tachycardia Distended abdomen nontender Awake and alert GCS 15 NIH 0 Data 11/07/23 15:20 11/07/23 15:20 A&P Assessment and plan (1) Morbid obesity: (2) Sacral insufficiency fracture: Qualifiers: Encounter type: initial encounter Qualified Code(s): M84.48XA - Pathological fracture, other site, initial encounter for fracture (3) Chronic low back pain: Qualifiers: Back pain laterality: bilateral Sciatica laterality: bilateral sciatica Sciatica presence: with sciatica Qualified Code(s): M54.42 - Lumbago with sciatica, left side; M54.41 - Lumbago with sciatica, right side; G89.29 - Other chronic pain (4) Chronic pain syndrome: (5) Hypoxemia: (6) Obstructive sleep apnea: (7) Metastatic cancer to spine: (8) Retroperitoneal mass: (9) Cauda equina compression: (10) Lytic lesion of bone on x-ray: Plan Metastatic axial skeleton lesion Retroperitoneal mass spiculated in shape Patient has been given Decadron, requiring Tang catheter for urine incontinence complaining of pain not been able to get up She is in excruciating pain Requiring Dilaudid Case discussed with Dr. Love who recommended tissue histopathological diagnosis, patient is agreeable for the diagnosis, her last Eliquis dose was this morning, from my experience intervention radiology does not do biopsies for retroperitoneal mass or exophytic renal masses because of lack of vascular backup, my other concern was cauda equina signs and symptoms, such as incontinence, inability to walk, back pain, she does have intact sensations around her saddle area I spoke with the ER physician that we are not able to get MRI after 5:[address] Lunsford who also recommended transfer to a tertiary center where they can intervene for cauda equina related symptoms, do tissue biopsy and start radiotherapy if needed Family was updated, they are in agreement for transfer Coding Level of Care Code Acute Code for Chg Fwd Diagnoses Morbid obesity E66.01 Sacral insufficiency fracture M84.48XA Encounter type: initial encounter Chronic bilateral low back pain with bilateral sciatica M54.42; M54.41; G89.29 Back pain laterality: bilateral Sciatica laterality: bilateral sciatica Sciatica presence: with sciatica Chronic pain syndrome G89.4 Hypoxemia R09.02 Obstructive sleep apnea G47.33 Metastatic cancer to spine C79.51 Retroperitoneal mass R19.00 Cauda equina compression G83.4 Lytic lesion of bone on x-ray M89.9
[2023-11-07 17:21] VITALS: BP 113/72; PULSE 84; RESP 20; O2SAT 92
[2023-11-07 17:28] LABS: NT Pro B Type Natriuretic Pept 935 pg/mL (0-125)
[2023-11-07 17:38] LABS: Troponin 5 2HR 11.78 ng/L (0-10); Troponin 5 2HR Delta 0.78 ABS# (0-10)
[2023-11-07] MEDS: iohexol 350 mg/mL 500 mL Btl (per mL) IV (17:49)
--- NOTE | 2023-11-07 18:16 | ECG_ITS ---
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 Measurements Intervals [place] Rate: 94 P: 62 AK: 192 QRS: 92 QRSD: 99 T: 44 QT: 360 QTc: 451 Interpretive Statements SINUS RHYTHM BORDERLINE RIGHT AXIS DEVIATION [QRS AXIS > 90] Compared to ECG 11/07/2023 16:13:03 Sinus tachycardia no longer present Ventricular premature complex(es) no longer present ST (T wave) deviation no longer present Electronically Signed On 11-07-2023 21:39:50 CDT by Luke Little M.D. [email or web address]/[id number]
[2023-11-07 18:53] VITALS: RESP 18
[2023-11-07 18:54] VITALS: BP 125/82; PULSE 98; RESP 18; O2SAT 88
== END 2023-11-07 18:56 | disposition admitted as inpatient to this hospital (09) ==
PROVIDERS: Physician Assistant; Emergency Provider Emergency Medicine; PCP Family Medicine Adult Medicine
DX: M54.50 Low back pain, unspecified (principal); M84.48XA Pathological fracture, other site, initial encounter for fracture; C41.9 Malignant neoplasm of bone and articular cartilage, unspecified; I11.0 Hypertensive heart disease with heart failure; I50.9 Heart failure, unspecified; E11.9 Type 2 diabetes mellitus without complications; Z87.891 Personal history of nicotine dependence
CPT/HCPCS: 36415; 51702; 71045; 71275; 72131; 80053; 83880; 84484; 85025; 93005; 96374; 96375; 96376; 99285; J1100; J1170; J2360; Q9967

== ENCOUNTER 2024-01-07 16:43 | Emergency (ER) | payer MEDICARE, MEDICAID, SELFPAY ==
[2024-01-07] VITALS (11 sets, daily range): BP systolic 95–160; BP diastolic 56–95; PULSE 106–119; RESP 10–24; TEMP 37.1; O2SAT 90–100
--- NOTE | 2024-01-07 16:45 | ECG_ITS ---
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 Measurements Intervals [place] Rate: 110 P: 72 VA: 152 QRS: 88 QRSD: 96 T: 58 QT: 324 QTc: 439 Interpretive Statements SINUS TACHYCARDIA MODERATE ST DEPRESSION [0.05+ mV ST DEPRESSION] Compared to ECG 11/07/2023 18:02:23 ST (T wave) deviation now present Sinus rhythm no longer present Electronically Signed On 01-07-2024 17:43:28 CDT by Gilberto Scott M.D. [email or web address]/[id number] f
--- NOTE | 2024-01-07 16:49 | XRR_ITS ---
PROCEDURE INFORMATION: Exam: XR Chest Exam date and time: 01/07/2024 5:46 PM Age: 68 years old Clinical indication: Other: AMS TECHNIQUE: Imaging protocol: Radiologic exam of the chest. Views: 1 view. COMPARISON: CT angio chest PE protcl [id number] 11/07/2023 5:37 PM FINDINGS: Lungs: Irregular opacities in the right lung base. Pleural spaces: Unremarkable. No pleural effusion. No pneumothorax. Heart/Mediastinum: Unremarkable. No cardiomegaly. Bones/joints: Unremarkable. XR/XR chest 1V portable [id number] IMPRESSION: Irregular opacities in the right lung base.
--- NOTE | 2024-01-07 16:54 | ED_ITS ---
HPI - Altered Mental Status 2 General: Chief Complaint: Altered Mental Status Stated Complaint: AMS Time Seen by Provider: 01/07/24 16:49 Limitations: altered mental status History of Present Illness: Patient arrived via EMS with complaints of altered mental status. Patient does have bone cancer and is going on chemo currently. Patient is been on steroids for a while and is a diabetic who is not on insulin. Patient's last known well was around 1999 last night. Patient is normally on 4 L oxygen per nasal cannula. Patient is unable to answer any questions at this time. And is groaning with pain. Glucose by EMS was 408. Patient does have Tang catheter in place. Related Data Home Medications Medication Instructions Recorded Confirmed cetirizine 10 mg tablet (Zyrtec) 10 mg PO DAILY PRN Allergy Symptoms 02/23/21 11/03/23 hydromorphone 4 mg tablet 4 mg PO Q4H PRN Pain 08/27/21 11/03/23 apixaban 5 mg tablet (Eliquis) 5 mg PO BID 10/18/23 11/03/23 nystatin 100,000 unit/gram topical 1 applic topical BID PRN Skin 10/18/23 11/03/23 cream Irritation Previous Rx's Medication Instructions Recorded wheelchair #1 ea 08/14/20 methenamine hippurate 1 gram tablet 1 g PO BID #180 tabs 10/10/23 dulaglutide 1.5 mg/0.5 mL See Rx Instructions .Route 11/03/23 subcutaneous pen injector .COMPLEX #2 mL (Trulicity) metformin 500 mg tablet 500 mg PO DAILY #90 tabs 11/03/23 duloxetine 60 mg capsule,delayed 60 mg PO BID #180 caps 11/22/23 release (Cymbalta) Allergies Allergy/AdvReac Type Severity Reaction Status Date / Time atorvastatin [From Lipitor] Allergy Severe swelling Verified 01/07/24 16:51 pregabalin [From Lyrica] Allergy Severe swelling Verified 01/07/24 16:51 sitagliptin [From Januvia] Allergy Severe pain; Verified 01/07/24 16:51 swelling tramadol Allergy Severe muscle Verified 01/07/24 16:51 weakness gabapentin Allergy Intermediate swelling; Verified 01/07/24 16:51 rash Penicillins Allergy Intermediate hives Verified 01/07/24 16:51 influenza virus vaccine tvs Allergy Unknown Verified 01/07/24 16:51 [id number](65 years up) [From Fluad 5725-0537 (65 yr up)(PF)] buspirone [From BuSpar] AdvReac Intermediate MADE ME Verified 01/07/24 16:51 CRY MORE Sulfa (Sulfonamide AdvReac sores in Verified 01/07/24 16:51 Antibiotics) mouth Review of Systems 2 General: Reports: ROS unobtainable due to mental status PFSH ED 2 PFSH: Medical History (Updated 01/07/24 @ 18:27 by Leeroy Barr DO) Urgency incontinence Abnormal CT of the abdomen Urolithiasis Congestive heart failure (CHF) Pulmonary hypertension Pulmonary embolism Right ureteral calculus Bilateral renal stones Statin intolerance Chronic low back pain Controlled type 2 diabetes mellitus, without long-term current use of insulin Obstructive sleep apnea Other hammer toe(s) (acquired), left foot PTTD (posterior tibial tendon dysfunction) HTN (hypertension) Hypertriglyceridemia 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 Surgical History H/O inguinal hernia repair RIGHT H/O amputation of lesser toe History of tonsillectomy History of 2 sections History of laparoscopic cholecystectomy Status post right foot surgery Family History Mother , AT AGE 78 Cancer OVARIAN CANCER ,LUNG CANCER Father , AT AGE 86 Cancer STOMACH Other Diabetes Hyperlipidemia Hypertension Social History Smoking and tobacco/nicotine status: former use of tobacco/nicotine Quit status (tobacco/nicotine): has quit using Year quit tobacco: 2012 Second hand smoke exposure: No Alcohol intake: never Substance/Drug Use: never Lives independently: Yes Marital status: Current occupational status: disabled Female Reproductive History: Para: 2 Spontaneous abortions: No Date of menopause: 10/06/04 Physical Exam 2 Const: COMMON NORMALS: alert and well nourished HENMT: COMMON NORMALS: normocephalic, atraumatic, hearing grossly normal bilaterally, external ears normal, Normal external nose present and moist oral mucous membranes HEAD & SCALP: normocephalic and atraumatic NOSE: Normal external nose present EXTERNAL EAR: Yes external ears normal Eye: COMMON NORMALS: Equal, round and reactive pupils present, EOMs intact bilaterally, conjunctivae normal and no scleral icterus CONJUNCTIVA: Yes conjunctivae normal PUPIL: Yes Equal, round and reactive pupils present Neck/C-Spine: COMMON NORMALS: full ROM, no lymphadenopathy, supple, no meningeal signs, no JVD and Thyroid normal THYROID: Thyroid normal Chest: COMMONS NORMALS: normal inspection of the chest and normal palpation of entire chest wall Resp: COMMON NORMALS: normal respiratory effort, No retractions, No use of accessory muscles and clear to auscultation bilaterally AUSCULTATION: clear to auscultation bilaterally Cardio: COMMON NORMALS: no JVD, regular rate, regular rhythm, S1 normal heart sound present, S2 normal heart sound present, No gallops present (Cardio) and No clicks present (Cardio) RATE: regular rate RHYTHM: regular rhythm HEART SOUNDS: S1 normal heart sound present and S2 normal heart sound present GI: COMMON NORMALS: Normal to inspection, nondistended, normoactive bowel sounds present, Soft to palpation, non-tender, No hepatosplenomegaly present and no masses PALPATION: Yes Soft to palpation and Yes No hepatosplenomegaly present Neuro: SENSORIUM/ORIENTATION: Yes alert MENINGEAL SIGNS: Yes no meningeal signs Course 2 Vital Signs: Vital signs: Vital Signs Temperature 98.7 F 01/07/24 16:45 Pulse Rate 106 H 01/07/24 17:01 Respiratory Rate 24 H 01/07/24 17:01 Blood Pressure 102/58 01/07/24 17:01 Pulse Oximetry 96 01/07/24 17:01 Oxygen Delivery Me thod Nasal Cannula 01/07/24 17:01 Oxygen Flow Rate 6 01/07/24 17:01 MDM - Altered Mental Status Medical Decision Making Patient came in with altered mental status, lab work was obtained which showed white blood cell count of 0.59, hemoglobin of 6.60, platelets of 96, neutrophils of 0.29, ABG fairly benign, sodium 124, chemistry showed sodium 123, potassium 5.2, lactic acid 2.7, Pro-Gaetano 0.77, UA showed 3+ blood, with positive nitrates 2+ leukocyte Estrace and too numerous to count white cells, these results was discussed with the family about how patient's probably uroseptic and neutropenic they wanted her to go back to [facility] where she gets her oncology. Dr. Longoria in the ER was consulted who accepted the patient in transfer. Differential Diagnosis Likely altered mental status Medical Records I reviewed the patient's medical records. Lab Data I reviewed the patient's lab results. 01/07/24 17:27 01/07/24 17: Laboratory Results WBC 0.59 10^3/uL (3.29-11.43) L* 01/07/24 17: RBC 2.11 10^6/uL (3.85-5.65) L 01/07/24 17: Hgb 6.60 g/dL (11.27-16.99) L 01/07/24 17: Hct 20.4 % (36-47) L* 01/07/24 17: MCV 96.7 fl (85-98) 01/07/24 17: MCH 31.3 pg (27-33) 01/07/24 17: MCHC 32.4 g/dL (30-55) 01/07/24 17: RDW 18.0 % (12.1-15.1) H 01/07/24 17: Plt Count 96 10^3/cmm (157-399) L 01/07/24 17: MPV 14.4 fL (7.4-10.4) H 01/07/24 17: Neut % (Auto) 49.1 % 01/07/24 17: Lymph % (Auto) 39.0 % 01/07/24 17: [place] % (Auto) 10.2 % 01/07/24 17: Eos % (Auto) 0.0 % 01/07/24: Baso % (Auto) 0.0 % 01/07/24 17: Neut # (Auto) 0.29 10^3/uL (1.8-7.7) L* 01/07/24 17: Lymph # (Auto) 0.2 10^3/uL (0.8-4.8) L 01/07/24 17: [place] # (Auto) 0.1 10^3/uL (0.2-0.9) L 01/07/24 17: Eos # (Auto) 0.0 10^3/uL (0.0-0.8) 01/07/24 17:27 Baso # (Auto) 0.0 10^3/uL (0.0-0.1) 01/07/24 17:27 Nucleated RBC % (auto) 3.4 % 01/07/24 17: Nucleated RBCs # 0.0 /100WBC 01/07/24 17:27 Specimen Type Arterial 01/07/24 17:01 Sample Site Radial, right 01/07/24 17:01 ABG pH 7.52 (7.35-7.45) H 01/07/24 17:01 ABG pCO2 36.3 mmHg (35-45) 01/07/24 17:01 ABG pO2 72.8 mmHg (80.0-100.0) L 01/07/24 17:01 ABG HCO3 29.6 mmol/L (22-26) H 01/07/24 17:01 ABG O2 Saturation 96.3 01/07/24 17:01 ABG Base Excess 6.2 mmol/L (-2.0-2.0) H 01/07/24 17:01 Rodrigo Test Pos 01/07/24 17:01 A-a O2 Gradient 4.1 mmHg (5-10) L 01/07/24 17:01 Hematocrit 20.5 % (37-47) L 01/07/24 17:01 Hgb O2 Saturation 94.0 % (95-100) L 01/07/24 17:01 Carboxyhemoglobin 1.2 %THgb (0.4-20.1) 01/07/24 17:01 Methemoglobin 1.1 % (0.4-1.5) 01/07/24 17:01 Total Hemoglobin 6.7 g/dL (12-16) L 01/07/24 17:01 Sodium 124.0 mmol/L (131-143) L 01/07/24 17:01 Potassium 4.8 mmol/L (3.5-5.0) 01/07/24 17:01 Glucose 283.0 mg/dL (70-115) H 01/07/24 17:01 Ionized Calcium 1.1 mmol/L (1.1-1.4) 01/07/24 17:01 O2 Delivery Device Nc 01/07/24 17:01 O2 Liters/Min 5.0 % 01/07/24 17:01 Technical Internship ID Carrillo 01/07/24 17:01 Sodium 123 mmol/L (136-145) L 01/07/24 17:27 Potassium 5.2 mmol/L (3.5-5.1) H 01/07/24 17:27 Chloride 86 mmol/L (98-107) L 01/07/24 17:27 Carbon Dioxide 24 mmol/L (22-29) 01/07/24 17:27 Anion Gap 18.2 (5-19) 01/07/24 17:27 BUN 25 mg/dL (8-23) H 01/07/24 17:27 Creatinine 0.8 mg/dL (0.5-0.9) 01/07/24 17:27 GFR Calculation 70.9 mL/min (90-130) L 01/07/24 17:27 Glucose 284 mg/dL (65-115) H 01/07/24 17:27 POC Glucose 307 mg/dL (70-110) H 01/07/24 16:59 Calculated Osmolality 271 mOsm/kg (285-295) L 01/07/24 17:27 Lactic Acid 2.7 mmol/L (0.5-2.2) H 01/07/24 17:27 Calcium 7.7 mg/dL (8.5-10.5) L 01/07/24 17:27 Magnesium 2.3 mg/dL (1.7-2.3) 01/07/24 17:27 Total Bilirubin 0.7 mg/dL (0.15-1.2) 01/07/24 17:27 AST 7 U/L (0-32) 01/07/24 17:27 ALT 11 U/L (0-33) 01/07/24 17:27 Alkaline Phosphatase 77 U/L (35-105) 01/07/24 17:27 Troponin T Baseline 93 ng/L (0-10) H 01/07/24 17:27 Total Protein 5.1 g/dL (6.6-8.7) L 01/07/24 17:27 Albumin 3.0 g/dL (3.5-5.2) L 01/07/24 17:27 Globulin 2.1 g/dL (1.3-4.6) 01/07/24 17:27 Procalcitonin 0.77 ng/mL (0-0.5) H 01/07/24 17:27 Urine Color Yellow (Yellow) 01/07/24 17:00 Urine Appearance Cloudy (CLEAR) A 01/07/24 17:00 Urine pH 8 (5-7) A 01/07/24 17:00 Ur Specific [place] 1.010 (1.005-1.030) 01/07/24 17:00 Urine Protein 3+ (Negative) H 01/07/24 17:00 Urine Glucose (UA) Norm (Normal) 01/07/24 17:00 Urine Ketones Negative (Negative) 01/07/24 17:00 Urine Blood 3+ (Negative) H 01/07/24 17:00 Urine Nitrate Positive (Negative) A 01/07/24 17:00 Urine Bilirubin Neg (Negative) 01/07/24 17:00 Urine Urobilinogen Norm mg/dL (Negative) 01/07/24 17:00 Ur Leukocyte Esterase 2+ (Negative) H 01/07/24 17:00 Urine RBC 15-25 /hpf (0-2) H 01/07/24 17:00 Urine WBC Too numerous to cnt /hpf (0-5) H 01/07/24 17:00 Ur Squamous Epith Cells None /hpf (0-5) 01/07/24 17:00 Amorphous Sediment Not Reportable 01/07/24 17:00 Urine Bacteria 2+ /hpf (NONE) H 01/07/24 17:00 Urine Opiates Screen Positive ng/mL (Negative) H 01/07/24 17:00 Ur Barbiturates Screen Negative ng/mL (Negative) 01/07/24 17:00 Ur Phencyclidine Scrn Negative ng/mL (Negative) 01/07/24 17:00 Ur Amphetamines Screen Negative ng/mL (Negative) 01/07/24 17:00 U Benzodiazepines Scrn Negative ng/mL (Negative) 01/07/24 17:00 Urine Cocaine Screen Negative ng/mL (Negative) 01/07/24 17:00 U Marijuana (THC) Screen Positive ng/mL (Negative) H 01/07/24 17:00 Serum Ketones Negative (Negative) 01/07/24 17:27 All radiology interpretation(s) finalized by discharge Critical Care Time 2 Critical Care Time: Critical Care Time: Yes Total Critical Care Time: 45 Attestation: The patient was emergently evaluated this patient's presentation and case had a high probability of a clinically significant, sudden, or life-threatening deterioration of the patient's initial critical presentation or condition which required my full and direct attention, intervention and personal management. Discharge Plan Discharge Patient Disposition: Xfer Short-Term Hosp Clinical Impression: Sepsis, Metastatic cancer to spine, Altered mental status, Hyponatremia, Urinary tract infection, Anemia Condition: Stable Prescriptions: No Action (DME) wheelchair See Rx Instructions .Route .MEDSUPPLY Qty: 1 0RF Rx Instructions: portable wheelchair hydromorphone 4 mg tablet 4 mg PO Q4H PRN (Reason: Pain) Trulicity 1.5 mg/0.5 mL pen injector See Rx Instructions .ROUTE .COMPLEX Qty: 2 2RF Dose Instruction: inject 1.5mg (0.5ml) SUBCUTANEOUSLY every week Rx Instructions: inject 1.5mg (0.5ml) SUBCUTANEOUSLY every week metformin 500 mg tablet 500 mg PO DAILY Qty: 90 1RF methenamine hippurate 1 gram tablet 1 g PO BID Qty: 180 0RF duloxetine [Cymbalta] 60 mg capsule,delayed release(DR/EC) 60 mg PO BID Qty: 180 1RF cetirizine [Zyrtec] 10 mg tablet 10 mg PO DAILY PRN (Reason: Allergy Symptoms) nystatin 100,000 unit/gram cream 1 applic topical BID PRN (Reason: Skin Irritation) Eliquis 5 mg tablet 5 mg PO BID Referrals: Scooter Krueger MD [Primary Care Provider] - Patient Instructions: Altered Mental Status (ED) Coding Level of Care Code 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
--- NOTE | 2024-01-07 16:54 | CTR_ITS ---
PROCEDURE INFORMATION: Exam: CT Head Without Contrast Exam date and time: 01/07/2024 5:41 PM Age: 68 years old Clinical indication: Altered mental status/memory loss; Patient HX: EMS arrival for AMS. Patient is very confused. Currently on chemo therapy for bone cancer. ; Additional info: AMS, bone cancer TECHNIQUE: Imaging protocol: Computed tomography of the head without contrast. Radiation optimization: All CT scans at this facility use at least one of these dose optimization techniques: automated exposure control; mA and/or kV adjustment per patient size (includes targeted exams where dose is matched to clinical indication); or iterative reconstruction. COMPARISON: No relevant prior studies available. RADIATION DOSE METRICS: Total DLP (mGy-cm): 994.48 FINDINGS: Brain: Subcortical and periventricular white matter changes consistent with small-vessel ischemic disease in the appropriate clinical setting. Small-vessel ischemic disease. No acute intracranial abnormality. Cerebral ventricles: No ventriculomegaly. Paranasal sinuses: Visualized sinuses are unremarkable. No fluid levels. Mastoid air cells: Visualized mastoid air cells are well aerated. Bones: Unremarkable. No acute fracture. Soft tissues: Unremarkable. CT/CT head wo con* [id number] IMPRESSION: 1. No acute intracranial abnormality. 2. Small-vessel ischemic disease.
[2024-01-07 17:02] LABS: Glucose Point of Care 307 mg/dL (70-110)
[2024-01-07] MEDS: sodium chloride 0.9% 1,000 ML 999 ML IV (17:02)
[2024-01-07 17:12] LABS: ABG PCO2 36.3 mmHg (35-45); ABG PH Result 7.52 (7.35-7.45); Alveolar-Arterial Oxygen Gradi 4.1 mmHg (5-10); Arterial Blood Gas Hematocrit 20.5 % (37-47); Base Excess ABG 6.2 mmol/L (-2.0-2.0); Blood Gas Allen Test Pos; Blood Gas Operator Identificat WALCI; Blood Gas Sample Site Radial, right; Blood Gas Sample Type Arterial; Carboxyhemoglobin 1.2 %THgb (0.4-20.1); HCO3 ABG 29.6 mmol/L (22-26); Ionized Calcium Level - ABG 1.1 mmol/L (1.1-1.4); Methemoglobin 1.1 % (0.4-1.5); Oxygen Device NC; Oxygen Saturation ABG 96.3; PO2 ABG 72.8 mmHg (80.0-100.0); Potassium Level - ABG 4.8 mmol/L (3.5-5.0); Total Hemoglobin 6.7 g/dL (12-16)
[2024-01-07 17:22] LABS: Amphetamines Screen Urine Negative (Negative); Barbiturates Screen Urine Negative (Negative); Benzodiazepines Screen Urine Negative (Negative); Cocaine Screen Urine Negative (Negative); Opiate Screen Urine Positive (Negative); PCP Screen Urine Negative (Negative); THC Screen Urine Positive (Negative)
[2024-01-07 17:35] LABS: Blood Urine 3+ (Negative); Glucose Urine UA Norm (Normal); Ketones Urine Negative (Negative); Protein Urine 3+ (Negative); Urine Appearance Cloudy (CLEAR); Urine Color Yellow (Yellow); pH Urine 8 (5-7)
[2024-01-07 17:36] LABS: Add Urine Culture? Yes; Add Urine Microscopic? YES; Bacteria Urine 2+ /hpf; Bilirubin Urine Neg (Negative); Leukocyte Esterase Urine 2+ (Negative); Nitrate Urine Positive (Negative); RBC Urine 15-25 /hpf (0-2); Urobilinogen Urine Norm (Negative); WBC Urine TOO NUMEROUS TO CNT /hpf (0-5)
[2024-01-07 17:38] LABS: Lymphocytes # 0.2 10^3/uL (0.8-4.8); Mean Corpuscular HGB Conc 32.4 g/dL (30-55); Mean Corpuscular Hemoglobin 31.3 pg (27-33); Mean Corpuscular Volume 96.7 fl (85-98); Monocytes # 0.1 10^3/uL (0.2-0.9); Monocytes % 10.2 %; Neutrophils % 49.1 %; Nucleated Red Blood Cells % 3.4 %; Platelet Count 96 10^3/cmm (157-399); Red Blood Count 2.11 10^6/uL (3.85-5.65)
[2024-01-07 17:40] LABS: Mean Platelet Volume 14.4 fL (7.4-10.4)
[2024-01-07 17:41] LABS: White Blood Count 0.59 10^3/uL (3.29-11.43)
[2024-01-07 17:42] LABS: Hematocrit 20.4 % (36-47); Neutrophils # 0.29 10^3/uL (1.8-7.7)
[2024-01-07 17:48] LABS: Ketone (Acetest) Serum Negative (Negative)
[2024-01-07 17:54] LABS: Troponin(5th) Baseline 93 ng/L (0-10)
[2024-01-07 17:55] LABS: Lactic Sepsis W/Reflex 2.7 mmol/L (0.5-2.2)
[2024-01-07 17:57] LABS: Alanine Aminotransferase 11 U/L (0-33); Alkaline Phosphatase 77 U/L (35-105); Anion Gap 18.2 (5-19); Aspartate Amino Transferase 7 U/L (0-32); Blood Urea Nitrogen 25 mg/dL (8-23); Calcium 7.7 mg/dL (8.5-10.5); Carbon Dioxide 24 mmol/L (22-29); Chloride 86 mmol/L (98-107); Globulin 2.1 g/dL (1.3-4.6); Glomerular Filtration Rate 70.9 mL/min (90-130); Glucose 284 mg/dL (65-115); Magnesium 2.3 mg/dL (1.7-2.3); Osmolality Calculated 271 mOsm/kg (285-295); Potassium 5.2 mmol/L (3.5-5.1); Sodium 123 mmol/L (136-145); Total Bilirubin 0.7 mg/dL (0.15-1.2); Total Protein 5.1 g/dL (6.6-8.7)
[2024-01-07 18:04] LABS: Procalcitonin 0.77 ng/mL (0-0.5)
--- NOTE | 2024-01-07 18:46 | ECG_ITS ---
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 Measurements Intervals [place] Rate: 119 P: 57 PA: 148 QRS: 82 QRSD: 101 T: 50 QT: 317 QTc: 447 Interpretive Statements SINUS TACHYCARDIA INCOMPLETE RIGHT BUNDLE BRANCH BLOCK [90+ ms QRS DURATION, TERMINAL R IN V1/V2, 40+ ms S IN I/aVL/V4/V5/V6] MINIMAL ST DEPRESSION [0.025+ mV ST DEPRESSION] Compared to ECG 01/07/2024 16:45:19 Incomplete right bundle-branch block now present ST (T wave) deviation still present Electronically Signed On 01-08-2024 16:12:04 CDT by Gilberto Scott M.D. [id number]
--- NOTE | 2024-01-07 18:55 | PC.NURSE ---
htis nurse called lab, lab to draw blood cultures. waiting on lab draw prior to start abts.
[2024-01-07 19:20] LABS: Reflex Lactate Order REFLEX LACTIC ORDERD
[2024-01-07] MEDS: piperacillin-tazobactam 3.375 GM in sodium chloride 0.9% (plus) 50 ML IV (19:26)
[2024-01-07] MEDS: morphine 4 mg/mL SDV 1 mL IVP (19:47)
[2024-01-07 20:05] LABS: Troponin 5 2HR 89.85 ng/L (0-10)
[2024-01-07 20:12] LABS: Troponin 5 2HR Delta -3.15 ABS# (0-10)
--- NOTE | 2024-01-07 20:51 | PC.NURSE ---
report called to aditya jewell to pedro ramirez rn .
--- NOTE | 2024-01-07 23:07 | ECG_ITS ---
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 Measurements Intervals [place] Rate: 110 P: 56 PA: 145 QRS: 78 QRSD: 100 T: 53 QT: 342 QTc: 463 Interpretive Statements SINUS TACHYCARDIA MINIMAL ST DEPRESSION [0.025+ mV ST DEPRESSION] Compared to ECG 01/07/2024 18:46:35 Incomplete right bundle-branch block no longer present ST (T wave) deviation still present Electronically Signed On 01-08-2024 16:11:14 CDT by Gilberto Scott M.D. [id number]
--- NOTE | 2024-01-07 23:19 | PC.NURSE ---
pt cath bag urine empty at 2300, 700cc urine out. pt continues resting at this time.
[2024-01-08 00:23] VITALS: BP 104/66; PULSE 111; RESP 18; O2SAT 96
[2024-01-08 00:26] LABS: Lactic Acid level (Lactate) 1.8 mmol/L (0.5-2.2); Troponin 5 6HR Delta 4.6 ng/L (0-12)
[2024-01-08] MEDS: morphine 4 mg/mL SDV 1 mL IVP (00:47)
[2024-01-08] MEDS: ondansetron 2 mg/ML SDV 2 mL 4 MG IVP (00:47)
[2024-01-08 00:48] VITALS: BP 103/63; PULSE 111; RESP 18; O2SAT 95
== END 2024-01-08 00:50 | disposition short-term general hospital (02) ==
PROVIDERS: Emergency Provider Emergency Medicine; PCP Family Medicine Adult Medicine
DX: A41.9 Sepsis, unspecified organism (principal); R41.82 Altered mental status, unspecified; E87.1 Hypo-osmolality and hyponatremia; N39.0 Urinary tract infection, site not specified; D64.9 Anemia, unspecified; C80.1 Malignant (primary) neoplasm, unspecified; C79.51 Secondary malignant neoplasm of bone; Z79.85 Long-term (current) use of injectable non-insulin antidiabetic drugs; Z79.84 Long term (current) use of oral hypoglycemic drugs; Z79.01 Long term (current) use of anticoagulants; Z87.891 Personal history of nicotine dependence; I11.0 Hypertensive heart disease with heart failure; I50.9 Heart failure, unspecified; E11.9 Type 2 diabetes mellitus without complications
CPT/HCPCS: 36415; 36416; 36600; 70450; 71045; 80051; 80053; 80306; 81001; 82009; 82330; 82805; 82962; 83605; 83735; 84145; 84484; 85025; 86850; 86900; 87040; 87077; 87086; 87150; 87186; 87205; 93005; 96361; 96365; 96375; 96376; 99285; J2270; J2405; J2543; J7030